=== PATIENT | male | born 1960 | race Caucasian/White ===

== ENCOUNTER → 2024-06-14 | Outpatient (CLI) | payer MEDICAID, SELFPAY ==
--- NOTE | 2024-06-14 16:30 | XR_ITS ---
Examination: CT chest, without intravenous contrast. Sagittal and coronal 2-D reconstructions. Exam date and time: June 14, 2024 1642 hrs. Indications: Smoking history 23 years CTDI:vol (mGy) 15 DLP: (mGycm) 551 Technique: Multiple 3.0 mm axial sections of the chest to been obtained. Bone and lung density settings are obtained. Sagittal and coronal 2-D reconstructions have been obtained. Low dose protocols were performed. One or more of the following dose reduction techniques were used; automated exposure control, adjustment of the mA and/or KV according to patient size, use of iterative reconstruction technique. Findings: No thoracic aortic aneurysm dilatation 12 mm left tracheobronchial lymph node Pulmonary artery segments are not enlarged 4 mm pulmonary nodule right lower lobe No pneumonia or pulmonary edema Small pericardial effusion No focal liver or splenic lesion No pancreatic mass Contracted gallbladder 1 mm nonobstructing left renal calculus Impression: 12 mm left tracheobronchial lymph node 4 mm pulmonary nodule right lower lobe, with this study as baseline recommend continued 6 month follow-up CT chest without contrast
== END | disposition home or self-care (01) ==
PROVIDERS: Referring Provider Physician Assistant; Visit Provider Physician Assistant
DX: Z12.2 Encounter for screening for malignant neoplasm of respiratory organs (principal); R91.1 Solitary pulmonary nodule
CPT/HCPCS: 71271

== ENCOUNTER 2024-08-20 07:55 | Day surgery (SDC) | payer MEDICAID, SELFPAY ==
--- NOTE | 2024-08-18 14:53 | ESHP_ITS ---
RE: EDITH HENDERSON : 1960 DATE OF ADMISSION: 08/20/2024 HISTORY OF PRESENT ILLNESS: A 63-year-old male who was referred to me with history of prostatism, prostatic obstruction and elevated PSA. His PSA is 16.1, nocturia four times, slowing urinary stream. No history of gross hematuria, sometimes little burning. PAST SURGICAL HISTORY: Tonsillectomy. PAST MEDICAL HISTORY: He had a disc problem in the lumbar area and back pain. He has a history of hypertension. SOCIAL HISTORY: He has three children. HOME MEDICATIONS: He takes; 1. Losartan. 2. Spiriva. 3. Gabapentin. 4. Baclofen. 5. Tylenol. 6. Claritin. 7. Tamsulosin 0.4 mg once a day. 8. Nifedipine ER 30 mg a day. ALLERGIES: NONE KNOWN. PHYSICAL EXAMINATION: HEENT: Normal. NECK: Supple. LUNGS: Clear. CARDIOVASCULAR: Heart sounds are normal. ABDOMEN: Soft without any organomegaly. No guarding. The patient is obese. GENITOURINARY: Phallus is normal. Testis are down in the scrotum. RECTAL: Reveals moderately enlarged prostate with some firmness in the right prostatic lobe. IMPRESSION: 1. Prostatism. 2. Prostatic obstruction. 3. Elevated PSA of 16.1. 4. History of hypertension. PLAN: Cystoscopy and transrectal prostatic ultrasound with ultrasound-guided prostatic needle biopsy. Planned procedure, risks, and complications have been discussed with the patient. The patient understood them and agreed to proceed. Thank you very much for your kind referral. cc: [facility] DT: 13:41:15 TT: 14:52:00 Ref: [id number] - TID: [id number]
--- NOTE | 2024-08-19 06:23 | EKG_ITS ---
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
[2024-08-19 08:53] VITALS: BMI 35.4
[2024-08-19 09:28] LABS: Collection Type, Urine Clean Catch
[2024-08-19 09:46] LABS: Bilirubin,Urine Negative (Negative); Blood,Urine Trace (Negative); Clarity,Urine Clear (Clear/Hazy); Color,Urine Lt-Yellow (Lt Yel-Yel); Glucose, Urine Negative (Negative); Hyaline Casts,Urine < 1 /hpf (0-1); Ketones,Urine Negative (Negative); Leukocyte Esterase,Urine Positive (Negative); Nitrite,Urine Negative (Negative); Protein,Urine 1+ (Neg - Trace); RBC,Urine 5 /hpf (0-3); Specific Gravity,Urine 1.019 (1.001-1.035); Squamous Epithelial Cell,Urine 1 /hpf (0-5); Urobilinogen,Urine Negative mg/dL (0.0-1.0); WBC,Urine 83 /hpf (0-5)
[2024-08-19 09:52] LABS: Basophils # (Auto) 0.1 Thou/mm3 (0.0-0.2); Basophils % (Auto) 1 % (0-2.5); Eosinophils # (Auto) 0.3 Thou/mm3 (0.0-0.5); Eosinophils % (Auto) 4 % (0-10); Hematocrit 32.2 % (41.0-53.0); Hemoglobin 10.2 g/dL (13.5-16.0); Immature Granulocytes % (Auto) 0 % (0-0); Immature Granulocytes Auto 0.03 Thou/mm3 (0.00-0.00); Lymphocytes # (Auto) 1.6 Thou/mm3 (1.0-4.8); Lymphocytes % (Auto) 21 % (10-50); Mean Corpuscular HGB Conc 31.7 g/dl (31.0-37.0); Mean Corpuscular Hemoglobin 34.7 pg (25.0-35.0); Mean Corpuscular Volume 110 fL (80-100); Monocytes # (Auto) 0.7 Thou/mm3 (0.0-0.8); Monocytes % (Auto) 9 % (0-12); Neutrophils # (Auto) 5.1 Thou/mm3 (1.8-7.7); Neutrophils % (Auto) 65 % (37-80); Nucleated Red Blood Cell % 0 /100 WBC (0); Platelet Count 235 Thou/mm3 (140-440); RDW Standard Deviation 60.2 fL (35.1-43.9); Red Blood Count 2.94 Miln/mm3 (4.50-5.90); White Blood Count 7.8 Thou/mm3 (3.8-10.6)
[2024-08-19 10:12] LABS: Alanine Aminotransferase 8 U/L (10-49); Albumin, Serum 4.8 gm/dL (3.4-4.8); Albumin/Globulin Ratio 1.5 (1.2-2.2); Alkaline Phosphatase 69 U/L (46-116); Anion Gap 12 (7-16); Aspartate Amino Transferase 12 U/L (0-34); BUN/Creatinine Ratio 14 Ratio (12-20); Bilirubin,Total 0.2 mg/dL (0.3-1.2); Blood Urea Nitrogen 27 mg/dL (9-23); Calcium 9.4 mg/dL (8.3-10.6); Calcium (Corrected) 9.4 mg/dL (8.5-10.1); Carbon Dioxide 20.6 mMol/L (20.0-31.0); Chloride 114 mMol/L (98-107); Estimated Creatinine Clearance 42.3 mL/min (>60); Globulin 3.1 gm/dL (2.3-3.5); Glucose 99 mg/dL (74-106); Osmolality,Calculated 297 (275-295); Potassium 4.9 mMol/L (3.4-5.1); Sodium 147 mMol/L (136-145); Total Protein 7.9 gm/dL (5.7-8.2); eGFR 37 See Note
--- NOTE | 2024-08-19 13:11 | ESHP_ITS ---
RE: EDITH HENDERSON : 1960 DATE OF ADMISSION: 08/20/2024 HISTORY OF PRESENT ILLNESS: The patient is a 63-year-old gentleman with a history of elevated PSA of 16.1, nocturia x4, slow urinary stream, some burning in the urine. PAST SURGICAL HISTORY: Included tonsillectomy. PAST MEDICAL HISTORY: The patient has a history of back pain, history of hypertension. HOME MEDICATIONS: He takes; 1. Losartan. 2. Spiriva. 3. Gabapentin. 4. Baclofen. 5. Tylenol. 6. Claritin. 7. He takes tamsulosin once daily. 8. Nifedipine. ALLERGIES: NONE KNOWN. SOCIAL HISTORY: He has 3 children. PHYSICAL EXAMINATION: HEENT: Normal. NECK: Supple. LUNGS: Clear. CARDIOVASCULAR: Heart sounds are normal. ABDOMEN: Soft. He is obese. GENITOURINARY: Phallus is normal. Testes are down in scrotum. RECTAL: Revealed moderately enlarged prostate with some firmness in the right prostatic lobe. IMPRESSION: 1. Prostatic obstruction. 2. Prostatism. 3. Elevated PSA of 16.1. PLAN: Cystoscopy and transrectal prostatic ultrasound with ultrasound-guided prostatic needle biopsy. Planned procedure, risks, and complications have been discussed with the patient. The patient has understood them and agreed to proceed. DT: 12:12:02 TT: 13:09:00 Ref: [id number] - TID: [id number]
[2024-08-20] VITALS (7 sets, daily range): BP systolic 115–137; BP diastolic 80–98; PULSE 77–104; RESP 12–19; TEMP 36.8–37.1; O2SAT 95–100; BMI 34.6
--- NOTE | 2024-08-20 09:05 | SUR.PREOP ---
Patient expressed gratitude for prayer before their procedure.
--- NOTE | 2024-08-20 10:30 | SUR.PHASEI ---
1030: pt received from OR via [facility]. received report from ESTER Diaz and JULIO White. pt sleepy at this time. no s/s of resp. distress or discomfort. no s/s of pain or discomfort. no bleeding or discharge noted from penis.
--- NOTE | 2024-08-20 10:55 | SUR.PHASEII ---
1055: pt awake, alert and oriented to name, place and time. denies any pain or discomfort. no bleeding or discharge noted from penis.
--- NOTE | 2024-08-20 10:55 | SUR.PHASEI ---
1055: pt ablew to drink water with ice without any difficulty.
--- NOTE | 2024-08-20 11:14 | ESOP_ITS ---
RE: EDITH HENDERSON : 1960 DATE OF OPERATION: 08/20/2024 PREOPERATIVE DIAGNOSES: Prostatism, prostatic obstruction, elevated PSA of 16.1. POSTOPERATIVE DIAGNOSES: Prostatism, prostatic obstruction, elevated PSA of 16.1. PROCEDURES PERFORMED: Cystoscopy, urethral dilatation, transrectal prostatic ultrasound with ultrasound-guided prostatic needle biopsy. ANESTHESIA: Monitored anesthesia by JULIO White INDICATION: The patient is a 63-year-old gentleman who was referred to me with history of nocturia x4, slowing urinary stream, elevated PSA of 16.1. Rectally, he has a moderately sized prostate with some firmness in the right prostatic lobe. He is now scheduled to have cystoscopy and transrectal prostatic ultrasound with ultrasound-guided prostatic needle biopsy. Planned procedure, risks, and complications have been discussed with the patient. The patient understood them and agreed to proceed. DESCRIPTION OF PROCEDURE: After the patient was brought to the operating table under adequate monitored anesthesia given by Mr. Christopher CRNA, he was placed in the dorsal lithotomy position. Parts were prepped and draped in the usual fashion. Cystoscopy was then carried out, which revealed adequate urethral meatus, normal-appearing urethra. Prostatic urethra revealed moderate enlargement of prostate, bilobed. Residual urine is about 2 ounces, yellow and clear and was sent for culture and sensitivity examination. There are no intravesical stones or tumors. Ureteral orifices are found to be normal in position and appearance. Scope was withdrawn. Urethra was dilated. The patient was then turned in left lateral position. Transrectal prostatic ultrasound was carried out. Prostatic volume was measured at 14.6 cubic cm. Biopsies were obtained from both lobes using ultrasound guidance. In all about 10 biopsies were obtained. The patient tolerated the entire procedure well and left the room in good condition. DT: 10:37:19 TT: 11:13:00 Ref: [id number] - TID: [id number]
--- NOTE | 2024-08-20 11:18 | SUR.PHASEII ---
1118: all belongings brought given back to patient.
--- NOTE | 2024-08-20 11:18 | SUR.PHASEII ---
1118: pt discharge to home via wheelchair. pt alert and oriented to name, place and time. no s/s of resp. distress or discomfort. denies any pain or discomfort. no bleeding or discharge noted from penis. discharge instructions given to pt and friend-Leila, verbalizes understanding. pt ambulate to the bathroom. per patient he was able void without any issues.
== END 2024-08-20 11:18 | disposition home or self-care (01) ==
PROVIDERS: Anesthesiology; PCP Family Medicine; Referring Provider Surgery; Visit Provider Surgery
PROC: (CPT 55700; principal; 2024-08-20 10:00)
PROC: 0TJB8ZZ Inspection of Bladder, Via Natural or Artificial Opening Endoscopic (ICD-10-PCS; CPT 52000; 2024-08-20 10:00)
DX: C61 Malignant neoplasm of prostate (principal); N40.1 Benign prostatic hyperplasia with lower urinary tract symptoms; N13.8 Other obstructive and reflux uropathy; R35.1 Nocturia; R39.198 Other difficulties with micturition; I10 Essential (primary) hypertension; Z90.89 Acquired absence of other organs
CPT/HCPCS: 55700; 52000; 36415; 76942; 80053; 81001; 85025; 87086; 93005; A4217; A4649; J0131; J0694; J2250; J3010

== ENCOUNTER → 2024-08-25 | Outpatient (CLI) | payer MEDICAID, SELFPAY ==
--- NOTE | 2024-08-25 10:33 | XR_ITS ---
Examination: MRI lumbar spine without contrast Date and time of exam: August 25, 2024 1131 hours INDICATIONS: Patient fell from a ladder 2004 with injury to the lower back, persistent lower back pain Technique: Multiple MRI axial and sagittal sections lumbar spine. Sagittal T2-weighted images, TR 3500, TE 118 T1 weighted transverse sections, TR 688 T8.5, T2-weighted sagittal sections T1 weighted sagittal sections TR 621, TE 30 T2 axial sections, TR 4, 190, TE 84. Findings: Mild chronic wedging T12 No lumbar fracture Lumbar fusion L4-L5 with satisfactory alignment Grade 1 anterolisthesis L4 on L5 L5-S1 moderate overall spinal stenosis, secondary to the anterolisthesis, 6 mm central lumbar disc bulge extending to the left foraminal region, displacing the left S1 nerve root and producing mild left L5 ganglionic compression L4-L5 no disc protrusion L3-L4 prominent facet arthropathy 3 mm right foraminal disc bulges L2-L3 no disc protrusion L1-L2 no disc protrusion IMPRESSION: L5-S1 moderate overall spinal stenosis, 6 mm central lumbar disc bulge extending to the left foraminal region, displacing the left S1 nerve root and producing mild left L5 ganglionic compression
== END | disposition home or self-care (01) ==
PROVIDERS: PCP Family Medicine; Referring Provider Family Medicine; Visit Provider Family Medicine
DX: M51.370 Other intervertebral disc degeneration, lumbosacral region with discogenic back pain only (principal); M48.07 Spinal stenosis, lumbosacral region; G95.20 Unspecified cord compression
CPT/HCPCS: 72148

== ENCOUNTER 2025-04-08 02:48 | Inpatient (IN) | payer MEDICAID, SELFPAY ==
[2025-04-08] VITALS (26 sets, daily range): BP systolic 115–182; BP diastolic 63–91; PULSE 70–112; RESP 12–22; TEMP 36.4–37.8; O2SAT 95–100; BMI 35.5
--- NOTE | 2025-04-08 02:52 | XR_ITS ---
Examination: CT brain head without contrast. 2-D sagittal coronal reconstructions Date and time of exam: April 08, 2025, 1133 hours INDICATIONS: Altered mental status today CTDI: vol (mGy): 60.1 DLP: (mGycm): 1303 Technique: Multiple CT axial sections of the brain have been obtained, 5 mm slice thickness. Contrast has not been administered. 2-D sagittal, coronal reconstructions have been obtained Low dose protocols were performed. One or more of the following dose reduction techniques were used; automated exposure control, adjustment of the mA and/or KV according to patient size, use of iterative reconstruction technique. Findings: No significant ventricular enlargement. Intra-axial or extra-axial hemorrhage density is not seen. No mass effect or midline shift Basal cisterns are not remarkable. Fourth ventricle is midline. Cranial vault intact. Impression: Negative for acute hemorrhage, mass effect or midline shift Advise clinical correlation and follow-up accordingly
--- NOTE | 2025-04-08 02:53 | XR_ITS ---
EXAMINATION: AP chest single view TECHNIQUE: AP portable semiupright chest single view Date and time: April 08, 2025, 0325 hours INDICATIONS: Chest pain sepsis shortness of breath beginning 2 days ago FINDINGS: Mild prominence cardiac contour Mild vascular congestion. No lobar pneumonia or pulmonary edema Prominent osteopenia IMPRESSION: No lobar pneumonia or pulmonary edema
--- NOTE | 2025-04-08 02:53 | EKG_ITS ---
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
--- NOTE | 2025-04-08 02:55 | PD.EDAMS ---
Altered Mental Status RME/HPI General Chief Complaint: Altered Mental Status Stated Complaint: AMS Time Seen by Provider: 04/08/25 02:52 Arrival date/time: 04/08/25 02:48 RME / HPI RME / HPI narrative: DR. VELEZ MAIN ED EVALUATION: 64 y/o male with Hx of HTN, COPD, CHF, and Emphysema BIBA from home presents to ED c/o decreased mentation and vomiting x3 days. Per , patient is usually GCS 15 and is currently 14. Blood sugar on scene was 80 mg/dL. Per EMS, patient there was no apparent weakness or droop to either side. Both and home appeared disheveled. Neither nor patient are reliable historians. Related Data Home Medications ?Medication ?Instructions ?Recorded ?Confirmed albuterol sulfate 90 mcg/actuation 2 puff inhalation Q6H PRN 04/06/21 08/20/24 aerosol inhaler Shortness Of Breath fluticasone propionate 50 1 spray intranasal QDAY 04/06/21 08/20/24 mcg/actuation nasal spray,suspension loratadine 10 mg tablet 10 mg PO QDAY 04/06/21 08/20/24 acetaminophen 500 mg tablet 500 mg PO Q6H PRN pain 08/19/24 08/20/24 baclofen 10 mg tablet 10 mg PO DAILY PRN muscle spasm 08/19/24 08/20/24 ciprofloxacin HCl 500 mg tablet 500 mg PO Q12H 08/19/24 08/20/24 fluticasone propionate 45 2 inh inhalation Q12H 08/19/24 08/20/24 mcg-salmeterol 21 mcg/actuation HFA inhaler (Advair HFA) gabapentin 300 mg capsule 300 mg PO TID 08/19/24 08/20/24 losartan 100 mg tablet 100 mg PO DAILY 08/19/24 08/20/24 nifedipine 30 mg tablet,extended 30 mg PO DAILY 08/19/24 08/19/24 release tamsulosin 0.4 mg capsule (Flomax) 0.4 mg PO QDAY 08/19/24 08/20/24 tiotropium bromide 18 mcg capsule 1 cap inhalation QDAY 08/19/24 08/20/24 with inhalation device (Spiriva with HandiHaler) Allergies Allergy/AdvReac Type Severity Reaction Status Date / Time No Known Allergies Allergy Verified 08/20/24 08:44 Review of Systems Review of Systems ROS Unobtainable: unobtainable due to mental status Past Medical History Past Medical History CARDIAC: Positive Hypertension RESPIRATORY: Positive Chronic Obstructive Pulmonary Disease (COPD), Bronchitis, Emphysema and Pneumonia GASTROINTESTINAL: Positive Gastrointestinal Disorders and Obesity GENITOURINARY: Positive Genitourinary Disorders and Benign Prostatic Hyperplasia MUSCULOSKELETAL: Positive Musculoskeletal Disorders and Degenerative Disk Disease OTHER HISTORY: Positive Hospitalization (Breathing issues), Shingles and Chicken Pox Family History FAMILY HISTORY: Positive Family Cancer and Family Surgery ED Exam Narrative Physical exam: GEN. APPEARANCE: Patient not aware to place or time. lethargic, aware to self. Appears acutely ill VITALS: All vitals were reviewed and the pulse ox is 95% on room air which is normal according to my interpretation. HEENT: Normocephalic, atraumatic. Pupils are equal and reactive. Oral mucosa is moist. Patent Nares NECK: Supple, nontender, no thyromegaly, no meningismus, no JVD CHEST: Symmetrical, atraumatic, and with equal expansion , Nontender on palpation no deformity and no crepitus. CARDIOVASCULAR: Heart regular rhythm no murmur or gallop rub or extra beats. LUNGS: Patient with sonorous breathing, clear to auscultation bilaterally with symmetrical chest rise. No laboring tachypnea or wheezing. No intercostal subcostal retraction. No rales and no rhonchi. ABDOMEN: Distended, nontender to palpation, no guarding or rebound tenderness. There are no abnormal masses palpated. Active and normal bowel sounds. EXTREMITIES: Nontender. No edema. No cyanosis. Patient has some movement against gravity and good CSM. SKIN: Warm and dry, no jaundice or rashes noted. MUSCULOSKELETAL: No lumbar or midline bony tenderness. There is no CVA tenderness. No paraspinal muscle spasm or tenderness. NEURO: Patient reacts to pain in all 4 extremities, alert and oriented to person and place not situation. Patient extremely sleepy however will lower as a question source. Course Quality Measures none Orders Category Date Time Status Admit to Inpatient Status Routine Admission 04/08/25 07:01 Active Patient Condition Routine Admission 04/08/25 07:01 Ordered 4 HR Behavioral Restraints Q15M Care 04/08/25 06:23 Active Bedside Blood Glucose NOW Care 04/08/25 02:53 Active Bedside COVID-19 Antigen Test NOW Care 04/08/25 02:55 Active Bedside Influenza A&B Antigen Test NOW Care 04/08/25 02:[address] Screening NOW Care 04/08/25 03:25 Active Manager Appointment Q4H START 00 Care 04/08/25 02:53 Active EKG (ED ONLY) *Do not use* NOW Care 04/08/25 03:05 Completed [place] to [place] Routine Care 04/08/25 06:39 Ordered Hemodialysis Urgent Care 04/08/25 05:15 Active Insert IV NOW Care 04/08/25 02:53 Active Strict Intake and Output Routine Care 04/08/25 02:[address] chest abdomen pelvis wo Stat Exams 04/08/25 06:[address] head/brain wo con Stat Exams 04/08/25 02:52 Ordered EKG (ED Only) Stat Exams 04/08/25 03:05 Ordered US retroperitoneal comp Stat Exams 04/08/25 06:26 Taken XR chest 1V SEPSIS PROTOCOL Stat Exams 04/08/25 02:53 Taken XR chest 1V post procedure Stat Exams 04/08/25 05:53 Taken ABG [Arterial Blood Gas] Stat Lab 04/08/25 04:01 Completed ABG [Arterial Blood Gas] Stat Lab 04/08/25 06:11 Completed Acetaminophen Stat Lab 04/08/25 03:00 Completed Ammonia Stat Lab 04/08/25 03:00 Completed Blood Culture (Lab) Stat Lab 04/08/25 03:00 Received CBC Stat Lab 04/08/25 03:00 Completed Comprehensive Metabolic Panel Stat Lab 04/08/25 03:00 Completed Free T4 (Free Thyroxine) Stat Lab 04/08/25 03:00 Completed Lactate (Lactic Acid) Stat Lab 04/08/25 03:10 Completed Partial Thromboplastin Time Stat Lab 04/08/25 03:00 Completed Procalcitonin Stat Lab 04/08/25 03:00 Completed Prothrombin Time with INR Stat Lab 04/08/25 03:00 Completed Renal Function Panel Stat Lab 04/08/25 11:00 Ordered Salicylate Stat Lab 04/08/25 03:00 Completed TSH [Thyroid Stimulating Hormone] Stat Lab 04/08/25 03:00 Completed Troponin I Stat Lab 04/08/25 03:00 Completed UA, C/S IF [Urinalysis, C/S if Indicated] Stat Lab 04/08/25 06:40 Ordered Urine Culture Stat Lab 04/08/25 06:40 Ordered ALBUTEROL RT 0.5ml [Proventil Rt 0.5ml] Med 04/08/25 04:36 Discontinued 2.5 mg INH X1 ONE Calcium Gluconate 10% Inj Med 04/08/25 04:32 Discontinued 1 gm IV X1 ONE Dextrose 5%-Water [D5w] 500 ml Med 04/08/25 07:00 Pending Sodium Bicarb 8.4% 50ml Vial* 88.23 meq IV 100 mls/hr Dextrose 5%-Water [D5w] 500 ml Med 04/08/25 07:15 Active Sodium Bicarb 8.4% 50ml Vial* 88.23 meq IV 100 mls/hr Dextrose 50% Syr [D50w Syringe Abboject] Med 04/08/25 04:32 Discontinued 100 ml IVP X1 ONE Dextrose 50% Syr [D50w Syringe Abboject] Med 04/08/25 03:07 Discontinued 50 ml IVP X1 ONE Dextrose 50% Syr [D50w Syringe Abboject] Med 04/08/25 03:24 Discontinued 50 ml IVP X1 ONE Dextrose 50% Syr [D50w Syringe Abboject] Med 04/08/25 05:07 Discontinued 50 ml IVP X1 ONE Glucagon Inj Med 04/08/25 04:19 Discontinued 5 mg IVP X1 ONE Insulin Regular Med 04/08/25 04:32 Discontinued 10 unit IV X1 ONE Lidocaine 1% Vial 20 ml [Xylocaine 1% 20 ML] Med 04/08/25 05:22 Discontinued 20 ml .ROUTE .STK-MED ONE Patiromer Calcium [Veltassa] Med 04/08/25 05:14 Discontinued 8.4 gm PO X1 ONE Ringers Lactated 1000 ml [Lactated Ringers] 1,000 ml Med 04/08/25 04:30 Discontinued IV 999 mls/hr Sodium Bicarb 8.4% 50ml Vial* Med 04/08/25 04:49 Discontinued 50 meq IV X1 ONE EKG (RT) Stat RT 04/08/25 02:53 Draft Oxygen Delivery NOW RT 04/08/25 02:53 Active Vital Signs Vital signs: Vital Signs Pulse Rate 108 H 04/08/25 02:49 Respiratory Rate 20 04/08/25 02:49 Blood Pressure 158/65 H 04/08/25 02:49 Pulse Oximetry (%) 96 04/08/25 02:49 Oxygen Delivery Method Room Air 04/08/25 02:49 PROCEDURES: Procedure Comment Right IJ Dialysis Line: Time Out Performed: Yes Patient Placed on Monitor/Pulse Ox: Yes Hand Hygiene: scrub, soap & water and alcohol-based hand rub Max Sterile Barrier Techniques used: cap, mask, sterile gown, sterile gloves and sterile full body drape Central Line Prep: Povidone-Iodine 1% Local Anesthetic: lidocaine 1% Ultrasound Used for Placement: Yes Sterile Technique if Ultrasound used, including sterile gel: yes Dialysis Line Lumen Inserted: triple dialysis catheter Post Procedure: sutured in place, good blood return, all ports aspirated, flushed, capped and sterile dressing applied Post Procedure X-Ray: tip of catheter in good position and no pneumothorax seen Patient Tolerated Procedure: no complications Complications: none Altered Mental Status MDM Narrative MDM Narrative:: Scribe Attestation: Evelin Duke, am scribing for and in the presence of Dr. Velez. Provider Notation: Although this document has been carefully reviewed, there may still be some phonetic and other typographical errors. These errors are purely grammatical due to imperfections in the software program and should not be construed in any way to compromise the substance of the patient's medical care during this visit. Patient is a 64-year-old male with medical history notable for chronic pain, hypertension that send emergency department altered mental status for the last 2 days. Patient also with sonorous breathing. Vital signs and exam as listed. Patient alert and oriented to person and place however not situation. Patient is lethargic, however arouses to voice. Concern for intracranial hemorrhage, pneumonia, intra-abdominal pathology obstruction, ACS arrhythmia urinary tract infection, among others. Ordered labs, CT head, EKG. Labs with leukocytosis 10.8, left shift of 81%. Hemoglobin 8.0, previously 12. No signs of bleeding. Blood gas with pH of 7.1, bicarb 15, pCO2 normal, patient with metabolic acidosis. Labs notable for a potassium of 7.8, bicarb of 14, creatinine of 4.7. Patient's renal function previously was normal. Lactic acid was normal. No transaminitis and ammonia level normal troponin not elevated procalcitonin normal thyroid studies unremarkable. Salicylate and Tylenol level not elevated. ordered medical dialysis with calcium gluconate, insulin, dextrose, and an amp of bicarb. Also ordered a liter of fluids. Placed the dialysis catheter emergently. Patient is altered and is unable to give consent. Discussed with Dr Swann on-call mechanotherapist kindly placed dialysis orders. Discussed case with ICU, kindly accepts patient for admission. Patient data External records reviewed:: [facility] previous records (Reviewed prior ED records from 04/06/21. Patient was seen for Acute exacerbation of chronic obstructive airways disease.) and EMS form Clinical information provided by:: EMS Social determinants that could affect healthcare access:: none Patient has the following chronic illnesses:: Hypertension, Chronic Obstructive Pulmonary Disease (COPD), Emphysema, Obesity, Benign Prostatic Hyperplasia, Degenerative Disk Disease How is presenting disease/condition affected by chronic disease/condition?: exacerbated by Evaluation data The following diagnostics were reviewed and interpreted by me:: lab results, radiology exam(s) and EKG tracing(s) (EKG done at xxxx, bpm, normal intervals, non-specific T-wave changes, not a cardiac alert. - Interpreted by Dr. Rayna Velez.) Lab and/or radiology exams considered but not ordered:: None Interpretation Summary: RADIOLOGY Chest X-Ray: Pending official radiology report. Post-Procedure Chest X-Ray: Pending official radiology report. Chest/Abdomen/Pelvis CT: Pending official radiology report. Head/Brain CT: Pending official radiology report. Medications / Prescriptions Medications or Prescriptions considered but not ordered:: None Medication administrations:: Medication Administration History Sodium Bicarbonate 88.23 meq/ (Dextrose) 588.23 mls @ 100 mls/hr IV .Q5H53M OLI Stop: 05/08/25 06:59 Sodium Bicarbonate 88.23 meq/ (Dextrose) 588.23 mls @ 100 mls/hr IV .Q5H53M ONE Stop: 04/08/25 13:07 Discontinued Medications Albuterol (Albuterol Rt 2.5 Mg/0.5 Ml Nebu) 2.5 mg INH X1 ONE Stop: 04/08/25 04:37 Last Admin: 04/08/25 04:53 Dose: 2.5 mg Documented By: [email or web address] Calcium Gluconate (Calcium Gluconate 10% Inj 1 Gm/10 Ml Vial) 1 gm IV X1 ONE Stop: 04/08/25 04:33 Last Admin: 04/08/25 05:09 Dose: 1 gm Documented By: Dextrose (Dextrose 50%-Water Inj 50 Ml Syringe) 50 ml IVP X1 ONE Stop: 04/08/25 03:08 Last Admin: 04/08/25 03:22 Dose: Not Given Documented By: SR Non-Admin Reason: Cancelled by Provider Dextrose (Dextrose 50%-Water Inj 50 Ml Syringe) 50 ml IVP X1 ONE Stop: 04/08/25 03:25 Last Admin: 04/08/25 04:03 Dose: 50 ml Documented By: Dextrose (Dextrose 50%-Water Inj 50 Ml Syringe) 100 ml IVP X1 ONE Stop: 04/08/25 04:33 Last Admin: 04/08/25 05:01 Dose: 100 ml Documented By: Dextrose (Dextrose 50%-Water Inj 50 Ml Syringe) 50 ml IVP X1 ONE Stop: 04/08/25 05:08 Last Admin: 04/08/25 05:07 Dose: 50 ml Documented By: Glucagon (Glucagon Inj 1 Mg Vial) 5 mg IVP X1 ONE Stop: 04/08/25 04:20 Last Admin: 04/08/25 06:44 Dose: Not Given Documented By: SR Non-Admin Reason: Cancelled by Provider Lactated Ringer's (Lactated Ringers) 1,000 mls @ 999 mls/hr IV .Q1H1M ONE Stop: 04/08/25 05:30 Last Admin: 04/08/25 05:10 Dose: 999 mls/hr Documented By: Insulin Human Regular (Insulin Hum Regular 1 Unit/0.01 Ml (Per Unit)) 10 unit 0.1 unit/kg (10 unit) IV X1 ONE Stop: 04/08/25 04:33 Last Admin: 04/08/25 05:03 Dose: 10 unit Documented By: Co-signed By: MARTHA Lidocaine HCl (Lidocaine Hcl 1% 20 Ml Vial) Confirm Administered Dose 20 ml .ROUTE .STK-MED ONE Stop: 04/08/25 05:23 Patiromer (Patiromer Calcium 8.4 Gm Packet) 8.4 gm PO X1 ONE Stop: 04/08/25 05:15 Last Admin: 04/08/25 06:44 Dose: Not Given Documented By: Non-Admin Reason: Cancelled by Provider Sodium Bicarbonate (Sodium Bicarb Inj 8.4% 1 Meq/Ml 50 Ml Vial) 50 meq IV X1 ONE Stop: 04/08/25 04:50 Last Admin: 04/08/25 05:11 Dose: 50 meq Documented By: SR See above if any. Consultations Consultation(s) initiated? (list below): Yes Consultation #1 (Physician, Specialty, Details): Discussed with Dr. Swann for ICU admission. Reviewed the patient?s HPI, PMHx, lab and/or radiology results. Discussed treatment plan. Will consult an admission to the smt technician. Time: 05:00 Consultation #2 (Physician, Specialty, Details): Discussed with smt technician for ICU admission. Reviewed the patient?s HPI, PMHx, lab and/or radiology results. Discussed treatment plan. Will accept patient for admission. Time: 06:52 Diagnosis Differential diagnosis altered mental status: altered mental status, delirium, hypoglycemia, hyponatremia, subarachnoid hemorrhage, sepsis and other (DKA, ESRD) Most likely diagnosis given after review of the tests above:: Acute renal failure, Acute hyperkalemia, Altered mental status, Metabolic acidosis Admission Indicated Admission indicated?: indicated Explain why admission is indicated or not indicated:: Acute renal failure, Acute hyperkalemia, Altered mental status, Metabolic acidosis Admission Request Was there a request for admission?: Yes Admission Attestation Admission request attestation: Discussed case with Hospitalist service regarding admission. Discussed patients ED course, exam findings, labs, and radiology results. The Hospitalist [agrees] to accept the patient for admission. Disposition Plan Disposition Plan: Admit Critical Care Time Critical Care Time Critical Care Time: Yes Total Critical Care Time (min.): 120 Attestation: The high probability of sudden, clinically significant deterioration in the patient?s condition required the highest level of my preparedness to intervene urgently. The services I provided to this patient were to treat and/or prevent clinically significant deterioration. Services included the following: chart data review, reviewing nursing notes and/or old charts, documentation time, email production consultant collaboration regarding findings and treatment options, medication orders and management, direct patient care, vital sign assessments and ordering, interpreting and reviewing diagnostic studies and lab tests. Aggregate critical care time includes only time during which I was engaged in work directly related to the patient?s care, as described above, whether at bedside or elsewhere in the Emergency Department. It did not include time spent performing other reported procedures or the services of residents, students, nurses or physician assistants. Discharge Plan Prescriptions/Referrals Prescriptions/Med Rec: No Action albuterol sulfate 90 mcg/actuation Hfa Aerosol Inhaler 2 puff INHALATION Q6H PRN (Reason: Shortness Of Breath) fluticasone propionate 50 mcg/actuation [place],Suspension 1 spray INTRANASAL QDAY loratadine 10 mg Tablet 10 mg PO QDAY acetaminophen 500 mg tablet 500 mg PO Q6H PRN (Reason: pain) Patient Comments: TAKE 1 TABLET BY MOUTH EVERY 6 HOURS NEEDED FOR 14 DAYS tamsulosin [Flomax] 0.4 mg capsule 0.4 mg PO QDAY ciprofloxacin HCl 500 mg tablet 500 mg PO Q12H Patient Comments: TAKE 1 TABLET BY MOUTH TWICE A DAY. START ON Fri08/18/2024 losartan 100 mg tablet 100 mg PO DAILY Patient Comments: TAKE 1 TABLET BY MOUTH EVERY DAY FOR 90 DAYS nifedipine 30 mg tablet extended release 30 mg PO DAILY gabapentin 300 mg capsule 300 mg PO TID Patient Comments: TAKE 1 CAPSULE BY MOUTH THREE TIMES A DAY baclofen 10 mg tablet 10 mg PO DAILY PRN (Reason: muscle spasm) Patient Comments: TAKE 1 TABLET BY MOUTH EVERY DAY NEEDED FOR 90 DAYS tiotropium bromide [Spiriva with HandiHaler] 18 mcg capsule, w/inhalation device 1 cap inhalation QDAY Rx Instructions: puncture 1 cap using device; one dose = 2 inhalations fluticasone propion-salmeterol [Advair HFA] 45-21 mcg/actuation HFA aerosol inhaler 2 inh inhalation Q12H Referrals: Yosi Jenkins MD [Primary Care Provider] - In 1 week Problem List Clinical Impression: Acute renal failure, Acute hyperkalemia, Altered mental status, Metabolic acidosis Patient/Caregiver Discharge Instructions Print Language: Swedish
[2025-04-08 03:34] LABS: Lactate (Lactic Acid) 1.7 mMol/L (0.4-2.0)
[2025-04-08 03:38] LABS: Basophils # (Auto) 0.1 Thou/mm3 (0.0-0.2); Basophils % (Auto) 1 % (0-2.5); Eosinophils # (Auto) 0.1 Thou/mm3 (0.0-0.5); Eosinophils % (Auto) 1 % (0-10); Hematocrit 25.9 % (41.0-53.0); Hemoglobin 8.0 g/dL (13.5-16.0); Immature Granulocytes Auto 0.28 Thou/mm3 (0.00-0.00); Lymphocytes # (Auto) 1.1 Thou/mm3 (1.0-4.8); Lymphocytes % (Auto) 10 % (10-50); Mean Corpuscular HGB Conc 30.9 g/dl (31.0-37.0); Mean Corpuscular Hemoglobin 36.4 pg (25.0-35.0); Mean Corpuscular Volume 118 fL (80-100); Monocytes # (Auto) 0.6 Thou/mm3 (0.0-0.8); Monocytes % (Auto) 6 % (0-12); Neutrophils # (Auto) 8.8 Thou/mm3 (1.8-7.7); Neutrophils % (Auto) 81 % (37-80); Nucleated Red Blood Cell # 0.03 Thou/mm3 (0.00-0.00); Nucleated Red Blood Cell % 0 /100 WBC (0); Platelet Count 201 Thou/mm3 (140-440); RDW Standard Deviation 63.4 fL (35.1-43.9); Red Blood Count 2.20 Miln/mm3 (4.50-5.90); White Blood Count 10.8 Thou/mm3 (3.8-10.6)
[2025-04-08 03:52] LABS: INR 1.0 (0.9-1.3); Partial Thromboplastin Time 24.8 Seconds (22.0-36.0); Prothrombin Time 10.4 Seconds (9.0-12.2)
[2025-04-08] MEDS: DEXTROSE 50%-WATER INJ 50 ML SYRINGE IVP ×3 (04:03→07:31)
[2025-04-08 04:04] LABS: Ammonia 14 uMol/L (11-32)
[2025-04-08 04:08] LABS: Base Excess -14 (-3-3); HCO3 13 mEq/L (20-26); O2 Saturation 96 % (91-98); PCO2 35 mmHg (32.0-48.0); PO2 85 mmHg (83-108)
[2025-04-08 04:10] LABS: Inspired Oxygen, FIO2 21 %
[2025-04-08 04:13] LABS: Allen Test Performed/OK; Puncture Site Right Radial; pH, Arterial 7.19 (7.35-7.45)
[2025-04-08 04:28] LABS: Acetaminophen < 2.0 mcg/mL (10.0-20.0); Alanine Aminotransferase 41 U/L (10-49); Albumin, Serum 4.6 gm/dL (3.4-4.8); Albumin/Globulin Ratio 1.6 (1.2-2.2); Alkaline Phosphatase 69 U/L (46-116); Anion Gap 13 (7-16); Aspartate Amino Transferase 34 U/L (0-34); BUN/Creatinine Ratio 16 Ratio (12-20); Bilirubin,Total 0.4 mg/dL (0.3-1.2); Blood Urea Nitrogen 73 mg/dL (9-23); Calcium 8.6 mg/dL (8.3-10.6); Calcium (Corrected) 8.6 mg/dL (8.5-10.1); Chloride 117 mMol/L (98-107); Creatinine (Component) 4.7 mg/dL (0.6-1.3); Estimated Creatinine Clearance 17.8 mL/min (>60); Free T4 (Free Thyroxine) 0.91 ng/dL (0.89-1.76); Globulin 2.9 gm/dL (2.3-3.5); Glucose 74 mg/dL (74-106); Osmolality,Calculated 307 (275-295); Procalcitonin 0.39 ng/ml (0.0-0.49); Salicylate < 3.0 mg/dL; Sodium 144 mMol/L (136-145); Thyroid Stimulating Hormone 0.90 uIU/mL (0.55-4.78); Total Protein 7.5 gm/dL (5.7-8.2); Troponin I < 0.020 ng/mL (0.0-0.045); eGFR 13 See Note
[2025-04-08 04:31] LABS: Carbon Dioxide 14.0 mMol/L (20.0-31.0); Potassium 7.8 mMol/L (3.4-5.1)
[2025-04-08] MEDS: ALBUTEROL RT 2.5 MG/0.5 ML NEBU INH (04:53)
[2025-04-08] MEDS: DEXTROSE 50%-WATER INJ 50 ML SYRINGE 100 ML IVP (05:01)
[2025-04-08] MEDS: INSULIN HUM REGULAR 1 UNIT/0.01 ML (PER UNIT) 10 UNIT IV (05:03)
[2025-04-08] MEDS: CALCIUM GLUCONATE 10% INJ 1 GM/10 ML VIAL IV (05:09)
[2025-04-08] MEDS: RINGERS LACTATED 1000 ML 1,000 ML 999 ML IV (05:10)
[2025-04-08] MEDS: SODIUM BICARB INJ 8.4% 1 mEq/ML 50 ML VIAL 50 MEQ IV (05:11)
--- NOTE | 2025-04-08 05:17 | PC.NURSE ---
Dr. Hyatt at bedside attempting a triple lumen access for patient. Time out completed. Medications administered as ordered by .
--- NOTE | 2025-04-08 05:53 | XR_ITS ---
EXAMINATION: AP chest single view TECHNIQUE: AP portable semiupright chest single view Date and time: April 08, 2025, 0607 hours INDICATIONS: Post temporary dialysis catheter placement FINDINGS: Right internal jugular temporary dialysis catheter tip SVC satisfactory position, no pneumothorax Mild to moderate cardiac contour with moderate vascular congestion No lobar pneumonia Prominent osteopenia IMPRESSION: Right internal jugular temporary dialysis catheter tip SVC satisfactory position No pneumothorax
[2025-04-08 06:15] LABS: Base Excess -10 (-3-3); HCO3 17 mEq/L (20-26); Inspired O2, VO2 Liters 5 L/min; O2 Saturation 99 % (91-98); PCO2 39 mmHg (32.0-48.0); PO2 117 mmHg (83-108); pH, Arterial 7.24 (7.35-7.45)
[2025-04-08 06:18] LABS: Allen Test Performed/OK; Puncture Site Right Radial
--- NOTE | 2025-04-08 06:26 | XR_ITS ---
Examination: Retroperitoneal ultrasound, complete Technique: Multiple high resolution grayscale images of the retroperitoneum obtained, including kidneys and bladder. Exam date and time: April 08, 2025, 1453 hours INDICATIONS: Acute renal insufficiency on laboratory examination this week. FINDINGS: Right kidney obscured by bowel gas Left kidney 14.5 cm cortex 1.6 cm Severe renal scarring 7.5 cm lower pole cyst Bladder contracted around a Gómez catheter IMPRESSION: Limited study, no diagnostic visualization right kidney obscured by bowel gas Severe scarring left kidney
--- NOTE | 2025-04-08 06:45 | XR_ITS ---
Examination: CT chest, without intravenous contrast. CT abdomen, without intravenous contrast. CT pelvis, without intravenous contrast. 2-D sagittal and coronal reconstructions. 3-D reconstructions. Date and time of exam: April 08, 2025, 1137 hours, comparison 2024 INDICATIONS: Altered mental status today shortness of breath coughing congestion abdominal pain CTDI vol (mgy) 16.4 DLP (MGycm) 1268 Technique: Multiple CT images, 3.0 mm slice thickness, obtained chest, abdomen, pelvis, with the high-resolution 64 slice scanner.. Sagittal and coronal 2-D reconstructions are obtained. 3-D reconstructions Low dose protocols were performed. One or more of the following dose reduction techniques were used; automated exposure control, adjustment of the mA and/or KV according to patient size, use of iterative reconstruction technique. Findings: No thoracic aortic aneurysmal dilatation Stable 12 mm tracheobronchial lymph node No thoracic aortic aneurysm dilatation Pulmonary artery segments are not enlarged Mild calcification left anterior descending coronary artery Stable 4 mm pulmonary nodule right lower lobe Soft densities in the right upper lobe consistent with early pneumonia No visualized liver or splenic lesion Gallbladder is not visualized No pancreatic or adrenal mass 6.5 cm left renal cyst Right pelvic kidney with tiny 1 to 2 mm renal calculi, no hydronephrosis No bowel obstruction No pericecal inflammatory change No diverticulitis Urinary bladder contracted around a Gómez catheter Mild prostatomegaly Severe osteopenia with fusion L4-L5 and advanced degenerative disc disease L5-S1 IMPRESSION: Early right upper lobe pneumonia Stable 4 mm pulmonary nodule right lower lobe No pulmonary edema Large left renal cyst Right pelvic kidney with tiny calculi but no hydronephrosis No bowel obstruction or diverticulitis
--- NOTE | 2025-04-08 07:15 | PD.RESHP ---
Documentation for date of: 04/08/25 Exam Vital Signs Temp Pulse Resp BP Pulse Ox O2 Del Method O2 Flow Rate 99.2 F 93 12 123/83 98 Oxy Mask 3 04/08/25 06:22 04/08/25 06:22 04/08/25 06:22 04/08/25 06:22 04/08/25 06:22 04/08/25 06:22 04/08/25 06:22 Results: Labs 04/08/25 03:00 04/08/25 03:00 Labs: Short CBC 04/08/25 Range/Units 03:00 WBC 10.8 H (3.8-10.6) Thou/mm3 Hgb 8.0 L (13.5-16.0) g/dL Hct 25.9 L (41.0-53.0) % Plt Count 201 (140-440) Thou/mm3 BMP 04/08/25 03:00 Sodium 144 Potassium 7.8 H* Chloride 117 H Carbon Dioxide 14.0 L* BUN 73 H Creatinine 4.7 H* Glucose 74 Calcium 8.6 Cardiac Enzymes 04/08/25 Range/Units 03:00 Troponin I < 0.020 (0.0-0.045) ng/mL Liver Function 04/08/25 Range/Units 03:00 Total Bilirubin 0.4 (0.3-1.2) mg/dL AST 34 (0-34) U/L ALT 41 (10-49) U/L Alkaline Phosphatase 69 (46-116) U/L Albumin 4.6 (3.4-4.8) gm/dL ABG Interpretation ABG results: 04/08/25 04/08/25 04:01 06:11 ABG pH 7.19 L* 7.24 L ABG pCO2 35 39 ABG pO2 85 117 H D ABG HCO3 13 L 17 L ABG O2 Saturation 96 99 H ABG Base Excess -14 L -10 L Quality Measures Quality Measures none Medications Home Medications and Allergies Home Medications ?Medication ?Instructions ?Recorded ?Confirmed ?Type albuterol sulfate 90 mcg/actuation 2 puff inhalation Q6H PRN 04/06/21 08/20/24 History aerosol inhaler Shortness Of Breath fluticasone propionate 50 1 spray intranasal QDAY 04/06/21 08/20/24 History mcg/actuation nasal spray,suspension loratadine 10 mg tablet 10 mg PO QDAY 04/06/21 08/20/24 History acetaminophen 500 mg tablet 500 mg PO Q6H PRN pain 08/19/24 08/20/24 History baclofen 10 mg tablet 10 mg PO DAILY PRN muscle spasm 08/19/24 08/20/24 History ciprofloxacin HCl 500 mg tablet 500 mg PO Q12H 08/19/24 08/20/24 History fluticasone propionate 45 2 inh inhalation Q12H 08/19/24 08/20/24 History mcg-salmeterol 21 mcg/actuation HFA inhaler (Advair HFA) gabapentin 300 mg capsule 300 mg PO TID 08/19/24 08/20/24 History losartan 100 mg tablet 100 mg PO DAILY 08/19/24 08/20/24 History nifedipine 30 mg tablet,extended 30 mg PO DAILY 08/19/24 08/19/24 History release tamsulosin 0.4 mg capsule (Flomax) 0.4 mg PO QDAY 08/19/24 08/20/24 History tiotropium bromide 18 mcg capsule 1 cap inhalation QDAY 08/19/24 08/20/24 History with inhalation device (Spiriva with HandiHaler) Allergies Allergy/AdvReac Type Severity Reaction Status Date / Time No Known Allergies Allergy Verified 08/20/24 08:44 Visit Medications Sodium Bicarbonate 88.23 meq/ (Dextrose) 588.23 mls @ 100 mls/hr IV .Q5H53M OLI Stop: 05/08/25 06:59 Sodium Bicarbonate 88.23 meq/ (Dextrose) 588.23 mls @ 100 mls/hr IV .Q5H53M ONE Stop: 04/08/25 13:07 Discontinued Medications Albuterol (Albuterol Rt 2.5 Mg/0.5 Ml Nebu) 2.5 mg INH X1 ONE Stop: 04/08/25 04:37 Last Admin: 04/08/25 04:53 Dose: 2.5 mg Calcium Gluconate (Calcium Gluconate 10% Inj 1 Gm/10 Ml Vial) 1 gm IV X1 ONE Stop: 04/08/25 04:33 Last Admin: 04/08/25 05:09 Dose: 1 gm Dextrose (Dextrose 50%-Water Inj 50 Ml Syringe) 50 ml IVP X1 ONE Stop: 04/08/25 03:08 Last Admin: 04/08/25 03:22 Dose: Not Given Dextrose (Dextrose 50%-Water Inj 50 Ml Syringe) 50 ml IVP X1 ONE Stop: 04/08/25 03:25 Last Admin: 04/08/25 04:03 Dose: 50 ml Dextrose (Dextrose 50%-Water Inj 50 Ml Syringe) 100 ml IVP X1 ONE Stop: 04/08/25 04:33 Last Admin: 04/08/25 05:01 Dose: 100 ml Dextrose (Dextrose 50%-Water Inj 50 Ml Syringe) 50 ml IVP X1 ONE Stop: 04/08/25 05:08 Last Admin: 04/08/25 05:07 Dose: 50 ml Glucagon (Glucagon Inj 1 Mg Vial) 5 mg IVP X1 ONE Stop: 04/08/25 04:20 Last Admin: 04/08/25 06:44 Dose: Not Given Lactated Ringer's (Lactated Ringers) 1,000 mls @ 999 mls/hr IV .Q1H1M ONE Stop: 04/08/25 05:30 Last Admin: 04/08/25 05:10 Dose: 999 mls/hr Insulin Human Regular (Insulin Hum Regular 1 Unit/0.01 Ml (Per Unit)) 10 unit 0.1 unit/kg (10 unit) IV X1 ONE Stop: 04/08/25 04:33 Last Admin: 04/08/25 05:03 Dose: 10 unit Patiromer (Patiromer Calcium 8.4 Gm Packet) 8.4 gm PO X1 ONE Stop: 04/08/25 05:15 Last Admin: 04/08/25 06:44 Dose: Not Given Sodium Bicarbonate (Sodium Bicarb Inj 8.4% 1 Meq/Ml 50 Ml Vial) 50 meq IV X1 ONE Stop: 04/08/25 04:50 Last Admin: 04/08/25 05:11 Dose: 50 meq
[2025-04-08 07:17] LABS: Collection Type, Urine Catheter
[2025-04-08] MEDS: LIDOCAINE HCL 1% 20 ML VIAL IM (07:23)
[2025-04-08 07:31] LABS: Bacteria,Urine Rare; Bilirubin,Urine Negative (Negative); Blood,Urine Trace (Negative); Clarity,Urine Clear (Clear/Hazy); Color,Urine Lt-Yellow (Lt Yel-Yel); Glucose, Urine Negative (Negative); Hyaline Casts,Urine < 1 /hpf (0-1); Ketones,Urine Trace (Negative); Leukocyte Esterase,Urine Positive (Negative); Nitrite,Urine Negative (Negative); PH,Urine 5.5 (5.0-7.0); Protein,Urine 1+ (Neg - Trace); RBC,Urine 3 /hpf (0-3); Specific Gravity,Urine 1.019 (1.001-1.035); Squamous Epithelial Cell,Urine 1 /hpf (0-5); Urobilinogen,Urine Negative mg/dL (0.0-1.0); WBC,Urine 31 /hpf (0-5)
--- NOTE | 2025-04-08 08:06 | PC.NURSE ---
patient taken to ICU at this time
--- NOTE | 2025-04-08 08:11 | PC.NURSE ---
patient was taken to dialysis at this time
--- NOTE | 2025-04-08 08:28 | PC.NURSE ---
SISTER JOSE ALEJANDRO [phone]
[2025-04-08 08:35] LABS: Culture Indicated,Urine Yes
[2025-04-08] MEDS: HEPARIN SOD INJ 1000 UNIT/ML VIAL 10 ML 2600 UNIT INDWELLCAT (10:25)
--- NOTE | 2025-04-08 10:43 | PC.NURSE ---
patient brought back from dialysis
--- NOTE | 2025-04-08 10:50 | PC.NURSE ---
patient was taken to dialysis at 0811 was unable to chart wrist restraints because patient was upstairs patient returned form dialysis at 1043 and behavioral restraint order time passed. talked to dr allison and will now be placing patient on medical restraints
[2025-04-08] MEDS: Sodium Bicarb 8.4% 50ml Vial* 88.23 MEQ in DEXTROSE 5%-WATER 500 ML 100 MEQ IV (11:00)
[2025-04-08] MEDS: HEPARIN SOD INJ 5000 UNIT/ML VIAL SC ×2 (11:00→20:11)
[2025-04-08 12:03] LABS: Albumin, Serum 4.2 gm/dL (3.4-4.8); Anion Gap 15 (7-16); BUN/Creatinine Ratio 16 Ratio (12-20); Blood Urea Nitrogen 52 mg/dL (9-23); Calcium 8.5 mg/dL (8.3-10.6); Calcium (Corrected) 8.5 mg/dL (8.5-10.1); Carbon Dioxide 22.7 mMol/L (20.0-31.0); Chloride 108 mMol/L (98-107); Creatinine (Component) 3.2 mg/dL (0.6-1.3); Estimated Creatinine Clearance 26.1 mL/min (>60); Glucose 90 mg/dL (74-106); Osmolality,Calculated 304 (275-295); Phosphorous 4.7 mg/dL (2.4-5.1); Potassium 5.3 mMol/L (3.4-5.1); Sodium 146 mMol/L (136-145); eGFR 21 See Note
--- NOTE | 2025-04-08 14:01 | ESHP_ITS ---
<Statement entered by Ramon Bradford MD - 04/09/25 16:16> Patient was seen and examined at bedside. Agree on the assessnent and plan on this note. - Patient's plan and care discussed with my attending, Dr. Des Bradford MD Internal Medicine PGY-3 Documentation for date of: 04/08/25 HPI History of Present Illness Chief complaint: Hyperkalemia, New HD History of present illness: 64 y/o male with Hx of HTN, COPD, CKD BIBA from home presents to ED c/o decreased mentation and vomiting x3 days. History largely taken from chart review as when patient was examined and assessed on admission, was lethargic and was hardly responding verbally. Per , patient is usually GCS 15 and is currently 14. Blood sugar on scene was 80 mg/dL. Per EMS, patient there was no apparent weakness or droop to either side. Patient was noted to not be a reliable historian. Patient was found to have potassium of 7.8 and was given hyperkalemic cocktail including albuterol, insulin, dextrose, calcium gluconate. Patient nodded no when asked if he has ever had dialysis before. Patient had a temporary dialysis line inserted for immediate HD, Dr. Swann consulted. Past Medical History: above Family History: n/a Surgical History: tonsillectomy Social History: has 3 children, Current Medications: Med Rec ordered (patient unable to speak adequately for history) Allergies: No known drug allergies ED Course: -Initial vitals were blood pressure 158/65, pulse 108, respiratory rate 20, temperature 99.1, oxygen saturation 96% on room air. -Labs significant for WBC 10.8, hemoglobin 8.0, MCV 118, ABG #1 showed pH 7.19, bicarb 13; ABG #2 showed pH 7.24, bicarb 17, potassium 7.8, chloride 117, bicarb 14.0, BUN 73, creatinine 4.7, eGFR 13, calculated osmolality 307 -Imaging included head CT that was negative for acute hemorrhage mass effect or midline shift; chest x-ray negative for lobar pneumonia or pulmonary edema; EKG sinus tachycardia; repeat chest x-ray showed satisfactory position of right IJ temporary dialysis catheter, new no pneumothorax; kidney ultrasound limited study showed severe left kidney scarring; CT chest abdomen pelvis showed early right upper lobe pneumonia, stable 12 mm tracheobronchial lymph node, stable 4 mm pulmonary nodule, 6.5 cm left renal cyst, right pelvic kidney with tiny 1 to 2 mm renal calculi, no hydronephrosis, severe osteopenia and advanced degenerative disc disease L4-L5 and L5-S1 respectively -In the ED, patient was given dextrose, albuterol 2.5 mg inhaled, insulin 10 units, calcium gluconate, 1 L LR, sodium bicarb, lidocaine came IM, multiple dextrose. -Patient was admitted for Hyperkalemia needing emergent dialysis Review of Systems Review of systems otherwise negative except what is mentioned above. Exam Vital Signs Temp Pulse Resp BP Pulse Ox O2 Del Method O2 Flow Rate 98.1 F 93 15 115/73 100 Oxy Mask 8 04/08/25 10:32 04/08/25 10:32 04/08/25 10:32 04/08/25 10:32 04/08/25 10:32 04/08/25 10:32 04/08/25 10:32 Narrative Exam General: respiratory distress laying in bed; Nodding yes/no occasionally; lethargic; unable to fully assess mentation. Skin: Warm, dry, intact, no obvious rash. HENT: NCAT, EOMI/PERRL, not icteric. External ears normal. No rhinorrhea. Moist mucous membranes Cardiovascular: Tachypneic, regular rhythm, no murmur, +S1/S2. Respiratory: coarse sounds bilaterally; increased work of breathing GI: Soft, nontender, distended. No guarding or rebound tenderness. : No suprapubic tenderness. No flank tenderness bilaterally. Extremities: 1+ edema all extremities, no cyanosis, no clubbing. Extremity pulses present Neuro: Grossly nonfocal. Moving all 4 extremities. CN not formally tested but appear grossly intact. Psychiatric: not fully cooperative, unable to assess due to lethargy. Results: Labs 04/09/25 04:25 04/09/25 04:25 Labs: Short CBC 04/08/25 Range/Units 03:00 WBC 10.8 H (3.8-10.6) Thou/mm3 Hgb 8.0 L (13.5-16.0) g/dL Hct 25.9 L (41.0-53.0) % Plt Count 201 (140-440) Thou/mm3 BMP 04/08/25 04/08/25 03:00 11:23 Sodium 144 146 H Potassium 7.8 H* 5.3 H D Chloride 117 H 108 H Carbon Dioxide 14.0 L* 22.7 BUN 73 H 52 H Creatinine 4.7 H* 3.2 H D Glucose 74 90 Calcium 8.6 8.5 Cardiac Enzymes 04/08/25 Range/Units 03:00 Troponin I < 0.020 (0.0-0.045) ng/mL Liver Function 04/08/25 04/08/25 Range/Units 03:00 11:23 Total Bilirubin 0.4 (0.3-1.2) mg/dL AST 34 (0-34) U/L ALT 41 (10-49) U/L Alkaline Phosphatase 69 (46-116) U/L Albumin 4.6 4.2 (3.4-4.8) gm/dL Urine 04/08/25 Range/Units 06:50 Urine Color Lt-Yellow (Lt Yel-Yel) Urine Clarity Clear (Clear/Hazy) Urine pH 5.5 (5.0-7.0) Ur Specific [place] 1.019 (1.001-1.035) Urine Protein 1+ A (Neg - Trace) Urine Glucose (UA) Negative (Negative) ABG Interpretation ABG results: 04/08/25 04/08/25 04:01 06:11 ABG pH 7.19 L* 7.24 L ABG pCO2 35 39 ABG pO2 85 117 H D ABG HCO3 13 L 17 L ABG O2 Saturation 96 99 H ABG Base Excess -14 L -10 L Quality Measures Quality Measures VTE prophylaxis Medications Home Medications and Allergies Home Medications ?Medication ?Instructions ?Recorded ?Confirmed ?Type albuterol sulfate 90 mcg/actuation 2 puff inhalation Q 6H PRN 04/06/21 04/09/25 History aerosol inhaler Shortness Of Breath fluticasone propionate 50 1 spray intranasal QDAY 03/2104/09/25 History mcg/actuation nasal spray,suspension acetaminophen 500 mg tablet 500 mg PO Q6H PRN pain 05/1504/09/25 History baclofen 10 mg tablet 10 mg PO DAILY PRN muscle sp asm 08/19/24 04/09/25 History gabapentin 300 mg capsule 300 mg PO TID 08/19/2404/09 History losartan 100 mg tablet 100 mg PO DAILY 08/19/24 History nifedipine 30 mg tablet,extended 30 mg PO DAILY 04/09/25 History release tamsulosin 0.4 mg capsule (Flomax) 0.4 mg PO QDAY 05/1504/09/25 History tiotropium bromide 18 mcg capsule 1 cap inhalation QDA Y 08/19/24 04/09/25 History with inhalation device (Spiriva with HandiHaler) amlodipine 10 mg tablet 10 mg PO QDAY 04/09/2504/09 History aspirin 81 mg tablet,delayed 81 mg PO QDAY 04/09/25 History release (Adult Aspirin Regimen) gabapentin 600 mg tablet 600 mg PO TID 04/09/2504/09 History meloxicam 15 mg tablet 15 mg PO QDAY 04/09/2504/09 History prednisone 20 mg tablet 20 mg PO QDAY 04/09/2504/09 History Allergies Allergy/AdvReac Type Severity Reaction Status Date / Time No Known Allergies Allergy Verified 08/20/24 08:44 Visit Medications Acetaminophen (Acetaminophen 325 Mg Tablet) 650 mg PO Q6H PRN PRN Reason: PAIN OR FEVER > 100.4 Stop: 05/08/25 08:05 Furosemide (Furosemide Inj 10 Mg/Ml 4ml Vial) 80 mg IVP BID [facility] Stop: 05/08/25 20:59 Heparin Sodium (Porcine) (Heparin Sod Inj 5000 Unit/Ml Vial) 5,000 unit SC BID [facility] Stop: 04/22/25 08:59 Last Admin: 04/08/25 11:00 Dose: 5,000 unit Sodium Bicarbonate 88.23 meq/ (Dextrose) 588.23 mls @ 100 mls/hr IV .Q5H53M [facility] Stop: 05/08/25 06:59 Ondansetron HCl (Ondansetron Inj 2 Mg/Ml Inj 2 Ml) 4 mg IVP Q6H PRN; Protocol PRN Reason: NAUSEA OR VOMITING Stop: 05/08/25 08:05 Discontinued Medications Albuterol (Albuterol Rt 2.5 Mg/0.5 Ml Nebu) 2.5 mg INH X1 ONE Stop: 04/08/25 04:37 Last Admin: 04/08/25 04:53 Dose: 2.5 mg Calcium Gluconate (Calcium Gluconate 10% Inj 1 Gm/10 Ml Vial) 1 gm IV X1 ONE Stop: 04/08/25 04:33 Last Admin: 04/08/25 05:09 Dose: 1 gm Dextrose (Dextrose 50%-Water Inj 50 Ml Syringe) 50 ml IVP X1 ONE Stop: 04/08/25 03:08 Last Admin: 04/08/25 03:22 Dose: Not Given Dextrose (Dextrose 50%-Water Inj 50 Ml Syringe) 50 ml IVP X1 ONE Stop: 04/08/25 03:25 Last Admin: 04/08/25 04:03 Dose: 50 ml Dextrose (Dextrose 50%-Water Inj 50 Ml Syringe) 100 ml IVP X1 ONE Stop: 04/08/25 04:33 Last Admin: 04/08/25 05:01 Dose: 100 ml Dextrose (Dextrose 50%-Water Inj 50 Ml Syringe) 50 ml IVP X1 ONE Stop: 04/08/25 05:08 Last Admin: 04/08/25 05:07 Dose: 50 ml Dextrose (Dextrose 50%-Water Inj 50 Ml Syringe) 50 ml IVP X1 ONE Stop: 04/08/25 07:18 Last Admin: 04/08/25 07:31 Dose: 50 ml Epoetin Homar (Epoetin Homar-Epbx Inj 10,000 Unit/Ml Vial (Non-Esrd)) 10,000 unit SC X1 ONE Stop: 04/08/25 13:35 Glucagon (Glucagon Inj 1 Mg Vial) 5 mg IVP X1 ONE Stop: 04/08/25 04:20 Last Admin: 04/08/25 06:44 Dose: Not Given Heparin Sodium (Porcine) (Heparin Sod Inj 1000 Unit/Ml Vial 10 Ml) 2,600 unit INDWELLCAT X1 PRN PRN Reason: DIALYSIS Last Admin: 04/08/25 10:25 Dose: 2,600 unit Lactated Ringer's (Lactated Ringers) 1,000 mls @ 999 mls/hr IV .Q1H1M ONE Stop: 04/08/25 05:30 Last Infusion: 04/08/25 07:37 Dose: Infused Sodium Bicarbonate 88.23 meq/ (Dextrose) 588.23 mls @ 100 mls/hr IV .Q5H53M ONE Stop: 04/08/25 13:07 Last Admin: 04/08/25 11:00 Dose: 100 mls/hr Insulin Human Regular (Insulin Hum Regular 1 Unit/0.01 Ml (Per Unit)) 10 unit 0.1 unit/kg (10 unit) IV X1 ONE Stop: 04/08/25 04:33 Last Admin: 04/08/25 05:03 Dose: 10 unit Lidocaine HCl (Lidocaine Hcl 1% 20 Ml Vial) 20 ml IM X1 ONE Stop: 04/08/25 07:21 Last Admin: 04/08/25 07:23 Dose: 20 ml Patiromer (Patiromer Calcium 8.4 Gm Packet) 8.4 gm PO X1 ONE Stop: 04/08/25 05:15 Last Admin: 04/08/25 06:44 Dose: Not Given Sodium Bicarbonate (Sodium Bicarb Inj 8.4% 1 Meq/Ml 50 Ml Vial) 50 meq IV X1 ONE Stop: 04/08/25 04:50 Last Admin: 04/08/25 05:11 Dose: 50 meq Assessment & Plan Plan 64 y/o male with Hx of HTN, COPD, CKD BIBA from home presents to ED c/o decreased mentation and vomiting x3 days; admitted for Hyperkalemia needing emergent dialysis #ARF #JASON #CKD #New Hemodialysis #Hyperkalemia #NAGMA Found to have potassium of 7.8 and was given hyperkalemic cocktail including albuterol, insulin, dextrose, calcium gluconate. Found to be have 1+ edema all extremities. Denies having dialysis before. Patient had a temporary dialysis line inserted for immediate HD, Dr. Swann consulted. Gave Epo 10k u x1 Cr 4.7 baseline previous per chart 1.4-2.0 Given 1 L LR, no urine output yet -ordered repeat labs -lasix 80 mg iv BID -hernandez in place -Nephrology consulted, appreciate recs -HD started, [facility] -Strict I/O's #AHRF #COPD due to fluid over load from ARF patient has hx of copd, unable to obtain hx/med from patient, med rec placed per chart review earlier this year, patient taking spiriva -needed Oxy mask 8 L, wean as tolerated -will f/u med rec #HTN elevated BP, chronic; med rec pending per chart review in august 2024, patient takes losartan, nifedipine -nifedipine 30 mg po qd -labetalol 10 mg IV q1hr prn #BPH per chart review in august 2024, takes tamsulosin once daily -ordered med rec #Anemia, Macrocytic Due to mixed Vitamin deficiency with anemia of chronic disease folate, b12 ordered tsh, ft4 wnl hgb 8.0 -> 7.4 s/p HD, H&H ordered Hospital Management: Disposition: Tele Restraints present Diet: Renal GI Prophylaxis: none Bowel Prophylaxis: none DVT Prophylaxis: heparin CODE STATUS: full code Patient plan of care was discussed with the attending physician, Dr. Jacobo & senior resident Dr. Sanchez Wick MD PGY-1 Attending Provider Attestation/Addendum I have examined the patient, reviewed labs and imaging findings, discussed the case with the resident(s), and reviewed entered orders. I agree with the plan of care as outlined in this note, with these additional summaries/recommendations: After examination of the patient and review of the clinical data, I feel that this patient needs admission to the hospital for further treatment and evaluation. Dr. Donnell MD
[2025-04-08 14:35] LABS: Basophils # (Auto) 0.0 Thou/mm3 (0.0-0.2); Basophils % (Auto) 0 % (0-2.5); Eosinophils # (Auto) 0.0 Thou/mm3 (0.0-0.5); Eosinophils % (Auto) 0 % (0-10); Hematocrit 23.3 % (41.0-53.0); Immature Granulocytes Auto 0.06 Thou/mm3 (0.00-0.00); Lymphocytes # (Auto) 1.4 Thou/mm3 (1.0-4.8); Lymphocytes % (Auto) 15 % (10-50); Mean Corpuscular HGB Conc 31.8 g/dl (31.0-37.0); Mean Corpuscular Hemoglobin 36.1 pg (25.0-35.0); Mean Corpuscular Volume 114 fL (80-100); Monocytes # (Auto) 1.0 Thou/mm3 (0.0-0.8); Monocytes % (Auto) 11 % (0-12); Neutrophils # (Auto) 6.9 Thou/mm3 (1.8-7.7); Neutrophils % (Auto) 73 % (37-80); Nucleated Red Blood Cell # 0.02 Thou/mm3 (0.00-0.00); Nucleated Red Blood Cell % 0 /100 WBC (0); Platelet Count 174 Thou/mm3 (140-440); RDW Standard Deviation 60.4 fL (35.1-43.9); Red Blood Count 2.05 Miln/mm3 (4.50-5.90); White Blood Count 9.4 Thou/mm3 (3.8-10.6)
[2025-04-08 14:36] LABS: Hepatitis A Antibody IgM Non Reactive (Non React); Hepatitis B Core Antibody IgM Non Reactive (Non React); Hepatitis B Surface Antigen Non Reactive (Non React); Hepatitis C Antibody Non Reactive (Non React)
[2025-04-08 14:50] LABS: Anion Gap 12 (7-16); BUN/Creatinine Ratio 15 Ratio (12-20); Blood Urea Nitrogen 49 mg/dL (9-23); Calcium 8.3 mg/dL (8.3-10.6); Carbon Dioxide 24.4 mMol/L (20.0-31.0); Chloride 109 mMol/L (98-107); Creatinine (Component) 3.2 mg/dL (0.6-1.3); Estimated Creatinine Clearance 26.1 mL/min (>60); Glucose 105 mg/dL (74-106); Osmolality,Calculated 301 (275-295); Potassium 5.2 mMol/L (3.4-5.1); Sodium 145 mMol/L (136-145); eGFR 21 See Note
[2025-04-08 15:20] LABS: Hemoglobin 7.4 g/dL (13.5-16.0)
[2025-04-08] MEDS: EPOETIN ALFA-EPBX INJ 10,000 UNIT/ML VIAL (NON-ESRD) 10000 UNIT SC (16:03)
[2025-04-08] MEDS: NIFEdipine XL 30 MG TABCR PO (17:31)
--- NOTE | 2025-04-08 17:44 | PC.NURSE ---
DR. GRANGER MADE AWARE NO STATUS CODE FOR PT. DR. GRANGER WILL COME AND SEE PT. NO NEW ORDER. PT ALERT AND ORIENTED X3. VITAL SIGNS WNL .
[2025-04-08 19:12] LABS: Folate 12.46 ng/mL (>5.38); Vitamin B12 456 pg/mL (211-911)
[2025-04-08] MEDS: FUROSEMIDE INJ 10 MG/ML 4ML VIAL 80 MG IVP (20:10)
[2025-04-08 21:08] LABS: Hematocrit 23.8 % (41.0-53.0)
[2025-04-08 21:13] LABS: Hemoglobin 7.6 g/dL (13.5-16.0)
[2025-04-09] VITALS (31 sets, daily range): BP systolic 113–147; BP diastolic 67–86; PULSE 56–88; RESP 12–20; TEMP 36.2–36.9; O2SAT 94–99
--- NOTE | 2025-04-09 00:28 | ESCONSULT_ITS ---
RE: EDITH HENDERSON : 1960 DATE OF CONSULTATION: 04/09/2025 REASONS FOR REFERRAL: Hyperkalemia and advanced CKD. REFERRING PHYSICIAN: Dr. Hyatt HISTORY OF PRESENT ILLNESS: Mr. Henderson is a 64-year-old gentleman with past medical history significant for hypertension, COPD, history of smoking, enlarged prostate, and chronic kidney disease at least since 2020, whose baseline serum creatinine is around 2 mg/dL, who was brought by ambulance to emergency room after his manager china found him altered. As per chart, the patient has been vomiting for 3 days prior to presentation. I was asked to see him as the patient presented with severe hyperkalemia. Potassium was recorded at 7.8. His BUN was 72 and creatinine was 4.7. CO2 was also found low at 14 upon presentation. He was dialyzed emergently and when I saw him, he was more coherent. He told me that he saw his physician not too long ago and was told that his kidneys are not doing well. He was also told that he will need dialysis very soon. He denies any chest pain or shortness of breath. He was told by his primary care physician that he would need to be seen by a medical intern. PAST MEDICAL HISTORY: COPD, hypertension, CKD, and enlarged prostate. CURRENT MEDICATIONS: 1. Acetaminophen. 2. Albuterol. 3. Heparin 5000 units subcutaneously b.i.d. 4. Nifedipine 30 mg p.o. daily. 5. Zofran 4 mg IV q. 6. PHYSICAL EXAMINATION: GENERAL: He is awake and alert. VITAL SIGNS: Blood pressure of 115/86, heart rate of 70. HEENT: Anicteric sclerae, normocephalic. NECK: Supple, JVD. CHEST AND LUNGS: Symmetrical expansion, clear breath sounds. CARDIAC: Without murmur. ABDOMEN: Soft and nontender. EXTREMITIES: No edema. LABORATORY DATA: Sodium of 144, potassium of 7.8, chloride 117, CO2 of 14, BUN 73, creatinine 4.7, glucose 74, calcium 8.6. Hemoglobin 7.4, WBC 9400, platelet count 174,000. IMAGING DATA: Chest, abdomen, and pelvis CT, there is a stable 12 mm tracheobronchial lymph node. Left renal cyst is about 6.5 cm. Right pelvic kidney with tiny 1-2 mm renal calculi, no hydronephrosis. Early right upper lobe pneumonia. Large left renal cyst. ASSESSMENT: 1. Acute kidney injury on chronic kidney disease, possibly end-stage renal disease. 2. History of hypertension. 3. Altered level of consciousness secondary to uremic encephalopathy, now improving. 4. Anemia of chronic kidney disease. 5. Chronic obstructive pulmonary disease. PLAN: The patient was dialyzed earlier today to address his life-threatening hyperkalemia. Dialysis will be continued tomorrow and on Friday. I suspect that he already has end-stage renal disease. I will also start him on Retacrit 10,000 units 2 times a week to address his anemia. The patient will need a tunneled dialysis catheter sometime next week in preparation for dialysis treatments in a chronic facility. His next dialysis will be tomorrow. DT: 00:02:08 TT: 00:27:00 Ref: [id number] - TID: [id number] MTDD
[2025-04-09] MEDS: ONDANSETRON INJ 2 MG/ML INJ 2 ML 4 MG IVP (03:37)
[2025-04-09 06:07] LABS: Basophils # (Auto) 0.0 Thou/mm3 (0.0-0.2); Basophils % (Auto) 0 % (0-2.5); Eosinophils # (Auto) 0.1 Thou/mm3 (0.0-0.5); Eosinophils % (Auto) 2 % (0-10); Hematocrit 25.4 % (41.0-53.0); Immature Granulocytes Auto 0.03 Thou/mm3 (0.00-0.00); Lymphocytes # (Auto) 1.1 Thou/mm3 (1.0-4.8); Lymphocytes % (Auto) 14 % (10-50); Mean Corpuscular HGB Conc 32.7 g/dl (31.0-37.0); Mean Corpuscular Hemoglobin 36.7 pg (25.0-35.0); Mean Corpuscular Volume 112 fL (80-100); Monocytes # (Auto) 1.0 Thou/mm3 (0.0-0.8); Monocytes % (Auto) 13 % (0-12); Neutrophils # (Auto) 5.5 Thou/mm3 (1.8-7.7); Neutrophils % (Auto) 71 % (37-80); Nucleated Red Blood Cell # 0.00 Thou/mm3 (0.00-0.00); Nucleated Red Blood Cell % 0 /100 WBC (0); Platelet Count 168 Thou/mm3 (140-440); RDW Standard Deviation 59.2 fL (35.1-43.9); Red Blood Count 2.26 Miln/mm3 (4.50-5.90); White Blood Count 7.8 Thou/mm3 (3.8-10.6)
[2025-04-09 06:17] LABS: Hemoglobin 8.3 g/dL (13.5-16.0)
[2025-04-09 06:38] LABS: Anion Gap 10 (7-16); BUN/Creatinine Ratio 16 Ratio (12-20); Blood Urea Nitrogen 46 mg/dL (9-23); Calcium 8.7 mg/dL (8.3-10.6); Carbon Dioxide 29.1 mMol/L (20.0-31.0); Chloride 107 mMol/L (98-107); Creatinine (Component) 2.9 mg/dL (0.6-1.3); Estimated Creatinine Clearance 28.8 mL/min (>60); Glucose 119 mg/dL (74-106); Magnesium 2.0 mg/dL (1.6-2.6); Osmolality,Calculated 303 (275-295); Phosphorous 4.2 mg/dL (2.4-5.1); Potassium 5.1 mMol/L (3.4-5.1); Sodium 146 mMol/L (136-145); Thyroid Stimulating Hormone 1.35 uIU/mL (0.55-4.78); eGFR 24 See Note
--- NOTE | 2025-04-09 07:40 | PC.NURSE ---
PATIENT TRANSFER TO DIALYSIS VIA BED, ACCOMPANIED BY DIALYSIS NURSE. PT ALERT AND ORIENTED X3.
--- NOTE | 2025-04-09 08:56 | ESPR_ITS ---
<Statement entered by José Garcia MD - 04/09/25 08:58> No acute overnight events. Seen and examined at bedside and patient alert oriented x 3 and able to hold conversation. States that prior to presentation he had just 1 to 2 days of feeling malaise, weakness, and dizziness. Underwent successful, emergent hemodialysis yesterday and K had significantly improved from 7.8 to 5.3 and is now 5.1 today. Creatinine also improved from 4.7 to 2.9. Per nephrology, will continue dialysis again today and tomorrow and suspects patient already had ESRD. Patient will need TDC in preparation for outpatient dialysis. ----- Note reviewed and agree with care plan as documented. Please refer to the note below for further details. Plan discussed with attending physician Dr. Donnell Garcia MD PGY-2 Internal Medicine Documentation for date of: 04/09/25 Subjective Subjective Interval history: NAEO. Patient today was seen and examined during his 2nd dialysis session of the hospitalization. Patient was resting in no acute distress, able to talk, mentation well intact A&Ox3, no acute complaints/concerns. Patient is no longer on oxy mask, has weaned down to 2 L NC. Plan for dialysis tomorrow, Dr. Swann following. Patient making good urine with lasix 80 mg bid on board with 1.8 L output. Exam Vital Signs Temp Pulse Resp BP Pulse Ox O2 Del Method O2 Flow Rate 98.4 F 57 L 18 131/72 H 98 Nasal Cannula 2 04/09/25 07:39 04/09/25 08:45 04/09/25 08:41 04/09/25 08:45 04/09/25 08:41 04/09/25 04:00 04/09/25 08:41 Narrative Exam General: resting in bed during HD; no acute distress; A&Ox3 Skin: Warm, dry, intact, no obvious rash. HENT: NCAT, EOMI/PERRL, not icteric. External ears normal. No rhinorrhea. Moist mucous membranes Cardiovascular: Regular rate, regular rhythm, no murmur, +S1/S2. Respiratory: less coarse sounds bilaterally (compared to yesterday) GI: Soft, nontender, distended. No guarding or rebound tenderness. : No suprapubic tenderness. No flank tenderness bilaterally. Extremities: trace edema LE, no cyanosis, no clubbing. Extremity pulses present Neuro: Grossly nonfocal. Moving all 4 extremities. CN not formally tested but appear grossly intact. Psychiatric: cooperative, appropriate affect Objective Labs 04/10/25 04:52 04/10/25 04:52 Labs: Laboratory Results - last 24 hr 04/08/25 04/08/25 04/08/25 07:58 11:23 13:30 WBC RBC Hgb Hct MCV MCH MCHC RDW Std Deviation Plt Count Neut % (Auto) Lymph % (Auto) [place] % (Auto) Eos % (Auto) Baso % (Auto) Neut # (Auto) Lymph # (Auto) [place] # (Auto) Eos # (Auto) Baso # (Auto) Immature Gran # (Auto) Absolute Nucleated RBC Immature Gran % Nucleated RBC % Sodium 146 H Potassium 5.3 H D Chloride 108 H Carbon Dioxide 22.7 Anion Gap 15 BUN 52 H Creatinine 3.2 H D Estim Creat Clear Calc 26.1 L eGFR 21 L BUN/Creatinine Ratio 16 Glucose 90 Calculated Osmolality 304 H Calcium 8.5 Corrected Calcium 8.5 Phosphorus 4.7 Magnesium Albumin 4.2 Vitamin B12 456 Folate 12.46 TSH Hepatitis A IgM Ab Non Reactive Hep Bs Antigen Non Reactive Hep B Core IgM Ab Non Reactive Hepatitis C Antibody Non Reactive Blood Type O Positive Antibody Screen NEGATIVE 04/08/25 04/08/25 04/09/25 14:21 19:48 04:25 WBC 9.4 7.8 RBC 2.05 L 2.26 L Hgb 7.4 L 7.6 L 8.3 L Hct 23.3 L 23.8 L 25.4 L MCV 114 H 112 H MCH 36.1 H 36.7 H MCHC 31.8 32.7 RDW Std Deviation 60.4 H 59.2 H Plt Count 174 168 Neut % (Auto) 73 71 Lymph % (Auto) 15 14 [place] % (Auto) 11 13 H Eos % (Auto) 0 2 Baso % (Auto) 0 0 Neut # (Auto) 6.9 5.5 Lymph # (Auto) 1.4 1.1 [place] # (Auto) 1.0 H 1.0 H Eos # (Auto) 0.0 0.1 Baso # (Auto) 0.0 0.0 Immature Gran # (Auto) 0.06 H 0.03 H Absolute Nucleated RBC 0.02 H 0.00 Immature Gran % 1 H 0 Nucleated RBC % 0 0 Sodium 145 146 H Potassium 5.2 H 5.1 Chloride 109 H 107 Carbon Dioxide 24.4 29.1 Anion Gap 12 10 BUN 49 H 46 H Creatinine 3.2 H 2.9 H Estim Creat Clear Calc 26.1 L 28.8 L eGFR 21 L 24 L BUN/Creatinine Ratio 15 16 Glucose 105 119 H Calculated Osmolality 301 H 303 H Calcium 8.3 8.7 Corrected Calcium Phosphorus 4.2 Magnesium 2.0 Albumin Vitamin B12 Folate TSH 1.35 Hepatitis A IgM Ab Hep Bs Antigen Hep B Core IgM Ab Hepatitis C Antibody Blood Type Antibody Screen ABG Interpretation ABG results: 04/08/25 04/08/25 04:01 06:11 ABG pH 7.19 L* 7.24 L ABG pCO2 35 39 ABG pO2 85 117 H D ABG HCO3 13 L 17 L ABG O2 Saturation 96 99 H ABG Base Excess -14 L -10 L Quality Measures Quality Measures VTE prophylaxis Assessment & Plan Assessment Current Active Medications: Generic Name Dose Route Start Last Admin Trade Name Freq PRN Reason Stop Dose Admin Acetaminophen 650 mg 04/08/25 08:06 Acetaminophen 325 Mg Tablet PO 05/08/25 08:05 Q6H PRN PAIN OR FEVER > 100.4 Albuterol 2 puff 04/09/25 07:35 Albuterol Inh 8 Gm INH 05/09/25 07:34 Q6H PRN SHORTNESS OF BREATH Aspirin 81 mg 04/09/25 09:00 Aspirin Ec 81 Mg Tabec PO 05/09/25 08:59 QDAY OLI Furosemide 80 mg 04/08/25 21:00 04/08/25 20:10 Furosemide Inj 10 Mg/Ml 4ml Vial IVP 05/08/25 20:59 80 mg BID OLI Administration Heparin Sodium (Porcine) 5,000 unit 04/08/25 09:00 04/08/25 20:11 Heparin Sod Inj 5000 Unit/Ml Vial SC 04/22/25 08:59 5,000 unit BID OLI Administration Labetalol HCl 10 mg 04/08/25 17:10 Labetalol Inj 5 Mg/Ml Vial 4 Ml IVP Q1HR PRN sbp > 180 Nifedipine 30 mg 04/08/25 17:15 04/08/25 17:31 Nifedipine Xl 30 Mg Tabcr PO 01/18/26 17:14 30 mg QDAY OLI Administration Ondansetron HCl 4 mg 04/08/25 08:06 04/09/25 03:37 Ondansetron Inj 2 Mg/Ml Inj 2 Ml IVP 05/08/25 08:05 4 mg Q6H PRN Administration NAUSEA OR VOMITING Protocol Tamsulosin HCl 0.4 mg 04/09/25 09:00 Tamsulosin Hcl 0.4 Mg Capsule PO 05/09/25 08:59 QDAY [facility] Plan 64 y/o male with Hx of HTN, COPD, CKD BIBA from home presents to ED c/o decreased mentation and vomiting x3 days; admitted for Hyperkalemia needing emergent dialysis #JASON on CKD #ARF #c/f new ESRD #New Hemodialysis #Hyperkalemia, RESOLVED #NAGMA, RESOLVED Likely intra-renal etiology with kidneys unable to excrete potassium, unable to hold onto bicarb, bun/cr ratio of 16 on admission. Patient making urine rules out obstruction. Pre-renal may be contributing due to dehydration and/or poor oral intake. Found to have potassium of 7.8 and was given hyperkalemic cocktail including albuterol, insulin, dextrose, calcium gluconate. Found to be have 1+ edema all extremities. Denies having dialysis before. Patient had a temporary dialysis line inserted for immediate HD, Dr. Swann consulted. Gave Epo 10k u x1 Cr 4.7 baseline previous per chart 1.4-2.0 Given 1 L LR, no urine output yet -lasix 80 mg iv BID -hernandez in place -Nephrology consulted, appreciate recs -HD done 04/08 & 04/09, planned for 04/10, [facility] for /Fri -PPD ordered; hepatitis panel unremarkable -Strict I/O's #AHRF, improving #COPD due to fluid over load from ARF patient has hx of copd, unable to obtain hx/med from patient, med rec placed per chart review earlier this year, patient taking spiriva patient initially needed Oxy mask 8 L, weaned down to 2 L NC -albuterol inhaler q6h prn #HTN elevated BP, chronic; med rec pending per chart review in august 2024, patient takes losartan, nifedipine -nifedipine 30 mg po qd -labetalol 10 mg IV q1hr prn #BPH per chart review in august 2024, takes tamsulosin once daily -flomax 0.4 mg po qd #Anemia, Macrocytic Due to mixed Vitamin deficiency with anemia of chronic disease folate, b12 wnl tsh, ft4 wnl hgb 8.0 on admission, stable Hospital Management: Disposition: Tele Diet: Renal GI Prophylaxis: none Bowel Prophylaxis: none DVT Prophylaxis: heparin CODE STATUS: full code Patient plan of care was discussed with the attending physician, Dr. Jacobo & senior resident Dr. Radha Wick MD PGY-1 Attending Provider Attestation/Addendum I have examined the patient, reviewed labs and imaging findings, discussed the case with the resident(s), and reviewed entered orders. I agree with the plan of care as outlined in this note. Dr. Donnell MD
[2025-04-09] MEDS: ACETAMINOPHEN 325 MG TABLET 650 MG PO (10:38)
--- NOTE | 2025-04-09 12:23 | PC.NURSE ---
PT BACK FROM DIALYSIS. PT ALERT AND ORIENTED X3. COORDINATED CARE WITH DR. ESTRELLITA HENDRIKCS, MEDICATIONS DISCUSSED, HOLD FLOMAX AND LASIX. PT C/O GAS TO PUT IN ORDER. ADMINISTER ASPIRIN, HEPARIN, AND NIFEDIPINE PER ORDER IN JUN.
[2025-04-09] MEDS: ALBUTEROL INH 8 GM 2 PUFF INH (12:24)
[2025-04-09] MEDS: SIMETHICONE 80 MG CHEW PO (12:36)
[2025-04-09] MEDS: HEPARIN SOD INJ 5000 UNIT/ML VIAL SC ×2 (12:36→20:07)
[2025-04-09] MEDS: ASPIRIN EC 81 MG TABEC PO (12:36)
[2025-04-09] MEDS: HEPARIN SOD INJ 1000 UNIT/ML VIAL 10 ML 3300 UNIT INDWELLCAT (12:42)
[2025-04-09 15:50] LABS: Path Review Blood Smear Sent to Pathologist
[2025-04-09] MEDS: TUBERCULIN PPD INJ 5 UNIT/0.1 ML DOSE ID (16:31)
[2025-04-09] MEDS: FUROSEMIDE INJ 10 MG/ML 4ML VIAL 80 MG IVP (20:07)
[2025-04-10] VITALS (37 sets, daily range): BP systolic 100–147; BP diastolic 62–95; PULSE 57–144; RESP 15–97; TEMP 36.3–36.9; O2SAT 92–97
[2025-04-10] MEDS: ALBUTEROL INH 8 GM 2 PUFF INH ×2 (01:33→20:37)
[2025-04-10 06:13] LABS: Basophils # (Auto) 0.0 Thou/mm3 (0.0-0.2); Basophils % (Auto) 1 % (0-2.5); Eosinophils # (Auto) 0.2 Thou/mm3 (0.0-0.5); Eosinophils % (Auto) 3 % (0-10); Hematocrit 27.7 % (41.0-53.0); Hemoglobin 8.9 g/dL (13.5-16.0); Immature Granulocytes Auto 0.03 Thou/mm3 (0.00-0.00); Lymphocytes # (Auto) 1.8 Thou/mm3 (1.0-4.8); Lymphocytes % (Auto) 24 % (10-50); Mean Corpuscular HGB Conc 32.1 g/dl (31.0-37.0); Mean Corpuscular Hemoglobin 36.2 pg (25.0-35.0); Mean Corpuscular Volume 113 fL (80-100); Monocytes # (Auto) 1.0 Thou/mm3 (0.0-0.8); Monocytes % (Auto) 14 % (0-12); Neutrophils # (Auto) 4.2 Thou/mm3 (1.8-7.7); Neutrophils % (Auto) 58 % (37-80); Nucleated Red Blood Cell # 0.00 Thou/mm3 (0.00-0.00); Nucleated Red Blood Cell % 0 /100 WBC (0); Platelet Count 152 Thou/mm3 (140-440); RDW Standard Deviation 56.2 fL (35.1-43.9); Red Blood Count 2.46 Miln/mm3 (4.50-5.90); White Blood Count 7.3 Thou/mm3 (3.8-10.6)
[2025-04-10 06:41] LABS: Anion Gap 9 (7-16); BUN/Creatinine Ratio 12 Ratio (12-20); Blood Urea Nitrogen 35 mg/dL (9-23); Calcium 8.7 mg/dL (8.3-10.6); Carbon Dioxide 28.6 mMol/L (20.0-31.0); Chloride 101 mMol/L (98-107); Creatinine (Component) 3.0 mg/dL (0.6-1.3); Estimated Creatinine Clearance 27.9 mL/min (>60); Glucose 98 mg/dL (74-106); Magnesium 1.9 mg/dL (1.6-2.6); Osmolality,Calculated 285 (275-295); Phosphorous 4.4 mg/dL (2.4-5.1); Potassium 4.3 mMol/L (3.4-5.1); Sodium 139 mMol/L (136-145); eGFR 23 See Note
--- NOTE | 2025-04-10 07:36 | PC.NURSE ---
THIS NURSE GAVE REPORT TO DIALYSIS NURSE, PT IN ROOM RESP 18 EVEN AND UNLABORED, PT VOICES NO C/O PAIN BEFORE LEAVING FOR DIALYSIS, ABLE TO COMMUNICATE NEEDS WELL AND MAKE NEEDS KNOWN, DIALYSIS NURSE STATED THAT PT WILL BE GONE FOR AT LEAST 3HRS OFF OF THE FLOOR, PT BEING TAKEN VIA BED BY DIALYSIS NURSE, PT IN NO ACUTE DISTRESS OR DISCOMFORT AT TIME OF TRANSPORT
[2025-04-10] MEDS: HEPARIN SOD INJ 1000 UNIT/ML VIAL 10 ML 1500 UNIT INDWELLCAT (07:52)
[2025-04-10] MEDS: ALBUMIN HUMAN-KJDA 25% IVPB 25 GM/100 ML BTL IV (09:15)
--- NOTE | 2025-04-10 09:20 | PC.SS ---
Boatswain Mate (ERIK Cochrna met with the patient at the bedside to complete an initial assessment and discuss a discharge plan. Patient is alert and oriented to person, place, time, and situation, and provided verbal consent to participate in the assessment. The patient was admitted for acute renal failure. Patient is Bubba Sanchez, 64 y/o [place]i-speaking male residing with his friend at [address] [place] [address]. The patient has a part-time job. Patient designated his friend, Leila Chen, , as his surrogate medical decision maker. Patient reports that at baseline, he is independent; however, he has been feeling weaker. Per patient, he does not use oxygen at home; here he is at 2L nasal canula. Patient is a new dialysis patient. Patient's d/c plan is home with his friend and will need transportation. Surrogate medical decision maker: Friend, Leila, . Discharge plan: Home
--- NOTE | 2025-04-10 09:53 | EKG_ITS ---
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
--- NOTE | 2025-04-10 09:53 | PC.NURSE ---
This nurse received a phone call from polysomnograph tech and i was informed that my patient that is currently in dialysis he was running sinus rubina and converted to Afib per telephone repairer at 0832, this nurse contacted Dr. HARO and informed him of the change, this nurse did not receive phone call from dialysis nurse at this time, no new orders at this time
--- NOTE | 2025-04-10 10:24 | PC.SS ---
Per resident Dr. Garcia, the patient is a new hemodialysis patient. The cash analyst is Dr. Swann?SW XM fax a referral and clinicals to [facility], fax [phone]. Patient is pending getting an HD port on Friday, and PPD read.
[2025-04-10] MEDS: HEPARIN SOD INJ 1000 UNIT/ML VIAL 10 ML 3300 UNIT INDWELLCAT (11:11)
--- NOTE | 2025-04-10 11:12 | ESPR_ITS ---
Documentation for date of: 04/10/25 Subjective Subjective Interval history: No acute overnight events. Seen and examined at bedside and patient resting comfortably in bed. Denies any chest pain, shortness of breath. Noted to have developed new onset A-fib with RVR during dialysis with rate between 110 and 120 that was confirmed on EKG and is given metoprolol succinate 50 mg. Rapid response called for RVR with pulse in the 140s, please see event note for details. Sister was called and updated. Otherwise, saturating well on 2 L nasal cannula and BP stable. Cardiology consulted, will follow-up on recommendations. Regarding ESRD, today was patient's third session of HD and will follow-up with social workers regarding outpatient chair time but patient will need to have temporary dialysis catheter exchanged for TDC prior to discharge. Exam Vital Signs Temp Pulse Resp BP Pulse Ox O2 Del Method O2 Flow Rate 97.5 F 85 18 131/85 H 97 Nasal Cannula 2 04/10/25 11:02 04/10/25 11:02 04/10/25 11:02 04/10/25 11:02 04/10/25 11:02 04/10/25 07:20 04/10/25 07:20 Narrative Exam General: resting in bed during HD; no acute distress; A&Ox3 Skin: Warm, dry, intact, no obvious rash. HENT: NCAT, EOMI/PERRL, not icteric. External ears normal. No rhinorrhea. Moist mucous membranes Cardiovascular: Regular rate, regular rhythm, no murmur, +S1/S2. Respiratory: less coarse sounds bilaterally (compared to yesterday) GI: Soft, nontender, distended. No guarding or rebound tenderness. : No suprapubic tenderness. No flank tenderness bilaterally. Extremities: trace edema LE, no cyanosis, no clubbing. Extremity pulses present Neuro: Grossly nonfocal. Moving all 4 extremities. CN not formally tested but appear grossly intact. Psychiatric: cooperative, appropriate affect Objective Labs 04/11/25 04:47 04/11/25 04:47 Labs: Laboratory Results - last 24 hr 04/09/25 04/10/25 04:25 04:52 WBC 7.3 RBC 2.46 L Hgb 8.9 L Hct 27.7 L MCV 113 H MCH 36.2 H MCHC 32.1 RDW Std Deviation 56.2 H Plt Count 152 Neut % (Auto) 58 Lymph % (Auto) 24 Haakon % (Auto) 14 H Eos % (Auto) 3 Baso % (Auto) 1 Neut # (Auto) 4.2 Lymph # (Auto) 1.8 Haakon # (Auto) 1.0 H Eos # (Auto) 0.2 Baso # (Auto) 0.0 Immature Gran # (Auto) 0.03 H Absolute Nucleated RBC 0.00 Immature Gran % 0 Nucleated RBC % 0 Smear Path Review Sent to Pathologist Sodium 139 Potassium 4.3 D Chloride 101 Carbon Dioxide 28.6 Anion Gap 9 BUN 35 H Creatinine 3.0 H Estim Creat Clear Calc 27.9 L eGFR 23 L BUN/Creatinine Ratio 12 Glucose 98 Calculated Osmolality 285 Calcium 8.7 Phosphorus 4.4 Magnesium 1.9 ABG Interpretation ABG results: 04/08/25 04/08/25 04:01 06:11 ABG pH 7.19 L* 7.24 L ABG pCO2 35 39 ABG pO2 85 117 H D ABG HCO3 13 L 17 L ABG O2 Saturation 96 99 H ABG Base Excess -14 L -10 L Quality Measures Quality Measures VTE prophylaxis Assessment & Plan Assessment Current Active Medications: Generic Name Dose Route Start Last Admin Trade Name Freq PRN Reason Stop Dose Admin Acetaminophen 650 mg 04/08/25 08:06 04/09/25 10:38 Acetaminophen 325 Mg Tablet PO 05/08/25 08:05 650 mg Q6H PRN Administration PAIN OR FEVER > 100.4 Albuterol 2 puff 04/09/25 07:35 04/10/25 01:33 Albuterol Inh 8 Gm INH 05/09/25 07:34 2 puff Q6H PRN Administration SHORTNESS OF BREATH Aspirin 81 mg 04/09/25 09:00 04/09/25 12:36 Aspirin Ec 81 Mg Tabec PO 05/09/25 08:59 81 mg QDAY OLI Administration Furosemide 80 mg 04/08/25 21:00 04/09/25 20:07 Furosemide Inj 10 Mg/Ml 4ml Vial IVP 05/08/25 20:59 80 mg BID OLI Administration Heparin Sodium (Porcine) 5,000 unit 04/08/25 09:00 04/09/25 20:07 Heparin Sod Inj 5000 Unit/Ml Vial SC 04/22/25 08:59 5,000 unit BID OLI Administration Heparin Sodium (Porcine) 3,300 unit 04/09/25 11:00 04/10/25 11:11 Heparin Sod Inj 1000 Unit/Ml Vial 10 Ml INDWELLCAT 04/23/25 10:59 3,300 unit PRN PRN Administration DIALYSIS Heparin Sodium (Porcine) 1,500 unit 04/09/25 11:42 04/10/25 07:52 Heparin Sod Inj 1000 Unit/Ml Vial 10 Ml INDWELLCAT 04/23/25 11:41 1,500 unit PRN PRN Administration PREVENT CLOTTING Albumin Human 25 gm in 100 mls @ 0 mls/hr 04/09/25 09:37 04/10/25 09:15 Albuminex 25% Ivpb IV 300 mls/hr Q30MIN PRN Administration To maintain SBP>90 Per Protocol Labetalol HCl 10 mg 04/08/25 17:10 Labetalol Inj 5 Mg/Ml Vial 4 Ml IVP Q1HR PRN sbp > 180 Nifedipine 30 mg 04/08/25 17:15 04/09/25 12:30 Nifedipine Xl 30 Mg Tabcr PO 05/08/25 17:14 Not Given QDAY [facility] Ondansetron HCl 4 mg 04/08/25 08:06 04/09/25 03:37 Ondansetron Inj 2 Mg/Ml Inj 2 Ml IVP 05/08/25 08:05 4 mg Q6H PRN Administration NAUSEA OR VOMITING Protocol Simethicone 80 mg 04/09/25 12:22 04/09/25 12:36 Simethicone 80 Mg Chew PO 05/09/25 12:21 80 mg QID PRN Administration GAS Tamsulosin HCl 0.4 mg 04/09/25 09:00 04/09/25 12:34 Tamsulosin Hcl 0.4 Mg Capsule PO 05/09/25 08:59 Not Given QDAY [facility] Plan 64-year-old male with history of COPD, hypertension, CKD who is admitted for severe hyperkalemia and renal failure requiring emergent dialysis. #New onset atrial fibrillation with RVR New onset in setting of new hemodialysis. Denied any chest pain or shortness of breath. EKG showning a-fib with RVR, pulse of 118. Had RR for pulse in 140s. Given x2 doses of metoprolol tartrate 2.5 mg IV and started on succinate 50 mg daily. ? Cardiology consulted, appreciate recommendations ? Heparin drip started ? Follow-up echo ? Metoprolol succinate 50 mg daily ? Continue to monitor on telemetry ? Keep K > 4 and Mg > 2 #JASON on CKD #ESRD, new hemodialysis #Hyperkalemia, resolved #NAGMA, resolved Likely intra-renal etiology with kidneys unable to excrete potassium, unable to hold onto bicarb, BUN/Cr ratio of 16 on admission. Produces urine, ruling out obstruction. Pre-renal may be contributing due to dehydration and/or poor oral intake. Found to have potassium of 7.8 and was given hyperkalemic cocktail including albuterol, insulin, dextrose, calcium gluconate. ? Nephrology consulted, appreciate recommendations ? Has had 3 sessions of HD, will need to replace temporary catheter for TDC ? Follow-up PPD, hepatitis panel negative ? Pending outpatient chair time ? Lasix 80 mg IV twice daily ? Strict I's and O's #AHRF, improving #COPD Likely due to fluid overload from renal failiure. History of COPD as well. ? Albuterol inhaler as needed #Hypertension ? Nifedipine 30 mg p.o. daily ? Labetalol 10 mg IV PRN #BPH ? Tamsulosin 0.4 mg daily #Macrocytic anemia Due to mixed Vitamin deficiency with anemia of chronic disease. Folate and B12 within normal limits. Hospital management: Disposition: new dialysis, new onset atrial fibrillation pending cardio recs Fluids: none Diet: renal Lines: PIV DVT prophylaxis: heparin drip CODE STATUS: full code ----- Plan discussed with attending physician Dr. Donnell Garcia MD PGY-2 Internal Medicine Attending Provider Attestation/Addendum I have examined the patient, reviewed labs and imaging findings, discussed the case with the resident(s), and reviewed entered orders. I agree with the plan of care as outlined in this note. Dr. Donnell MD
[2025-04-10] MEDS: NIFEdipine XL 30 MG TABCR PO (11:25)
[2025-04-10] MEDS: ASPIRIN EC 81 MG TABEC PO (11:25)
[2025-04-10] MEDS: TAMSULOSIN HCL 0.4 MG CAPSULE PO (11:25)
[2025-04-10] MEDS: FUROSEMIDE INJ 10 MG/ML 4ML VIAL 80 MG IVP ×2 (11:26→20:50)
[2025-04-10] MEDS: HEPARIN SOD INJ 5000 UNIT/ML VIAL SC (11:35)
[2025-04-10] MEDS: METOPROLOL SUCCINATE XL 25 MG TABCR 50 MG PO (11:57)
--- NOTE | 2025-04-10 12:34 | ECHO_ITS ---
Patient Info Name: Bubba Sanchez Age: 64 years : 1960 Gender: Male Ht: 168 cm Wt: 100 kg BSA: 2.20 m2 BP: 131 / 92 mmHg Heart Rhythm: Atrial Fibrillation Exam Date: 04/10/2025 1:47 PM Admit Date: 04/08/2025 Site: [facility] Room Number: [id number] Patient Status: I Technical Quality: Poor Exam Type: CA echo doppler complete Reason for Poor Study: body habitus Fire Support Specialist: Maren Yanez Ordering Physician: Sandy Kennedy Study Info Indications AFIB w/ RVR - Primary Location: S3NX Left Ventricular Outflow Tract Name Value Normal LVOT 2D LVOT Diameter 2.0 cm LVOT Doppler LVOT Peak Velocity 149 cm/s LVOT Mean Gradient 4 mmHg LVOT VTI 24 cm LVOT VTI/AV VTI Ratio 1.2 LVOT Stroke Volume 76 ml Pulmonic Valve Name Value Normal PV Doppler PV Peak Velocity 100 cm/s Mitral Valve Name Value Normal MV Doppler MV Mean Gradient 2 mmHg MV Decel [place] 654 cm/s2 MV PHT 33 ms MV Area (PHT) 6.7 cm2 4.0-5.0 MV Area (Cont Eq VTI) 3.0 cm2 MV Diastolic Function MV E Peak Velocity 74 cm/s Tricuspid Valve Name Value Normal TV Regurgitation Doppler TR Peak Velocity 175 cm/s Estimated PAP/RSVP RA Pressure 3 mmHg <=5 PA Systolic Pressure 15 mmHg <36 RV Systolic Pressure 15 mmHg <36 Aortic Valve Name Value Normal AV 2D/MM AV Cusp Sep (MM) 1.0 cm AV Doppler AV Peak Velocity 150 cm/s AV Mean Gradient 6 mmHg AV VTI 19 cm AV Area (Cont Eq VTI) 3.9 cm2 >=3.0 AV Area (Cont Eq Billy) 3.1 cm2 AV DI (Billy) 0.99 AV Regurgitation 2D LVOT Area 3.1 cm2 Ventricles Name Value Normal LV Dimensions 2D/MM IVS Diastolic Thickness (2D) 1.1 cm 0.6-1.0 LVID Diastole (2D) 4.4 cm 4.2-5.8 LVIW Diastolic Thickness (2D) 1.1 cm 0.6-1.0 LVID Systole (2D) 3.3 cm 2.5-4.0 LVOT Diameter 2.0 cm LV Mass (2D Cubed) 168.92 g 88.00-224.00 LV Mass Index (2D Cubed) 77 g/m2 49-115 Relative Wall Thickness (2D) 0.50 <=0.42 IVS/LVIW Diastolic Thickness (2D) 1.00 0.00-1.50 LV Fractional Shortening/Ejection Fraction 2D/MM LV Fractional Shortening (2D) 25 % 25-43 LV EF (2D Teichholz) 50 % Atria Name Value Normal LA Dimensions LA Volume (4C A-L) 33 ml LA Volume (BP A-L) 50 ml Left Ventricle Left ventricular chamber dimension is normal. Left ventricular systolic function is mildly reduced with visually estimated ejection fraction of 45-50%. There is mild concentric hypertrophy noted in the left ventricle. Left ventricular segmental wall motion is normal. There is indeterminate diastolic function in the left ventricle. Right Ventricle Right ventricular chamber dimension is normal. Right ventricular systolic function is normal. Left Atrium Left atrial chamber dimension is mildly enlarged. Right Atrium Right atrial chamber dimension is normal. Aortic Valve The aortic valve is trileaflet. There is moderate aortic valve sclerosis. There is no aortic valve stenosis with a peak velocity of 150 cm/s, mean gradient of 6 mmHg, and aortic valve area of 3.9 cm2. There is mild aortic valve regurgitation. Pulmonic Valve The pulmonic valve is normal. There is no pulmonic valve stenosis. There is trace pulmonic regurgitation. Mitral Valve The mitral valve has normal leaflets. There is no mitral valve stenosis. There is mild mitral valve regurgitation. Tricuspid Valve The tricuspid valve leaflets are normal. There is no tricuspid valve stenosis. There is trace tricuspid valve regurgitation. No pulmonary hypertension, estimated pulmonary arterial systolic pressure is 15 mmHg and systemic blood pressure of 131 mmHg in systole. Pericardium/Pleural The pericardium appears normal. There is no pericardial effusion. No pleural effusion visualized. Inferior Vena Cava Normal inferior vena cava with >50% collapse upon inspiration consistent with normal right atrial pressure, 3 mmHg. Aorta The aortic measurements are indexed to age and body surface area. The aortic root at the sinus of Valsalva is not well visualized. The prox ascending aorta is not well visualized. Summary 1. Left ventricle size is normal and systolic function is mildly reduced. Estimated ejection fraction is 45-50%. There is indeterminate diastolic function. 2. Right ventricle chamber size is normal and systolic function is normal. Estimated RVSP is 15 mmHg. 3. There is moderate aortic valve sclerosis with no stenosis and mild regurgitation. 4. There is mild mitral and trace tricuspid valve regurgitation. Trace PI. 5. The left atrium is mildly enlarged. The right atrium is normal. 6. Normal IVC with estimated RA pressure 3 mmHg. Report Signatures Finalized by Vinay Rooney on 04/10/2025 07:54 PM
--- NOTE | 2025-04-10 12:43 | PD.RESEVENT ---
Documentation for date of: 04/10/25 Event Note Event Note: RR called around 12:30 PM for atrial fibrillation with RVR, pulse noted to be 140s-150s. Upon evaluation, patient denied chest pain or shortness of breath and was resting in bed comfortably. Pulse ranged from 130s-140s, blood pressure stable, saturating well on room air. Of note, first went into afib during dialysis session this morning prior to rapid with pulse ranging from 100s-120s and was given metoprolol succinate 50 mg at that time. EKG then showed RVR with pulse of 118. He had a bowel movement just prior to rapid. He was given metoprolol tartrate 2.5 IVP, 4 g IV magnesium, started heparin drip, ordered echo, and consulted cardiology. Also ordered labs (BMP, Mg, Phos, CBC). ----- Plan discussed with attending physician Dr. Donnell Garcia MD PGY-2 Internal Medicine
[2025-04-10 12:57] LABS: Basophils # (Auto) 0.1 Thou/mm3 (0.0-0.2); Basophils % (Auto) 1 % (0-2.5); Eosinophils # (Auto) 0.2 Thou/mm3 (0.0-0.5); Eosinophils % (Auto) 3 % (0-10); Hematocrit 29.8 % (41.0-53.0); Hemoglobin 9.8 g/dL (13.5-16.0); Immature Granulocytes Auto 0.05 Thou/mm3 (0.00-0.00); Lymphocytes # (Auto) 1.5 Thou/mm3 (1.0-4.8); Lymphocytes % (Auto) 18 % (10-50); Mean Corpuscular HGB Conc 32.9 g/dl (31.0-37.0); Mean Corpuscular Hemoglobin 36.4 pg (25.0-35.0); Mean Corpuscular Volume 111 fL (80-100); Monocytes # (Auto) 0.9 Thou/mm3 (0.0-0.8); Monocytes % (Auto) 11 % (0-12); Neutrophils # (Auto) 5.5 Thou/mm3 (1.8-7.7); Neutrophils % (Auto) 67 % (37-80); Nucleated Red Blood Cell # 0.02 Thou/mm3 (0.00-0.00); Nucleated Red Blood Cell % 0 /100 WBC (0); Platelet Count 159 Thou/mm3 (140-440); RDW Standard Deviation 55.9 fL (35.1-43.9); Red Blood Count 2.69 Miln/mm3 (4.50-5.90); White Blood Count 8.1 Thou/mm3 (3.8-10.6)
[2025-04-10 13:12] LABS: INR 1.0 (0.9-1.3); Partial Thromboplastin Time 28.6 Seconds (22.0-36.0); Prothrombin Time 10.3 Seconds (9.0-12.2)
[2025-04-10] MEDS: Magnesium Sulfate 4 GM Ivpb 4 GM/50 ML BAG IV (13:15)
[2025-04-10 13:26] LABS: Anion Gap 11 (7-16); BUN/Creatinine Ratio 9 Ratio (12-20); Blood Urea Nitrogen 17 mg/dL (9-23); Calcium 9.0 mg/dL (8.3-10.6); Carbon Dioxide 28.5 mMol/L (20.0-31.0); Chloride 99 mMol/L (98-107); Creatinine (Component) 1.8 mg/dL (0.6-1.3); Estimated Creatinine Clearance 46.5 mL/min (>60); Glucose 127 mg/dL (74-106); Magnesium 1.8 mg/dL (1.6-2.6); Osmolality,Calculated 279 (275-295); Phosphorous 2.9 mg/dL (2.4-5.1); Potassium 4.2 mMol/L (3.4-5.1); Sodium 138 mMol/L (136-145); eGFR 42 See Note
[2025-04-10 14:33] LABS: Glucose Estimated Average 114 mg/dL (80-131); Hemoglobin A1C 5.6 % Hgb (4.8-6.0)
--- NOTE | 2025-04-10 14:39 | ESCONSULT_ITS ---
<Statement entered by Jo Ibrahim MD - 04/11/25 08:02> Patient was seen and examined by me personally. I have reviewed the below documentation by the team resident and agree with its findings. Mr. Bustamante is a 64-year-old male with past medical history of hypertension, COPD, chronic kidney disease since 2020, significant history of smoking, BPH, chronic pain and lung nodule who presented to [facility] emergency department on April 08, 2025 with a chief complaint of altered mental status, nausea and vomiting. Patient had been vomiting 3 days prior to presentation, in the ER patient's potassium was found to be 7.8, temporary dialysis catheter was placed in the ED and patient was admitted to the hospital. Earlier today patient had a rapid response called for tachycardia with heart rate 140?150s, EKG showed atrial fibrillation with rapid ventricular response, rate 118 patient was given 2.5 IV metoprolol tartrate and oral metoprolol succinate 50 mg and cardiology was consulted. Patient seen at bedside heart rate sustaining in 120s?130s, no electrolyte abnormalities noted, magnesium being repleted. Patient received nifedipine this morning, blood pressure at bedside SBP 110, decision made to start patient on diltiazem drip 5 mg/h. Drip can be uptitrated to 10 mg/h if blood pressure is permissible. Metoprolol dose can be adjusted in the morning, continue 50 mg daily for now. Echocardiogram obtained 04/10/2025 shows: 1. Left ventricle size is normal and systolic function is mildly reduced. Estimated ejection fraction is 45-50%. There is indeterminate diastolic function. 2. Right ventricle chamber size is normal and systolic function is normal. Estimated RVSP is 15 mmHg. 3. There is moderate aortic valve sclerosis with no stenosis and mild regurgitation. 4. There is mild mitral and trace tricuspid valve regurgitation. Trace PI. 5. The left atrium is mildly enlarged. The right atrium is normal. 6. Normal IVC with estimated RA pressure 3 mmHg. Mildly reduced ejection fraction noted, patient currently on Lasix 80 mg twice daily and dialysis as needed, at bedside patient looks fairly euvolemic. Once heart rate is controlled on oral metoprolol, will need outpatient initiation of GDMT, will need to follow-up with cardiology outpatient for ischemia workup. Patient denies any chest pain. Troponin on presentation was negative EKG 04/08/2025 showed sinus tachycardia with no acute ST-T changes, EKG 08/19/2024 shows Q wave in lead III and aVF. Cardiac diet, strict intake and output, low- sodium diet and fluid restriction 1500 cc. Thank you for the consult and allowing to participate in the care of the patient. Cardiology will continue to follow. Case discussed with Attending Physician Dr. Vinay Ibrahim MD Internal Medicine PGY-2 Disclaimer: This note was dictated by speech recognition. Minor errors in critical care physician assistant may be present due to voice recognition software. HPI Data of Consult Requesting Physician: Jero Jacobo MD Admitting Provider: Gavin Chou MD Attending Provider: Jero Jacobo MD Primary Care Provider: Yosi Jenkins MD Consult Narrative History of present illness: History of Present Illness: Mr Bubab Sanchez, is 64yM with PMH of HTN, COPD, CKD, presented to the ED on 04/08/2025 due to AMS and vomiting. At the time of admission, patient was lethargic and was unable to answer any of the questions asked by primary care team. Per EMS, pt didn't have any weakness or dropping. Glucose lv was 80, K 7.8, and was given hyperkalemic cocktail: albutrol, insulin, dextrose, calcium gluconate. Patient denied any past dialysis. Patient was admitted for Hyperkalemia needing emergent dialysis. Cardiology was consulted on 04/10/2025 for managment of new onset Afib with RVR. ED Course: -Initial vitals were blood pressure 158/65, pulse 108, respiratory rate 20, temperature 99.1, oxygen saturation 96% on room air. -Labs significant for WBC 10.8, hemoglobin 8.0, MCV 118, ABG #1 showed pH 7.19, bicarb 13; ABG #2 showed pH 7.24, bicarb 17, potassium 7.8, chloride 117, bicarb 14.0, BUN 73, creatinine 4.7, eGFR 13, calculated osmolality 307 -Imaging included head CT that was negative for acute hemorrhage mass effect or midline shift; chest x-ray negative for lobar pneumonia or pulmonary edema; EKG sinus tachycardia; repeat chest x-ray showed satisfactory position of right IJ temporary dialysis catheter, new no pneumothorax; kidney ultrasound limited study showed severe left kidney scarring; CT chest abdomen pelvis showed early right upper lobe pneumonia, stable 12 mm tracheobronchial lymph node, stable 4 mm pulmonary nodule, 6.5 cm left renal cyst, right pelvic kidney with tiny 1 to 2 mm renal calculi, no hydronephrosis, severe osteopenia and advanced degenerative disc disease L4-L5 and L5-S1 respectively -In the ED, patient was given dextrose, albuterol 2.5 mg inhaled, insulin 10 units, calcium gluconate, 1 L LR, sodium bicarb, lidocaine came IM, multiple dextrose. Past Medical History: above Family History: n/a Surgical History: tonsillectomy Social History: has 3 children, Denies smoking or using illicit drugs. Used to be heavy drinker, but noted he occasionally drinks now. Current Medications: Med Rec ordered (patient unable to speak adequately for history) Allergies: No known drug allergies 04/10/2025:Labs reviewed and patient examined at the bedside.Today, patient developed new onset A fib with RVR, with rate 110-120 during dialysis and later HR peaked to 140s, and was confirmed on EKG. Patient started on metoprolol succinate 50mg po qd. At the time of examination, BP ranged from 120s/70s with HR of 110s and was still in Afib on tele monitoring. Patient started on Diltiazem drip 5mg/hr. Recommend increasing to 10mg/hr if BP permissible. Continue metoprolol 50mg po qd. Hold Nifedipine. Per nephrology recommendations, on IV furosemide 80mg bid. Will continue to monitor. cc:: cc: Jero Jacobo MD Review of Systems Review of Systems Narrative Review of Systems: All 12 systems assessed and the patient denies unless otherwise stated in HPI Exam Vital Signs Temp Pulse Resp BP Pulse Ox O2 Del Method O2 Flow Rate 97.4 F 123 H 20 110/76 94 L Nasal Cannula 2 04/10/25 11:20 04/10/25 14:05 04/10/25 14:05 04/10/25 14:05 04/10/25 14:05 04/10/25 11:20 04/10/25 11:20 Narrative Exam General: No acute distress, well nourished, AAO x3 Eye: Normal conjunctiva, no scleral icterus HENT: Normocephalic, atraumatic, hearing intact to conversation at normal volume, moist oral mucosa Neck: Supple, non-tender, no JVD, no lymphadenopathy Lungs: Non-labored respirations, symmetric chest rise, Clear to auscultate bilaterally, No wheezing, rhonchi, crackles Heart: Peripheral pulses intact bilaterally, irregular rate and rhythm. Abdomen: Soft, non-tender, non-distended, no palpable masses Musculoskeletal: No cyanosis or edema, No visible joint swelling Skin: Skin is warm, dry, no rashes or lesions. Psychiatric: Cooperative, appropriate mood and affect, Awake and alert, not agitated Neuro: Cranial nerves II-XII grossly intact. Sensations intact to light touch. Results Labs 04/12/25 03:51 04/12/25 03:51 Labs: Short CBC 04/10/25 04/10/25 Range/Units 04:52 12:40 WBC 7.3 8.1 (3.8-10.6) Thou/mm3 Hgb 8.9 L 9.8 L (13.5-16.0) g/dL Hct 27.7 L 29.8 L (41.0-53.0) % Plt Count 152 159 (140-440) Thou/mm3 [facility] 04/10/25 04/10/25 04:52 12:40 Sodium 139 138 Potassium 4.3 D 4.2 Chloride 101 99 Carbon Dioxide 28.6 28.5 BUN 35 H 17 Creatinine 3.0 H 1.8 H D Glucose 98 127 H Calcium 8.7 9.0 ABG Interpretation ABG results: 04/08/25 04/08/25 04:01 06:11 ABG pH 7.19 L* 7.24 L ABG pCO2 35 39 ABG pO2 85 117 H D ABG HCO3 13 L 17 L ABG O2 Saturation 96 99 H ABG Base Excess -14 L -10 L Quality Measures Quality Measures VTE prophylaxis Medications Home Medications and Allergies Home Medications ?Medication ?Instructions ?Recorded ?Confirmed ?Type albuterol sulfate 90 mcg/actuation 2 puff inhalation Q 6H PRN 04/06/21 04/09/25 History aerosol inhaler Shortness Of Breath fluticasone propionate 50 1 spray intranasal QDAY 03/2104/09/25 History mcg/actuation nasal spray,suspension acetaminophen 500 mg tablet 500 mg PO Q6H PRN pain 05/1504/09/25 History baclofen 10 mg tablet 10 mg PO DAILY PRN muscle sp asm 08/19/24 04/09/25 History losartan 100 mg tablet 100 mg PO DAILY 08/19/24 History Held on 04/12/25. Instructions: Resume on 04/27/25. tiotropium bromide 18 mcg capsule 1 cap inhalation QDA Y 08/19/24 04/09/25 History with inhalation device (Spiriva with HandiHaler) amlodipine 10 mg tablet 10 mg PO QDAY 04/09/2504/09 History Held on 04/12/25. Instructions: Resume on 04/27/25. aspirin 81 mg tablet,delayed 81 mg PO QDAY 04/09/25 History release (Adult Aspirin Regimen) gabapentin 600 mg tablet 600 mg PO TID 04/09/2504/09 History Allergies Allergy/AdvReac Type Severity Reaction Status Date / Time No Known Allergies Allergy Verified 08/20/24 08:44 Visit Medications Acetaminophen (Acetaminophen 325 Mg Tablet) 650 mg PO Q6H PRN PRN Reason: PAIN OR FEVER > 100.4 Stop: 05/08/25 08:05 Last Admin: 04/09/25 10:38 Dose: 650 mg Albuterol (Albuterol Inh 8 Gm) 2 puff INH Q6H PRN PRN Reason: SHORTNESS OF BREATH Stop: 05/09/25 07:34 Last Admin: 04/10/25 01:33 Dose: 2 puff Aspirin (Aspirin Ec 81 Mg Tabec) 81 mg PO QDAY [facility] Stop: 05/09/25 08:59 Last Admin: 04/10/25 11:25 Dose: 81 mg Furosemide (Furosemide Inj 10 Mg/Ml 4ml Vial) 80 mg IVP BID [facility] Stop: 05/08/25 20:59 Last Admin: 04/10/25 11:26 Dose: 80 mg Heparin Sodium (Porcine) (Heparin Sod Inj 1000 Unit/Ml Vial 10 Ml) 3,300 unit INDWELLCAT PRN PRN PRN Reason: DIALYSIS Stop: 04/23/25 10:59 Last Admin: 04/10/25 11:11 Dose: 3,300 unit Heparin Sodium (Porcine) (Heparin Sod Inj 1000 Unit/Ml Vial 10 Ml) 1,500 unit INDWELLCAT PRN PRN PRN Reason: PREVENT CLOTTING Stop: 04/23/25 11:41 Last Admin: 04/10/25 07:52 Dose: 1,500 unit Albumin Human (Albuminex 25% Ivpb) 25 gm in 100 mls @ 0 mls/hr IV Q30MIN PRN PRN Reason: To maintain SBP>90 Last Admin: 04/10/25 09:15 Dose: 300 mls/hr Heparin Sodium/Dextrose (Heparin In D5w Ivpb) 25,000 unit in 250 mls @ 10.977 mls/hr IV .[id number] [facility]; Protocol Stop: 04/24/25 13:29 Magnesium Sulfate (Magnesium Sulfate Ivpb) 4 gm in 50 mls @ 12.5 mls/hr IV X1 ONE Stop: 04/10/25 16:39 Last Admin: 04/10/25 13:15 Dose: 12.5 mls/hr Diltiazem/Sodium Chloride (Diltiazem In Ns 100 Mg) 100 mg in 100 mls @ 5 mls/hr IV .Q20H [facility]; Protocol Stop: 05/10/25 14:18 Metoprolol Succinate (Metoprolol Succinate Xl 25 Mg Tabcr) 50 mg PO QDAY [facility] Stop: 05/10/25 11:49 Last Admin: 04/10/25 11:57 Dose: 50 mg Nifedipine (Nifedipine Xl 30 Mg Tabcr) 30 mg PO QDAY [facility] On Hold: 04/10/25 14:07 Stop: 05/08/25 17:14 Last Admin: 04/10/25 11:25 Dose: 30 mg Ondansetron HCl (Ondansetron Inj 2 Mg/Ml Inj 2 Ml) 4 mg IVP Q6H PRN; Protocol PRN Reason: NAUSEA OR VOMITING Stop: 05/08/25 08:05 Last Admin: 04/09/25 03:37 Dose: 4 mg Simethicone (Simethicone 80 Mg Chew) 80 mg PO QID PRN PRN Reason: GAS Stop: 05/09/25 12:21 Last Admin: 04/09/25 12:36 Dose: 80 mg Tamsulosin HCl (Tamsulosin Hcl 0.4 Mg Capsule) 0.4 mg PO QDAY [facility] Stop: 05/09/25 08:59 Last Admin: 04/10/25 11:25 Dose: 0.4 mg Discontinued Medications Albuterol (Albuterol Rt 2.5 Mg/0.5 Ml Nebu) 2.5 mg INH X1 ONE Stop: 04/08/25 04:37 Last Admin: 04/08/25 04:53 Dose: 2.5 mg Calcium Gluconate (Calcium Gluconate 10% Inj 1 Gm/10 Ml Vial) 1 gm IV X1 ONE Stop: 04/08/25 04:33 Last Admin: 04/08/25 05:09 Dose: 1 gm Dextrose (Dextrose 50%-Water Inj 50 Ml Syringe) 50 ml IVP X1 ONE Stop: 04/08/25 03:08 Last Admin: 04/08/25 03:22 Dose: Not Given Dextrose (Dextrose 50%-Water Inj 50 Ml Syringe) 50 ml IVP X1 ONE Stop: 04/08/25 03:25 Last Admin: 04/08/25 04:03 Dose: 50 ml Dextrose (Dextrose 50%-Water Inj 50 Ml Syringe) 100 ml IVP X1 ONE Stop: 04/08/25 04:33 Last Admin: 04/08/25 05:01 Dose: 100 ml Dextrose (Dextrose 50%-Water Inj 50 Ml Syringe) 50 ml IVP X1 ONE Stop: 04/08/25 05:08 Last Admin: 04/08/25 05:07 Dose: 50 ml Dextrose (Dextrose 50%-Water Inj 50 Ml Syringe) 50 ml IVP X1 ONE Stop: 04/08/25 07:18 Last Admin: 04/08/25 07:31 Dose: 50 ml Epoetin Homar (Epoetin Homar-Epbx Inj 10,000 Unit/Ml Vial (Non-Esrd)) 10,000 unit SC X1 ONE Stop: 04/08/25 13:35 Last Admin: 04/08/25 16:03 Dose: 10,000 unit Glucagon (Glucagon Inj 1 Mg Vial) 5 mg IVP X1 ONE Stop: 04/08/25 04:20 Last Admin: 04/08/25 06:44 Dose: Not Given Heparin Sodium (Porcine) (Heparin Sod Inj 5000 Unit/Ml Vial) 5,000 unit SC BID OLI Stop: 04/22/25 08:59 Last Admin: 04/10/25 11:35 Dose: 5,000 unit Heparin Sodium (Porcine) (Heparin Sod Inj 1000 Unit/Ml Vial 10 Ml) 2,600 unit INDWELLCAT X1 PRN PRN Reason: DIALYSIS Last Admin: 04/08/25 10:25 Dose: 2,600 unit Heparin Sodium (Porcine) (Heparin Sod Inj 5000 Unit/Ml Vial) 4,000 unit IV X1 ONE; Protocol Stop: 04/10/25 13:31 Lactated Ringer's (Lactated Ringers) 1,000 mls @ 999 mls/hr IV .Q1H1M ONE Stop: 04/08/25 05:30 Last Infusion: 04/08/25 07:37 Dose: Infused Sodium Bicarbonate 88.23 meq/ (Dextrose) 588.23 mls @ 100 mls/hr IV .Q5H53M OLI Stop: 05/08/25 06:59 Sodium Bicarbonate 88.23 meq/ (Dextrose) 588.23 mls @ 100 mls/hr IV .Q5H53M ONE Stop: 04/08/25 13:07 Last Admin: 04/08/25 11:00 Dose: 100 mls/hr Insulin Human Regular (Insulin Hum Regular 1 Unit/0.01 Ml (Per Unit)) 10 unit 0.1 unit/kg (10 unit) IV X1 ONE Stop: 04/08/25 04:33 Last Admin: 04/08/25 05:03 Dose: 10 unit Labetalol HCl (Labetalol Inj 5 Mg/Ml Vial 4 Ml) 10 mg IVP Q1HR PRN PRN Reason: sbp > 180 Lidocaine HCl (Lidocaine Hcl 1% 20 Ml Vial) 20 ml IM X1 ONE Stop: 04/08/25 07:21 Last Admin: 04/08/25 07:23 Dose: 20 ml Metoprolol Tartrate (Metoprolol Tartrate Inj 1 Mg/Ml Vial 5 Ml) 2.5 mg IVP X1 ONE Stop: 04/10/25 12:34 Last Admin: 04/10/25 12:40 Dose: 2.5 mg Metoprolol Tartrate (Metoprolol Tartrate Inj 1 Mg/Ml Vial 5 Ml) 2.5 mg IVP X1 ONE Stop: 04/10/25 13:36 Last Admin: 04/10/25 14:25 Dose: Not Given Patiromer (Patiromer Calcium 8.4 Gm Packet) 8.4 gm PO X1 ONE Stop: 04/08/25 05:15 Last Admin: 04/08/25 06:44 Dose: Not Given Sodium Bicarbonate (Sodium Bicarb Inj 8.4% 1 Meq/Ml 50 Ml Vial) 50 meq IV X1 ONE Stop: 04/08/25 04:50 Last Admin: 04/08/25 05:11 Dose: 50 meq Tuberculin PPD (Tuberculin Ppd Inj 5 Unit/0.1 Ml Dose) 5 unit ID X1 ONE Stop: 04/09/25 16:07 Last Admin: 04/09/25 16:31 Dose: 5 unit Assessment & Plan Plan Mr Bubba Sanchez, is 64yM with PMH of HTN, COPD, CKD, presented to the ED on 04/08/2025 due to AMS and vomiting. Patient was admitted for Hyperkalemia needing emergent dialysis. Cardiology was consulted on 04/10/2025 for managment of new onset Afib with RVR. #New Onset Afib with RVR -Today, patient developed new onset A fib with RVR, with rate 110-120 during dialysis and later HR peaked to 140s, and was confirmed on EKG. -Patient started on metoprolol succinate 50mg po qd. At the time of examination, BP ranged from 120s/70s with HR of 110s and was still in Afib on tele monitoring. -Patient denied any chest pain, palpation or SOB. -CHADSVASC score of 1 (0.6% stroke risk per year) and HASBLEED score 1: Low risk of major bleeding Plan: -Start Diltiazem drip 5mg/hr. Recommend increasing to 10mg/hr if BP permissible. -Continue metoprolol 50mg po qd. -Hold Nifedipine for blood pressure room for rate control with diltiazem as well as metoprolol for now. -Keep Mg>2 and K>4 -Keep monitoring in telemetry #Hypertension -Hold Nifedipine -Discontinue Labetalol. #JASON on CKD -worsening to ESRD #ESRD, new hemodialysis #Hyperkalemia, resolved #NAGMA, resolved -Per nephrology recommendations, On IV lasix 80mg bid. #AHRF, improving #COPD #BPH #Macrocytic anemia -Management per Primary Hospitalist team Thank you for allowing us to participate in the care of Mr. Bubba Sanchez. Cardiology will continue to follow. Assessment and plan discussed with my attending physician Dr. Summers (PGY-1) - Internal medicine resident Attending Provider Attestation/Addendum I have personally seen and examined the patient separately on the above date of service and discussed the plan of care with the resident. I reviewed the resident Dr. Jarocho Summers / Jo Ibrahim consultation progress note and agree with the resident findings and plan in the note above and have also edited the documentation to reflect my findings and plan. Vinay Rooney M.D. Interventional Cardiology
[2025-04-10] MEDS: Heparin/D5w 25K 250 ML Ivpb 25,000 UNIT/250 ML BAG 9.979 UNIT IV (15:31)
[2025-04-10] MEDS: HEPARIN SOD INJ 5000 UNIT/ML VIAL 4000 UNIT IV (15:31)
--- NOTE | 2025-04-10 16:03 | PC.SS ---
Rounding note: Patient had an PARISH VISITOR. Patient is a new Hemodialysis patient of Dr. Swann. SW faxed referral to [facility]; patient is pending permanent HD catheter placement on Friday, and PPD read. During PARISH VISITOR, the patient requested SW to contact his friends. SW contacted lathe set up operator Lewis Villegas, , who provided [employer]'s phone number, . Marino and Leila, , are the patient's support system. SW offered to contact the patient's sister, but he refused. d/c plan: Home, will need transportation if [facility] is unable to transport.
--- NOTE | 2025-04-10 16:56 | PC.NURSE ---
1116 pt arrived from dialysis this nurse went to assess pt, voices no c/o pain or chest pain, dr at bedside to assess pt due to increased heart rate of 120's in afib, new orders were placed, this nurse contacted dr again and informed them that his heart rate is sustaining in 120's, pt voices no concerns at this time he just stated that he is a little anxious from so many people coming in his room and being in the hospital, pt alert and oriented x4, resp 18 even and unlabored, call light in reach, bed in low position, pt voices no other concerns at this time, this nurse had agent spa desk contact rapid response naida to patients heart rate sustaining greater than 145 and was contacted by tele, doctors came to bedside, because pt was also stating that he feels funny, however he did not state that he had any chest pains or SOB, rapid started at 1229, arrived at 1232 and ended at 1240, medications were placed see MAR. Consult placed for hvac installer came to bedside to assess pt this nurse gave report at 1445 to nurse on second floor, due to the new orders placed for cardiac drip and heparin etc, see orders and MAR, this nurse explained to pt family that was at bedside and informed pt, pt alert and oriented x4, resp 18 even and unlabored, voices no complaints of chest pain, charge nurse was made aware of all events
[2025-04-10] MEDS: ACETAMINOPHEN 325 MG TABLET 650 MG PO (17:52)
[2025-04-10 21:54] LABS: Partial Thromboplastin Time 51.7 Seconds (22.0-36.0)
[2025-04-11] VITALS (10 sets, daily range): BP systolic 95–142; BP diastolic 61–80; PULSE 68–109; RESP 11–96; TEMP 36.1–37.2; O2SAT 94–98; BMI 35.3
[2025-04-11] MEDS: ACETAMINOPHEN 325 MG TABLET 650 MG PO (00:52)
--- NOTE | 2025-04-11 04:00 | PC.NURSE ---
SPOKE WITH DR. AMES REGARDING PT C/O F/C BURNING AND BOTHERING HIM. PT WOULD LIKE HIS F/C REMOVED. DR. AMES OK WITH REMOVAL. PT EDUCATED REGARDING POSSIBLE RETENTION POST REMOVAL, IN/OUT STRAIGHT CATH IF NEEDED. QUIVI TO BE PLACED.
[2025-04-11 06:23] LABS: Basophils # (Auto) 0.1 Thou/mm3 (0.0-0.2); Basophils % (Auto) 1 % (0-2.5); Eosinophils # (Auto) 0.2 Thou/mm3 (0.0-0.5); Eosinophils % (Auto) 2 % (0-10); Hematocrit 27.7 % (41.0-53.0); Hemoglobin 9.1 g/dL (13.5-16.0); Immature Granulocytes Auto 0.08 Thou/mm3 (0.00-0.00); Lymphocytes # (Auto) 1.7 Thou/mm3 (1.0-4.8); Lymphocytes % (Auto) 16 % (10-50); Mean Corpuscular HGB Conc 32.9 g/dl (31.0-37.0); Mean Corpuscular Hemoglobin 36.5 pg (25.0-35.0); Mean Corpuscular Volume 111 fL (80-100); Monocytes # (Auto) 1.2 Thou/mm3 (0.0-0.8); Monocytes % (Auto) 11 % (0-12); Neutrophils # (Auto) 7.6 Thou/mm3 (1.8-7.7); Neutrophils % (Auto) 70 % (37-80); Nucleated Red Blood Cell # 0.02 Thou/mm3 (0.00-0.00); Nucleated Red Blood Cell % 0 /100 WBC (0); Platelet Count 170 Thou/mm3 (140-440); RDW Standard Deviation 55.5 fL (35.1-43.9); Red Blood Count 2.49 Miln/mm3 (4.50-5.90); White Blood Count 10.9 Thou/mm3 (3.8-10.6)
[2025-04-11 06:33] LABS: Partial Thromboplastin Time 43.7 Seconds (22.0-36.0)
[2025-04-11] MEDS: ALBUTEROL INH 8 GM 2 PUFF INH (06:46)
[2025-04-11 06:58] LABS: Anion Gap 13 (7-16); BUN/Creatinine Ratio 11 Ratio (12-20); Blood Urea Nitrogen 30 mg/dL (9-23); Calcium 9.3 mg/dL (8.3-10.6); Carbon Dioxide 28.1 mMol/L (20.0-31.0); Chloride 95 mMol/L (98-107); Creatinine (Component) 2.7 mg/dL (0.6-1.3); Estimated Creatinine Clearance 31.0 mL/min (>60); Glucose 108 mg/dL (74-106); Magnesium 2.4 mg/dL (1.6-2.6); Osmolality,Calculated 279 (275-295); Phosphorous 3.8 mg/dL (2.4-5.1); Potassium 4.2 mMol/L (3.4-5.1); Sodium 136 mMol/L (136-145); eGFR 26 See Note
[2025-04-11] MEDS: HEPARIN SOD INJ 5000 UNIT/ML VIAL 2000 UNIT IV (07:26)
[2025-04-11] MEDS: FUROSEMIDE INJ 10 MG/ML 4ML VIAL 80 MG IVP ×2 (08:54→20:42)
[2025-04-11] MEDS: TAMSULOSIN HCL 0.4 MG CAPSULE PO (08:54)
--- NOTE | 2025-04-11 09:21 | PC.SS ---
Addendum entered by Verena Boston 04/11/25 15:49: Follow up note: SS spoke to Josiane @ [facility] who states they did not receive any paperwork yesterday. SS resubmitted documentation to dialysis center. Patient will receive perm cath Friday per physician. Original Note: rounding note: Patient needed new emergency dialysis treatment. Now, pending perm cath early next week. Remote Ruby On Rails Developer is Dr. Fischer. Documentation was already sent to dialysis center. Cardiology consult as patient developed afib.
--- NOTE | 2025-04-11 13:46 | ESPR_ITS ---
<Statement entered by Tim Wolf MD - 04/11/25 17:54> Patient was seen and examined at the bedside.Echo showed EF of 45-50% and moderate aortic valve sclerosis. Patient reported that he is doing well. He will be continued on diltiazem drip @5 mg/hr and heparin drip for his new-onset A-Fib w/ RVR. Metoprolol succinate has been increased from 50 mg QD to 100 mg QD and nifedipine has been discontinued. Although patient's creatinine up-trended, his UOP has reassuringly improved. Patient is pending replacement of his temporary catheter with tunneled dialysis catheter so that he can receive outpatient HD. Will likely hold heparin drip tomorrow prior to PermCath placement. I discussed and supervised with the automotive internet sales manager physician who took care of this patient. I personally saw and examined the patient. I agree with most of the assessment and plan. Disclaimer: Despite multiple revisions, due to the dictation software being used, the document bellow may not be free of grammatical errors including phonetic/typographic errors. However, this does not deter from our commitment to providing health care in the patient's best interest in mind. Plan of care discussed with attending Physician Dr. Nav Wolf MD PGY-3 Documentation for date of: 04/11/25 Subjective Subjective Interval history: Overnight, patient was noted to be retaining urine but refused to have a Gómez placed; a condom catheter was placed instead. UOP over the last 24 hours was 1250 cc's, suggesting that the high dose of Lasix IV was successful in jump- starting the kidneys. Patient was examined at bedside; they appear A&Ox3 and in NAD. Vitals/labs today significant for BP 108/71, WBC 8.1->10.9, MCV 111, BUN 17->30, creatinine 1.8->2.7. Physical exam was non-contributory. 04/10 echo returned showing EF of 45-50% and moderate aortic valve sclerosis. Patient is currently on diltiazem gtt 5 mg/hr and heparin gtt for his new-onset A-Fib w/ RVR. Metoprolol succinate has been increased from 50 mg QD to 100 mg QD and nifedipine has been discontinued. Although patient's creatinine up-trended, his UOP has reassuringly improved. Otherwise, patient is pending replacement of his temporary catheter with tunneled dialysis catheter so that he can receive outpatient HD. Exam Vital Signs Temp Pulse Resp BP Pulse Ox O2 Del Method O2 Flow Rate 99.0 F 109 H 11 L 126/75 95 Room Air 2 04/11/25 12:00 04/11/25 12:00 04/11/25 12:00 04/11/25 12:00 04/11/25 12:00 04/11/25 12:00 04/10/25 11:20 Narrative Exam General: Resting in bed; no acute distress; A&Ox3 Skin: Warm, dry, intact, no obvious rash. HENT: NCAT, EOMI/PERRL, not icteric. External ears normal. No rhinorrhea. Moist mucous membranes Cardiovascular: Regular rate, regular rhythm, no murmur, +S1/S2. Respiratory: Less coarse sounds bilaterally (compared to yesterday) GI: Soft, nontender, distended. No guarding or rebound tenderness. : No suprapubic tenderness. No flank tenderness bilaterally. Extremities: Trace edema LE, no cyanosis, no clubbing. Extremity pulses present Neuro: Grossly nonfocal. Moving all 4 extremities. CN not formally tested but appear grossly intact. Psychiatric: cooperative, appropriate affect Objective Labs 04/19/25 05:20 04/19/25 05:20 Labs: Laboratory Results - last 24 hr 04/10/25 04/10/25 04/11/25 12:40 21:10 04:47 WBC 10.9 H RBC 2.49 L Hgb 9.1 L Hct 27.7 L MCV 111 H MCH 36.5 H MCHC 32.9 RDW Std Deviation 55.5 H Plt Count 170 Neut % (Auto) 70 Lymph % (Auto) 16 [place] % (Auto) 11 Eos % (Auto) 2 Baso % (Auto) 1 Neut # (Auto) 7.6 Lymph # (Auto) 1.7 [place] # (Auto) 1.2 H Eos # (Auto) 0.2 Baso # (Auto) 0.1 Immature Gran # (Auto) 0.08 H Absolute Nucleated RBC 0.02 H Immature Gran % 1 H Nucleated RBC % 0 APTT 51.7 H D 43.7 H Sodium 138 136 Potassium 4.2 4.2 Chloride 99 95 L Carbon Dioxide 28.5 28.1 Anion Gap 11 13 BUN 17 30 H Creatinine 1.8 H D 2.7 H D Estim Creat Clear Calc 46.5 L 31.0 L eGFR 42 L 26 L BUN/Creatinine Ratio 9 L 11 L Glucose [address] Glu mg/dL 114 Hemoglobin A1c 5.6 Calculated Osmolality 279 279 Calcium 9.0 9.3 Phosphorus 2.9 3.8 Magnesium 1.8 2.4 ABG Interpretation ABG results: 04/08/25 04/08/25 04:01 06:11 ABG pH 7.19 L* 7.24 L ABG pCO2 35 39 ABG pO2 85 117 H D ABG HCO3 13 L 17 L ABG O2 Saturation 96 99 H ABG Base Excess -14 L -10 L Quality Measures Quality Measures VTE prophylaxis Assessment & Plan Assessment Current Active Medications: Generic Name Dose Route Start Last Admin Trade Name Freq PRN Reason Stop Dose Admin Acetaminophen 650 mg 04/08/25 08:06 04/11/25 00:52 Acetaminophen 325 Mg Tablet PO 05/08/25 08:05 650 mg Q6H PRN Administration PAIN OR FEVER > 100.4 Albuterol 2 puff 04/09/25 07:35 04/11/25 06:46 Albuterol Inh 8 Gm INH 05/09/25 07:34 2 puff Q6H PRN Administration SHORTNESS OF BREATH Aspirin 81 mg 04/09/25 09:00 04/11/25 08:52 Aspirin Ec 81 Mg Tabec PO 05/09/25 08:59 Not Given QDAY OLI Furosemide 80 mg 04/08/25 21:00 04/11/25 08:54 Furosemide Inj 10 Mg/Ml 4ml Vial IVP 05/08/25 20:59 80 mg BID OLI Administration Heparin Sodium (Porcine) 3,300 unit 04/09/25 11:00 04/10/25 11:11 Heparin Sod Inj 1000 Unit/Ml Vial 10 Ml INDWELLCAT 04/23/25 10:59 3,300 unit PRN PRN Administration DIALYSIS Heparin Sodium (Porcine) 1,500 unit 04/09/25 11:42 04/10/25 07:52 Heparin Sod Inj 1000 Unit/Ml Vial 10 Ml INDWELLCAT 04/23/25 11:41 1,500 unit PRN PRN Administration PREVENT CLOTTING Albumin Human 25 gm in 100 mls @ 0 mls/hr 04/09/25 09:37 04/10/25 09:15 Albuminex 25% Ivpb IV 300 mls/hr Q30MIN PRN Administration To maintain SBP>90 Per Protocol Diltiazem/Sodium Chloride 100 mg in 100 mls @ 5 mls/hr 04/10/25 14:19 04/11/25 10:38 Diltiazem In Ns 100 Mg IV 05/10/25 14:18 5 mg/hr .Q20H OLI 5 mls/hr Protocol Administration 5 MG/HR Heparin Sodium/Dextrose 25,000 unit in 250 mls @ 9.979 mls/hr 04/10/25 15:30 04/11/25 07:26 Heparin In D5w Ivpb IV 04/24/25 13:29 12 units/kg/hr .Q24H OLI 11.975 mls/hr Protocol Titration 10 UNITS/KG/HR Metoprolol Succinate 100 mg 04/12/25 09:00 Metoprolol Succinate Xl 25 Mg Tabcr PO 05/12/25 08:59 QDAY OLI Ondansetron HCl 4 mg 04/08/25 08:06 04/09/25 03:37 Ondansetron Inj 2 Mg/Ml Inj 2 Ml IVP 05/08/25 08:05 4 mg Q6H PRN Administration NAUSEA OR VOMITING Protocol Simethicone 80 mg 04/09/25 12:22 04/09/25 12:36 Simethicone 80 Mg Chew PO 05/09/25 12:21 80 mg QID PRN Administration GAS Tamsulosin HCl 0.4 mg 04/09/25 09:00 04/11/25 08:54 Tamsulosin Hcl 0.4 Mg Capsule PO 05/09/25 08:59 0.4 mg QDAY [facility] Administration Plan 64-year-old male with history of COPD, hypertension, CKD who was admitted on 04/08 for severe hyperkalemia and renal failure requiring emergent dialysis. #New onset atrial fibrillation with RVR, rate-controlled New onset in setting of new hemodialysis. Denied any chest pain or shortness of breath. EKG showning a-fib with RVR, pulse of 118. Had RR for pulse in 140s. Given x2 doses of metoprolol tartrate 2.5 mg IV and started on succinate 50 mg daily. Dx: -04/10 echo ordered, showed EF of 45-50% Rx: -Cardiology consulted, appreciate recommendations -Heparin gtt -Metoprolol succinate 100 mg PO QD -Continue to monitor on telemetry -Keep K > 4 and Mg > 2 #JASON on CKD #ESRD, new hemodialysis #Hyperkalemia, resolved #NAGMA, resolved Likely intra-renal etiology with kidneys unable to excrete potassium, unable to hold onto bicarb, BUN/Cr ratio of 16 on admission. Produces urine, ruling out obstruction. Pre-renal may be contributing due to dehydration and/or poor oral intake. Found to have potassium of 7.8 and was given hyperkalemic cocktail including albuterol, insulin, dextrose, calcium gluconate. UOP improved by 04/11 s/p high dose Lasix IV (1250 cc over 24 hours) Dx: -Hepatitis panel negative, PPD ___ Rx: ? Nephrology consulted, appreciate recommendations ? Has had 3 sessions of HD, will need to replace temporary catheter for TDC (tentatively scheduled for 04/12) ? Pending outpatient chair time ? Lasix 80 mg IV twice daily ? Strict I's and O's #Acute hypoxic respiratory failure, improving #COPD Likely due to fluid overload from renal failure. History of COPD as well. Rx: -Albuterol inhaler as needed #Hypertension, resolved 04/08 admission BP 158/65 Now controlled Rx: -Discontinued Nifedipine 30 mg PO QD ?Labetalol 10 mg IV PRN #BPH Rx: -Tamsulosin 0.4 mg daily -Condom catheter placed on 04/10 #Macrocytic anemia 04/08 admission Hgb 8.0 (MCV 118, RDW 63.4) Due to mixed Vitamin deficiency with anemia of chronic disease. Folate and B12 within normal limits. Rx: -CTM CBC, transfuse if Hgb<7 Hospital management: Disposition: Tele, pending replacement of temporary catheter with tunneled dialysis catheter Fluids: None Diet: Renal Lines: PIV DVT prophylaxis: Heparin gtt CODE STATUS: Full Code ----- Plan discussed with attending physician Dr. Donnell Chopra, PGY-1 Internal Medicine Attending Provider Attestation/Addendum I have examined the patient, reviewed labs and imaging findings, discussed the case with the resident(s), and reviewed entered orders. I agree with the plan of care as outlined in this note. Dr. Donnell MD
[2025-04-11 14:00] LABS: Partial Thromboplastin Time 45.8 Seconds (22.0-36.0)
[2025-04-11] MEDS: HEPARIN SOD INJ 5000 UNIT/ML VIAL 2000 UNIT IVP (15:48)
[2025-04-11] MEDS: Heparin/D5w 25K 250 ML Ivpb 25,000 UNIT/250 ML BAG 13.971 UNIT IV (15:50)
--- NOTE | 2025-04-11 17:40 | PC.NURSE ---
Pt converted to sinus rhythm. Called and made aware. Continue diltiazem drip for now.
--- NOTE | 2025-04-11 19:52 | PD.RESPRO ---
Documentation for date of: 04/11/25 Subjective Subjective Interval history: Mr Bubba Sanchez, is 64yM with PMH of HTN, COPD, CKD, presented to the ED on 04/08/2025 due to AMS and vomiting. At the time of admission, patient was lethargic and was unable to answer any of the questions asked by primary care team. Per EMS, pt didn't have any weakness or dropping. Glucose lv was 80, K 7.8, and was given hyperkalemic cocktail: albutrol, insulin, dextrose, calcium gluconate. Patient denied any past dialysis. Patient was admitted for Hyperkalemia needing emergent dialysis. Cardiology was consulted on 04/10/2025 for managment of new onset Afib with RVR. ED Course: -Initial vitals were blood pressure 158/65, pulse 108, respiratory rate 20, temperature 99.1, oxygen saturation 96% on room air. -Labs significant for WBC 10.8, hemoglobin 8.0, MCV 118, ABG #1 showed pH 7.19, bicarb 13; ABG #2 showed pH 7.24, bicarb 17, potassium 7.8, chloride 117, bicarb 14.0, BUN 73, creatinine 4.7, eGFR 13, calculated osmolality 307 -Imaging included head CT that was negative for acute hemorrhage mass effect or midline shift; chest x-ray negative for lobar pneumonia or pulmonary edema; EKG sinus tachycardia; repeat chest x-ray showed satisfactory position of right IJ temporary dialysis catheter, new no pneumothorax; kidney ultrasound limited study showed severe left kidney scarring; CT chest abdomen pelvis showed early right upper lobe pneumonia, stable 12 mm tracheobronchial lymph node, stable 4 mm pulmonary nodule, 6.5 cm left renal cyst, right pelvic kidney with tiny 1 to 2 mm renal calculi, no hydronephrosis, severe osteopenia and advanced degenerative disc disease L4-L5 and L5-S1 respectively -In the ED, patient was given dextrose, albuterol 2.5 mg inhaled, insulin 10 units, calcium gluconate, 1 L LR, sodium bicarb, lidocaine came IM, multiple dextrose. Past Medical History: above Family History: n/a Surgical History: tonsillectomy Social History: has 3 children, Denies smoking or using illicit drugs. Used to be heavy drinker, but noted he occasionally drinks now. Current Medications: Med Rec ordered (patient unable to speak adequately for history) Allergies: No known drug allergies 04/10/2025:Labs reviewed and patient examined at the bedside.Today, patient developed new onset A fib with RVR, with rate 110-120 during dialysis and later HR peaked to 140s, and was confirmed on EKG. Patient started on metoprolol succinate 50mg po qd. At the time of examination, BP ranged from 120s/70s with HR of 110s and was still in Afib on tele monitoring. Patient started on Diltiazem drip 5mg/hr. Recommend increasing to 10mg/hr if BP permissible. Continue metoprolol 50mg po qd. Hold Nifedipine. Per nephrology recommendations, on IV furosemide 80mg bid. Will continue to monitor. 04/11/2025: Patient has been receiving IV lasix 80mg po bid. Making adequate UOP of 1.2L this morning. Continue aspirin 81mg po qd and Diltiazem drip 5mg/hr. Metoprolol increased from 50mg to 100mg po qd. Current BP 119/65 with HR 70. Continue current medications as of now. Patient denies any SOB, palpations, or chest pain. No other active complaints as of this moment. Discontinue heparin drip before dialysis catheter placement tomorrow. Exam Vital Signs Temp Pulse Resp BP Pulse Ox O2 Del Method O2 Flow Rate 98.8 F 100 30 H 142/78 H 95 Room Air 2 04/11/25 16:00 04/11/25 16:00 04/11/25 16:00 04/11/25 16:00 04/11/25 16:00 04/11/25 16:00 04/10/25 11:20 Narrative Exam General: No acute distress, well nourished, AAO x3 Eye: Normal conjunctiva, no scleral icterus HENT: Normocephalic, atraumatic, hearing intact to conversation at normal volume, moist oral mucosa Neck: Supple, non-tender, no JVD, no lymphadenopathy Lungs: Non-labored respirations, symmetric chest rise, Clear to auscultate bilaterally, No wheezing, rhonchi, crackles Heart: Peripheral pulses intact bilaterally, irregular rate and rhythm. Abdomen: Soft, non-tender, non-distended, no palpable masses Musculoskeletal: No cyanosis or edema, No visible joint swelling Skin: Skin is warm, dry, no rashes or lesions. Psychiatric: Cooperative, appropriate mood and affect, Awake and alert, not agitated Neuro: Cranial nerves II-XII grossly intact. Sensations intact to light touch. Objective Labs 04/12/25 03:51 04/12/25 03:51 Labs: Laboratory Results - last 24 hr 04/10/25 04/11/25 04/11/25 21:10 04:47 13:38 WBC 10.9 H RBC 2.49 L Hgb 9.1 L Hct 27.7 L MCV 111 H MCH 36.5 H MCHC 32.9 RDW Std Deviation 55.5 H Plt Count 170 Neut % (Auto) 70 Lymph % (Auto) 16 [place] % (Auto) 11 Eos % (Auto) 2 Baso % (Auto) 1 Neut # (Auto) 7.6 Lymph # (Auto) 1.7 [place] # (Auto) 1.2 H Eos # (Auto) 0.2 Baso # (Auto) 0.1 Immature Gran # (Auto) 0.08 H Absolute Nucleated RBC 0.02 H Immature Gran % 1 H Nucleated RBC % 0 APTT 51.7 H D 43.7 H 45.8 H Sodium 136 Potassium 4.2 Chloride 95 L Carbon Dioxide 28.1 Anion Gap 13 BUN 30 H Creatinine 2.7 H D Estim Creat Clear Calc 31.0 L eGFR 26 L BUN/Creatinine Ratio 11 L Glucose 108 H Calculated Osmolality 279 Calcium 9.3 Phosphorus 3.8 Magnesium 2.4 ABG Interpretation ABG results: 04/08/25 04/08/25 04:01 06:11 ABG pH 7.19 L* 7.24 L ABG pCO2 35 39 ABG pO2 85 117 H D ABG HCO3 13 L 17 L ABG O2 Saturation 96 99 H ABG Base Excess -14 L -10 L Quality Measures Quality Measures VTE prophylaxis Assessment & Plan Assessment Current Active Medications: Generic Name Dose Route Start Last Admin Trade Name Freq PRN Reason Stop Dose Admin Acetaminophen 650 mg 04/08/25 08:06 04/11/25 00:52 Acetaminophen 325 Mg Tablet PO 05/08/25 08:05 650 mg Q6H PRN Administration PAIN OR FEVER > 100.4 Albuterol 2 puff 04/09/25 07:35 04/11/25 06:46 Albuterol Inh 8 Gm INH 05/09/25 07:34 2 puff Q6H PRN Administration SHORTNESS OF BREATH Aspirin 81 mg 04/09/25 09:00 04/11/25 08:52 Aspirin Ec 81 Mg Tabec PO 05/09/25 08:59 Not Given QDAY OLI Furosemide 80 mg 04/08/25 21:00 04/11/25 08:54 Furosemide Inj 10 Mg/Ml 4ml Vial IVP 05/08/25 20:59 80 mg BID OLI Administration Heparin Sodium (Porcine) 3,300 unit 04/09/25 11:00 04/10/25 11:11 Heparin Sod Inj 1000 Unit/Ml Vial 10 Ml INDWELLCAT 04/23/25 10:59 3,300 unit PRN PRN Administration DIALYSIS Heparin Sodium (Porcine) 1,500 unit 04/09/25 11:42 04/10/25 07:52 Heparin Sod Inj 1000 Unit/Ml Vial 10 Ml [facility] 04/23/25 11:41 1,500 unit PRN PRN Administration PREVENT CLOTTING Albumin Human 25 gm in 100 mls @ 0 mls/hr 04/09/25 09:37 04/10/25 09:15 Albuminex 25% Ivpb IV 300 mls/hr Q30MIN PRN Administration To maintain SBP>90 Per Protocol Diltiazem/Sodium Chloride 100 mg in 100 mls @ 5 mls/hr 04/10/25 14:19 04/11/25 10:38 Diltiazem In Ns 100 Mg IV 05/10/25 14:18 5 mg/hr .Q20H OLI 5 mls/hr Protocol Administration 5 MG/HR Heparin Sodium/Dextrose 25,000 unit in 250 mls @ 9.979 mls/hr 04/10/25 15:30 04/11/25 15:50 Heparin In D5w Ivpb IV 04/24/25 13:29 14 units/kg/hr .Q24H OLI 13.971 mls/hr Protocol Administration 10 UNITS/KG/HR Metoprolol Succinate 100 mg 04/12/25 09:00 Metoprolol Succinate Xl 25 Mg Tabcr PO 05/12/25 08:59 QDAY [facility] Ondansetron HCl 4 mg 04/08/25 08:06 04/09/25 03:37 Ondansetron Inj 2 Mg/Ml Inj 2 Ml IVP 05/08/25 08:05 4 mg Q6H PRN Administration NAUSEA OR VOMITING Protocol Simethicone 80 mg 04/09/25 12:22 04/09/25 12:36 Simethicone 80 Mg Chew PO 05/09/25 12:21 80 mg QID PRN Administration GAS Tamsulosin HCl 0.4 mg 04/09/25 09:00 04/11/25 08:54 Tamsulosin Hcl 0.4 Mg Capsule PO 05/09/25 08:59 0.4 mg QDAY OLI Administration Plan Mr Bubba Sanchez, is 64yM with PMH of HTN, COPD, CKD, presented to the ED on 04/08/2025 due to AMS and vomiting. Patient was admitted for Hyperkalemia needing emergent dialysis. Cardiology was consulted on 04/10/2025 for managment of new onset Afib with RVR. #New Onset Afib with RVR -Today, patient developed new onset A fib with RVR, with rate 110-120 during dialysis and later HR peaked to 140s, and was confirmed on EKG. -Patient started on metoprolol succinate 50mg po qd. At the time of examination, BP ranged from 120s/70s with HR of 110s and was still in Afib on tele monitoring. -Patient denied any chest pain, palpation or SOB. -CHADSVASC score of 1 (0.6% stroke risk per year) and HASBLEED score 1: Low risk of major bleeding -ECHO (04/10/2025) showed 1. Left ventricle size is normal and systolic function is mildly reduced. Estimated ejection fraction is 45-50%. There is indeterminate diastolic function. 2. Right ventricle chamber size is normal and systolic function is normal. Estimated RVSP is 15 mmHg. 3. There is moderate aortic valve sclerosis with no stenosis and mild regurgitation. 4. There is mild mitral and trace tricuspid valve regurgitation. Trace PI. 5. The left atrium is mildly enlarged. The right atrium is normal. 6. Normal IVC with estimated RA pressure 3 mmHg. Plan: - Patient on diltiazem drip 5mg/hr and in the process of transitioning to oral medications metoprolol XL. - Increased metoprolol 100mg po qd, and Aspirin 81mg po qd -Hold Nifedipine for blood pressure goal for rate control with metoprolol -Keep Mg>2 and K>4 -Keep monitoring in telemetry #Hypertension -Hold Nifedipine -Discontinue Labetalol. #JASON on CKD worsening to ESRD #ESRD, new hemodialysis March 2025 #Hyperkalemia, resolved #NAGMA, resolved -Per nephrology recommendations, On IV lasix 80mg bid. #AHRF, improving #COPD #BPH #Macrocytic anemia -Management per Primary Hospitalist team Thank you for allowing us to participate in the care of Mr. Bubba Sanchez. Cardiology will continue to follow. Assessment and plan discussed with my attending physician Dr. Toribio Summers (PGY-1) - Internal medicine resident Attending Provider Attestation/Addendum I have personally seen and examined the patient separately on the above date of service and discussed the plan of care with the resident. I reviewed the resident Dr. Jarocho Summers consultation progress note and agree with the resident findings and plan in the note above and have also edited the documentation to reflect my findings and plan. Vinay Rooney M.D. Interventional Cardiology
--- NOTE | 2025-04-11 21:52 | ESPR_ITS ---
RE: EDITH HENDERSON : 1960 DATE OF SERVICE: 04/11/2025 HISTORY OF PRESENT ILLNESS: Mr. Henderson is a 64-year-old gentleman with hypertension, COPD, history of smoking, enlarged prostate, and chronic kidney disease at least since 2020, who presented to the hospital on 04/09/2025 with altered level of consciousness. The patient was brought by his application development intern to the emergency room where he was found with potassium of 7.8 and BUN of 72 and creatinine of 4.7. The patient was incoherent when he presented. The patient underwent emergency dialysis on the day of admission and was dialyzed daily until Friday. He is doing much better now. Over the weekend, experienced fast heart rate consistent with atrial fibrillation and was started on heparin drip. The patient is being seen by Dr. Acevedo as well. CURRENT MEDICATIONS: 1. Heparin drip. 2. Aspirin 81 mg daily. 3. Diltiazem. 4. Furosemide. 5. Magnesium. 6. Metoprolol. 7. Simethicone. 8. Ondansetron. 9. Tamsulosin 0.4 mg daily. PHYSICAL EXAMINATION: GENERAL: He is awake, alert, oriented. VITAL SIGNS: Blood pressure 119/65, heart rate of 70. HEENT: Anicteric sclerae. Normocephalic. NECK: Supple. No JVD. CHEST AND LUNGS: Symmetric expansion, clear breath sounds. CARDIAC: Without murmur. ABDOMEN: Soft and nontender. EXTREMITIES: No edema. LABORATORY DATA: Hemoglobin 9.1, WBC 10,900, platelet count 170,000. Sodium 136, potassium 4.2, chloride 95, CO2 of 28.1, BUN 30, creatinine 2.7. Glucose 108, calcium 9.3, phosphorus 3.8. ASSESSMENT: 1. Nonoliguric acute kidney injury versus end-stage renal disease. 2. History of hypertension. 3. Uremic encephalopathy, now resolved. 4. Rapid atrial fibrillation, now controlled. 5. Anemia of chronic kidney disease. 6. Chronic obstructive pulmonary disease. PLAN: The patient will need a tunneled dialysis catheter. We will dialyze him again tomorrow. Heparin drip can be withheld for 4 hours before the procedure if okay with drivematic machine operator. DT: 21:39:26 TT: 21:50:00 Ref: [id number] - TID: [id number] MTDD
[2025-04-11 22:45] LABS: Partial Thromboplastin Time 50.5 Seconds (22.0-36.0)
[2025-04-12] VITALS (31 sets, daily range): BP systolic 115–154; BP diastolic 66–91; PULSE 65–96; RESP 14–96; TEMP 36.6–37.3; O2SAT 93–100
--- NOTE | 2025-04-12 | XR_ITS ---
Venous access removal temporary dialysis catheter Permanent tunneled dialysis catheter insertion, percutaneous Fluoroscopy AP chest, portable, single view. Date and time of procedure: April 12, 2025, 12:58 p.m. INDICATIONS: Need for long-term dialysis with a permanent tunneled dialysis catheter, patient has a temporary dialysis catheter Informed consent provided Technique: A timeout was completed verifying correct patient, procedure, site, positioning, and special equipment if applicable. The patient was placed in a dependent position appropriate for dialysis catheter placement based on the vein to be cannulated. The patient's right neck was prepped and draped in sterile fashion. Maximum Sterile Barrier Technique used including cap, mask, sterile gown, sterile gloves, and sterile full body drape. 1% lidocaine administered for local anesthesia 0.35 wire guide introduced through the temporary dialysis catheter with successful removal Dilator and sheath placed over the wire guide followed by a permanent tunneled dialysis catheter in proper position under CT fluoroscopic guidance. Subcutaneous tunnel formed in the upper chest. Permanent tunneled dialysis catheter placed in the subcutaneous tunnel. Dilators were introduced over the J-wire guide. Tunneled dialysis catheter is introduced through a dilator with venous sheath into the superior vena cava under fluoroscopic guidance. The catheter is sutured in place to the skin and a sterile dressing applied. Perfusion to the extremity distal to the point of catheter insertion is checked and found to be adequate Attending radiologist was present for the entire procedure Estimated blood loss 2 cc. The patient tolerated the procedure well and there were no complications Impression: Venous access removal temporary dialysis catheter Successful permanent tunneled dialysis catheter insertion, percutaneous Fluoroscopy 0.6-minute radiation dose 3.85 mGy 1 spot fluoroscopic chest. AP chest performed at completion procedure demonstrates satisfactory position dialysis catheter. May use dialysis catheter.
[2025-04-12] MEDS: HALOPERIDOL LACT INJ 5 MG/ML VIAL 1 MG IV (00:31)
[2025-04-12 04:04] LABS: Basophils # (Auto) 0.1 Thou/mm3 (0.0-0.2); Basophils % (Auto) 1 % (0-2.5); Eosinophils # (Auto) 0.2 Thou/mm3 (0.0-0.5); Eosinophils % (Auto) 1 % (0-10); Hematocrit 24.2 % (41.0-53.0); Immature Granulocytes Auto 0.05 Thou/mm3 (0.00-0.00); Lymphocytes # (Auto) 1.4 Thou/mm3 (1.0-4.8); Lymphocytes % (Auto) 13 % (10-50); Mean Corpuscular HGB Conc 34.3 g/dl (31.0-37.0); Mean Corpuscular Hemoglobin 37.2 pg (25.0-35.0); Mean Corpuscular Volume 109 fL (80-100); Monocytes # (Auto) 1.2 Thou/mm3 (0.0-0.8); Monocytes % (Auto) 11 % (0-12); Neutrophils # (Auto) 7.8 Thou/mm3 (1.8-7.7); Neutrophils % (Auto) 73 % (37-80); Nucleated Red Blood Cell # 0.00 Thou/mm3 (0.00-0.00); Nucleated Red Blood Cell % 0 /100 WBC (0); Platelet Count 152 Thou/mm3 (140-440); RDW Standard Deviation 54.8 fL (35.1-43.9); Red Blood Count 2.23 Miln/mm3 (4.50-5.90); White Blood Count 10.6 Thou/mm3 (3.8-10.6)
[2025-04-12 04:08] LABS: Hemoglobin 8.3 g/dL (13.5-16.0)
[2025-04-12 04:24] LABS: Alanine Aminotransferase 31 U/L (10-49); Albumin, Serum 4.6 gm/dL (3.4-4.8); Albumin/Globulin Ratio 1.6 (1.2-2.2); Alkaline Phosphatase 57 U/L (46-116); Anion Gap 13 (7-16); Aspartate Amino Transferase 31 U/L (0-34); BUN/Creatinine Ratio 11 Ratio (12-20); Bilirubin,Total 0.5 mg/dL (0.3-1.2); Blood Urea Nitrogen 38 mg/dL (9-23); Calcium 9.1 mg/dL (8.3-10.6); Calcium (Corrected) 9.1 mg/dL (8.5-10.1); Carbon Dioxide 27.8 mMol/L (20.0-31.0); Chloride 95 mMol/L (98-107); Creatinine (Component) 3.4 mg/dL (0.6-1.3); Estimated Creatinine Clearance 24.6 mL/min (>60); Globulin 2.8 gm/dL (2.3-3.5); Glucose 119 mg/dL (74-106); Magnesium 2.1 mg/dL (1.6-2.6); Osmolality,Calculated 281 (275-295); Phosphorous 3.8 mg/dL (2.4-5.1); Potassium 4.0 mMol/L (3.4-5.1); Sodium 136 mMol/L (136-145); Total Protein 7.4 gm/dL (5.7-8.2); eGFR 19 See Note
[2025-04-12 04:33] LABS: INR 1.0 (0.9-1.3); Partial Thromboplastin Time 54.4 Seconds (22.0-36.0); Prothrombin Time 10.9 Seconds (9.0-12.2)
[2025-04-12] MEDS: ALBUTEROL INH 8 GM 2 PUFF INH (07:20)
--- NOTE | 2025-04-12 08:42 | PC.SS ---
Addendum entered by Verena Boston 04/12/25 08:59: follow up note: SS spoke to staff at dialysis center who states patient is pending financial clearance. Original Note: Follow up note: Pending tunneled dialysis cath placement today. Pending o/p dialysis schedule with [facility] on [address].
--- NOTE | 2025-04-12 11:55 | PD.RESPRO ---
Documentation for date of: 04/12/25 Subjective Subjective Interval history: Mr Bubba Sanchez, is 64yM with PMH of HTN, COPD, CKD, presented to the ED on 04/08/2025 due to AMS and vomiting. At the time of admission, patient was lethargic and was unable to answer any of the questions asked by primary care team. Per EMS, pt didn't have any weakness or dropping. Glucose lv was 80, K 7.8, and was given hyperkalemic cocktail: albutrol, insulin, dextrose, calcium gluconate. Patient denied any past dialysis. Patient was admitted for Hyperkalemia needing emergent dialysis. Cardiology was consulted on 04/10/2025 for managment of new onset Afib with RVR. ED Course: -Initial vitals were blood pressure 158/65, pulse 108, respiratory rate 20, temperature 99.1, oxygen saturation 96% on room air. -Labs significant for WBC 10.8, hemoglobin 8.0, MCV 118, ABG #1 showed pH 7.19, bicarb 13; ABG #2 showed pH 7.24, bicarb 17, potassium 7.8, chloride 117, bicarb 14.0, BUN 73, creatinine 4.7, eGFR 13, calculated osmolality 307 -Imaging included head CT that was negative for acute hemorrhage mass effect or midline shift; chest x-ray negative for lobar pneumonia or pulmonary edema; EKG sinus tachycardia; repeat chest x-ray showed satisfactory position of right IJ temporary dialysis catheter, new no pneumothorax; kidney ultrasound limited study showed severe left kidney scarring; CT chest abdomen pelvis showed early right upper lobe pneumonia, stable 12 mm tracheobronchial lymph node, stable 4 mm pulmonary nodule, 6.5 cm left renal cyst, right pelvic kidney with tiny 1 to 2 mm renal calculi, no hydronephrosis, severe osteopenia and advanced degenerative disc disease L4-L5 and L5-S1 respectively -In the ED, patient was given dextrose, albuterol 2.5 mg inhaled, insulin 10 units, calcium gluconate, 1 L LR, sodium bicarb, lidocaine came IM, multiple dextrose. Past Medical History: above Family History: n/a Surgical History: tonsillectomy Social History: has 3 children, Denies smoking or using illicit drugs. Used to be heavy drinker, but noted he occasionally drinks now. Current Medications: Med Rec ordered (patient unable to speak adequately for history) Allergies: No known drug allergies 04/10/2025:Labs reviewed and patient examined at the bedside.Today, patient developed new onset A fib with RVR, with rate 110-120 during dialysis and later HR peaked to 140s, and was confirmed on EKG. Patient started on metoprolol succinate 50mg po qd. At the time of examination, BP ranged from 120s/70s with HR of 110s and was still in Afib on tele monitoring. Patient started on Diltiazem drip 5mg/hr. Recommend increasing to 10mg/hr if BP permissible. Continue metoprolol 50mg po qd. Hold Nifedipine. Per nephrology recommendations, on IV furosemide 80mg bid. Will continue to monitor. 04/11/2025: Patient has been receiving IV lasix 80mg po bid. Making adequate UOP of 1.2L this morning. Continue aspirin 81mg po qd and Diltiazem drip 5mg/hr. Metoprolol increased from 50mg to 100mg po qd. Current BP 119/65 with HR 70. Continue current medications as of now. Patient denies any SOB, palpations, or chest pain. No other active complaints as of this moment. Discontinue heparin drip before dialysis catheter placement tomorrow. 04/12/2025: Patient s/p placement of permanent tunneled dialysis caetheter. Patient is currently on IV lasix 80mg po bid, Aspiring 81mg po qd, Metoprolol 100mg po qd. Started on Eliquis 5mg po bid. Diltiazem drip has been discontinued. Heparin drip stopped. Discharge patient with aspirin 81mg po qd, eliquis 5mg po bid, Metoprolol succinate xl 50mg po bid and furosemide 40mg po bid. After discharge patient should follow up outpatient with Dr. Rooney, Cardiology office within 1 week. Clear to discharge in cardiology stand point. Exam Vital Signs Temp Pulse Resp BP Pulse Ox O2 Del Method O2 Flow Rate 98.4 F 89 18 134/91 H 97 Room Air 2 04/12/25 11:16 04/12/25 11:28 04/12/25 11:16 04/12/25 11:28 04/12/25 11:16 04/12/25 04:00 04/10/25 11:20 Narrative Exam General: No acute distress, well nourished, AAO x3 Eye: Normal conjunctiva, no scleral icterus HENT: Normocephalic, atraumatic, hearing intact to conversation at normal volume, moist oral mucosa Neck: Supple, non-tender, no JVD, no lymphadenopathy Lungs: Non-labored respirations, symmetric chest rise, Clear to auscultate bilaterally, No wheezing, rhonchi, crackles Heart: Peripheral pulses intact bilaterally, regular rate and rhythm. Abdomen: Soft, non-tender, non-distended, no palpable masses Musculoskeletal: No cyanosis or edema, No visible joint swelling Skin: Skin is warm, dry, no rashes or lesions. Psychiatric: Cooperative, appropriate mood and affect, Awake and alert, not agitated Neuro: Cranial nerves II-XII grossly intact. Sensations intact to light touch. Objective Labs 04/12/25 03:51 04/12/25 03:51 Labs: Laboratory Results - last 24 hr 04/11/25 04/11/25 04/12/25 13:38 22:06 03:51 WBC 10.6 RBC 2.23 L Hgb 8.3 L Hct 24.2 L MCV 109 H MCH 37.2 H MCHC 34.3 RDW Std Deviation 54.8 H Plt Count 152 Neut % (Auto) 73 Lymph % (Auto) 13 [place] % (Auto) 11 Eos % (Auto) 1 Baso % (Auto) 1 Neut # (Auto) 7.8 H Lymph # (Auto) 1.4 [place] # (Auto) 1.2 H Eos # (Auto) 0.2 Baso # (Auto) 0.1 Immature Gran # (Auto) 0.05 H Absolute Nucleated RBC 0.00 Immature Gran % 1 H Nucleated RBC % 0 PT 10.9 INR 1.0 APTT 45.8 H 50.5 H 54.4 H Sodium 136 Potassium 4.0 Chloride 95 L Carbon Dioxide 27.8 Anion Gap 13 BUN 38 H Creatinine 3.4 H D Estim Creat Clear Calc 24.6 L eGFR 19 L BUN/Creatinine Ratio 11 L Glucose 119 H Calculated Osmolality 281 Calcium 9.1 Corrected Calcium 9.1 Phosphorus 3.8 Magnesium 2.1 Total Bilirubin 0.5 AST 31 ALT 31 Alkaline Phosphatase 57 Total Protein 7.4 Albumin 4.6 Globulin 2.8 Albumin/Globulin Ratio 1.6 ABG Interpretation ABG results: 04/08/25 04/08/25 04:01 06:11 ABG pH 7.19 L* 7.24 L ABG pCO2 35 39 ABG pO2 85 117 H D ABG HCO3 13 L 17 L ABG O2 Saturation 96 99 H ABG Base Excess -14 L -10 L Quality Measures Quality Measures VTE prophylaxis Assessment & Plan Assessment Current Active Medications: Generic Name Dose Route Start Last Admin Trade Name Freq PRN Reason Stop Dose Admin Acetaminophen 650 mg 04/08/25 08:06 04/11/25 00:52 Acetaminophen 325 Mg Tablet PO 05/08/25 08:05 650 mg Q6H PRN Administration PAIN OR FEVER > 100.4 Albuterol 2 puff 04/09/25 07:35 04/12/25 07:20 Albuterol Inh 8 Gm INH 05/09/25 07:34 2 puff Q6H PRN Administration SHORTNESS OF BREATH Aspirin 81 mg 04/09/25 09:00 04/12/25 11:54 Aspirin Ec 81 Mg Tabec PO 05/09/25 08:59 Not Given QDAY OLI Furosemide 80 mg 04/08/25 21:00 04/11/25 20:42 Furosemide Inj 10 Mg/Ml 4ml Vial IVP 05/08/25 20:59 80 mg BID OLI Administration Heparin Sodium (Porcine) 3,300 unit 04/09/25 11:00 04/10/25 11:11 Heparin Sod Inj 1000 Unit/Ml Vial 10 Ml [facility] 04/23/25 10:59 3,300 unit PRN PRN Administration DIALYSIS Heparin Sodium (Porcine) 1,500 unit 04/09/25 11:42 04/10/25 07:52 Heparin Sod Inj 1000 Unit/Ml Vial 10 Ml [facility] 04/23/25 11:41 1,500 unit PRN PRN Administration PREVENT CLOTTING Albumin Human 25 gm in 100 mls @ 0 mls/hr 04/09/25 09:37 04/10/25 09:15 Albuminex 25% Ivpb IV 300 mls/hr Q30MIN PRN Administration To maintain SBP>90 Per Protocol Heparin Sodium/Dextrose 25,000 unit in 250 mls @ 9.979 mls/hr 04/10/25 15:30 04/12/25 06:00 Heparin In D5w Ivpb IV 04/24/25 13:29 0 units/kg/hr On Hold: 04/12/25 07:02 .Q24H OLI 0 mls/hr Protocol Titration 10 UNITS/KG/HR Metoprolol Succinate 100 mg 04/12/25 09:00 Metoprolol Succinate Xl 25 Mg Tabcr PO 05/12/25 08:59 QDAY OLI Ondansetron HCl 4 mg 04/08/25 08:06 04/09/25 03:37 Ondansetron Inj 2 Mg/Ml Inj 2 Ml IVP 05/08/25 08:05 4 mg Q6H PRN Administration NAUSEA OR VOMITING Protocol Simethicone 80 mg 04/09/25 12:22 04/09/25 12:36 Simethicone 80 Mg Chew PO 05/09/25 12:21 80 mg QID PRN Administration GAS Tamsulosin HCl 0.4 mg 04/09/25 09:00 04/11/25 08:54 Tamsulosin Hcl 0.4 Mg Capsule PO 05/09/25 08:59 0.4 mg QDAY OLI Administration Plan Mr Bubba Sanchez, is 64yM with PMH of HTN, COPD, CKD, presented to the ED on 04/08/2025 due to AMS and vomiting. Patient was admitted for Hyperkalemia needing emergent dialysis. Cardiology was consulted on 04/10/2025 for managment of new onset Afib with RVR. #New Onset Afib with RVR -patient developed new onset A fib with RVR, with rate 110-120 during dialysis and later HR peaked to 140s, and was confirmed on EKG. -Patient started on metoprolol succinate 50mg po qd. At the time of examination, BP ranged from 120s/70s with HR of 110s and was still in Afib on tele monitoring. -Patient denied any chest pain, palpation or SOB. -CHADSVASC score of 1 (0.6% stroke risk per year) and HASBLEED score 1: Low risk of major bleeding -Patient also has possible diastolic heart failure component for his fluid overload and considering it patient's chest Vascor is 2 and will be 65 in 1 year, hence discussed with the patient regarding anticoagulation and started on Eliquis. -ECHO (04/10/2025) showed 1. Left ventricle size is normal and systolic function is mildly reduced. Estimated ejection fraction is 45-50%. There is indeterminate diastolic function. 2. Right ventricle chamber size is normal and systolic function is normal. Estimated RVSP is 15 mmHg. 3. There is moderate aortic valve sclerosis with no stenosis and mild regurgitation. 4. There is mild mitral and trace tricuspid valve regurgitation. Trace PI. 5. The left atrium is mildly enlarged. The right atrium is normal. 6. Normal IVC with estimated RA pressure 3 mmHg. Plan: -Initially started on diltiazem drip and transition to metoprolol succinate 50 mg p.o. twice daily. Rate better controlled right now and is between 60-80 bpm -Discharge patient with aspirin 81mg po qd, eliquis 5mg po bid, Metoprolol succinate xl 50mg po bid and furosemide 40mg po bid. After discharge patient should follow up outpatient with Dr. Rooney, Cardiology office within 1 week. -Stopped Diltiazem drip 5mg/hr.. -Hold Nifedipine. -Keep Mg>2 and K>4 -Keep monitoring in telemetry #Hypertension -Hold Nifedipine -Discontinue Labetalol. #JASON on CKD worsened to ESRD #ESRD, new hemodialysis March 2025 #Hyperkalemia, resolved #NAGMA, resolved -Per nephrology recommendations, On IV lasix 80mg bid. #AHRF, improving #COPD #BPH #Macrocytic anemia -Management per Primary Hospitalist team Thank you for allowing us to participate in the care of Mr. Bubba Sanchez. Patient can be discharged in Cardiology standpoint. Assessment and plan discussed with my attending physician Dr. Toribio Summers (PGY-1) - Internal medicine resident Attending Provider Attestation/Addendum I have personally seen and examined the patient separately on the above date of service and discussed the plan of care with the resident. I reviewed the resident Dr. Jarocho Summers consultation progress note and agree with the resident findings and plan in the note above and have also edited the documentation to reflect my findings and plan. Vinay Rooney M.D. Interventional Cardiology
[2025-04-12] MEDS: HEPARIN SOD LOCK SYR 100 UNIT/ML 500 UNIT STFIELD (13:30)
[2025-04-12] MEDS: fentaNYL CIT INJ 50 mCg/ML AMP 2ML 100 MCG IVP (13:51)
[2025-04-12] MEDS: LIDOCAINE INJ PF 1% 5 ML VIAL 10 ML INFL (13:52)
[2025-04-12] MEDS: HEPARIN SOD INJ 1000 UNIT/ML VIAL 4100 UNIT INDWELLCAT (14:15)
[2025-04-12] MEDS: METOPROLOL SUCCINATE XL 25 MG TABCR 100 MG PO (14:48)
[2025-04-12] MEDS: TAMSULOSIN HCL 0.4 MG CAPSULE PO (14:49)
--- NOTE | 2025-04-12 16:41 | ESPR_ITS ---
<Statement entered by Tootie Magana MD - 04/16/25 12:56> I reviewed above note and agree with findings and plans. I have also personally examined the patient with medicine team and went over assessment and plan with medical team including analysis internship and resident physician. <Statement entered by Tim Wolf MD - 04/12/25 18:19> Patient was seen and examined at the bedside. Patient was not in any acute distress. Patient received PermCath and went dialysis without complication today. Cardiology gave clearance to discharge the patient however due to transport issue patient will be discharged tomorrow based on cardiology recommendations. Patient was transitioned from heparin drip to Eliquis. Anticipate discharge tomorrow. All labs and orders were reviewed. I discussed and supervised with the analysis internship physician who took care of this patient. I personally saw and examined the patient. I agree with most of the assessment and plan. Disclaimer: Despite multiple revisions, due to the dictation software being used, the document bellow may not be free of grammatical errors including phonetic/typographic errors. However, this does not deter from our commitment to providing health care in the patient's best interest in mind. Plan of care discussed with attending Physician Dr. Nav Wolf MD PGY-3 Documentation for date of: 04/12/25 Subjective Subjective Interval history: No overnight events. Patient was examined at bedside; they appear A&Ox3 and in NAD. Vitals/labs today significant for hemoglobin 9.1 -> 8.3, creatinine 2.7 -> 3.4, and 24-hour UOP 1385 cc. Physical exam was non-contributory. Patient had his permanent tunneled dialysis catheter successfully placed today and underwent dialysis without issue. Diltiazem drip has been discontinued. Heparin drip has been discontinued and patient has been successfully transition to Eliquis. He was medically cleared from the viewpoint of the internal medicine team with cardiology's blessing but due to transport issues patient will instead be discharged tomorrow. Patient's sister has been contacted by phone and updated on outpatient recommendations, including chair-time with Dr. Swann and follow- up with Cardiology. Exam Vital Signs Temp Pulse Resp BP Pulse Ox O2 Del Method O2 Flow Rate 98.3 F 85 16 129/89 H 99 Nasal Cannula 2 04/12/25 13:10 04/12/25 14:48 04/12/25 14:00 04/12/25 14:48 04/12/25 14:00 04/12/25 14:00 04/12/25 14:00 Narrative Exam General: Resting in bed; no acute distress; A&Ox3 Skin: Warm, dry, intact, no obvious rash. HENT: NCAT, EOMI/PERRL, not icteric. External ears normal. No rhinorrhea. Moist mucous membranes Cardiovascular: Regular rate, regular rhythm, no murmur, +S1/S2. Respiratory: Lung kang clear to auscultation bilaterally GI: Soft, nontender, distended. No guarding or rebound tenderness. : No suprapubic tenderness. No flank tenderness bilaterally. Extremities: Trace edema LE, no cyanosis, no clubbing. Extremity pulses present Neuro: Grossly nonfocal. Moving all 4 extremities. CN not formally tested but appear grossly intact. Psychiatric: cooperative, appropriate affect Objective Labs 04/12/25 03:51 04/12/25 03:51 Labs: Laboratory Results - last 24 hr 04/11/25 04/12/25 22:06 03:51 WBC 10.6 RBC 2.23 L Hgb 8.3 L Hct 24.2 L MCV 109 H MCH 37.2 H MCHC 34.3 RDW Std Deviation 54.8 H Plt Count 152 Neut % (Auto) 73 Lymph % (Auto) 13 [place] % (Auto) 11 Eos % (Auto) 1 Baso % (Auto) 1 Neut # (Auto) 7.8 H Lymph # (Auto) 1.4 [place] # (Auto) 1.2 H Eos # (Auto) 0.2 Baso # (Auto) 0.1 Immature Gran # (Auto) 0.05 H Absolute Nucleated RBC 0.00 Immature Gran % 1 H Nucleated RBC % 0 PT 10.9 INR 1.0 APTT 50.5 H 54.4 H Sodium 136 Potassium 4.0 Chloride 95 L Carbon Dioxide 27.8 Anion Gap 13 BUN 38 H Creatinine 3.4 H D Estim Creat Clear Calc 24.6 L eGFR 19 L BUN/Creatinine Ratio 11 L Glucose 119 H Calculated Osmolality 281 Calcium 9.1 Corrected Calcium 9.1 Phosphorus 3.8 Magnesium 2.1 Total Bilirubin 0.5 AST 31 ALT 31 Alkaline Phosphatase 57 Total Protein 7.4 Albumin 4.6 Globulin 2.8 Albumin/Globulin Ratio 1.6 ABG Interpretation ABG results: 04/08/25 04/08/25 04:01 06:11 ABG pH 7.19 L* 7.24 L ABG pCO2 35 39 ABG pO2 85 117 H D ABG HCO3 13 L 17 L ABG O2 Saturation 96 99 H ABG Base Excess -14 L -10 L Quality Measures Quality Measures VTE prophylaxis Assessment & Plan Assessment Current Active Medications: Generic Name Dose Route Start Last Admin Trade Name Freq PRN Reason Stop Dose Admin Acetaminophen 650 mg 04/08/25 08:06 04/11/25 00:52 Acetaminophen 325 Mg Tablet PO 05/08/25 08:05 650 mg Q6H PRN Administration PAIN OR FEVER > 100.4 Albuterol 2 puff 04/09/25 07:35 04/12/25 07:20 Albuterol Inh 8 Gm INH 05/09/25 07:34 2 puff Q6H PRN Administration SHORTNESS OF BREATH Aspirin 81 mg 04/09/25 09:00 04/12/25 11:54 Aspirin Ec 81 Mg Tabec PO 05/09/25 08:59 Not Given QDAY OLI Furosemide 80 mg 04/08/25 21:00 04/12/25 13:39 Furosemide Inj 10 Mg/Ml 4ml Vial IVP 05/08/25 20:59 Not Given BID OLI Heparin Sodium (Porcine) 3,300 unit 04/09/25 11:00 04/10/25 11:11 Heparin Sod Inj 1000 Unit/Ml Vial 10 Ml [facility] 04/23/25 10:59 3,300 unit PRN PRN Administration DIALYSIS Heparin Sodium (Porcine) 1,500 unit 04/09/25 11:42 04/10/25 07:52 Heparin Sod Inj 1000 Unit/Ml Vial 10 Ml [facility] 04/23/25 11:41 1,500 unit PRN PRN Administration PREVENT CLOTTING Albumin Human 25 gm in 100 mls @ 0 mls/hr 04/09/25 09:37 04/10/25 09:15 Albuminex 25% Ivpb IV 300 mls/hr Q30MIN PRN Administration To maintain SBP>90 Per Protocol Heparin Sodium/Dextrose 25,000 unit in 250 mls @ 9.979 mls/hr 04/10/25 15:30 04/12/25 06:00 Heparin In D5w Ivpb IV 04/24/25 13:29 0 units/kg/hr On Hold: 04/12/25 07:02 .Q24H OLI 0 mls/hr Protocol Titration 10 UNITS/KG/HR Metoprolol Succinate 100 mg 04/12/25 14:45 04/12/25 14:48 Metoprolol Succinate Xl 25 Mg Tabcr PO 05/12/25 14:44 100 mg QDAY OLI Administration Ondansetron HCl 4 mg 04/08/25 08:06 04/09/25 03:37 Ondansetron Inj 2 Mg/Ml Inj 2 Ml IVP 05/08/25 08:05 4 mg Q6H PRN Administration NAUSEA OR VOMITING Protocol Simethicone 80 mg 04/09/25 12:22 04/09/25 12:36 Simethicone 80 Mg Chew PO 05/09/25 12:21 80 mg QID PRN Administration GAS Tamsulosin HCl 0.4 mg 04/12/25 14:45 04/12/25 14:49 Tamsulosin Hcl 0.4 Mg Capsule PO 05/12/25 14:44 0.4 mg QDAY OLI Administration Plan 64-year-old male with history of COPD, hypertension, CKD who was admitted on 04/08 for severe hyperkalemia and renal failure requiring emergent dialysis. #New onset atrial fibrillation with RVR, rate-controlled New onset in setting of new hemodialysis. Denied any chest pain or shortness of breath. EKG showning a-fib with RVR, pulse of 118. Had RR for pulse in 140s. Given x2 doses of metoprolol tartrate 2.5 mg IV and started on succinate 50 mg daily. Dx: -04/10 echo ordered, showed EF of 45-50% Rx: -Cardiology consulted, appreciate recommendations -Eliquis 5 mg p.o. twice daily -Metoprolol succinate 100 mg PO QD -Continue to monitor on telemetry -Keep K > 4 and Mg > 2 #JASON on CKD #ESRD, new hemodialysis #Hyperkalemia, resolved #NAGMA, resolved Likely intra-renal etiology with kidneys unable to excrete potassium, unable to hold onto bicarb, BUN/Cr ratio of 16 on admission. Produces urine, ruling out obstruction. Pre-renal may be contributing due to dehydration and/or poor oral intake. Found to have potassium of 7.8 and was given hyperkalemic cocktail including albuterol, insulin, dextrose, calcium gluconate. UOP improved by 04/11 s/p high dose Lasix IV (1250 cc over 24 hours) Dx: -Hepatitis panel negative, PPD negative Rx: ? Nephrology consulted, appreciate recommendations ? Permanent tunneled dialysis catheter successfully placed as of 04/12 ? HD today ? Outpatient chair time with Dr. Swann has been arranged ? Lasix 80 mg IV twice daily ? Strict I's and O's #Acute hypoxic respiratory failure, improving #Hx of COPD Likely due to fluid overload from renal failure. History of COPD as well. Rx: -Albuterol inhaler as needed #Hypertension, resolved 04/08 admission BP 158/65 Now controlled Rx: -Discontinued Nifedipine 30 mg PO QD ?Labetalol 10 mg IV PRN #BPH Rx: -Tamsulosin 0.4 mg daily -Condom catheter placed on 04/10 #Macrocytic anemia 04/08 admission Hgb 8.0 (MCV 118, RDW 63.4) Due to mixed Vitamin deficiency with anemia of chronic disease. Folate and B12 within normal limits. Rx: -CTM CBC, transfuse if Hgb<7 Hospital management: Disposition: Tele, TDC placed successfully and discharge anticipated tomorrow Fluids: None Diet: Renal Lines: PIV DVT prophylaxis: Eliquis CODE STATUS: Full Code ----- Plan discussed with attending physician Dr. Izzy Chopra, DO PGY-1 Internal Medicine
[2025-04-12] MEDS: ACETAMINOPHEN 325 MG TABLET 650 MG PO (17:05)
[2025-04-12] MEDS: FUROSEMIDE INJ 10 MG/ML 4ML VIAL 80 MG IVP (20:33)
[2025-04-12] MEDS: APIXABAN 2.5 MG TABLET 5 MG PO (20:34)
[2025-04-12] MEDS: MELATONIN 3 MG TABLET 6 MG PO (22:55)
[2025-04-13] VITALS (11 sets, daily range): BP systolic 108–138; BP diastolic 19–79; PULSE 66–88; RESP 12–96; TEMP 36.4–37.6; O2SAT 91–98
[2025-04-13 05:45] LABS: Basophils # (Auto) 0.0 Thou/mm3 (0.0-0.2); Basophils % (Auto) 0 % (0-2.5); Eosinophils # (Auto) 0.0 Thou/mm3 (0.0-0.5); Eosinophils % (Auto) 0 % (0-10); Hematocrit 26.2 % (41.0-53.0); Immature Granulocytes Auto 0.14 Thou/mm3 (0.00-0.00); Lymphocytes # (Auto) 1.1 Thou/mm3 (1.0-4.8); Lymphocytes % (Auto) 7 % (10-50); Mean Corpuscular HGB Conc 33.6 g/dl (31.0-37.0); Mean Corpuscular Hemoglobin 36.7 pg (25.0-35.0); Mean Corpuscular Volume 109 fL (80-100); Monocytes # (Auto) 1.8 Thou/mm3 (0.0-0.8); Monocytes % (Auto) 12 % (0-12); Neutrophils # (Auto) 12.5 Thou/mm3 (1.8-7.7); Neutrophils % (Auto) 80 % (37-80); Nucleated Red Blood Cell # 0.00 Thou/mm3 (0.00-0.00); Nucleated Red Blood Cell % 0 /100 WBC (0); Platelet Count 174 Thou/mm3 (140-440); RDW Standard Deviation 55.0 fL (35.1-43.9); Red Blood Count 2.40 Miln/mm3 (4.50-5.90); White Blood Count 15.7 Thou/mm3 (3.8-10.6)
[2025-04-13 05:54] LABS: Hemoglobin 8.8 g/dL (13.5-16.0)
[2025-04-13 06:19] LABS: Alanine Aminotransferase 31 U/L (10-49); Albumin, Serum 4.6 gm/dL (3.4-4.8); Albumin/Globulin Ratio 1.3 (1.2-2.2); Alkaline Phosphatase 63 U/L (46-116); Anion Gap 14 (7-16); Aspartate Amino Transferase 25 U/L (0-34); BUN/Creatinine Ratio 10 Ratio (12-20); Bilirubin,Total 0.6 mg/dL (0.3-1.2); Blood Urea Nitrogen 43 mg/dL (9-23); Calcium 9.7 mg/dL (8.3-10.6); Calcium (Corrected) 9.7 mg/dL (8.5-10.1); Carbon Dioxide 23.9 mMol/L (20.0-31.0); Chloride 94 mMol/L (98-107); Creatinine (Component) 4.5 mg/dL (0.6-1.3); Estimated Creatinine Clearance 18.6 mL/min (>60); Globulin 3.5 gm/dL (2.3-3.5); Glucose 113 mg/dL (74-106); Magnesium 2.1 mg/dL (1.6-2.6); Osmolality,Calculated 276 (275-295); Phosphorous 5.3 mg/dL (2.4-5.1); Potassium 4.5 mMol/L (3.4-5.1); Sodium 132 mMol/L (136-145); Total Protein 8.1 gm/dL (5.7-8.2); eGFR 14 See Note
--- NOTE | 2025-04-13 07:25 | XR_ITS ---
EXAMINATION: AP chest single view TECHNIQUE: AP portable semiupright chest single view Date and time: April 13, 2025, 0849 hours, comparison April 08, 2025 INDICATIONS: Inpatient status post tunnel dialysis catheter, acute renal failure FINDINGS: Right internal jugular dialysis catheter tip satisfactory position No pneumothorax Normal heart size Lungs are clear IMPRESSION: No active disease
--- NOTE | 2025-04-13 08:00 | ESPR_ITS ---
Documentation for date of: 04/13/25 Subjective Subjective Interval history: Mr Bubba Sanchez, is 64yM with PMH of HTN, COPD, CKD, presented to the ED on 04/08/2025 due to AMS and vomiting. At the time of admission, patient was lethargic and was unable to answer any of the questions asked by primary care team. Per EMS, pt didn't have any weakness or dropping. Glucose lv was 80, K 7.8, and was given hyperkalemic cocktail: albutrol, insulin, dextrose, calcium gluconate. Patient denied any past dialysis. Patient was admitted for Hyperkalemia needing emergent dialysis. Cardiology was consulted on 04/10/2025 for managment of new onset Afib with RVR. ED Course: -Initial vitals were blood pressure 158/65, pulse 108, respiratory rate 20, temperature 99.1, oxygen saturation 96% on room air. -Labs significant for WBC 10.8, hemoglobin 8.0, MCV 118, ABG #1 showed pH 7.19, bicarb 13; ABG #2 showed pH 7.24, bicarb 17, potassium 7.8, chloride 117, bicarb 14.0, BUN 73, creatinine 4.7, eGFR 13, calculated osmolality 307 -Imaging included head CT that was negative for acute hemorrhage mass effect or midline shift; chest x-ray negative for lobar pneumonia or pulmonary edema; EKG sinus tachycardia; repeat chest x-ray showed satisfactory position of right IJ temporary dialysis catheter, new no pneumothorax; kidney ultrasound limited study showed severe left kidney scarring; CT chest abdomen pelvis showed early right upper lobe pneumonia, stable 12 mm tracheobronchial lymph node, stable 4 mm pulmonary nodule, 6.5 cm left renal cyst, right pelvic kidney with tiny 1 to 2 mm renal calculi, no hydronephrosis, severe osteopenia and advanced degenerative disc disease L4-L5 and L5-S1 respectively -In the ED, patient was given dextrose, albuterol 2.5 mg inhaled, insulin 10 units, calcium gluconate, 1 L LR, sodium bicarb, lidocaine came IM, multiple dextrose. Past Medical History: above Family History: n/a Surgical History: tonsillectomy Social History: has 3 children, Denies smoking or using illicit drugs. Used to be heavy drinker, but noted he occasionally drinks now. Current Medications: Med Rec ordered (patient unable to speak adequately for history) Allergies: No known drug allergies 04/10/2025:Labs reviewed and patient examined at the bedside.Today, patient developed new onset A fib with RVR, with rate 110-120 during dialysis and later HR peaked to 140s, and was confirmed on EKG. Patient started on metoprolol succinate 50mg po qd. At the time of examination, BP ranged from 120s/70s with HR of 110s and was still in Afib on tele monitoring. Patient started on Diltiazem drip 5mg/hr. Recommend increasing to 10mg/hr if BP permissible. Continue metoprolol 50mg po qd. Hold Nifedipine. Per nephrology recommendations, on IV furosemide 80mg bid. Will continue to monitor. 04/11/2025: Patient has been receiving IV lasix 80mg po bid. Making adequate UOP of 1.2L this morning. Continue aspirin 81mg po qd and Diltiazem drip 5mg/hr. Metoprolol increased from 50mg to 100mg po qd. Current BP 119/65 with HR 70. Continue current medications as of now. Patient denies any SOB, palpations, or chest pain. No other active complaints as of this moment. Discontinue heparin drip before dialysis catheter placement tomorrow. 04/12/2025: Patient s/p placement of permanent tunneled dialysis caetheter. Patient is currently on IV lasix 80mg po bid, Aspiring 81mg po qd, Metoprolol 100mg po qd. Started on Eliquis 5mg po bid. Diltiazem drip has been discontinued. Heparin drip stopped. Discharge patient with aspirin 81mg po qd, eliquis 5mg po bid, Metoprolol succinate xl 50mg po bid and furosemide 40mg po bid. After discharge patient should follow up outpatient with Dr. Rooney, Cardiology office within 1 week. Clear to discharge in cardiology stand point. 04/13/2025: Patient failed to be discharged due to bleeding at the TDC insertion site. Eliquis is being hold. Patient will not be discharged today. When discharging patient, send him with aspirin 81mg po qd, Metoprolol succinate xl 50mg po bid and furosemide 40mg po bid. DO not give patient eliquis. Patient will need to follow up outpatient cardiology office within a week and will decide to add eliquis based on patient's condition. Exam Vital Signs Temp Pulse Resp BP Pulse Ox O2 Del Method O2 Flow Rate 97.6 F 69 20 114/67 97 Room Air 2 04/13/25 12:00 04/13/25 12:00 04/13/25 12:00 04/13/25 12:00 04/13/25 12:00 04/13/25 12:00 04/12/25 14:00 Narrative Exam General: No acute distress, well nourished, AAO x3 Eye: Normal conjunctiva, no scleral icterus HENT: Normocephalic, atraumatic, hearing intact to conversation at normal volume, moist oral mucosa Neck: Supple, non-tender, no JVD, no lymphadenopathy Lungs: Non-labored respirations, symmetric chest rise, Clear to auscultate bilaterally, No wheezing, rhonchi, crackles Heart: Peripheral pulses intact bilaterally, regular rate and rhythm. Abdomen: Soft, non-tender, non-distended, no palpable masses Musculoskeletal: No cyanosis or edema, No visible joint swelling Skin: Skin is warm, dry, no rashes or lesions. Psychiatric: Cooperative, appropriate mood and affect, Awake and alert, not agitated Neuro: Cranial nerves II-XII grossly intact. Sensations intact to light touch. Objective Labs 04/13/25 05:14 04/13/25 05:14 Labs: Laboratory Results - last 24 hr 04/13/25 05:14 WBC 15.7 H D RBC 2.40 L Hgb 8.8 L Hct 26.2 L MCV 109 H MCH 36.7 H MCHC 33.6 RDW Std Deviation 55.0 H Plt Count 174 Neut % (Auto) 80 Lymph % (Auto) 7 L [place] % (Auto) 12 Eos % (Auto) 0 Baso % (Auto) 0 Neut # (Auto) 12.5 H Lymph # (Auto) 1.1 [place] # (Auto) 1.8 H Eos # (Auto) 0.0 Baso # (Auto) 0.0 Immature Gran # (Auto) 0.14 H Absolute Nucleated RBC 0.00 Immature Gran % 1 H Nucleated RBC % 0 Sodium 132 L Potassium 4.5 D Chloride 94 L Carbon Dioxide 23.9 Anion Gap 14 BUN 43 H Creatinine 4.5 H* D Estim Creat Clear Calc 18.6 L eGFR 14 L* BUN/Creatinine Ratio 10 L Glucose 113 H Calculated Osmolality 276 Calcium 9.7 Corrected Calcium 9.7 Phosphorus 5.3 H Magnesium 2.1 Total Bilirubin 0.6 AST 25 ALT 31 Alkaline Phosphatase 63 Total Protein 8.1 Albumin 4.6 Globulin 3.5 Albumin/Globulin Ratio 1.3 ABG Interpretation ABG results: 04/08/25 04/08/25 04:01 06:11 ABG pH 7.19 L* 7.24 L ABG pCO2 35 39 ABG pO2 85 117 H D ABG HCO3 13 L 17 L ABG O2 Saturation 96 99 H ABG Base Excess -14 L -10 L Quality Measures Quality Measures VTE prophylaxis Assessment & Plan Assessment Current Active Medications: Generic Name Dose Route Start Last Admin Trade Name Freq PRN Reason Stop Dose Admin Acetaminophen 650 mg 04/08/25 08:06 04/12/25 17:05 Acetaminophen 325 Mg Tablet PO 05/08/25 08:05 650 mg Q6H PRN Administration PAIN OR FEVER > 100.4 Albuterol 2 puff 04/09/25 07:35 04/12/25 07:20 Albuterol Inh 8 Gm INH 05/09/25 07:34 2 puff Q6H PRN Administration SHORTNESS OF BREATH Apixaban 5 mg 04/12/25 21:00 04/12/25 20:34 Apixaban 2.5 Mg Tablet PO 05/12/25 20:59 5 mg On Hold: 04/13/25 07:00 BID OLI Administration Aspirin 81 mg 04/09/25 09:00 04/13/25 08:18 Aspirin Ec 81 Mg Tabec PO 05/09/25 08:59 81 mg QDAY OLI Administration Furosemide 80 mg 04/08/25 21:00 04/13/25 08:17 Furosemide Inj 10 Mg/Ml 4ml Vial IVP 05/08/25 20:59 80 mg BID OLI Administration Heparin Sodium (Porcine) 3,300 unit 04/09/25 11:00 04/10/25 11:11 Heparin Sod Inj 1000 Unit/[facility] 04/23/25 10:59 3,300 unit PRN PRN Administration DIALYSIS Heparin Sodium (Porcine) 1,500 unit 04/09/25 11:42 04/10/25 07:52 Heparin Sod Inj 1000 Unit/Ml Vial 10 Ml [facility] 04/23/25 11:41 1,500 unit PRN PRN Administration PREVENT CLOTTING Albumin Human 25 gm in 100 mls @ 0 mls/hr 04/09/25 09:37 04/10/25 09:15 Albuminex 25% Ivpb IV 300 mls/hr Q30MIN PRN Administration To maintain SBP>90 Per Protocol Metoprolol Succinate 100 mg 04/12/25 14:45 04/13/25 08:16 Metoprolol Succinate Xl 25 Mg Tabcr PO 05/12/25 14:44 100 mg QDAY OLI Administration Ondansetron HCl 4 mg 04/08/25 08:06 04/09/25 03:37 Ondansetron Inj 2 Mg/Ml Inj 2 Ml IVP 05/08/25 08:05 4 mg Q6H PRN Administration NAUSEA OR VOMITING Protocol Simethicone 80 mg 04/09/25 12:22 04/09/25 12:36 Simethicone 80 Mg Chew PO 05/09/25 12:21 80 mg QID PRN Administration GAS Tamsulosin HCl 0.4 mg 04/12/25 14:45 04/13/25 08:18 Tamsulosin Hcl 0.4 Mg Capsule PO 05/12/25 14:44 0.4 mg QDAY OLI Administration Plan Mr Bubba Sanchez, is 64yM with PMH of HTN, COPD, CKD, presented to the ED on 04/08/2025 due to AMS and vomiting. Patient was admitted for Hyperkalemia needing emergent dialysis. Cardiology was consulted on 04/10/2025 for managment of new onset Afib with RVR. #New Onset Afib with RVR -patient developed new onset A fib with RVR, with rate 110-120 during dialysis and later HR peaked to 140s, and was confirmed on EKG. -Patient started on metoprolol succinate 50mg po qd. At the time of examination, BP ranged from 120s/70s with HR of 110s and was still in Afib on tele monitoring. -Patient denied any chest pain, palpation or SOB. -CHADSVASC score of 1 (0.6% stroke risk per year) and HASBLEED score 1: Low risk of major bleeding -Patient also has possible diastolic heart failure component for his fluid overload and considering it patient's chest Vascor is 2 and will be 65 in 1 year, hence discussed with the patient regarding anticoagulation and started on Eliquis. -ECHO (04/10/2025) showed 1. Left ventricle size is normal and systolic function is mildly reduced. Estimated ejection fraction is 45-50%. There is indeterminate diastolic function. 2. Right ventricle chamber size is normal and systolic function is normal. Estimated RVSP is 15 mmHg. 3. There is moderate aortic valve sclerosis with no stenosis and mild regurgitation. 4. There is mild mitral and trace tricuspid valve regurgitation. Trace PI. 5. The left atrium is mildly enlarged. The right atrium is normal. 6. Normal IVC with estimated RA pressure 3 mmHg. Plan: -Initially started on diltiazem drip and transition to metoprolol succinate 50 mg p.o. twice daily. Rate better controlled right now and is between 60-80 bpm -Discharge patient with aspirin 81mg po qd Metoprolol succinate xl 50mg po bid and furosemide 40mg po bid. After discharge patient should follow up outpatient with Dr. Rooney, Cardiology office within 1 week. -Eliquis 5mg po bid stopped due to bleeding at TDC insertion site. -Stopped Diltiazem drip 5mg/hr.. -Hold Nifedipine. -Keep Mg>2 and K>4 -Keep monitoring in telemetry #Hypertension -Hold Nifedipine -Discontinue Labetalol. #JASON on CKD worsened to ESRD #ESRD, new hemodialysis March 2025 #Hyperkalemia, resolved #NAGMA, resolved -Per nephrology recommendations, On IV lasix 80mg bid. #AHRF, improving #COPD #BPH #Macrocytic anemia -Management per Primary Hospitalist team Thank you for allowing us to participate in the care of Mr. Bubba Sanchez. Patient can be discharged in Cardiology standpoint. Assessment and plan discussed with my attending physician Dr. Toribio Summers (PGY-1) - Internal medicine resident Attending Provider Attestation/Addendum I have personally seen and examined the patient separately on the above date of service and discussed the plan of care with the resident. I reviewed the resident Dr. Jarocho Summers consultation progress note and agree with the resident findings and plan in the note above and have also edited the documentation to reflect my findings and plan. Vinay Rooney M.D. Interventional Cardiology
[2025-04-13] MEDS: METOPROLOL SUCCINATE XL 25 MG TABCR 100 MG PO (08:16)
[2025-04-13] MEDS: FUROSEMIDE INJ 10 MG/ML 4ML VIAL 80 MG IVP ×2 (08:17→20:30)
[2025-04-13] MEDS: SEVELAMER CARBONATE 800 MG TABLET PO (08:18)
[2025-04-13] MEDS: ASPIRIN EC 81 MG TABEC PO (08:18)
[2025-04-13] MEDS: TAMSULOSIN HCL 0.4 MG CAPSULE PO (08:18)
--- NOTE | 2025-04-13 11:29 | PC.SS ---
follow up note: SS verified with dialysis center that patient's schedule will be //Sat @ 11a.m. Dialysis center states patient will need dialysis treatment today before discharge and can start Friday. If he cannot, they will need to contact dialysis to verify start date. Patient states he works ad Friday's at [employer]. He states they will work with his schedule. Patient states he's ambulatory and independent. He resides alone but drives himself to and from. SS provided patient with a community resource list to schedule with [employer] for free transportation through his insurance. SS also provided his o/p dialysis schedule at [facility] with Dr. Swann. Floor nurse aware and attempting to verify if patient will receive dialysis treatment today or tomorrow in order to start Friday.
[2025-04-13] MEDS: TRANEXAMIC ACID INJ 1,000 MG/10 ML VIAL 10 MG TOP (12:02)
--- NOTE | 2025-04-13 13:14 | ESPR_ITS ---
<Statement entered by Tootie Magana MD - 04/18/25 07:58> I reviewed above note and agree with findings and plans. I have also personally examined the patient with medicine team and went over assessment and plan with medical team including international manager and resident physician. <Statement entered by Tim Wolf MD - 04/13/25 14:35> Patient was seen and examined at the bedside. Overnight, patient had bleeding from the PermCath requiring multiple gauzes to control the bleeding. This morning he had another episode of bleeding therefore tranexamic acid was applied with the gauze. Bleeding stopped eventually. Patient will be getting hemodialysis session today so that he can continue his sessions on Friday. Anticipate discharge tomorrow. [employer] recommended to stop Eliquis upon discharge and they will likely resume it after a week once patient's follows up with set key driver as outpatient. Patient was feeling anxious therefore Atarax was started for anxiety. Will closely monitor bleeding. Hemoglobin is currently stable. All labs and orders were reviewed. I discussed and supervised with the international manager physician who took care of this patient. I personally saw and examined the patient. I agree with most of the assessment and plan. Disclaimer: Despite multiple revisions, due to the dictation software being used, the document bellow may not be free of grammatical errors including phonetic/typographic errors. However, this does not deter from our commitment to providing health care in the patient's best interest in mind. Plan of care discussed with attending Physician Dr. Nav Wolf MD PGY-3 Documentation for date of: 04/13/25 Subjective Subjective Interval history: Overnight, patient was noted to have bleeding from the placement site of his new tunneled dialysis catheter. Patient was examined at bedside; they appear A&Ox3 and in NAD. Vitals/labs today significant for WBC 10.6->15.7, creatinine 3.4- >4.5, eGFR 19->14, phosphorus 3.8->5.3. Physical exam non-contributory. This morning, patient continued to have an episode of bleeding for which tranexamic acid was applied with gauze which was successful in stopping the bleeding. He is planned for hemodialysis today and anticipated to be discharged tomorrow. Atarax was started today for complaints of anxiety. Cardiology has recommended that patient's Eliquis be stopped upon discharge until they follow- up with cardiology in the outpatient setting. Exam Vital Signs Temp Pulse Resp BP Pulse Ox O2 Del Method O2 Flow Rate 97.6 F 69 20 114/67 97 Room Air 2 04/13/25 12:00 04/13/25 12:00 04/13/25 12:00 04/13/25 12:00 04/13/25 12:00 04/13/25 12:00 04/12/25 14:00 Narrative Exam General: Resting in bed; no acute distress; A&Ox3 Skin: Warm, dry, intact, no obvious rash. HEENT: NCAT, EOMI/PERRL, not icteric. External ears normal. No rhinorrhea. Moist mucous membranes Cardiovascular: Tunneled dialysis catheter now in place with bloodied gauze cover site. Regular rate, regular rhythm, no murmur, +S1/S2. Respiratory: Lung kang clear to auscultation bilaterally GI: Soft, nontender, distended. No guarding or rebound tenderness. : No suprapubic tenderness. No flank tenderness bilaterally. Extremities: Trace edema LE, no cyanosis, no clubbing. Extremity pulses present Neuro: Grossly nonfocal. Moving all 4 extremities. CN not formally tested but appear grossly intact. Psychiatric: cooperative, appropriate affect Objective Labs 04/13/25 05:14 04/13/25 05:14 Labs: Laboratory Results - last 24 hr 04/13/25 05:14 WBC 15.7 H D RBC 2.40 L Hgb 8.8 L Hct 26.2 L MCV 109 H MCH 36.7 H MCHC 33.6 RDW Std Deviation 55.0 H Plt Count 174 Neut % (Auto) 80 Lymph % (Auto) 7 L [place] % (Auto) 12 Eos % (Auto) 0 Baso % (Auto) 0 Neut # (Auto) 12.5 H Lymph # (Auto) 1.1 [place] # (Auto) 1.8 H Eos # (Auto) 0.0 Baso # (Auto) 0.0 Immature Gran # (Auto) 0.14 H Absolute Nucleated RBC 0.00 Immature Gran % 1 H Nucleated RBC % 0 Sodium 132 L Potassium 4.5 D Chloride 94 L Carbon Dioxide 23.9 Anion Gap 14 BUN 43 H Creatinine 4.5 H* D Estim Creat Clear Calc 18.6 L eGFR 14 L* BUN/Creatinine Ratio 10 L Glucose 113 H Calculated Osmolality 276 Calcium 9.7 Corrected Calcium 9.7 Phosphorus 5.3 H Magnesium 2.1 Total Bilirubin 0.6 AST 25 ALT 31 Alkaline Phosphatase 63 Total Protein 8.1 Albumin 4.6 Globulin 3.5 Albumin/Globulin Ratio 1.3 ABG Interpretation ABG results: 04/08/25 04/08/25 04:01 06:11 ABG pH 7.19 L* 7.24 L ABG pCO2 35 39 ABG pO2 85 117 H D ABG HCO3 13 L 17 L ABG O2 Saturation 96 99 H ABG Base Excess -14 L -10 L Quality Measures Quality Measures VTE prophylaxis Assessment & Plan Assessment Current Active Medications: Generic Name Dose Route Start Last Admin Trade Name Freq PRN Reason Stop Dose Admin Acetaminophen 650 mg 04/08/25 08:06 04/12/25 17:05 Acetaminophen 325 Mg Tablet PO 05/08/25 08:05 650 mg Q6H PRN Administration PAIN OR FEVER > 100.4 Albuterol 2 puff 04/09/25 07:35 04/12/25 07:20 Albuterol Inh 8 Gm INH 05/09/25 07:34 2 puff Q6H PRN Administration SHORTNESS OF BREATH Apixaban 5 mg 04/12/25 21:00 04/12/25 20:34 Apixaban 2.5 Mg Tablet PO 05/12/25 20:59 5 mg On Hold: 04/13/25 07:00 BID OLI Administration Aspirin 81 mg 04/09/25 09:00 04/13/25 08:18 Aspirin Ec 81 Mg Tabec PO 05/09/25 08:59 81 mg QDAY OLI Administration Furosemide 80 mg 04/08/25 21:00 04/13/25 08:17 Furosemide Inj 10 Mg/Ml 4ml Vial IVP 05/08/25 20:59 80 mg BID OLI Administration Heparin Sodium (Porcine) 3,300 unit 04/09/25 11:00 04/10/25 11:11 Heparin Sod Inj 1000 Unit/Ml Vial 10 Ml [facility] 04/23/25 10:59 3,300 unit PRN PRN Administration DIALYSIS Heparin Sodium (Porcine) 1,500 unit 04/09/25 11:42 04/10/25 07:52 Heparin Sod Inj 1000 Unit/Ml Vial 10 Ml [facility] 04/23/25 11:41 1,500 unit PRN PRN Administration PREVENT CLOTTING Albumin Human 25 gm in 100 mls @ 0 mls/hr 04/09/25 09:37 04/10/25 09:15 Albuminex 25% Ivpb IV 300 mls/hr Q30MIN PRN Administration To maintain SBP>90 Per Protocol Metoprolol Succinate 100 mg 04/12/25 14:45 04/13/25 08:16 Metoprolol Succinate Xl 25 Mg Tabcr PO 05/12/25 14:44 100 mg QDAY OLI Administration Ondansetron HCl 4 mg 04/08/25 08:06 04/09/25 03:37 Ondansetron Inj 2 Mg/Ml Inj 2 Ml IVP 05/08/25 08:05 4 mg Q6H PRN Administration NAUSEA OR VOMITING Protocol Simethicone 80 mg 04/09/25 12:22 04/09/25 12:36 Simethicone 80 Mg Chew PO 05/09/25 12:21 80 mg QID PRN Administration GAS Tamsulosin HCl 0.4 mg 04/12/25 14:45 04/13/25 08:18 Tamsulosin Hcl 0.4 Mg Capsule PO 05/12/25 14:44 0.4 mg QDAY OLI Administration Plan 64-year-old male with history of COPD, hypertension, CKD who was admitted on 04/08 for severe hyperkalemia and renal failure requiring emergent dialysis. #New onset atrial fibrillation with RVR, rate-controlled New onset in setting of new hemodialysis. Denied any chest pain or shortness of breath. EKG showning a-fib with RVR, pulse of 118. Had RR for pulse in 140s. Given x2 doses of metoprolol tartrate 2.5 mg IV and started on succinate 50 mg daily. Dx: -04/10 echo ordered, showed EF of 45-50% Rx: -Cardiology consulted, appreciate recommendations -Stopped Eliquis until Cardiology evaluates the patient in the out-patient setting -Metoprolol succinate 100 mg PO QD -Continue to monitor on telemetry -Keep K > 4 and Mg > 2 #JASON on CKD #ESRD, new hemodialysis #Hyperkalemia, resolved #NAGMA, resolved #Bleeding from Perm cath Likely intra-renal etiology with kidneys unable to excrete potassium, unable to hold onto bicarb, BUN/Cr ratio of 16 on admission. Produces urine, ruling out obstruction. Pre-renal may be contributing due to dehydration and/or poor oral intake. Found to have potassium of 7.8 and was given hyperkalemic cocktail including albuterol, insulin, dextrose, calcium gluconate. UOP improved by 04/11 s/p high dose Lasix IV (1250 cc over 24 hours) Dx: -Hepatitis panel negative, PPD negative Rx: - TXA applied on gauze for bleeding ? Nephrology consulted, appreciate recommendations ? Permanent tunneled dialysis catheter successfully placed as of 04/12 ? HD today ? Outpatient chair time with Dr. Swann has been arranged ? Lasix 80 mg IV twice daily ? Strict I's and O's #Acute hypoxic respiratory failure, improving #Hx of COPD Likely due to fluid overload from renal failure. History of COPD as well. Rx: -Albuterol inhaler as needed #Hypertension, resolved 04/08 admission BP 158/65 Now controlled Rx: -Discontinued Nifedipine 30 mg PO QD ?Labetalol 10 mg IV PRN #BPH Rx: -Tamsulosin 0.4 mg daily -Condom catheter placed on 04/10 #Acute blood loss anemia #Macrocytic anemia 04/08 admission Hgb 8.0 (MCV 118, RDW 63.4) Due to mixed Vitamin deficiency with anemia of chronic disease. Folate and B12 within normal limits. Patient was noted on the evening of 04/12 to be actively bleeding from tunneled dialysis catheter site Rx: -Tranexamic acid applied with gauze -CTM CBC, transfuse if Hgb<7 #Anxiety Rx: -Atarax 25 mg PO QD Hospital management: Disposition: Tele, TDC placed successfully and discharge anticipated tomorrow Fluids: None Diet: Renal Lines: PIV DVT prophylaxis: Eliquis on hold CODE STATUS: Full Code ----- Plan discussed with attending physician Dr. Izzy Chopra, DO PGY-1 Internal Medicine
[2025-04-14] VITALS (27 sets, daily range): BP systolic 84–166; BP diastolic 34–111; PULSE 40–180; RESP 10–96; TEMP 36.1–37.4; O2SAT 85–99
[2025-04-14] MEDS: TRANEXAMIC ACID INJ 1,000 MG/10 ML VIAL 10 MG TOP ×2 (01:38→01:39)
[2025-04-14] MEDS: OLANZapine INJ 10 MG, Sterile Water 2.1 ML IM (05:37)
[2025-04-14 05:43] LABS: Basophils # (Auto) 0.0 Thou/mm3 (0.0-0.2); Basophils % (Auto) 0 % (0-2.5); Eosinophils # (Auto) 0.1 Thou/mm3 (0.0-0.5); Eosinophils % (Auto) 0 % (0-10); Hematocrit 26.4 % (41.0-53.0); Hemoglobin 8.9 g/dL (13.5-16.0); Immature Granulocytes Auto 0.12 Thou/mm3 (0.00-0.00); Lymphocytes # (Auto) 1.6 Thou/mm3 (1.0-4.8); Lymphocytes % (Auto) 10 % (10-50); Mean Corpuscular HGB Conc 33.7 g/dl (31.0-37.0); Mean Corpuscular Hemoglobin 37.1 pg (25.0-35.0); Mean Corpuscular Volume 110 fL (80-100); Monocytes # (Auto) 2.4 Thou/mm3 (0.0-0.8); Monocytes % (Auto) 15 % (0-12); Neutrophils # (Auto) 11.8 Thou/mm3 (1.8-7.7); Neutrophils % (Auto) 74 % (37-80); Nucleated Red Blood Cell # 0.00 Thou/mm3 (0.00-0.00); Nucleated Red Blood Cell % 0 /100 WBC (0); Platelet Count 158 Thou/mm3 (140-440); RDW Standard Deviation 56.0 fL (35.1-43.9); Red Blood Count 2.40 Miln/mm3 (4.50-5.90); White Blood Count 16.1 Thou/mm3 (3.8-10.6)
[2025-04-14 06:10] LABS: Alanine Aminotransferase 27 U/L (10-49); Albumin, Serum 4.9 gm/dL (3.4-4.8); Albumin/Globulin Ratio 1.6 (1.2-2.2); Alkaline Phosphatase 58 U/L (46-116); Anion Gap 18 (7-16); Aspartate Amino Transferase 22 U/L (0-34); BUN/Creatinine Ratio 12 Ratio (12-20); Bilirubin,Total 0.5 mg/dL (0.3-1.2); Blood Urea Nitrogen 68 mg/dL (9-23); Calcium 9.5 mg/dL (8.3-10.6); Calcium (Corrected) 9.5 mg/dL (8.5-10.1); Carbon Dioxide 23.2 mMol/L (20.0-31.0); Chloride 93 mMol/L (98-107); Creatinine (Component) 5.5 mg/dL (0.6-1.3); Estimated Creatinine Clearance 15.2 mL/min (>60); Globulin 3.0 gm/dL (2.3-3.5); Glucose 118 mg/dL (74-106); Magnesium 2.2 mg/dL (1.6-2.6); Osmolality,Calculated 288 (275-295); Phosphorous 5.8 mg/dL (2.4-5.1); Potassium 4.4 mMol/L (3.4-5.1); Sodium 134 mMol/L (136-145); Total Protein 7.9 gm/dL (5.7-8.2); eGFR 11 See Note
[2025-04-14 06:38] LABS: Hematocrit 25.7 % (41.0-53.0)
[2025-04-14 06:38] LABS: INR 1.1 (0.9-1.3); Prothrombin Time 11.3 Seconds (9.0-12.2)
[2025-04-14 06:39] LABS: Hemoglobin 8.7 g/dL (13.5-16.0)
--- NOTE | 2025-04-14 06:39 | PD.RESEVENT ---
Documentation for date of: 04/14/25 Event Note Event Note: Rapid Response Room:?268 Time:?6:13 Reason for Call:?Active bleedin Patient presentation: Patient actively bleeding from prior R catheter site soaking through the dressing. Events:?Bleeding from prior R catheter site. Assessment:?Paqtient was hemodinamically stable, but mildly agitated. Priorly patient had a small ooze for which TXA was placed along with surgi-francesco on the site. Surgicel powder was used which achieved hemostasis after previous measures failed to do so. Patient was placed on restraints to avoid pulling on his IV lines, which he was actively trying to do during the rapid response. At the end of the rapid vital signs were still stable. New orders: TXA 10 mg, Hydroxyzine 50mg IMx1,?INR and repeat H/H Patient was discussed with the attending, Dr. Rosario Gruber, PGY-1
[2025-04-14] MEDS: hydrOXYzine INJ 25 MG/ML VIAL 50 MG IM (06:47)
--- NOTE | 2025-04-14 07:10 | XR_ITS ---
EXAMINATION: AP chest single view TECHNIQUE: AP portable semiupright chest single view Date and time: April 14, 2025, 0756 hours, comparison 11/11/2024 INDICATIONS: Inpatient with shortness of breath FINDINGS: Minimal prominence left ventricle No pneumonia or pulmonary edema Right internal jugular dialysis catheter tips SVC satisfactory position IMPRESSION: No pneumonia or pulmonary edema
--- NOTE | 2025-04-14 08:00 | ESPR_ITS ---
Documentation for date of: 04/14/25 Subjective Subjective Interval history: Mr Bubba Sanchez, is 64yM with PMH of HTN, COPD, CKD, presented to the ED on 04/08/2025 due to AMS and vomiting. At the time of admission, patient was lethargic and was unable to answer any of the questions asked by primary care team. Per EMS, pt didn't have any weakness or dropping. Glucose lv was 80, K 7.8, and was given hyperkalemic cocktail: albutrol, insulin, dextrose, calcium gluconate. Patient denied any past dialysis. Patient was admitted for Hyperkalemia needing emergent dialysis. Cardiology was consulted on 04/10/2025 for managment of new onset Afib with RVR. ED Course: -Initial vitals were blood pressure 158/65, pulse 108, respiratory rate 20, temperature 99.1, oxygen saturation 96% on room air. -Labs significant for WBC 10.8, hemoglobin 8.0, MCV 118, ABG #1 showed pH 7.19, bicarb 13; ABG #2 showed pH 7.24, bicarb 17, potassium 7.8, chloride 117, bicarb 14.0, BUN 73, creatinine 4.7, eGFR 13, calculated osmolality 307 -Imaging included head CT that was negative for acute hemorrhage mass effect or midline shift; chest x-ray negative for lobar pneumonia or pulmonary edema; EKG sinus tachycardia; repeat chest x-ray showed satisfactory position of right IJ temporary dialysis catheter, new no pneumothorax; kidney ultrasound limited study showed severe left kidney scarring; CT chest abdomen pelvis showed early right upper lobe pneumonia, stable 12 mm tracheobronchial lymph node, stable 4 mm pulmonary nodule, 6.5 cm left renal cyst, right pelvic kidney with tiny 1 to 2 mm renal calculi, no hydronephrosis, severe osteopenia and advanced degenerative disc disease L4-L5 and L5-S1 respectively -In the ED, patient was given dextrose, albuterol 2.5 mg inhaled, insulin 10 units, calcium gluconate, 1 L LR, sodium bicarb, lidocaine came IM, multiple dextrose. Past Medical History: above Family History: n/a Surgical History: tonsillectomy Social History: has 3 children, Denies smoking or using illicit drugs. Used to be heavy drinker, but noted he occasionally drinks now. Current Medications: Med Rec ordered (patient unable to speak adequately for history) Allergies: No known drug allergies 04/10/2025:Labs reviewed and patient examined at the bedside.Today, patient developed new onset A fib with RVR, with rate 110-120 during dialysis and later HR peaked to 140s, and was confirmed on EKG. Patient started on metoprolol succinate 50mg po qd. At the time of examination, BP ranged from 120s/70s with HR of 110s and was still in Afib on tele monitoring. Patient started on Diltiazem drip 5mg/hr. Recommend increasing to 10mg/hr if BP permissible. Continue metoprolol 50mg po qd. Hold Nifedipine. Per nephrology recommendations, on IV furosemide 80mg bid. Will continue to monitor. 04/11/2025: Patient has been receiving IV lasix 80mg po bid. Making adequate UOP of 1.2L this morning. Continue aspirin 81mg po qd and Diltiazem drip 5mg/hr. Metoprolol increased from 50mg to 100mg po qd. Current BP 119/65 with HR 70. Continue current medications as of now. Patient denies any SOB, palpations, or chest pain. No other active complaints as of this moment. Discontinue heparin drip before dialysis catheter placement tomorrow. 04/12/2025: Patient s/p placement of permanent tunneled dialysis caetheter. Patient is currently on IV lasix 80mg po bid, Aspiring 81mg po qd, Metoprolol 100mg po qd. Started on Eliquis 5mg po bid. Diltiazem drip has been discontinued. Heparin drip stopped. Discharge patient with aspirin 81mg po qd, eliquis 5mg po bid, Metoprolol succinate xl 50mg po bid and furosemide 40mg po bid. After discharge patient should follow up outpatient with Dr. Rooney, Cardiology office within 1 week. Clear to discharge in cardiology stand point. 04/13/2025: Patient failed to be discharged due to bleeding at the TDC insertion site. Eliquis is being hold. Patient will not be discharged today. When discharging patient, send him with aspirin 81mg po qd, Metoprolol succinate xl 50mg po bid and furosemide 40mg po bid. DO not give patient eliquis. Patient will need to follow up outpatient cardiology office within a week and will decide to add eliquis based on patient's condition. 04/14/2025: Patient had rapid event yesterday during which he was trying to pull off of TDC. with agitation with small oozing of blood. Was put on restraints. INR and h/h was unremarkable. This morning when he was doing dialysis, HR increased to 170 with BP 127/80. Patient was given IV Metoprolol tartrate 5mg x1. Was not given the oral metoprolol to XL this morning and blood pressure is on the lower side.. Currently, his BP is 106/77 with HR in 150s. Patient has been started started on Amiodarone drip. Completed amiodarone drip as per protocol and can restart metoprolol XL if the blood pressure is permissible. Okay to hold aspirin and Eliquis for now as the patient is bleeding from the previous dialysis site. Furosemide and dialysis as per nephrology team. On examination, patient is AOx2 and looked lethargic. Exam Vital Signs Temp Pulse Resp BP Pulse Ox O2 Del Method O2 Flow Rate 98.6 F 140 H 22 H 127/67 92 L Room Air 2 04/14/25 10:01 04/14/25 10:06 04/14/25 10:01 04/14/25 10:06 04/14/25 10:01 04/14/25 04:00 04/14/25 10:01 Narrative Exam General: AAO x2, Lethargic Eye: Normal conjunctiva, no scleral icterus HENT: Normocephalic, atraumatic, hearing intact to conversation at normal volume, moist oral mucosa Neck: Supple, non-tender, no JVD, no lymphadenopathy Lungs: Non-labored respirations, symmetric chest rise, Clear to auscultate bilaterally, No wheezing, rhonchi, crackles Heart: Peripheral pulses intact bilaterally, regular rate and rhythm. Abdomen: Soft, non-tender, non-distended, no palpable masses Musculoskeletal: No cyanosis or edema, No visible joint swelling Skin: Skin is warm, dry, no rashes or lesions. Psychiatric: Cooperative, appropriate mood and affect, Awake and alert, not agitated Neuro: Cranial nerves II-XII grossly intact. Sensations intact to light touch. Objective Labs 04/14/25 09:30 04/14/25 09:30 Labs: Laboratory Results - last 24 hr 04/14/25 04/14/2504/14/25 05:16 06:20 09:30 WBC 16.1 H 19.2 H RBC 2.40 L 2.26 L Hgb 8.9 L 8.7 L 8.2 L Hct 26.4 L 25.7 L 24.3 L MCV 110 H 108 H MCH 37.1 H 36.3 H MCHC 33.7 33.7 RDW Std Deviation 56.0 H 55.3 H Plt Count 158 183 Neut % (Auto) 74 76 Lymph % (Auto) 10 8 L Granite % (Auto) 15 H 15 H Eos % (Auto) 0 0 Baso % (Auto) 0 0 Neut # (Auto) 11.8 H 14.5 H Lymph # (Auto) 1.6 1.6 Granite # (Auto) 2.4 H 2.9 H Eos # (Auto) 0.1 0.0 Baso # (Auto) 0.0 0.0 Immature Gran # (Auto) 0.12 H 0.18 H Absolute Nucleated RBC 0.00 0.00 Immature Gran % 1 H 1 H Nucleated RBC % 0 0 PT 11.3 INR 1.1 VBG pH VBG pCO2 VBG pO2 VBG O2 Sat (Kuldip) VBG Base Excess Sodium 134 L 137 Potassium 4.4 3.5 D Chloride 93 L 96 L Carbon Dioxide 23.2 24.9 Anion Gap 18 H 16 BUN 68 H 34 H Creatinine 5.5 H* D 3.0 H D Estim Creat Clear Calc 15.2 L 27.9 L eGFR 11 L* 23 L BUN/Creatinine Ratio 12 11 L Glucose 118 H 109 H Calculated Osmolality 288 282 Lactic Acid 1.3 Calcium 9.5 11.0 H D Corrected Calcium 9.5 11.0 H D Phosphorus 5.8 H Magnesium 2.2 Total Bilirubin 0.5 0.8 AST 22 31 ALT 27 29 Alkaline Phosphatase 58 57 Ammonia < 10 L Total Protein 7.9 8.6 H Albumin 4.9 H 5.5 H D Globulin 3.0 3.1 Albumin/Globulin Ratio 1.6 1.8 04/14/25 10:26 WBC RBC Hgb Hct MCV MCH MCHC RDW Std Deviation Plt Count Neut % (Auto) Lymph % (Auto) Granite % (Auto) Eos % (Auto) Baso % (Auto) Neut # (Auto) Lymph # (Auto) Granite # (Auto) Eos # (Auto) Baso # (Auto) Immature Gran # (Auto) Absolute Nucleated RBC Immature Gran % Nucleated RBC % PT INR VBG pH 7.43 VBG pCO2 39 VBG pO2 39 VBG O2 Sat (Kuldip) 69 L VBG Base Excess 1 Sodium Potassium Chloride Carbon Dioxide Anion Gap BUN Creatinine Estim Creat Clear Calc eGFR BUN/Creatinine Ratio Glucose Calculated Osmolality Lactic Acid Calcium Corrected Calcium Phosphorus Magnesium Total Bilirubin AST ALT Alkaline Phosphatase Ammonia Total Protein Albumin Globulin Albumin/Globulin Ratio ABG Interpretation ABG results: 04/08/25 04/08/25 04/14/25 04:01 06:11 10:26 ABG pH 7.19 L* 7.24 L ABG pCO2 35 39 ABG pO2 85 117 H D ABG HCO3 13 L 17 L ABG O2 Saturation 96 99 H ABG Base Excess -14 L -10 L VBG pH 7.43 VBG pCO2 39 VBG pO2 39 VBG Base Excess 1 Quality Measures Quality Measures VTE prophylaxis Assessment & Plan Assessment Current Active Medications: Generic Name Dose Route Start Last Admin Trade Name Freq PRN Reason Stop Dose Admin Acetaminophen 650 mg 04/08/25 08:06 04/12/25 17:05 Acetaminophen 325 Mg Tablet PO 05/08/25 08:05 650 mg Q6H PRN Administration PAIN OR FEVER > 100.4 Albuterol 2 puff 04/09/25 07:35 04/12/25 07:20 Albuterol Inh 8 Gm INH 05/09/25 07:34 2 puff Q6H PRN Administration SHORTNESS OF BREATH Apixaban 5 mg 04/12/25 21:00 04/12/25 20:34 Apixaban 2.5 Mg Tablet PO 05/12/25 20:59 5 mg On Hold: 04/13/25 07:00 BID OLI Administration Aspirin 81 mg 04/09/25 09:00 04/13/25 08:18 Aspirin Ec 81 Mg Tabec PO 05/09/25 08:59 81 mg QDAY OLI Administration Furosemide 80 mg 04/08/25 21:00 04/13/25 20:30 Furosemide Inj 10 Mg/Ml 4ml Vial IVP 05/08/25 20:59 80 mg BID OLI Administration Heparin Sodium (Porcine) 4,100 unit 04/14/25 08:32 04/14/25 09:58 Heparin Sod Inj 1000 Unit/Ml Vial 10 Ml INDWELLCAT 04/23/25 10:59 4,100 unit PRN PRN Administration DIALYSIS Hydroxyzine HCl 25 mg 04/13/25 14:18 Hydroxyzine Hcl 25 Mg Tablet PO 05/13/25 16:59 QID PRN Anxiety Albumin Human 25 gm in 100 mls @ 0 mls/hr 04/09/25 09:37 04/14/25 08:19 Albuminex 25% Ivpb IV 300 mls/hr Q30MIN PRN Administration To maintain SBP>90 Per Protocol Amiodarone HCl/Dextrose 360 mg in 200 mls @ 16.667 mls/hr 04/14/25 15:47 Nexterone Ivpb IV 04/15/25 15:46 .Q12H OLI Amiodarone HCl/Dextrose 360 mg in 200 mls @ 33.333 mls/hr 04/14/25 09:48 04/14/25 10:06 Nexterone Ivpb IV 04/14/25 15:47 33.333 mls/hr .Q6H ONE Administration Metoprolol Succinate 100 mg 04/12/25 14:45 04/13/25 08:16 Metoprolol Succinate Xl 25 Mg Tabcr PO 05/12/25 14:44 100 mg QDAY OLI Administration Ondansetron HCl 4 mg 04/08/25 08:06 04/09/25 03:37 Ondansetron Inj 2 Mg/Ml Inj 2 Ml IVP 05/08/25 08:05 4 mg Q6H PRN Administration NAUSEA OR VOMITING Protocol Simethicone 80 mg 04/09/25 12:22 04/09/25 12:36 Simethicone 80 Mg Chew PO 05/09/25 12:21 80 mg QID PRN Administration GAS Tamsulosin HCl 0.4 mg 04/12/25 14:45 04/13/25 08:18 Tamsulosin Hcl 0.4 Mg Capsule PO 05/12/25 14:44 0.4 mg QDAY OLI Administration Plan Mr Bubba Sanchez, is 64yM with PMH of HTN, COPD, CKD, presented to the ED on 04/08/2025 due to AMS and vomiting. Patient was admitted for Hyperkalemia needing emergent dialysis. Cardiology was consulted on 04/10/2025 for managment of new onset Afib with RVR. #New Onset Afib with RVR -patient developed new onset A fib with RVR, with rate 110-120 during dialysis and later HR peaked to 140s, and was confirmed on EKG. -Patient started on metoprolol succinate 50mg po qd. At the time of examination, BP ranged from 120s/70s with HR of 110s and was still in Afib on tele monitoring. -Patient denied any chest pain, palpation or SOB. -CHADSVASC score of 1 (0.6% stroke risk per year) and HASBLEED score 1: Low risk of major bleeding -Patient also has possible diastolic heart failure component for his fluid overload and considering it patient's chest Vascor is 2 and will be 65 in 1 year, hence discussed with the patient regarding anticoagulation and started on Eliquis. -ECHO (04/10/2025) showed 1. Left ventricle size is normal and systolic function is mildly reduced. Estimated ejection fraction is 45-50%. There is indeterminate diastolic function. 2. Right ventricle chamber size is normal and systolic function is normal. Estimated RVSP is 15 mmHg. 3. There is moderate aortic valve sclerosis with no stenosis and mild regurgitation. 4. There is mild mitral and trace tricuspid valve regurgitation. Trace PI. 5. The left atrium is mildly enlarged. The right atrium is normal. 6. Normal IVC with estimated RA pressure 3 mmHg. - On 04/14,This morning when he was doing dialysis, HR increased to 170 with BP 127/80. Patient was given IV Metoprolol tartrate 5mg x1. Was not given the oral metoprolol to XL this morning and blood pressure is on the lower side.. Currently, his BP is 106/77 with HR in 150s. Patient has been started started on Amiodarone drip. Plan: -Complete amiodarone drip as per protocol and can restart metoprolol XL if the blood pressure is permissible. Okay to hold aspirin and Eliquis for now as the patient is bleeding from the previous dialysis site. Furosemide and dialysis as per nephrology team. -Hold Nifedipine. -Keep Mg>2 and K>4 -Keep monitoring in telemetry #Hypertension -Hold Nifedipine -Discontinue Labetalol. #JASON on CKD worsened to ESRD #ESRD, new hemodialysis March 2025 #Hyperkalemia, resolved #NAGMA, resolved -Per nephrology recommendations, On IV lasix 80mg bid. #AHRF, improving #COPD #BPH #Macrocytic anemia -Management per Primary Hospitalist team Thank you for allowing us to participate in the care of Mr. Bubba Sanchez. Patient can be discharged in Cardiology standpoint. Assessment and plan discussed with my attending physician Dr. Toribio Summers (PGY-1) - Internal medicine resident Attending Provider Attestation/Addendum I reviewed the resident Dr. Jarocho Summers consultation progress note and agree with the resident findings and plan in the note above and have also edited the documentation to reflect my findings and plan. Vinay Rooney M.D. Interventional Cardiology
[2025-04-14] MEDS: ALBUMIN HUMAN-KJDA 25% IVPB 25 GM/100 ML BTL IV (08:19)
--- NOTE | 2025-04-14 09:30 | EKG_ITS ---
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
--- NOTE | 2025-04-14 09:46 | XR_ITS ---
AP portable upright and [id number] decubitus views of the chest on 04/14/2025 at 10:05 a.m. INDICATION: Shortness of breath FINDINGS: Heart size and mediastinum appear normal there is a dual lumen central venous, tunneled catheter in excellent position with its tip at the junction of the SVC and right atrium The pulmonary vascularity is perfectly normal, there is no pleural fluid, and both lungs are clear. There is no evidence of any abnormal collections of air anywhere. IMPRESSION: 1. Normal portable upright chest film
[2025-04-14 09:47] LABS: Lactate (Lactic Acid) 1.3 mMol/L (0.4-2.0)
[2025-04-14] MEDS: AMIODARONE 150 MG IVPB 150 MG/100 ML BAG 600 MG IV (09:56)
[2025-04-14 09:58] LABS: Basophils # (Auto) 0.0 Thou/mm3 (0.0-0.2); Basophils % (Auto) 0 % (0-2.5); Eosinophils # (Auto) 0.0 Thou/mm3 (0.0-0.5); Eosinophils % (Auto) 0 % (0-10); Hematocrit 24.3 % (41.0-53.0); Immature Granulocytes Auto 0.18 Thou/mm3 (0.00-0.00); Lymphocytes # (Auto) 1.6 Thou/mm3 (1.0-4.8); Lymphocytes % (Auto) 8 % (10-50); Mean Corpuscular HGB Conc 33.7 g/dl (31.0-37.0); Mean Corpuscular Hemoglobin 36.3 pg (25.0-35.0); Mean Corpuscular Volume 108 fL (80-100); Monocytes # (Auto) 2.9 Thou/mm3 (0.0-0.8); Monocytes % (Auto) 15 % (0-12); Neutrophils # (Auto) 14.5 Thou/mm3 (1.8-7.7); Neutrophils % (Auto) 76 % (37-80); Nucleated Red Blood Cell # 0.00 Thou/mm3 (0.00-0.00); Nucleated Red Blood Cell % 0 /100 WBC (0); Platelet Count 183 Thou/mm3 (140-440); RDW Standard Deviation 55.3 fL (35.1-43.9); Red Blood Count 2.26 Miln/mm3 (4.50-5.90); White Blood Count 19.2 Thou/mm3 (3.8-10.6)
[2025-04-14] MEDS: HEPARIN SOD INJ 1000 UNIT/ML VIAL 10 ML 4100 UNIT INDWELLCAT (09:58)
[2025-04-14 10:04] LABS: Hemoglobin 8.2 g/dL (13.5-16.0)
[2025-04-14] MEDS: AMIODARONE 360 MG IVPB 360 MG/200 ML BAG 33.333 MG IV (10:06)
--- NOTE | 2025-04-14 10:16 | XR_ITS ---
Examination: CT brain head without contrast. 2-D sagittal coronal reconstructions Date and time of exam: April 14, 2025, 1350 hours INDICATIONS: Altered mental status today CTDI: vol (mGy): 57.1 DLP: (mGycm): 1262 Technique: Multiple CT axial sections of the brain have been obtained, 5 mm slice thickness. Contrast has not been administered. 2-D sagittal, coronal reconstructions have been obtained Low dose protocols were performed. One or more of the following dose reduction techniques were used; automated exposure control, adjustment of the mA and/or KV according to patient size, use of iterative reconstruction technique. Findings: No significant ventricular enlargement. Intra-axial or extra-axial hemorrhage density is not seen. No mass effect or midline shift Basal cisterns are not remarkable. Fourth ventricle is midline. Cranial vault intact. Impression: Negative for acute hemorrhage, mass effect or midline shift Advise clinical correlation and follow-up accordingly
[2025-04-14 10:22] LABS: Alanine Aminotransferase 29 U/L (10-49); Albumin, Serum 5.5 gm/dL (3.4-4.8); Albumin/Globulin Ratio 1.8 (1.2-2.2); Alkaline Phosphatase 57 U/L (46-116); Ammonia < 10 uMol/L (11-32); Anion Gap 16 (7-16); Aspartate Amino Transferase 31 U/L (0-34); BUN/Creatinine Ratio 11 Ratio (12-20); Bilirubin,Total 0.8 mg/dL (0.3-1.2); Blood Urea Nitrogen 34 mg/dL (9-23); Calcium 11.0 mg/dL (8.3-10.6); Calcium (Corrected) 11.0 mg/dL (8.5-10.1); Carbon Dioxide 24.9 mMol/L (20.0-31.0); Chloride 96 mMol/L (98-107); Creatinine (Component) 3.0 mg/dL (0.6-1.3); Estimated Creatinine Clearance 27.9 mL/min (>60); Globulin 3.1 gm/dL (2.3-3.5); Glucose 109 mg/dL (74-106); Osmolality,Calculated 282 (275-295); Potassium 3.5 mMol/L (3.4-5.1); Sodium 137 mMol/L (136-145); Total Protein 8.6 gm/dL (5.7-8.2); eGFR 23 See Note
[2025-04-14 10:47] LABS: Base Excess, Venous 1 (-3-3); O2 Saturation, Venous 69 % (96-97); PCO2, Venous 39 mmHg (36-56); PO2, Venous 39 mmHg (15-58); pH, Venous 7.43 (7.33-7.66)
--- NOTE | 2025-04-14 12:34 | EVENTNT_ITS ---
Documentation for date of: 04/14/25 Event Note Event Note: Event Note: 04/14/2025: Rapid response called sometime around 9:20 AM for HR in the 170s while patient was undergoing HD. Patient was seen and assessed in the HD unit; they are awake with airway/breathing/circulation intact and vitals largely stable other than HR. 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 Metoprolol tartrate 5 mg IV was given x 1 (which did drop the patient's BP from 121/94 earlier to 100/80s) and patient was started on amiodarone drip. Will continue to monitor for any acute changes. Luiz Chopra, DO Internal Medicine, PGY-1
--- NOTE | 2025-04-14 13:16 | ESPR_ITS ---
<Statement entered by Tootie Magana MD - 04/18/25 08:00> I reviewed above note and agree with findings and plans. I have also personally examined the patient with medicine team and went over assessment and plan with medical team including communications marketing intern and resident physician. <Statement entered by Tim Wolf MD - 04/14/25 17:46> Patient was seen and examined at the bedside. Overnight, patient had excessive bleeding from the dialysis catheter and the previously inserted right HD catheter site. Night resident team help pressure and used TXA which was partially helpful however in the morning bleeding was under control. Patient is more delirious and confused this morning alert and oriented x 2 only. He had a rapid A-fib with RVR during dialysis therefore dialysis was stopped and patient was given metoprolol 5 mg IV x 1 and due to soft blood pressure amiodarone drip was started per protocol for A-fib RVR. Cardiology was made aware of the A-fib RVR. Dialysis could not be completed due to shortness of breath and A-fib RVR. Deep suctioning was performed which patient could not tolerate well and started shaking. Dr Swann was contacted and informed regarding unsuccessful dialysis session A-fib RVR. She recommended to discontinue Lasix and decided that we will do gentle hemodialysis tomorrow. Hemoglobin is currently at 8.7. Will continue with amiodarone drip per protocol due to soft blood pressure. Head CT showed no acute pathology. VBG's were unremarkable. Patient most likely had acute encephalopathy due to delirium as he did not sleep the whole night due to bleeding from the PermCath. Held aspirin due to high risk of bleeding from PermCath. We added CPAP to be started as tolerated for possible SOREN as patient is constantly snoring. We added low-dose Seroquel 25 mg if patient continues to remain delirious at night. Since patient didnt complete HD, we gave IV KCL 20 meq and 2 g Mag x1 due to A fib RVr. Removed restraints and placed mittens. Delirium precautions. Encouraged that the patient's sleep as patient has not slept the whole night yesterday. Added midodrine due to hypotension. All labs and orders were reviewed. I discussed and supervised with the communications marketing intern physician who took care of this patient. I personally saw and examined the patient. I agree with most of the assessment and plan. Disclaimer: Despite multiple revisions, due to the dictation software being used, the document bellow may not be free of grammatical errors including phonetic/typographic errors. However, this does not deter from our commitment to providing health care in the patient's best interest in mind. Plan of care discussed with attending Physician Dr. Nav Wolf MD PGY-3 Documentation for date of: 04/14/25 Subjective Subjective Interval history: (pulled from senior resident attestation) Patient was seen and examined at the bedside. Overnight, patient had excessive bleeding from the dialysis catheter and the previously inserted right HD catheter site. Night resident team help pressure and used TXA which was partially helpful however in the morning bleeding was under control. Patient is more delirious and confused this morning alert and oriented x 2 only. He had a rapid A-fib with RVR during dialysis therefore dialysis was stopped and patient was given metoprolol 5 mg IV x 1 and due to soft blood pressure amiodarone drip was started per protocol for A-fib RVR. Cardiology was made aware of the A-fib RVR. Dialysis could not be completed due to shortness of breath and A-fib RVR. Deep suctioning was performed which patient could not tolerate well and started shaking. Dr Swann was contacted and informed regarding unsuccessful dialysis session A-fib RVR. She recommended to discontinue Lasix and decided that we will do gentle hemodialysis tomorrow. Hemoglobin is currently at 8.7. Will continue with amiodarone drip per protocol due to soft blood pressure. Head CT showed no acute pathology. VBG's were unremarkable. Patient most likely had acute encephalopathy due to delirium as he did not sleep the whole night due to bleeding from the PermCath. Held aspirin due to high risk of bleeding from PermCath. We added CPAP to be started as tolerated for possible SOREN as patient is constantly snoring. We added low-dose Seroquel 25 mg if patient continues to remain delirious at night. Since patient didnt complete HD, we gave IV KCL 20 meq and 2 g Mag x1 due to A fib RVr. Removed restraints and placed mittens. Delirium precautions. Encouraged that the patient's sleep as patient has not slept the whole night yesterday. Added midodrine due to hypotension. All labs and orders were reviewed. Exam Vital Signs Temp Pulse Resp BP Pulse Ox O2 Del Method O2 Flow Rate 98.6 F 140 H 22 H 127/67 92 L Room Air 2 04/14/25 10:01 04/14/25 10:06 04/14/25 10:01 04/14/25 10:06 04/14/25 10:01 04/14/25 04:00 04/14/25 10:01 Narrative Exam General: Resting in bed; no acute distress; A&Ox3 Skin: Warm, dry, intact, no obvious rash. HEENT: NCAT, EOMI/PERRL, not icteric. External ears normal. No rhinorrhea. Moist mucous membranes Cardiovascular: Tunneled dialysis catheter now in place with bloodied gauze cover site. Regular rate, regular rhythm, no murmur, +S1/S2. Respiratory: Lung kang clear to auscultation bilaterally GI: Soft, nontender, distended. No guarding or rebound tenderness. : No suprapubic tenderness. No flank tenderness bilaterally. Extremities: Trace edema LE, no cyanosis, no clubbing. Extremity pulses present Neuro: Grossly nonfocal. Moving all 4 extremities. CN not formally tested but appear grossly intact. Psychiatric: cooperative, appropriate affect Objective Labs 04/14/25 09:30 04/14/25 09:30 Labs: Laboratory Results - last 24 hr 04/14/25 04/14/25 04/14/25 05:16 06:20 09:30 WBC 16.1 H 19.2 H RBC 2.40 L 2.26 L Hgb 8.9 L 8.7 L 8.2 L Hct 26.4 L 25.7 L 24.3 L MCV 110 H 108 H MCH 37.1 H 36.3 H MCHC 33.7 33.7 RDW Std Deviation 56.0 H 55.3 H Plt Count 158 183 Neut % (Auto) 74 76 Lymph % (Auto) 10 8 L [place] % (Auto) 15 H 15 H Eos % (Auto) 0 0 Baso % (Auto) 0 0 Neut # (Auto) 11.8 H 14.5 H Lymph # (Auto) 1.6 1.6 [place] # (Auto) 2.4 H 2.9 H Eos # (Auto) 0.1 0.0 Baso # (Auto) 0.0 0.0 Immature Gran # (Auto) 0.12 H 0.18 H Absolute Nucleated RBC 0.00 0.00 Immature Gran % 1 H 1 H Nucleated RBC % 0 0 PT 11.3 INR 1.1 VBG pH VBG pCO2 VBG pO2 VBG O2 Sat (Kuldip) VBG Base Excess Sodium 134 L 137 Potassium 4.4 3.5 D Chloride 93 L 96 L Carbon Dioxide 23.2 24.9 Anion Gap 18 H 16 BUN 68 H 34 H Creatinine 5.5 H* D 3.0 H D Estim Creat Clear Calc 15.2 L 27.9 L eGFR 11 L* 23 L BUN/Creatinine Ratio 12 11 L Glucose 118 H 109 H Calculated Osmolality 288 282 Lactic Acid 1.3 Calcium 9.5 11.0 H D Corrected Calcium 9.5 11.0 H D Phosphorus 5.8 H Magnesium 2.2 Total Bilirubin 0.5 0.8 AST 22 31 ALT 27 29 Alkaline Phosphatase 58 57 Ammonia < 10 L Total Protein 7.9 8.6 H Albumin 4.9 H 5.5 H D Globulin 3.0 3.1 Albumin/Globulin Ratio 1.6 1.8 04/14/25 10:26 WBC RBC Hgb Hct MCV MCH MCHC RDW Std Deviation Plt Count Neut % (Auto) Lymph % (Auto) [place] % (Auto) Eos % (Auto) Baso % (Auto) Neut # (Auto) Lymph # (Auto) [place] # (Auto) Eos # (Auto) Baso # (Auto) Immature Gran # (Auto) Absolute Nucleated RBC Immature Gran % Nucleated RBC % PT INR VBG pH 7.43 VBG pCO2 39 VBG pO2 39 VBG O2 Sat (Kuldip) 69 L VBG Base Excess 1 Sodium Potassium Chloride Carbon Dioxide Anion Gap BUN Creatinine Estim Creat Clear Calc eGFR BUN/Creatinine Ratio Glucose Calculated Osmolality Lactic Acid Calcium Corrected Calcium Phosphorus Magnesium Total Bilirubin AST ALT Alkaline Phosphatase Ammonia Total Protein Albumin Globulin Albumin/Globulin Ratio ABG Interpretation ABG results: 04/08/25 04/08/25 04/14/25 04:01 06:11 10:26 ABG pH 7.19 L* 7.24 L ABG pCO2 35 39 ABG pO2 85 117 H D ABG HCO3 13 L 17 L ABG O2 Saturation 96 99 H ABG Base Excess -14 L -10 L VBG pH 7.43 VBG pCO2 39 VBG pO2 39 VBG Base Excess 1 Quality Measures Quality Measures VTE prophylaxis Assessment & Plan Assessment Current Active Medications: Generic Name Dose Route Start Last Admin Trade Name Freq PRN Reason Stop Dose Admin Acetaminophen 650 mg 04/08/25 08:06 04/12/25 17:05 Acetaminophen 325 Mg Tablet PO 05/08/25 08:05 650 mg Q6H PRN Administration PAIN OR FEVER > 100.4 Albuterol 2 puff 04/09/25 07:35 04/12/25 07:20 Albuterol Inh 8 Gm INH 05/09/25 07:34 2 puff Q6H PRN Administration SHORTNESS OF BREATH Apixaban 5 mg 04/12/25 21:00 04/12/25 20:34 Apixaban 2.5 Mg Tablet PO 05/12/25 20:59 5 mg On Hold: 04/13/25 07:00 BID OLI Administration Aspirin 81 mg 04/09/25 09:00 04/14/25 12:52 Aspirin Ec 81 Mg Tabec PO 05/09/25 08:59 Not Given QDAY OLI Furosemide 80 mg 04/08/25 21:00 04/14/25 12:52 Furosemide Inj 10 Mg/Ml 4ml Vial IVP 05/08/25 20:59 Not Given BID OLI Heparin Sodium (Porcine) 4,100 unit 04/14/25 08:32 04/14/25 09:58 Heparin Sod Inj 1000 Unit/Ml Vial 10 Ml INDWELLCAT 04/23/25 10:59 4,100 unit PRN PRN Administration DIALYSIS Hydroxyzine HCl 25 mg 04/13/25 14:18 Hydroxyzine Hcl 25 Mg Tablet PO 05/13/25 16:59 QID PRN Anxiety Albumin Human 25 gm in 100 mls @ 0 mls/hr 04/09/25 09:37 04/14/25 08:19 Albuminex 25% Ivpb IV 300 mls/hr Q30MIN PRN Administration To maintain SBP>90 Per Protocol Amiodarone HCl/Dextrose 360 mg in 200 mls @ 16.667 mls/hr 04/14/25 15:47 Nexterone Ivpb IV 04/15/25 15:46 .Q12H OLI Amiodarone HCl/Dextrose 360 mg in 200 mls @ 33.333 mls/hr 04/14/25 09:48 04/14/25 10:06 Nexterone Ivpb IV 04/14/25 15:47 33.333 mls/hr .Q6H ONE Administration Metoprolol Succinate 100 mg 04/12/25 14:45 04/14/25 12:52 Metoprolol Succinate Xl 25 Mg Tabcr PO 05/12/25 14:44 Not Given QDAY [facility] Ondansetron HCl 4 mg 04/08/25 08:06 04/09/25 03:37 Ondansetron Inj 2 Mg/Ml Inj 2 Ml IVP 05/08/25 08:05 4 mg Q6H PRN Administration NAUSEA OR VOMITING Protocol Simethicone 80 mg 04/09/25 12:22 04/09/25 12:36 Simethicone 80 Mg Chew PO 05/09/25 12:21 80 mg QID PRN Administration GAS Tamsulosin HCl 0.4 mg 04/12/25 14:45 04/14/25 12:53 Tamsulosin Hcl 0.4 Mg Capsule PO 05/12/25 14:44 Not Given QDAY [facility] Plan 64-year-old male with history of COPD, hypertension, CKD who was admitted on 04/08 for severe hyperkalemia and renal failure requiring emergent dialysis. #Acute encephalopathy, secondary to #Hospital-acquired delirium vs. dialysis disequilibrium syndrome (DDS) Patient was noted to be more delirious and confused in the morning of 04/14 (A&Ox2, previously A&Ox3) which was very prominent during his HD session A rapid response ended up being called for A-Fib w/ RVR + soft BPs and patient ended up needing to be started on amiodarone gtt Currently attributing the altered mental status in part to poor sleep due to bleeding from PermaCath Rx: -CPAP nightly due to patient snoring -Seroquel 25 mg PO nightly -Removed restraints and placed mittens -Delirium precautions #New onset atrial fibrillation with RVR, rate-controlled New onset in setting of new hemodialysis. Denied any chest pain or shortness of breath. EKG showning a-fib with RVR, pulse of 118. Had RR for pulse in 140s. Given x2 doses of metoprolol tartrate 2.5 mg IV and started on succinate 50 mg daily. Dx: -04/10 echo ordered, showed EF of 45-50% Rx: -Cardiology consulted, appreciate recommendations -Amiodarone gtt -Stopped Eliquis until Cardiology evaluates the patient in the out-patient setting -Metoprolol succinate 100 mg PO QD -Continue to monitor on telemetry -Keep K > 4 and Mg > 2 #JASON on CKD #ESRD, new hemodialysis #Hyperkalemia, resolved #NAGMA, resolved #Bleeding from Perm cath Likely intra-renal etiology with kidneys unable to excrete potassium, unable to hold onto bicarb, BUN/Cr ratio of 16 on admission. Produces urine, ruling out obstruction. Pre-renal may be contributing due to dehydration and/or poor oral intake. Found to have potassium of 7.8 and was given hyperkalemic cocktail including albuterol, insulin, dextrose, calcium gluconate. UOP improved by 04/11 s/p high dose Lasix IV (1250 cc over 24 hours) Dx: -Hepatitis panel negative, PPD negative Rx: - TXA applied on gauze for bleeding ? Nephrology consulted, appreciate recommendations ? Permanent tunneled dialysis catheter successfully placed as of 04/12 ? HD today (but interrupted due to A-Fib w/ RVR, soft BPs, and AMS), will do more gentle HD tomorrow ? Outpatient chair time with Dr. Swann has been arranged ? Strict I's and O's #Acute hypoxic respiratory failure, improving #Hx of COPD Likely due to fluid overload from renal failure. History of COPD as well. Rx: -Albuterol inhaler as needed #Hypotension Occurred mostly in the setting of HD Rx: -Midodrine 10 mg PO TID #Hypertension, resolved 04/08 admission BP 158/65 Now controlled Rx: -Discontinued Nifedipine 30 mg PO QD ?Labetalol 10 mg IV PRN #BPH Rx: -Tamsulosin 0.4 mg daily -Condom catheter placed on 04/10 #Acute blood loss anemia #Macrocytic anemia 04/08 admission Hgb 8.0 (MCV 118, RDW 63.4) Due to mixed Vitamin deficiency with anemia of chronic disease. Folate and B12 within normal limits. Patient was noted on the evening of 04/12 to be actively bleeding from tunneled dialysis catheter site and this has continued until Rx: -Tranexamic acid applied with gauze -Aspirin and Eliquis being held -CTM CBC, transfuse if Hgb<7 #Anxiety Rx: -Atarax 25 mg PO QD Hospital management: Disposition: Tele, TDC placed successfully and discharge anticipated tomorrow Fluids: None Diet: Renal Lines: PIV DVT prophylaxis: Eliquis on hold CODE STATUS: Full Code ----- Plan discussed with attending physician Dr. Izzy Chopra, DO PGY-1 Internal Medicine
--- NOTE | 2025-04-14 14:27 | PC.SS ---
Rounding Note: Rapid response generated due to AFIB during dialysis. Unable to complete today's dialysis session.
[2025-04-14] MEDS: AMIODARONE 360 MG IVPB 360 MG/200 ML BAG 16.667 MG IV (15:51)
[2025-04-14] MEDS: POTASSIUM CHL 10 mEq IVPB 10 MEQ/100 ML BAG 100 MEQ IV ×2 (15:52→17:14)
[2025-04-14] MEDS: Magnesium Sulfate 2 GM Ivpb 2 GM/50 ML BAG IV (15:52)
[2025-04-14] MEDS: MIDODRINE 5 MG TABLET 10 MG PO (16:21)
[2025-04-15] VITALS (14 sets, daily range): BP systolic 101–120; BP diastolic 59–67; PULSE 61–86; RESP 10–99; TEMP 36.6–37.2; O2SAT 93–99
[2025-04-15] MEDS: AMIODARONE 360 MG IVPB 360 MG/200 ML BAG 16.667 MG IV (04:55)
[2025-04-15 06:17] LABS: Basophils # (Auto) 0.0 Thou/mm3 (0.0-0.2); Basophils % (Auto) 0 % (0-2.5); Eosinophils # (Auto) 0.0 Thou/mm3 (0.0-0.5); Eosinophils % (Auto) 0 % (0-10); Hematocrit 24.7 % (41.0-53.0); Immature Granulocytes Auto 0.19 Thou/mm3 (0.00-0.00); Lymphocytes # (Auto) 1.4 Thou/mm3 (1.0-4.8); Lymphocytes % (Auto) 8 % (10-50); Mean Corpuscular HGB Conc 33.2 g/dl (31.0-37.0); Mean Corpuscular Hemoglobin 36.8 pg (25.0-35.0); Mean Corpuscular Volume 111 fL (80-100); Monocytes # (Auto) 2.7 Thou/mm3 (0.0-0.8); Monocytes % (Auto) 15 % (0-12); Neutrophils # (Auto) 13.8 Thou/mm3 (1.8-7.7); Neutrophils % (Auto) 76 % (37-80); Nucleated Red Blood Cell # 0.00 Thou/mm3 (0.00-0.00); Nucleated Red Blood Cell % 0 /100 WBC (0); Platelet Count 174 Thou/mm3 (140-440); RDW Standard Deviation 56.8 fL (35.1-43.9); Red Blood Count 2.23 Miln/mm3 (4.50-5.90); White Blood Count 18.2 Thou/mm3 (3.8-10.6)
[2025-04-15 06:19] LABS: Hemoglobin 8.2 g/dL (13.5-16.0)
[2025-04-15 06:33] LABS: Alanine Aminotransferase 26 U/L (10-49); Albumin, Serum 4.9 gm/dL (3.4-4.8); Albumin/Globulin Ratio 1.6 (1.2-2.2); Alkaline Phosphatase 54 U/L (46-116); Anion Gap 20 (7-16); Aspartate Amino Transferase 29 U/L (0-34); BUN/Creatinine Ratio 11 Ratio (12-20); Bilirubin,Total 0.3 mg/dL (0.3-1.2); Blood Urea Nitrogen 64 mg/dL (9-23); Calcium 9.5 mg/dL (8.3-10.6); Calcium (Corrected) 9.5 mg/dL (8.5-10.1); Carbon Dioxide 23.5 mMol/L (20.0-31.0); Chloride 93 mMol/L (98-107); Creatinine (Component) 5.7 mg/dL (0.6-1.3); Estimated Creatinine Clearance 14.7 mL/min (>60); Globulin 3.0 gm/dL (2.3-3.5); Glucose 115 mg/dL (74-106); Magnesium 2.8 mg/dL (1.6-2.6); Osmolality,Calculated 291 (275-295); Phosphorous 7.5 mg/dL (2.4-5.1); Potassium 4.6 mMol/L (3.4-5.1); Sodium 136 mMol/L (136-145); Total Protein 7.9 gm/dL (5.7-8.2); eGFR 10 See Note
--- NOTE | 2025-04-15 07:10 | ESPR_ITS ---
RE: EDITH HENDERSON : 1960 DATE OF SERVICE: 04/12/2025 HISTORY OF PRESENT ILLNESS: Mr. Henderson is a 64-year-old gentleman with hypertension, COPD, history of smoking and large prostate, and chronic kidney disease at least since 2020, who presented to the hospital on 04/09/2025 with altered level of consciousness. Patient was brought by his glove stitcher to the emergency room, where he was found with potassium of 7.8 and BUN of 72 and creatinine of 4.7. Patient was incoherent when he presented. Patient underwent emergency dialysis on the day of admission and was dialyzed daily until Friday. He was just dialyzed today after a tunneled dialysis catheter was placed by the radiologist. Patient was also found with atrial fibrillation and was started on heparin drip and now Eliquis. CURRENT MEDICATIONS: 1. Acetaminophen. 2. Albuterol. 3. Apixaban 5 mg b.i.d. 4. Furosemide 80 mg IV b.i.d. 5. Haloperidol. 6. Heparin 5000 units x1. 7. Metoprolol 100 mg p.o. daily. 8. Tamsulosin 0.4 mg p.o. daily. 9. Ondansetron 4 mg IV q.6h. PHYSICAL EXAMINATION: General: He is awake, alert, oriented. Vital Signs: Blood pressure of 135/80, heart rate of 73, temperature 98.9, O2 sats of 96. HEENT: Anicteric sclerae, normocephalic. Neck: Supple, no JVD. Chest and lungs: Symmetric expansion, clear breath sounds. Cardiac: Without murmur. Abdomen: Soft and nontender. Extremities: No edema. LABORATORY DATA: Hemoglobin 8.3, WBC 10,600, platelet count 152,000. Sodium 136, potassium 4, chloride 95, CO2 of 27.8, BUN 38, creatinine 3.4. Glucose 119, calcium 9.1, phosphorus 3.8. ASSESSMENT: 1. Nonoliguric acute kidney injury, most likely end-stage renal disease. 2. History of hypertension. 3. Uremic encephalopathy, now resolved. 4. Rapid atrial fibrillation, now controlled. 5. Anemia of chronic disease. 6. Chronic obstructive pulmonary disease. PLAN: Patient can be discharged anytime as per renal. Patient already has a chair time [facility]. DT: 18:55:12 TT: 19:27:00 Ref: [id number] - TID: [id number] MTDD
[2025-04-15] MEDS: TAMSULOSIN HCL 0.4 MG CAPSULE PO (08:42)
--- NOTE | 2025-04-15 13:27 | PD.RESPRO ---
Documentation for date of: 04/15/25 Subjective Subjective Interval history: Patient seen and examined at bedside, no current complaints. No acute overnight events, labs reviewed. Patient's heart rate controlled on amiodarone gtt. Exam Vital Signs Temp Pulse Resp BP Pulse Ox O2 Del Method O2 Flow Rate 99.0 F 74 20 113/67 99 BiPAP 3 04/15/25 04:00 04/15/25 12:00 04/15/25 08:10 04/15/25 04:58 04/15/25 04:00 04/15/25 04:00 04/15/25 00:00 FiO2 30 04/15/25 02:59 Narrative Exam General: Resting in bed; no acute distress; A&Ox3 Skin: Warm, dry, intact, no obvious rash. HEENT: NCAT, EOMI/PERRL, not icteric. External ears normal. No rhinorrhea. Moist mucous membranes Cardiovascular: Tunneled dialysis catheter now in place with bloodied gauze cover site. Regular rate, regular rhythm, no murmur, +S1/S2. Respiratory: Lung kang clear to auscultation bilaterally GI: Soft, nontender, distended. No guarding or rebound tenderness. : No suprapubic tenderness. No flank tenderness bilaterally. Extremities: Trace edema LE, no cyanosis, no clubbing. Extremity pulses present Neuro: Grossly nonfocal. Moving all 4 extremities. CN not formally tested but appear grossly intact. Psychiatric: cooperative, appropriate affect Objective Labs 04/15/25 04:55 04/15/25 04:55 Labs: Laboratory Results - last 24 hr 04/15/25 04:55 WBC 18.2 H RBC 2.23 L Hgb 8.2 L Hct 24.7 L MCV 111 H MCH 36.8 H MCHC 33.2 RDW Std Deviation 56.8 H Plt Count 174 Neut % (Auto) 76 Lymph % (Auto) 8 L [place] % (Auto) 15 H Eos % (Auto) 0 Baso % (Auto) 0 Neut # (Auto) 13.8 H Lymph # (Auto) 1.4 [place] # (Auto) 2.7 H Eos # (Auto) 0.0 Baso # (Auto) 0.0 Immature Gran # (Auto) 0.19 H Absolute Nucleated RBC 0.00 Immature Gran % 1 H Nucleated RBC % 0 Sodium 136 Potassium 4.6 D Chloride 93 L Carbon Dioxide 23.5 Anion Gap 20 H BUN 64 H Creatinine 5.7 H* D Estim Creat Clear Calc 14.7 L eGFR 10 L* BUN/Creatinine Ratio 11 L Glucose 115 H Calculated Osmolality 291 Calcium 9.5 D Corrected Calcium 9.5 D Phosphorus 7.5 H Magnesium 2.8 H Total Bilirubin 0.3 D AST 29 ALT 26 Alkaline Phosphatase 54 Total Protein 7.9 Albumin 4.9 H D Globulin 3.0 Albumin/Globulin Ratio 1.6 ABG Interpretation ABG results: 04/08/25 04/08/25 04/14/25 04:01 06:11 10:26 ABG pH 7.19 L* 7.24 L ABG pCO2 35 39 ABG pO2 85 117 H D ABG HCO3 13 L 17 L ABG O2 Saturation 96 99 H ABG Base Excess -14 L -10 L VBG pH 7.43 VBG pCO2 39 VBG pO2 39 VBG Base Excess 1 Quality Measures Quality Measures VTE prophylaxis Assessment & Plan Assessment Current Active Medications: Generic Name Dose Route Start Last Admin Trade Name Freq PRN Reason Stop Dose Admin Acetaminophen 650 mg 04/08/25 08:06 04/12/25 17:05 Acetaminophen 325 Mg Tablet PO 05/08/25 08:05 650 mg Q6H PRN Administration PAIN OR FEVER > 100.4 Albuterol 2 puff 04/09/25 07:35 04/12/25 07:20 Albuterol Inh 8 Gm INH 05/09/25 07:34 2 puff Q6H PRN Administration SHORTNESS OF BREATH Amiodarone HCl 200 mg 04/15/25 21:00 Amiodarone Hcl 200 Mg Tablet PO 05/15/25 20:59 BID OLI Apixaban 5 mg 04/12/25 21:00 04/12/25 20:34 Apixaban 2.5 Mg Tablet PO 05/12/25 20:59 5 mg On Hold: 04/13/25 07:00 BID OLI Administration Aspirin 81 mg 04/09/25 09:00 04/14/25 12:52 Aspirin Ec 81 Mg Tabec PO 05/09/25 08:59 Not Given On Hold: 04/14/25 16:11 QDAY OLI Heparin Sodium (Porcine) 4,100 unit 04/14/25 08:32 04/14/25 09:58 Heparin Sod Inj 1000 Unit/Ml Vial 10 Ml INDWELLCAT 04/23/25 10:59 4,100 unit PRN PRN Administration DIALYSIS Hydroxyzine HCl 25 mg 04/13/25 14:18 04/15/25 08:42 Hydroxyzine Hcl 25 Mg Tablet PO 05/13/25 16:59 25 mg QID PRN Administration Anxiety Albumin Human 25 gm in 100 mls @ 0 mls/hr 04/09/25 09:37 04/14/25 08:19 Albuminex 25% Ivpb IV 300 mls/hr Q30MIN PRN Administration To maintain SBP>90 Per Protocol Amiodarone HCl/Dextrose 360 mg in 200 mls @ 16.667 mls/hr 04/14/25 15:47 04/15/25 04:55 Nexterone Ivpb IV 04/15/25 15:46 16.667 mls/hr .Q12H OLI Administration Metoprolol Succinate 50 mg 04/15/25 13:30 Metoprolol Succinate Xl 25 Mg Tabcr PO 05/15/25 13:29 QDAY OLI Midodrine 10 mg 04/14/25 16:15 04/15/25 04:58 Midodrine 5 Mg Tablet PO 05/14/25 16:14 Not Given TID OLI Ondansetron HCl 4 mg 04/08/25 08:06 04/09/25 03:37 Ondansetron Inj 2 Mg/Ml Inj 2 Ml IVP 05/08/25 08:05 4 mg Q6H PRN Administration NAUSEA OR VOMITING Protocol Quetiapine Fumarate 25 mg 04/14/25 21:00 04/14/25 21:50 Quetiapine Fumarate 25 Mg Tablet PO 05/14/25 20:59 25 mg HS OLI Administration Simethicone 80 mg 04/09/25 12:22 04/09/25 12:36 Simethicone 80 Mg Chew PO 05/09/25 12:21 80 mg QID PRN Administration GAS Tamsulosin HCl 0.4 mg 04/12/25 14:45 04/15/25 08:42 Tamsulosin Hcl 0.4 Mg Capsule PO 05/12/25 14:44 0.4 mg QDAY OLI Administration Plan Assessment and Plan: Summary: Mr. Bustamante is a 64-year-old male with past medical history of hypertension, COPD, chronic kidney disease since 2020, significant history of smoking, BPH, chronic pain and lung nodule who presented to [facility] emergency department on April 08, 2025 with a chief complaint of altered mental status, nausea and vomiting. Patient had a rapid response called on 04/10/25 for tachycardia with heart rate 140?150s, EKG showed atrial fibrillation with rapid ventricular response, rate 118 patient was given 2.5 IV metoprolol tartrate and oral metoprolol succinate 50 mg and cardiology was consulted. #New Onset Afib with RVR -patient developed new onset A fib with RVR, asymptomatic, with rate 110-120 during dialysis and later HR peaked to 140s, and was confirmed on EKG. -Patient started on metoprolol succinate 50mg po qd. At the time of examination, BP ranged from 120s/70s with HR of 110s and was still in Afib on tele monitoring. -CHADSVASC score of 1 (0.6% stroke risk per year) and HASBLEED score 1: Low risk of major bleeding -Patient also has possible diastolic heart failure component for his fluid overload and considering it patient's chest Vascor is 2 and will be 65 in 1 year, hence discussed with the patient regarding anticoagulation and started on Eliquis. - On 04/14 morning when during dialysis, HR increased to 170 with BP 127/80. Patient was given IV Metoprolol tartrate 5mg x1. Was not given the oral metoprolol to XL this morning and blood pressure is on the lower side.. Currently, his BP is 106/77 with HR in 150s. Patient has been started started on Amiodarone drip. -ECHO (04/10/2025) showed 1. Left ventricle size is normal and systolic function is mildly reduced. Estimated ejection fraction is 45-50%. There is indeterminate diastolic function. 2. Right ventricle chamber size is normal and systolic function is normal. Estimated RVSP is 15 mmHg. 3. There is moderate aortic valve sclerosis with no stenosis and mild regurgitation. 4. There is mild mitral and trace tricuspid valve regurgitation. Trace PI. 5. The left atrium is mildly enlarged. The right atrium is normal. 6. Normal IVC with estimated RA pressure 3 mmHg. Plan: - Currently on amiodarone gtt., will finish amiodarone drip 04/15/2025 1546, transition patient to oral amiodarone 200 mg p.o. twice daily. - Aspirin Plavix were being held due to bleeding from dialysis catheter site, resume when able - Resume low-dose metoprolol as tolerated - Hold Nifedipine. - Keep potassium greater than 4 and magnesium greater than 2 at all times - Telemetry monitoring - Patient will need outpatient Holter monitoring to assess for atrial fibrillation burden #Systolic heart failure with mildly reduced ejection fraction, EF 45 to 50% Patient presented with fluid overload status and JASON, no significant cardiac history, Troponin on presentation negative, denied any chest pain. In-house echocardiogram does show mildly reduced ejection fraction EF 45 to 50%. Recommendations: - Management of fluid status per nephrology, continue dialysis - Strict intake and output, fluid restriction 1500 cc, daily weight, low-sodium diet - Consider starting patient on ANSHU/ARB/ARNI and low-dose metoprolol as blood pressure tolerates. - Patient will need outpatient ischemia workup to rule out ischemic cardiomyopathy including a stress test - Okay to hold aspirin if increased risk of bleeding, can be discharged on Eliquis only #Hypertension -Start patient on ANSHU/ARB/ARNI and low-dose metoprolol as blood pressure tolerates. #JASON on CKD worsened to ESRD #ESRD, new hemodialysis March 2025 #Hyperkalemia, resolved #NAGMA, resolved #AHRF, improving #COPD #BPH #Macrocytic anemia -Management per Primary Hospitalist team Thank you for the consult and allowing to participate in the care of the patient. Cardiology will continue to follow. Case discussed with Attending Physician Dr. Vinay Ibrahim MD Internal Medicine PGY-2 Disclaimer: This note was dictated by speech recognition. Minor errors in project production engineer may be present due to voice recognition software. Attending Provider Attestation/Addendum I have personally seen and examined the patient separately on the above date of service and discussed the plan of care with the resident. I reviewed the resident Dr. Jo Ibrahim consultation progress note and agree with the resident findings and plan in the note above and have also edited the documentation to reflect my findings and plan. Vinay Rooney M.D. Interventional Cardiology
[2025-04-15] MEDS: MIDODRINE 5 MG TABLET 10 MG PO (13:56)
--- NOTE | 2025-04-15 15:30 | PC.NURSE ---
pt off the restrains tolerating well. made md sanders aware per md abad to monitor and dc the mitter restrain order.
--- NOTE | 2025-04-15 16:17 | ESPR_ITS ---
<Statement entered by Ramon Bradford MD - 04/16/25 15:22> Patient was seen and examined at bedside. I agree on the assessment and plan on this note. - Patient's plan and care discussed with my attending, Dr. Rosario Bradford MD Internal Medicine PGY-3 Documentation for date of: 04/15/25 Subjective Subjective Interval history: No acute overnight events. Patient seen and assessed at bedside. Mentation much improved, answering questions appropriately and AOx3. Right IJ central line site no longer bleeding s/p Tegaderm. Saturating well on room air. Spoke with cardiology, plan to transition to PO amiodarone 200 mg BID after gtt completed tonight at 9PM. Restarted metoprolol 50 mg daily with hold parameters. Will continue to hold Eliquis another day as hemoglobin has stabilized. PT ordered, will monitor overnight and plan for discharge tomorrow if continues to be stable. Patient already has outpatient dialysis chair arranged. Exam Vital Signs Temp Pulse Resp BP Pulse Ox O2 Del Method O2 Flow Rate 98.5 F 78 20 101/63 96 Room Air 3 04/15/25 12:00 04/15/25 13:56 04/15/25 12:00 04/15/25 13:56 04/15/25 12:00 04/15/25 12:00 04/15/25 00:00 FiO2 30 04/15/25 02:59 Narrative Exam General: Resting in bed; no acute distress; A&Ox3 Skin: Warm, dry, intact, no obvious rash. HEENT: NCAT, EOMI/PERRL, not icteric. External ears normal. No rhinorrhea. Moist mucous membranes Cardiovascular: Tunneled dialysis catheter now in place with bloodied gauze cover site. Regular rate, regular rhythm, no murmur, +S1/S2. Respiratory: Lung kang clear to auscultation bilaterally GI: Soft, nontender, distended. No guarding or rebound tenderness. : No suprapubic tenderness. No flank tenderness bilaterally. Extremities: Trace edema LE, no cyanosis, no clubbing. Extremity pulses present Neuro: Grossly nonfocal. Moving all 4 extremities. CN not formally tested but appear grossly intact. Psychiatric: cooperative, appropriate affect Objective Labs 04/16/25 04:50 04/16/25 04:50 Labs: Laboratory Results - last 24 hr 12/25/25 12/26/25 10:26 04:55 WBC 18.2 H RBC 2.23 L Hgb 8.2 L Hct 24.7 L MCV 111 H MCH 36.8 H MCHC 33.2 RDW Std Deviation 56.8 H Plt Count 174 Neut % (Auto) 76 Lymph % (Auto) 8 L [place] % (Auto) 15 H Eos % (Auto) 0 Baso % (Auto) 0 Neut # (Auto) 13.8 H Lymph # (Auto) 1.4 [place] # (Auto) 2.7 H Eos # (Auto) 0.0 Baso # (Auto) 0.0 Immature Gran # (Auto) 0.19 H Absolute Nucleated RBC 0.00 Immature Gran % 1 H Nucleated RBC % 0 Puncture Site Cancelled ABG pH Cancelled ABG pCO2 Cancelled ABG pO2 Cancelled ABG HCO3 Cancelled ABG O2 Saturation Cancelled ABG Base Excess Cancelled Oxygen Liter Flow Cancelled FiO2 Cancelled Sodium 136 Potassium 4.6 D Chloride 93 L Carbon Dioxide 23.5 Anion Gap 20 H BUN 64 H Creatinine 5.7 H* D Estim Creat Clear Calc 14.7 L eGFR 10 L* BUN/Creatinine Ratio 11 L Glucose 115 H Calculated Osmolality 291 Calcium 9.5 D Corrected Calcium 9.5 D Phosphorus 7.5 H Magnesium 2.8 H Total Bilirubin 0.3 D AST 29 ALT 26 Alkaline Phosphatase 54 Total Protein 7.9 Albumin 4.9 H D Globulin 3.0 Albumin/Globulin Ratio 1.6 ABG Interpretation ABG results: 04/08/25 04/08/25 04/14/25 04:01 06:11 10:26 ABG pH 7.19 L* 7.24 L Cancelled ABG pCO2 35 39 Cancelled ABG pO2 85 117 H D Cancelled ABG HCO3 13 L 17 L Cancelled ABG O2 Saturation 96 99 H Cancelled ABG Base Excess -14 L -10 L Cancelled VBG pH 7.43 VBG pCO2 39 VBG pO2 39 VBG Base Excess 1 Quality Measures Quality Measures VTE prophylaxis Assessment & Plan Assessment Current Active Medications: Generic Name Dose Route Start Last Admin Trade Name Freq PRN Reason Stop Dose Admin Acetaminophen 650 mg 04/08/25 08:06 04/12/25 17:05 Acetaminophen 325 Mg Tablet PO 05/08/25 08:05 650 mg Q6H PRN Administration PAIN OR FEVER > 100.4 Albuterol 2 puff 04/09/25 07:35 04/12/25 07:20 Albuterol Inh 8 Gm INH 05/09/25 07:34 2 puff Q6H PRN Administration SHORTNESS OF BREATH Amiodarone HCl 200 mg 04/15/25 21:00 Amiodarone Hcl 200 Mg Tablet PO 05/15/25 20:59 BID OLI Apixaban 5 mg 04/12/25 21:00 04/12/25 20:34 Apixaban 2.5 Mg Tablet PO 05/12/25 20:59 5 mg On Hold: 04/13/25 07:00 BID OLI Administration Aspirin 81 mg 04/09/25 09:00 04/14/25 12:52 Aspirin Ec 81 Mg Tabec PO 05/09/25 08:59 Not Given On Hold: 04/14/25 16:11 QDAY OLI Heparin Sodium (Porcine) 4,100 unit 04/14/25 08:32 04/14/25 09:58 Heparin Sod Inj 1000 Unit/Ml Vial 10 Ml INDWELLCAT 04/23/25 10:59 4,100 unit PRN PRN Administration DIALYSIS Hydroxyzine HCl 25 mg 04/13/25 14:18 04/15/25 08:42 Hydroxyzine Hcl 25 Mg Tablet PO 05/13/25 16:59 25 mg QID PRN Administration Anxiety Albumin Human 25 gm in 100 mls @ 0 mls/hr 04/09/25 09:37 04/14/25 08:19 Albuminex 25% Ivpb IV 300 mls/hr Q30MIN PRN Administration To maintain SBP>90 Per Protocol Metoprolol Succinate 50 mg 04/15/25 13:30 Metoprolol Succinate Xl 25 Mg Tabcr PO 05/15/25 13:29 QDAY OLI Midodrine 10 mg 04/14/25 16:15 04/15/25 13:56 Midodrine 5 Mg Tablet PO 05/14/25 16:14 10 mg TID OLI Administration Ondansetron HCl 4 mg 04/08/25 08:06 04/09/25 03:37 Ondansetron Inj 2 Mg/Ml Inj 2 Ml IVP 05/08/25 08:05 4 mg Q6H PRN Administration NAUSEA OR VOMITING Protocol Quetiapine Fumarate 25 mg 04/14/25 21:00 04/14/25 21:50 Quetiapine Fumarate 25 Mg Tablet PO 05/14/25 20:59 25 mg HS OLI Administration Simethicone 80 mg 04/09/25 12:22 04/09/25 12:36 Simethicone 80 Mg Chew PO 05/09/25 12:21 80 mg QID PRN Administration GAS Tamsulosin HCl 0.4 mg 04/12/25 14:45 04/15/25 08:42 Tamsulosin Hcl 0.4 Mg Capsule PO 05/12/25 14:44 0.4 mg QDAY OLI Administration Plan 64-year-old male with history of COPD, hypertension, CKD who was admitted on 04/08 for severe hyperkalemia and renal failure requiring emergent dialysis. #JASON on CKD #ESRD, new hemodialysis #Hyperkalemia, resolved #NAGMA, resolved #Bleeding from Perm cath Likely intra-renal etiology with kidneys unable to excrete potassium, unable to hold onto bicarb, BUN/Cr ratio of 16 on admission. Produces urine, ruling out obstruction. Pre-renal may be contributing due to dehydration and/or poor oral intake. Found to have potassium of 7.8 and was given hyperkalemic cocktail including albuterol, insulin, dextrose, calcium gluconate. UOP improved by 04/11 s/p high dose Lasix IV (1250 cc over 24 hours) Dx: -Hepatitis panel negative, PPD negative Rx: - TXA applied on gauze for bleeding ? Nephrology consulted, appreciate recommendations ? Permanent tunneled dialysis catheter successfully placed as of 04/12 ? Outpatient chair time with Dr. Swann has been arranged ? Strict I's and O's #Acute encephalopathy, secondary to #Hospital-acquired delirium vs. dialysis disequilibrium syndrome (DDS) #Suspected SOREN Patient was noted to be more delirious and confused in the morning of 04/14 (A&Ox2, previously A&Ox3) which was very prominent during his HD session A rapid response ended up being called for A-Fib w/ RVR + soft BPs and patient ended up needing to be started on amiodarone gtt Currently attributing the altered mental status in part to poor sleep due to bleeding from PermaCath Rx: -CPAP nightly due to patient snoring -Seroquel 25 mg PO nightly -Delirium precautions - Will recommend sleep study as an out patient, #New onset atrial fibrillation with RVR, rate-controlled New onset in setting of new hemodialysis. Denied any chest pain or shortness of breath. EKG showning a-fib with RVR, pulse of 118. Had RR for pulse in 140s. Given x2 doses of metoprolol tartrate 2.5 mg IV and started on succinate 50 mg daily. Dx: -04/10 echo ordered, showed EF of 45-50% Rx: -Cardiology consulted, appreciate recommendations -Amiodarone gtt completed tonight, plan to transition to PO amiodarone 200 mg BID -Stopped Eliquis until Cardiology evaluates the patient in the out-patient setting -Metoprolol succinate 50 mg PO QD, hold if MAP < 65 or HR <60 -Continue to monitor on telemetry -Keep K > 4 and Mg > 2 #Acute hypoxic respiratory failure, improving #Hx of COPD Likely due to fluid overload from renal failure. History of COPD as well. Rx: -Albuterol inhaler as needed #Hypotension Occurred mostly in the setting of HD Rx: -Midodrine 10 mg PO TID, HOLD if SBP >110mmHG #Hypertension, resolved 04/08 admission BP 158/65 Now controlled Rx: -Discontinued Nifedipine 30 mg PO QD ?Labetalol 10 mg IV PRN #BPH Rx: -Tamsulosin 0.4 mg daily -Condom catheter placed on 04/10 #Acute blood loss anemia #Macrocytic anemia 04/08 admission Hgb 8.0 (MCV 118, RDW 63.4) Due to mixed Vitamin deficiency with anemia of chronic disease. Folate and B12 within normal limits. Patient was noted on the evening of 04/12 to be actively bleeding from tunneled dialysis catheter site and this has continued until Rx: -Tranexamic acid applied with gauze, doing well - Instructed to gently rinse off remaining TXA with saline -Aspirin and Eliquis being held -CTM CBC, transfuse if Hgb<7 #Anxiety Rx: -Atarax 25 mg PO QD Hospital management: Disposition: Tele, TDC placed successfully and discharge anticipated tomorrow Fluids: None Diet: Renal Lines: PIV, TDC DVT prophylaxis: Eliquis on hold, To be resumed by cardiology CODE STATUS: Full Code Patient plan of care was discussed with the senior resident, Dr. Bradford, and the attending physician, Dr. Ponce. Josiane Marques DO, PGY-1 Attending Provider Attestation/Addendum I have discussed and was present for the essential components of the history, physical examination, diagnosis, and treatment plan with the resident. I agree with the patient's care as documented by the resident and amended herein by me. Sachin Ponce DO. Although this document has been carefully reviewed, there may still be some phonetic and other typographical errors. These errors are purely grammatical due to imperfections in the software program and should not be construed in any way to compromise the substance of the patient's medical care during this visit.
[2025-04-15] MEDS: AMIODARONE HCL 200 MG TABLET PO (20:18)
[2025-04-15] MEDS: ACETAMINOPHEN 325 MG TABLET 650 MG PO (20:19)
[2025-04-15] MEDS: ONDANSETRON INJ 2 MG/ML INJ 2 ML 4 MG IVP (20:24)
[2025-04-16] VITALS (35 sets, daily range): BP systolic 90–123; BP diastolic 48–73; PULSE 66–87; RESP 10–34; TEMP 36.1–36.9; O2SAT 92–98
[2025-04-16 05:22] LABS: Basophils # (Auto) 0.0 Thou/mm3 (0.0-0.2); Basophils % (Auto) 0 % (0-2.5); Eosinophils # (Auto) 0.0 Thou/mm3 (0.0-0.5); Eosinophils % (Auto) 0 % (0-10); Hematocrit 21.8 % (41.0-53.0); Immature Granulocytes Auto 0.20 Thou/mm3 (0.00-0.00); Lymphocytes # (Auto) 1.5 Thou/mm3 (1.0-4.8); Lymphocytes % (Auto) 9 % (10-50); Mean Corpuscular HGB Conc 33.0 g/dl (31.0-37.0); Mean Corpuscular Hemoglobin 35.8 pg (25.0-35.0); Mean Corpuscular Volume 109 fL (80-100); Monocytes # (Auto) 2.4 Thou/mm3 (0.0-0.8); Monocytes % (Auto) 14 % (0-12); Neutrophils # (Auto) 13.1 Thou/mm3 (1.8-7.7); Neutrophils % (Auto) 76 % (37-80); Nucleated Red Blood Cell # 0.00 Thou/mm3 (0.00-0.00); Nucleated Red Blood Cell % 0 /100 WBC (0); Platelet Count 173 Thou/mm3 (140-440); RDW Standard Deviation 53.7 fL (35.1-43.9); Red Blood Count 2.01 Miln/mm3 (4.50-5.90); White Blood Count 17.2 Thou/mm3 (3.8-10.6)
[2025-04-16 05:25] LABS: Hemoglobin 7.2 g/dL (13.5-16.0)
[2025-04-16 06:04] LABS: Alanine Aminotransferase 23 U/L (10-49); Albumin, Serum 4.3 gm/dL (3.4-4.8); Albumin/Globulin Ratio 1.4 (1.2-2.2); Alkaline Phosphatase 56 U/L (46-116); Anion Gap 19 (7-16); Aspartate Amino Transferase 24 U/L (0-34); BUN/Creatinine Ratio 12 Ratio (12-20); Bilirubin,Total 0.3 mg/dL (0.3-1.2); Blood Urea Nitrogen 91 mg/dL (9-23); Calcium 9.3 mg/dL (8.3-10.6); Calcium (Corrected) 9.3 mg/dL (8.5-10.1); Carbon Dioxide 20.1 mMol/L (20.0-31.0); Chloride 92 mMol/L (98-107); Creatinine (Component) 7.6 mg/dL (0.6-1.3); Estimated Creatinine Clearance 11.0 mL/min (>60); Globulin 3.1 gm/dL (2.3-3.5); Glucose 119 mg/dL (74-106); Magnesium 2.7 mg/dL (1.6-2.6); Osmolality,Calculated 291 (275-295); Phosphorous 8.4 mg/dL (2.4-5.1); Potassium 4.3 mMol/L (3.4-5.1); Sodium 131 mMol/L (136-145); Total Protein 7.4 gm/dL (5.7-8.2); eGFR 7 See Note
--- NOTE | 2025-04-16 08:34 | ESPR_ITS ---
Documentation for date of: 04/16/25 Subjective Subjective Interval history: Patient seen and examined at bedside, heart rate well-controlled rate 78. Patient is on dialysis currently, resting says he has no current complaints. Labs and vitals reviewed. Blood pressure noted to be soft unable to tolerate metoprolol, will discontinue. Continue amiodarone 200 mg p.o. twice daily for 1 month and then decrease to 200 mg once daily outpatient. Hemoglobin drop at 7.2 noted, patient was given erythropoietin, iron levels obtained showed low iron reserves, will order Feraheme IV x 1 B12 and folate levels pending. Aspirin and Eliquis being held, patient should be discharged on Eliquis no indication for aspirin for now. Patient will need close outpatient follow-up with cardiology for further workup, will need to be started on GDMT-ANSHU/ARB/ARNI and metoprolol as patient does have mildly reduced ejection fraction. Exam Vital Signs Temp Pulse Resp BP Pulse Ox O2 Del Method O2 Flow Rate 98.1 F 71 24 H 107/64 95 BiPAP 3 04/16/25 08:28 04/16/25 08:00 04/16/25 08:28 04/16/25 08:28 04/16/25 08:28 04/16/25 08:00 04/16/25 08:28 FiO2 30 04/16/25 08:28 Narrative Exam General: Resting in bed; no acute distress; A&Ox3 Skin: Warm, dry, intact, no obvious rash. HEENT: NCAT, EOMI/PERRL, not icteric. External ears normal. No rhinorrhea. Moist mucous membranes Cardiovascular: Tunneled dialysis catheter in place. Regular rate, regular rhythm, no murmur, +S1/S2. Respiratory: Lung kang clear to auscultation bilaterally GI: Soft, nontender, distended. No guarding or rebound tenderness. : No suprapubic tenderness. No flank tenderness bilaterally. Extremities: Trace edema LE, no cyanosis, no clubbing. Extremity pulses present Neuro: Grossly nonfocal. Moving all 4 extremities. CN not formally tested but appear grossly intact. Psychiatric: cooperative, appropriate affect Objective Labs 04/16/25 19:30 04/16/25 04:50 Labs: Laboratory Results - last 24 hr 04/14/25 04/16/25 10:26 04:50 WBC 17.2 H RBC 2.01 L Hgb 7.2 L Hct 21.8 L* MCV 109 H MCH 35.8 H MCHC 33.0 RDW Std Deviation 53.7 H Plt Count 173 Neut % (Auto) 76 Lymph % (Auto) 9 L [place] % (Auto) 14 H Eos % (Auto) 0 Baso % (Auto) 0 Neut # (Auto) 13.1 H Lymph # (Auto) 1.5 [place] # (Auto) 2.4 H Eos # (Auto) 0.0 Baso # (Auto) 0.0 Immature Gran # (Auto) 0.20 H Absolute Nucleated RBC 0.00 Immature Gran % 1 H Nucleated RBC % 0 Puncture Site Cancelled ABG pH Cancelled ABG pCO2 Cancelled ABG pO2 Cancelled ABG HCO3 Cancelled ABG O2 Saturation Cancelled ABG Base Excess Cancelled Oxygen Liter Flow Cancelled FiO2 Cancelled Sodium 131 L Potassium 4.3 Chloride 92 L Carbon Dioxide 20.1 Anion Gap 19 H BUN 91 H Creatinine 7.6 H* D Estim Creat Clear Calc 11.0 L eGFR 7 L* BUN/Creatinine Ratio 12 Glucose 119 H Calculated Osmolality 291 Calcium 9.3 Corrected Calcium 9.3 Phosphorus 8.4 H Magnesium 2.7 H Total Bilirubin 0.3 AST 24 ALT 23 Alkaline Phosphatase 56 Total Protein 7.4 Albumin 4.3 D Globulin 3.1 Albumin/Globulin Ratio 1.4 ABG Interpretation ABG results: 04/08/25 04/08/25 04/14/25 04:01 06:11 10:26 ABG pH 7.19 L* 7.24 L Cancelled ABG pCO2 35 39 Cancelled ABG pO2 85 117 H D Cancelled ABG HCO3 13 L 17 L Cancelled ABG O2 Saturation 96 99 H Cancelled ABG Base Excess -14 L -10 L Cancelled VBG pH 7.43 VBG pCO2 39 VBG pO2 39 VBG Base Excess 1 Quality Measures Quality Measures VTE prophylaxis Assessment & Plan Assessment Current Active Medications: Generic Name Dose Route Start Last Admin Trade Name Freq PRN Reason Stop Dose Admin Acetaminophen 650 mg 04/08/25 08:06 04/15/25 20:19 Acetaminophen 325 Mg Tablet PO 05/08/25 08:05 650 mg Q6H PRN Administration PAIN OR FEVER > 100.4 Albuterol 2 puff 04/09/25 07:35 04/12/25 07:20 Albuterol Inh 8 Gm INH 05/09/25 07:34 2 puff Q6H PRN Administration SHORTNESS OF BREATH Amiodarone HCl 200 mg 04/15/25 21:00 04/15/25 20:18 Amiodarone Hcl 200 Mg Tablet PO 05/15/25 20:59 200 mg BID OLI Administration Apixaban 5 mg 04/12/25 21:00 04/12/25 20:34 Apixaban 2.5 Mg Tablet PO 05/12/25 20:59 5 mg On Hold: 04/13/25 07:00 BID OLI Administration Aspirin 81 mg 04/09/25 09:00 04/14/25 12:52 Aspirin Ec 81 Mg Tabec PO 05/09/25 08:59 Not Given On Hold: 04/14/25 16:11 QDAY [facility] Heparin Sodium (Porcine) 4,100 unit 04/14/25 08:32 04/14/25 09:58 Heparin Sod Inj 1000 Unit/Ml Vial 10 Ml INDWELLCAT 04/23/25 10:59 4,100 unit PRN PRN Administration DIALYSIS Hydroxyzine HCl 25 mg 04/13/25 14:18 04/15/25 08:42 Hydroxyzine Hcl 25 Mg Tablet PO 05/13/25 16:59 25 mg QID PRN Administration Anxiety Albumin Human 25 gm in 100 mls @ 0 mls/hr 04/09/25 09:37 04/14/25 08:19 Albuminex 25% Ivpb IV 300 mls/hr Q30MIN PRN Administration To maintain SBP>90 Per Protocol Metoprolol Succinate 50 mg 04/15/25 21:58 Metoprolol Succinate Xl 25 Mg Tabcr PO 05/15/25 13:29 QDAY [facility] Midodrine 10 mg 04/14/25 16:15 04/16/25 06:00 Midodrine 5 Mg Tablet PO 05/14/25 16:14 Not Given TID [facility] Ondansetron HCl 4 mg 04/08/25 08:06 04/15/25 20:24 Ondansetron Inj 2 Mg/Ml Inj 2 Ml IVP 05/08/25 08:05 4 mg Q6H PRN Administration NAUSEA OR VOMITING Protocol Quetiapine Fumarate 25 mg 04/14/25 21:00 04/15/25 20:19 Quetiapine Fumarate 25 Mg Tablet PO 05/14/25 20:59 25 mg HS OLI Administration Sevelamer Carbonate 800 mg 04/16/25 08:00 Sevelamer Carbonate 800 Mg Tablet PO 05/16/25 07:59 TIDWM OLI Simethicone 80 mg 04/09/25 12:22 04/09/25 12:36 Simethicone 80 Mg Chew PO 05/09/25 12:21 80 mg QID PRN Administration GAS Tamsulosin HCl 0.4 mg 04/12/25 14:45 04/15/25 08:42 Tamsulosin Hcl 0.4 Mg Capsule PO 05/12/25 14:44 0.4 mg QDAY OLI Administration Plan Assessment and Plan: Summary: Mr. Bustamante is a 64-year-old male with past medical history of hypertension, COPD, chronic kidney disease since 2020, significant history of smoking, BPH, chronic pain and lung nodule who presented to [facility] emergency department on April 08, 2025 with a chief complaint of altered mental status, nausea and vomiting. Patient had a rapid response called on 04/10/25 for tachycardia with heart rate 140?150s, EKG showed atrial fibrillation with rapid ventricular response, rate 118 patient was given 2.5 IV metoprolol tartrate and oral metoprolol succinate 50 mg and cardiology was consulted. #New onset atrial fibrillation, rate controlled -patient developed new onset A fib with RVR, asymptomatic, with rate 110-120 during dialysis and later HR peaked to 140s, and was confirmed on EKG. -Patient started on metoprolol succinate 50mg po qd. At the time of examination, BP ranged from 120s/70s with HR of 110s and was still in Afib on tele monitoring. -CHADSVASC score of 1 (0.6% stroke risk per year) and HASBLEED score 1: Low risk of major bleeding -Patient also has possible diastolic heart failure component for his fluid overload and considering it patient's chest Vascor is 2 and will be 65 in 1 year, hence discussed with the patient regarding anticoagulation and started on Eliquis. - On 04/14 morning when during dialysis, HR increased to 170 with BP 127/80. Patient was given IV Metoprolol tartrate 5mg x1. Was not given the oral metoprolol to XL this morning and blood pressure is on the lower side.. Currently, his BP is 106/77 with HR in 150s. Patient has been started started on Amiodarone drip. -ECHO (04/10/2025) showed 1. Left ventricle size is normal and systolic function is mildly reduced. Estimated ejection fraction is 45-50%. There is indeterminate diastolic function. 2. Right ventricle chamber size is normal and systolic function is normal. Estimated RVSP is 15 mmHg. 3. There is moderate aortic valve sclerosis with no stenosis and mild regurgitation. 4. There is mild mitral and trace tricuspid valve regurgitation. Trace PI. 5. The left atrium is mildly enlarged. The right atrium is normal. 6. Normal IVC with estimated RA pressure 3 mmHg. Plan: - Completed amiodarone gtt., continue amiodarone 200 mg twice daily - Eliquis being held due to bleeding from catheter site, resume when able and bleeding is controlled - Patient will need metoprolol outpatient. - Keep potassium greater than 4 and magnesium greater than 2 at all times - Telemetry monitoring - Patient will need outpatient Holter monitoring to assess for atrial fibrillation burden #Systolic heart failure with mildly reduced ejection fraction, EF 45 to 50% Patient presented with fluid overload status and JASON, no significant cardiac history, Troponin on presentation negative, denied any chest pain. In-house echocardiogram does show mildly reduced ejection fraction EF 45 to 50%. Iron panel obtained today shows iron 11, TIBC 239, iron saturation 4%, ferritin 298, unsaturated iron binding 228 Recommendations: - Management of fluid status per nephrology, continue dialysis - Strict intake and output, fluid restriction 1500 cc, daily weight, low-sodium diet - Consider starting patient on ANSHU/ARB/ARNI and low-dose metoprolol as blood pressure tolerates. - Patient will need outpatient ischemia workup to rule out ischemic cardiomyopathy including a stress test - Aspirin discontinued, can be discharged on Eliquis only - Feraheme 510mg x 1 #Hypertension -Start patient on ANSHU/ARB/ARNI and low-dose metoprolol as blood pressure tolerates. #JASON on CKD worsened to ESRD #Anemia of chronic disease, iron deficiency anemia #ESRD, new hemodialysis March 2025 #Hyperkalemia, resolved #NAGMA, resolved #AHRF, improving #COPD #BPH #Macrocytic anemia -Management per Primary Hospitalist team Thank you for the consult and allowing to participate in the care of the patient. Cardiology will continue to follow. Case discussed with Attending Physician Dr. Vinay Ibrahim MD Internal Medicine PGY-2 Disclaimer: This note was dictated by speech recognition. Minor errors in clinical operations leader may be present due to voice recognition software. Attending Provider Attestation/Addendum I have personally seen and examined the patient separately on the above date of service and discussed the plan of care with the resident. I reviewed the resident Dr. Jo Ibrahim consultation progress note and agree with the resident findings and plan in the note above and have also edited the documentation to reflect my findings and plan. Vinay Rooney M.D. Interventional Cardiology
[2025-04-16 09:23] LABS: Ferritin 298 ng/mL (10.5-307.3); Iron 11 mcg/dL (65-175); Percent Iron Saturation 4 % (20-55); Total Iron Binding Capacity 239 mcg/dL (250-425); Unsaturated Iron Binding 228 (225-295)
[2025-04-16] MEDS: ALBUMIN HUMAN-KJDA 25% IVPB 25 GM/100 ML BTL IV (09:25)
[2025-04-16] MEDS: TAMSULOSIN HCL 0.4 MG CAPSULE PO (10:26)
[2025-04-16] MEDS: AMIODARONE HCL 200 MG TABLET PO ×2 (10:26→20:56)
[2025-04-16] MEDS: SEVELAMER CARBONATE 800 MG TABLET PO ×3 (10:26→17:32)
[2025-04-16] MEDS: EPOETIN ALFA-EPBX INJ 10,000 UNIT/ML VIAL (NON-ESRD) 10000 UNIT IV (10:30)
--- NOTE | 2025-04-16 10:59 | PC.SS ---
SS contacted [facility] and spoke to ingot buggy operator Maren who stated pt first chair will be on Friday at 11am due to Holiday week schedule. SS to update family as pt will be DC today.
--- NOTE | 2025-04-16 11:09 | PC.SS ---
SS spoke to pt Friend, Leila, and updated her on pt first chair time being Friday at 11am at [facility]. Per Leila she will make sure pt is there.
[2025-04-16] MEDS: HEPARIN SOD INJ 1000 UNIT/ML VIAL 10 ML 4100 UNIT INDWELLCAT (11:18)
[2025-04-16] MEDS: ferumoxytoL (ESRD) 510 MG in SODIUM CHLORIDE 0.9% 100 ML 234 MG IV (12:20)
--- NOTE | 2025-04-16 12:58 | ESPR_ITS ---
<Statement entered by Ramon Bradford MD - 04/16/25 16:01> Patient was seen and examined at bedside. I agree in the assessment and plan on this note. - Patient's plan and care discussed with my attending, Dr. Rosario Bradford MD Internal Medicine PGY-3 Documentation for date of: 04/16/25 Subjective Subjective Interval history: Patient had no acute events overnight. Patient is resting in bed with nasal cannula in place. Patient is alert and oriented times 3. Patient's family visited and were updated on patient's hospital course and disposition status. Patient and family think snf would be best for patient for discharge. Will have to wait for insurance authorization, hopefully discharge tomorrow. Patient did have prbc consented to as hgb dipped to 7.2 from 8.2. No s/s of bleeding, possibly dilutional and/or within normal lab error. Will appropriately transfuse if changes occur. Pending PT evaluation as well. Exam Vital Signs Temp Pulse Resp BP Pulse Ox O2 Del Method O2 Flow Rate 97.0 F 78 20 117/63 97 Nasal Cannula 1.5 04/16/25 12:00 04/16/25 12:00 04/16/25 12:00 04/16/25 12:00 04/16/25 12:00 04/16/25 12:00 04/16/25 12:00 FiO2 30 04/16/25 11:57 Narrative Exam General: No acute distress; A&Ox3 Skin: Warm, dry, intact, no obvious rash. HENT: NCAT, EOMI/PERRL, not icteric. External ears normal. No rhinorrhea. Moist mucous membranes Cardiovascular: Regular rate and rhythm, no murmur, +S1/S2. Respiratory: Lungs CTAB, nasal cannula GI: Soft, nontender, distended. No guarding or rebound tenderness. : No suprapubic tenderness. No flank tenderness bilaterally. Extremities: trace edema, no cyanosis, no clubbing. Extremity pulses present Neuro: Grossly nonfocal. Moving all 4 extremities. CN not formally tested but appear grossly intact. Psychiatric: Cooperative, appropriate affect. Objective Labs 04/16/25 04:50 04/16/25 04:50 Labs: Laboratory Results - last 24 hr 04/14/25 04/16/25 04/16/25 10:26 04:50 09:20 WBC 17.2 H RBC 2.01 L Hgb 7.2 L Hct 21.8 L* MCV 109 H MCH 35.8 H MCHC 33.0 RDW Std Deviation 53.7 H Plt Count 173 Neut % (Auto) 76 Lymph % (Auto) 9 L [place] % (Auto) 14 H Eos % (Auto) 0 Baso % (Auto) 0 Neut # (Auto) 13.1 H Lymph # (Auto) 1.5 [place] # (Auto) 2.4 H Eos # (Auto) 0.0 Baso # (Auto) 0.0 Immature Gran # (Auto) 0.20 H Absolute Nucleated RBC 0.00 Immature Gran % 1 H Nucleated RBC % 0 Puncture Site Cancelled ABG pH Cancelled ABG pCO2 Cancelled ABG pO2 Cancelled ABG HCO3 Cancelled ABG O2 Saturation Cancelled ABG Base Excess Cancelled Oxygen Liter Flow Cancelled FiO2 Cancelled Sodium 131 L Potassium 4.3 Chloride 92 L Carbon Dioxide 20.1 Anion Gap 19 H BUN 91 H Creatinine 7.6 H* D Estim Creat Clear Calc 11.0 L eGFR 7 L* BUN/Creatinine Ratio 12 Glucose 119 H Calculated Osmolality 291 Calcium 9.3 Corrected Calcium 9.3 Phosphorus 8.4 H Magnesium 2.7 H Iron 11 L TIBC 239 L Iron Saturation 4 L Unsat Iron Binding 228 Ferritin 298 Total Bilirubin 0.3 AST 24 ALT 23 Alkaline Phosphatase 56 Total Protein 7.4 Albumin 4.3 D Globulin 3.1 Albumin/Globulin Ratio 1.4 Blood Type O Positive Antibody Screen NEGATIVE Crossmatch See Detail Blood Bank Wristband ID Yes ABG Interpretation ABG results: 04/08/25 04/08/25 04/14/25 04:01 06:11 10:26 ABG pH 7.19 L* 7.24 L Cancelled ABG pCO2 35 39 Cancelled ABG pO2 85 117 H D Cancelled ABG HCO3 13 L 17 L Cancelled ABG O2 Saturation 96 99 H Cancelled ABG Base Excess -14 L -10 L Cancelled VBG pH 7.43 VBG pCO2 39 VBG pO2 39 VBG Base Excess 1 Quality Measures Quality Measures VTE prophylaxis Assessment & Plan Assessment Current Active Medications: Generic Name Dose Route Start Last Admin Trade Name Freq PRN Reason Stop Dose Admin Acetaminophen 650 mg 04/08/25 08:06 04/15/25 20:19 Acetaminophen 325 Mg Tablet PO 05/08/25 08:05 650 mg Q6H PRN Administration PAIN OR FEVER > 100.4 Albuterol 2 puff 04/09/25 07:35 04/12/25 07:20 Albuterol Inh 8 Gm INH 05/09/25 07:34 2 puff Q6H PRN Administration SHORTNESS OF BREATH Amiodarone HCl 200 mg 04/15/25 21:00 04/16/25 10:26 Amiodarone Hcl 200 Mg Tablet PO 05/15/25 20:59 200 mg BID OLI Administration Apixaban 5 mg 04/12/25 21:00 04/12/25 20:34 Apixaban 2.5 Mg Tablet PO 05/12/25 20:59 5 mg On Hold: 04/13/25 07:00 BID OLI Administration Heparin Sodium (Porcine) 4,100 unit 04/14/25 08:32 04/16/25 11:18 Heparin Sod Inj 1000 Unit/Ml Vial 10 Ml INDWELLCAT 04/23/25 10:59 4,100 unit PRN PRN Administration DIALYSIS Hydroxyzine HCl 25 mg 04/13/25 14:18 04/15/25 08:42 Hydroxyzine Hcl 25 Mg Tablet PO 05/13/25 16:59 25 mg QID PRN Administration Anxiety Albumin Human 25 gm in 100 mls @ 100 mls/hr 04/16/25 10:10 Albuminex 25% Ivpb IV PRN PRN DIALYSIS Midodrine 10 mg 04/14/25 16:15 04/16/25 06:00 Midodrine 5 Mg Tablet PO 05/14/25 16:14 Not Given TID OLI Ondansetron HCl 4 mg 04/08/25 08:06 04/15/25 20:24 Ondansetron Inj 2 Mg/Ml Inj 2 Ml IVP 05/08/25 08:05 4 mg Q6H PRN Administration NAUSEA OR VOMITING Protocol Quetiapine Fumarate 25 mg 04/14/25 21:00 04/15/25 20:19 Quetiapine Fumarate 25 Mg Tablet PO 05/14/25 20:59 25 mg HS OLI Administration Sevelamer Carbonate 800 mg 04/16/25 08:00 04/16/25 12:16 Sevelamer Carbonate 800 Mg Tablet PO 05/16/25 07:59 800 mg TIDWM OLI Administration Simethicone 80 mg 04/09/25 12:22 04/09/25 12:36 Simethicone 80 Mg Chew PO 05/09/25 12:21 80 mg QID PRN Administration GAS Tamsulosin HCl 0.4 mg 04/12/25 14:45 04/16/25 10:26 Tamsulosin Hcl 0.4 Mg Capsule PO 05/12/25 14:44 0.4 mg QDAY OLI Administration Plan 64-year-old male with history of COPD, hypertension, CKD who was admitted on 04/08 for severe hyperkalemia and renal failure requiring emergent dialysis; s/p permanent TDC; found to have new onset a-fib transiently during a dialysis session (holding eliquis and metoprolol due to recent bleeding and soft bp, respectively). #JASON on CKD #ESRD, new hemodialysis #Hyperkalemia, resolved #NAGMA, resolved #Bleeding from Perm cath, resolved Likely intra-renal etiology with kidneys unable to excrete potassium, unable to hold onto bicarb, BUN/Cr ratio of 16 on admission. Produces urine, ruling out obstruction. Pre-renal may be contributing due to dehydration and/or poor oral intake. Found to have potassium of 7.8 and was given hyperkalemic cocktail including albuterol, insulin, dextrose, calcium gluconate. UOP improved by 04/11 s/p high dose Lasix IV (1250 cc over 24 hours) Dx: -Hepatitis panel negative, PPD negative Rx: - TXA applied on gauze for bleeding ? Nephrology consulted, appreciate recommendations ? Permanent tunneled dialysis catheter successfully placed as of 04/12 ? Outpatient chair time with Dr. Swann has been arranged ? Strict I's and O's #Acute encephalopathy, secondary to RESOLVED #Hospital-acquired delirium vs. dialysis disequilibrium syndrome (DDS) #Suspected SOREN Patient was noted to be more delirious and confused in the morning of 04/14 (A&Ox2, previously A&Ox3) which was very prominent during his HD session A rapid response ended up being called for A-Fib w/ RVR + soft BPs and patient ended up needing to be started on amiodarone gtt Currently attributing the altered mental status in part to poor sleep due to bleeding from PermaCath Rx: -CPAP nightly due to patient snoring -Seroquel 25 mg PO nightly -Delirium precautions -Will recommend sleep study as an out patient, #New onset atrial fibrillation with RVR, rate-controlled New onset in setting of new hemodialysis. Denied any chest pain or shortness of breath. EKG showning a-fib with RVR, pulse of 118. Had RR for pulse in 140s. Given x2 doses of metoprolol tartrate 2.5 mg IV and started on succinate 50 mg daily. Dx: -04/10 echo ordered, showed EF of 45-50% Rx: -Cardiology consulted, appreciate recommendations -amiodarone po 200 mg BID -Stopped Eliquis due to bleeding from dialysis catheter site until Cardiology evaluates the patient in the out-patient setting -Metoprolol succinate Discontinued inpatient for soft bp - per cardiology, will need eliquis and metoprolol outpatient -Continue to monitor on telemetry -Keep K > 4 and Mg > 2 #Acute hypoxic respiratory failure, improving #Hx of COPD Likely due to fluid overload from renal failure. History of COPD as well. Rx: -Albuterol inhaler as needed #Hypotension Occurred mostly in the setting of HD Rx: -Midodrine 10 mg PO TID, HOLD if SBP >110mmHG #Hypertension, resolved 04/08 admission BP 158/65 Now controlled Rx: -bp's have been soft, no acute intervention #BPH Rx: -Tamsulosin 0.4 mg daily -Condom catheter placed on 04/10 #Acute blood loss anemia #Macrocytic anemia 04/08 admission Hgb 8.0 (MCV 118, RDW 63.4) Due to mixed Vitamin deficiency with anemia of chronic disease. Folate and B12 within normal limits. 04/12 to be actively bleeding from tunneled dialysis catheter site, resolved Tranexamic acid applied with gauze, doing well Rx: -Aspirin and Eliquis being held -CTM CBC, transfuse if Hgb<7 #Anxiety Rx: -Hydroxyzine 25 mg PO qid prn Hospital management: Disposition: Tele - DC to SNF planned (tomorrow?) Fluids: None Diet: Cardiac Lines: PIV, TDC DVT prophylaxis: Eliquis on hold, To be resumed by cardiology outpatient CODE STATUS: Full Code Patient plan of care was discussed with the attending physician, Dr. Ponce & senior resident Dr. Sanchez Wick MD PGY-1 Attending Provider Attestation/Addendum I have discussed and was present for the essential components of the history, physical examination, diagnosis, and treatment plan with the resident. I agree with the patient's care as documented by the resident and amended herein by me. Sachin Ponce DO. Although this document has been carefully reviewed, there may still be some phonetic and other typographical errors. These errors are purely grammatical due to imperfections in the software program and should not be construed in any way to compromise the substance of the patient's medical care during this visit. Patient seen and evaluated this AM. No acute events overnight, vital signs stable, patient afebrile, hemoglobin did dip to 7.2 today, no obvious signs of bleeding, WBC down trended to 17 today. Transfused 1 unit PRBC, will continue to monitor closely. Patient tolerating p.o. amiodarone well, Plavix still held, aspirin continued per cardiology recommendations. The patient does wish to go to SNF at this time, social media community manager notified will attempt to find a location hence patient will likely not be seen for 1 or 2 days until we find a suitable facility. Will continue to monitor closely while he is here.
[2025-04-16] MEDS: MIDODRINE 5 MG TABLET 10 MG PO ×2 (14:25→22:08)
--- NOTE | 2025-04-16 14:39 | PC.SS ---
SS was informed during rounds that pt is interested in SNF, pt is still pending PT eval. SS to submit for placement but will require auth.
[2025-04-16] MEDS: SIMETHICONE 80 MG CHEW PO (17:39)
[2025-04-16 20:02] LABS: Hematocrit 23.0 % (41.0-53.0)
[2025-04-16 20:05] LABS: Hemoglobin 7.7 g/dL (13.5-16.0)
[2025-04-17] VITALS (14 sets, daily range): BP systolic 99–120; BP diastolic 46–81; PULSE 61–75; RESP 10–96; TEMP 36.2–36.7; O2SAT 92–98; BMI 13.0
[2025-04-17] MEDS: ACETAMINOPHEN 325 MG TABLET 650 MG PO ×2 (02:52→13:18)
[2025-04-17 05:27] LABS: Basophils # (Auto) 0.0 Thou/mm3 (0.0-0.2); Basophils % (Auto) 0 % (0-2.5); Eosinophils # (Auto) 0.2 Thou/mm3 (0.0-0.5); Eosinophils % (Auto) 2 % (0-10); Hematocrit 23.6 % (41.0-53.0); Immature Granulocytes Auto 0.10 Thou/mm3 (0.00-0.00); Lymphocytes # (Auto) 2.0 Thou/mm3 (1.0-4.8); Lymphocytes % (Auto) 16 % (10-50); Mean Corpuscular HGB Conc 33.5 g/dl (31.0-37.0); Mean Corpuscular Hemoglobin 34.5 pg (25.0-35.0); Mean Corpuscular Volume 103 fL (80-100); Monocytes # (Auto) 2.1 Thou/mm3 (0.0-0.8); Monocytes % (Auto) 17 % (0-12); Neutrophils # (Auto) 7.8 Thou/mm3 (1.8-7.7); Neutrophils % (Auto) 64 % (37-80); Nucleated Red Blood Cell # 0.00 Thou/mm3 (0.00-0.00); Nucleated Red Blood Cell % 0 /100 WBC (0); Platelet Count 171 Thou/mm3 (140-440); RDW Standard Deviation 64.0 fL (35.1-43.9); Red Blood Count 2.29 Miln/mm3 (4.50-5.90); White Blood Count 12.2 Thou/mm3 (3.8-10.6)
[2025-04-17 05:30] LABS: Hemoglobin 7.9 g/dL (13.5-16.0)
[2025-04-17 05:39] LABS: Alanine Aminotransferase 27 U/L (10-49); Albumin, Serum 4.3 gm/dL (3.4-4.8); Albumin/Globulin Ratio 1.7 (1.2-2.2); Alkaline Phosphatase 53 U/L (46-116); Anion Gap 17 (7-16); Aspartate Amino Transferase 33 U/L (0-34); BUN/Creatinine Ratio 10 Ratio (12-20); Bilirubin,Total 0.3 mg/dL (0.3-1.2); Blood Urea Nitrogen 55 mg/dL (9-23); Calcium 9.0 mg/dL (8.3-10.6); Calcium (Corrected) 9.0 mg/dL (8.5-10.1); Carbon Dioxide 25.2 mMol/L (20.0-31.0); Chloride 96 mMol/L (98-107); Creatinine (Component) 5.6 mg/dL (0.6-1.3); Estimated Creatinine Clearance 14.9 mL/min (>60); Globulin 2.6 gm/dL (2.3-3.5); Glucose 110 mg/dL (74-106); Magnesium 2.1 mg/dL (1.6-2.6); Osmolality,Calculated 291 (275-295); Phosphorous 6.6 mg/dL (2.4-5.1); Potassium 3.9 mMol/L (3.4-5.1); Sodium 138 mMol/L (136-145); Total Protein 6.9 gm/dL (5.7-8.2); eGFR 11 See Note
[2025-04-17] MEDS: MIDODRINE 5 MG TABLET 10 MG PO ×2 (06:12→14:20)
[2025-04-17] MEDS: SEVELAMER CARBONATE 800 MG TABLET PO ×3 (07:50→17:25)
[2025-04-17] MEDS: TAMSULOSIN HCL 0.4 MG CAPSULE PO (08:05)
[2025-04-17] MEDS: AMIODARONE HCL 200 MG TABLET PO ×2 (08:05→21:14)
--- NOTE | 2025-04-17 09:18 | PC.SS ---
Addendum entered by PREETI Rivera 04/17/25 15:58: Rounding note: SALES CONTRACTS ANALYST informed doctors that SNF inquired if patient will need cpap once d/c, doctors will follow up with clinical social worker. Addendum entered by PREETI Rivera 04/17/25 12:40: [facility] staff will start authorization tomorrow. SALES CONTRACTS ANALYST inquired if they provide transportation, pending response. Addendum entered by PREETI Rivera 04/17/25 12:38: SALES CONTRACTS ANALYST stated she would reach out to [facility] to inquire if they provide transportation and to inform them that family would like facility. SALES CONTRACTS ANALYST reminded family that they are also able to schedule transportation through insurance as Project Lead Verena mentioned before. Family confirmed. Addendum entered by PREETI Rivera 04/17/25 12:35: SALES CONTRACTS ANALYST was informed by bedside nurse that family was at bedside and wanted to speak to SW. SALES CONTRACTS ANALYST met with family at bedside to discuss d/c planning. Family would like [facility] and inquired if patient will receive transportation to dialysis appointments. Addendum entered by PREETI Rivera 04/17/25 10:35: SALES CONTRACTS ANALYST was informed by Dr. Garcia that PT has met with patient and recommended HH for PT. SALES CONTRACTS ANALYST submitted PT note to SNF to verify if patient can d/c to SNF. Original Note: SALES CONTRACTS ANALYST met with patient at bedside to discuss SNF options. SALES CONTRACTS ANALYST provided patient with accepting facilities names, patient stated that he would like his family to help him decide and stated they are at [facility] and requested that SALES CONTRACTS ANALYST wait until family is present. SALES CONTRACTS ANALYST asked PASSR questions, patient said no to all questions, SALES CONTRACTS ANALYST submitted PASSR, level II screening not required. SALES CONTRACTS ANALYST submitted PASSR results to SNF via [facility] [employer].
--- NOTE | 2025-04-17 10:20 | ESPR_ITS ---
Documentation for date of: 04/17/25 Subjective Subjective Interval history: Patient seen examined at bedside, working with physical therapy, has no current complaints. No significant overnight events. Labs and vitals reviewed, hemoglobin noted to be 7.9. Eliquis being held due to low hemoglobin and bleeding from dialysis catheter site previously. Consider resuming Eliquis. Otherwise heart rate is well-controlled on amiodarone 200 mg twice daily. Blood pressure continues to remain soft requiring midodrine, will hold GDMT for now. Exam Vital Signs Temp Pulse Resp BP Pulse Ox O2 Del Method O2 Flow Rate 97.2 F 67 20 119/63 92 L Nasal Cannula 2 04/17/25 08:00 04/17/25 08:05 04/17/25 08:00 04/17/25 08:05 04/17/25 08:00 04/17/25 08:00 04/17/25 08:00 FiO2 30 04/17/25 05:15 Narrative Exam General: Resting in bed; no acute distress; A&Ox3 Skin: Warm, dry, intact, no obvious rash. HEENT: NCAT, EOMI/PERRL, not icteric. External ears normal. No rhinorrhea. Moist mucous membranes Cardiovascular: Tunneled dialysis catheter in place. Regular rate, regular rhythm, no murmur, +S1/S2. Respiratory: Lung kang clear to auscultation bilaterally GI: Soft, nontender, non-distended. No guarding or rebound tenderness. : No suprapubic tenderness. No flank tenderness bilaterally. Extremities: Trace edema LE, no cyanosis, no clubbing. Extremity pulses present Neuro: Grossly nonfocal. Moving all 4 extremities. CN not formally tested but appear grossly intact. Psychiatric: cooperative, appropriate affect Objective Labs 04/17/25 04:38 04/17/25 04:38 Labs: Laboratory Results - last 24 hr 04/16/25 04/16/25 04/17/25 09:20 19:30 04:38 WBC 12.2 H D RBC 2.29 L Hgb 7.7 L 7.9 L Hct 23.0 L 23.6 L MCV 103 H MCH 34.5 MCHC 33.5 RDW Std Deviation 64.0 H Plt Count 171 Neut % (Auto) 64 Lymph % (Auto) 16 [place] % (Auto) 17 H Eos % (Auto) 2 Baso % (Auto) 0 Neut # (Auto) 7.8 H Lymph # (Auto) 2.0 [place] # (Auto) 2.1 H Eos # (Auto) 0.2 Baso # (Auto) 0.0 Immature Gran # (Auto) 0.10 H Absolute Nucleated RBC 0.00 Immature Gran % 1 H Nucleated RBC % 0 Sodium 138 Potassium 3.9 Chloride 96 L Carbon Dioxide 25.2 Anion Gap 17 H BUN 55 H Creatinine 5.6 H* D Estim Creat Clear Calc 14.9 L eGFR 11 L* BUN/Creatinine Ratio 10 L Glucose 110 H Calculated Osmolality 291 Calcium 9.0 Corrected Calcium 9.0 Phosphorus 6.6 H Magnesium 2.1 Total Bilirubin 0.3 AST 33 ALT 27 Alkaline Phosphatase 53 Total Protein 6.9 Albumin 4.3 Globulin 2.6 Albumin/Globulin Ratio 1.7 Blood Type O Positive Antibody Screen NEGATIVE Crossmatch See Detail Blood Bank Wristband ID Yes ABG Interpretation ABG results: 04/08/25 04/08/25 04/14/25 04:01 06:11 10:26 ABG pH 7.19 L* 7.24 L Cancelled ABG pCO2 35 39 Cancelled ABG pO2 85 117 H D Cancelled ABG HCO3 13 L 17 L Cancelled ABG O2 Saturation 96 99 H Cancelled ABG Base Excess -14 L -10 L Cancelled VBG pH 7.43 VBG pCO2 39 VBG pO2 39 VBG Base Excess 1 Quality Measures Quality Measures VTE prophylaxis Assessment & Plan Assessment Current Active Medications: Generic Name Dose Route Start Last Admin Trade Name Freq PRN Reason Stop Dose Admin Acetaminophen 650 mg 04/08/25 08:06 04/17/25 02:52 Acetaminophen 325 Mg Tablet PO 05/08/25 08:05 650 mg Q6H PRN Administration PAIN OR FEVER > 100.4 Albuterol 2 puff 04/09/25 07:35 04/12/25 07:20 Albuterol Inh 8 Gm INH 05/09/25 07:34 2 puff Q6H PRN Administration SHORTNESS OF BREATH Amiodarone HCl 200 mg 04/15/25 21:00 04/17/25 08:05 Amiodarone Hcl 200 Mg Tablet PO 05/15/25 20:59 200 mg BID OLI Administration Apixaban 5 mg 04/12/25 21:00 04/12/25 20:34 Apixaban 2.5 Mg Tablet PO 05/12/25 20:59 5 mg On Hold: 04/13/25 07:00 BID OLI Administration Heparin Sodium (Porcine) 4,100 unit 04/14/25 08:32 04/16/25 11:18 Heparin Sod Inj 1000 Unit/Ml Vial 10 Ml INDWELLCAT 04/23/25 10:59 4,100 unit PRN PRN Administration DIALYSIS Hydroxyzine HCl 25 mg 04/13/25 14:18 04/17/25 02:53 Hydroxyzine Hcl 25 Mg Tablet PO 05/13/25 16:59 25 mg QID PRN Administration Anxiety Albumin Human 25 gm in 100 mls @ 100 mls/hr 04/16/25 10:10 Albuminex 25% Ivpb IV PRN PRN DIALYSIS Midodrine 10 mg 04/14/25 16:15 04/17/25 06:12 Midodrine 5 Mg Tablet PO 05/14/25 16:14 10 mg TID OLI Administration Ondansetron HCl 4 mg 04/08/25 08:06 04/15/25 20:24 Ondansetron Inj 2 Mg/Ml Inj 2 Ml IVP 05/08/25 08:05 4 mg Q6H PRN Administration NAUSEA OR VOMITING Protocol Quetiapine Fumarate 25 mg 04/14/25 21:00 04/16/25 20:56 Quetiapine Fumarate 25 Mg Tablet PO 05/14/25 20:59 25 mg HS OLI Administration Sevelamer Carbonate 800 mg 04/16/25 08:00 04/17/25 07:50 Sevelamer Carbonate 800 Mg Tablet PO 05/16/25 07:59 800 mg TIDWM OLI Administration Simethicone 80 mg 04/09/25 12:22 04/16/25 17:39 Simethicone 80 Mg Chew PO 05/09/25 12:21 80 mg QID PRN Administration GAS Tamsulosin HCl 0.4 mg 04/12/25 14:45 04/17/25 08:05 Tamsulosin Hcl 0.4 Mg Capsule PO 05/12/25 14:44 0.4 mg QDAY OLI Administration Plan Assessment and Plan: Summary: Mr. Bustamante is a 64-year-old male with past medical history of hypertension, COPD, chronic kidney disease since 2020, significant history of smoking, BPH, chronic pain and lung nodule who presented to [facility] emergency department on April 08, 2025 with a chief complaint of altered mental status, nausea and vomiting. Patient had a rapid response called on 04/10/25 for tachycardia with heart rate 140?150s, EKG showed atrial fibrillation with rapid ventricular response, rate 118 patient was given 2.5 IV metoprolol tartrate and oral metoprolol succinate 50 mg and cardiology was consulted. #New onset atrial fibrillation, rate controlled -patient developed new onset A fib with RVR, asymptomatic, with rate 110-120 during dialysis and later HR peaked to 140s, and was confirmed on EKG. -Patient started on metoprolol succinate 50mg po qd. At the time of examination, BP ranged from 120s/70s with HR of 110s and was still in Afib on tele monitoring. -CHADSVASC score of 1 (0.6% stroke risk per year) and HASBLEED score 1: Low risk of major bleeding -Patient also has possible diastolic heart failure component for his fluid overload and considering it patient's chest Vascor is 2 and will be 65 in 1 year, hence discussed with the patient regarding anticoagulation and started on Eliquis. - On 04/14 morning when during dialysis, HR increased to 170 with BP 127/80. Patient was given IV Metoprolol tartrate 5mg x1. Was not given the oral metoprolol to XL this morning and blood pressure is on the lower side.. Currently, his BP is 106/77 with HR in 150s. Patient has been started started on Amiodarone drip. -ECHO (04/10/2025) showed 1. Left ventricle size is normal and systolic function is mildly reduced. Estimated ejection fraction is 45-50%. There is indeterminate diastolic function. 2. Right ventricle chamber size is normal and systolic function is normal. Estimated RVSP is 15 mmHg. 3. There is moderate aortic valve sclerosis with no stenosis and mild regurgitation. 4. There is mild mitral and trace tricuspid valve regurgitation. Trace PI. 5. The left atrium is mildly enlarged. The right atrium is normal. 6. Normal IVC with estimated RA pressure 3 mmHg. Plan: - Completed amiodarone gtt., continue amiodarone 200 mg twice daily - Eliquis being held due to bleeding from catheter site, resume when able and bleeding is controlled and hemoglobin improves. Currently unable as patient is requiring midodrine - Patient will need metoprolol outpatient. - Keep potassium greater than 4 and magnesium greater than 2 at all times - Telemetry monitoring - Patient will need outpatient Holter monitoring to assess for atrial fibrillation burden #Systolic heart failure with mildly reduced ejection fraction, EF 45 to 50% Patient presented with fluid overload status and JASON, no significant cardiac history, Troponin on presentation negative, denied any chest pain. In-house echocardiogram does show mildly reduced ejection fraction EF 45 to 50%. Iron panel obtained today shows iron 11, TIBC 239, iron saturation 4%, ferritin 298, unsaturated iron binding 228 Recommendations: - Management of fluid status per nephrology, continue dialysis - Strict intake and output, fluid restriction 1500 cc, daily weight, low-sodium diet - Consider starting patient on ANSHU/ARB/ARNI and low-dose metoprolol as blood pressure tolerates; currently unable as blood pressure is soft and patient is requiring midodrine. - Patient will need outpatient ischemia workup to rule out ischemic cardiomyopathy including a stress test - Aspirin discontinued, can be discharged on Eliquis only -Was given Feraheme 510mg x 1 04/16 #Hypertension -Start patient on ANSHU/ARB/ARNI and low-dose metoprolol as blood pressure tolerates. -Currently patient is hypotensive requiring midodrine. #JASON on CKD worsened to ESRD #Anemia of chronic disease, iron deficiency anemia #ESRD, new hemodialysis March 2025 #Hyperkalemia, resolved #NAGMA, resolved #AHRF, improving #COPD #BPH #Macrocytic anemia -Management per Primary Hospitalist team Thank you for the consult and allowing to participate in the care of the patient. Cardiology will continue to follow. Case discussed with Attending Physician Dr. Vinay Ibrahim MD Internal Medicine PGY-2 Disclaimer: This note was dictated by speech recognition. Minor errors in control system manager may be present due to voice recognition software. Attending Provider Attestation/Addendum I have personally seen and examined the patient separately on the above date of service and discussed the plan of care with the resident. I reviewed the resident Dr. Jo Ibrahim consultation progress note and agree with the resident findings and plan in the note above and have also edited the documentation to reflect my findings and plan. Vinay Rooney M.D. Interventional Cardiology
--- NOTE | 2025-04-17 14:20 | ESPR_ITS ---
<Statement entered by José Garcia MD - 04/17/25 15:07> No acute overnight events. Seen and examined at bedside and patient resting comfortably in bed. Seen by physical therapy who is recommending home health and notified perinatal social worker. Authorization will start tomorrow for [facility]. Otherwise, patient now has TDC and chair time has been established. Will continue to hold eliquis given recent bleeding at previous temporary dialysis catheter site. Vital signs stable. CBC showing improved leukocytosis and stable hemoglobin. CHEM panel consistent with ESRD and otherwise unremarkable. Anticipate discharge within next 24 to 48 hours. ----- Note reviewed and agree with care plan as documented. Please refer to the note below for further details. Plan discussed with attending physician Dr. Rosario Garcia MD PGY-2 Internal Medicine Documentation for date of: 04/17/25 Subjective Subjective Interval history: No acute events overnight. Patient resting in bed no acute distress on 2L NC. Patient states he would like to go to SNF, perinatal social worker in contact witih him, working to get authorization tomorrow for [facility]. Patient's outpatient dialysis chair ready. Continuing to hold eliquis and metoprolol for bleeding risk (given recent bleeding from dialysis catheter) and for soft blood pressures and heart rate, respectively; will need to follow up with cardiology outpatient to resume them. Exam Vital Signs Temp Pulse Resp BP Pulse Ox O2 Del Method O2 Flow Rate 97.9 F 63 18 118/66 97 Nasal Cannula 2 04/17/25 12:00 04/17/25 12:00 04/17/25 12:00 04/17/25 12:00 04/17/25 12:00 04/17/25 12:00 04/17/25 12:00 FiO2 30 04/17/25 05:15 Narrative Exam General: No acute distress; A&Ox3 Skin: Warm, dry, intact, no obvious rash. HENT: NCAT, EOMI/PERRL, not icteric. External ears normal. No rhinorrhea. Moist mucous membranes Cardiovascular: Regular rate and rhythm, no murmur, +S1/S2. Respiratory: Lungs CTAB, nasal cannula GI: Soft, nontender, distended. No guarding or rebound tenderness. : No suprapubic tenderness. No flank tenderness bilaterally. Extremities: trace edema, no cyanosis, no clubbing. Extremity pulses present Neuro: Grossly nonfocal. Moving all 4 extremities. CN not formally tested but appear grossly intact. Psychiatric: Cooperative, appropriate affect. Objective Labs 04/17/25 04:38 04/17/25 04:38 Labs: Laboratory Results - last 24 hr 04/16/25 04/16/25 04/17/25 09:20 19:30 04:38 WBC 12.2 H D RBC 2.29 L Hgb 7.7 L 7.9 L Hct 23.0 L 23.6 L MCV 103 H MCH 34.5 MCHC 33.5 RDW Std Deviation 64.0 H Plt Count 171 Neut % (Auto) 64 Lymph % (Auto) 16 [place] % (Auto) 17 H Eos % (Auto) 2 Baso % (Auto) 0 Neut # (Auto) 7.8 H Lymph # (Auto) 2.0 [place] # (Auto) 2.1 H Eos # (Auto) 0.2 Baso # (Auto) 0.0 Immature Gran # (Auto) 0.10 H Absolute Nucleated RBC 0.00 Immature Gran % 1 H Nucleated RBC % 0 Sodium 138 Potassium 3.9 Chloride 96 L Carbon Dioxide 25.2 Anion Gap 17 H BUN 55 H Creatinine 5.6 H* D Estim Creat Clear Calc 14.9 L eGFR 11 L* BUN/Creatinine Ratio 10 L Glucose 110 H Calculated Osmolality 291 Calcium 9.0 Corrected Calcium 9.0 Phosphorus 6.6 H Magnesium 2.1 Total Bilirubin 0.3 AST 33 ALT 27 Alkaline Phosphatase 53 Total Protein 6.9 Albumin 4.3 Globulin 2.6 Albumin/Globulin Ratio 1.7 Blood Type O Positive Antibody Screen NEGATIVE Crossmatch See Detail Blood Bank Wristband ID Yes ABG Interpretation ABG results: 04/08/25 04/08/25 04/14/25 04:01 06:11 10:26 ABG pH 7.19 L* 7.24 L Cancelled ABG pCO2 35 39 Cancelled ABG pO2 85 117 H D Cancelled ABG HCO3 13 L 17 L Cancelled ABG O2 Saturation 96 99 H Cancelled ABG Base Excess -14 L -10 L Cancelled VBG pH 7.43 VBG pCO2 39 VBG pO2 39 VBG Base Excess 1 Quality Measures Quality Measures VTE prophylaxis Assessment & Plan Assessment Current Active Medications: Generic Name Dose Route Start Last Admin Trade Name Freq PRN Reason Stop Dose Admin Acetaminophen 650 mg 04/08/25 08:06 04/17/25 13:18 Acetaminophen 325 Mg Tablet PO 05/08/25 08:05 650 mg Q6H PRN Administration PAIN OR FEVER > 100.4 Albuterol 2 puff 04/09/25 07:35 04/12/25 07:20 Albuterol Inh 8 Gm INH 05/09/25 07:34 2 puff Q6H PRN Administration SHORTNESS OF BREATH Amiodarone HCl 200 mg 04/15/25 21:00 04/17/25 08:05 Amiodarone Hcl 200 Mg Tablet PO 05/15/25 20:59 200 mg BID OLI Administration Heparin Sodium (Porcine) 4,100 unit 04/14/25 08:32 04/16/25 11:18 Heparin Sod Inj 1000 Unit/Ml Vial 10 Ml INDWELLCAT 04/23/25 10:59 4,100 unit PRN PRN Administration DIALYSIS Hydroxyzine HCl 25 mg 04/13/25 14:18 04/17/25 02:53 Hydroxyzine Hcl 25 Mg Tablet PO 05/13/25 16:59 25 mg QID PRN Administration Anxiety Albumin Human 25 gm in 100 mls @ 100 mls/hr 04/16/25 10:10 Albuminex 25% Ivpb IV PRN PRN DIALYSIS Midodrine 10 mg 04/14/25 16:15 04/17/25 06:12 Midodrine 5 Mg Tablet PO 05/14/25 16:14 10 mg TID OLI Administration Ondansetron HCl 4 mg 04/08/25 08:06 04/15/25 20:24 Ondansetron Inj 2 Mg/Ml Inj 2 Ml IVP 05/08/25 08:05 4 mg Q6H PRN Administration NAUSEA OR VOMITING Protocol Quetiapine Fumarate 25 mg 04/14/25 21:00 04/16/25 20:56 Quetiapine Fumarate 25 Mg Tablet PO 05/14/25 20:59 25 mg HS OLI Administration Sevelamer Carbonate 800 mg 04/16/25 08:00 04/17/25 12:13 Sevelamer Carbonate 800 Mg Tablet PO 05/16/25 07:59 800 mg TIDWM OLI Administration Simethicone 80 mg 04/09/25 12:22 04/16/25 17:39 Simethicone 80 Mg Chew PO 05/09/25 12:21 80 mg QID PRN Administration GAS Tamsulosin HCl 0.4 mg 04/12/25 14:45 04/17/25 08:05 Tamsulosin Hcl 0.4 Mg Capsule PO 05/12/25 14:44 0.4 mg QDAY OLI Administration Plan 64-year-old male with history of COPD, hypertension, CKD who was admitted on 04/08 for severe hyperkalemia and renal failure requiring emergent dialysis; s/p permanent TDC; found to have new onset a-fib transiently during a dialysis session (holding eliquis and metoprolol due to recent bleeding and soft bp, respectively). Currently stable, pending [facility] authorization. #JASON on CKD #ESRD, new hemodialysis #Hyperkalemia, resolved #NAGMA, resolved #Bleeding from Perm cath, resolved Likely intra-renal etiology with kidneys unable to excrete potassium, unable to hold onto bicarb, BUN/Cr ratio of 16 on admission. Produces urine, ruling out obstruction. Pre-renal may be contributing due to dehydration and/or poor oral intake. Found to have potassium of 7.8 and was given hyperkalemic cocktail including albuterol, insulin, dextrose, calcium gluconate. UOP improved by 04/11 s/p high dose Lasix IV (1250 cc over 24 hours) Dx: -Hepatitis panel negative, PPD negative Rx: - TXA applied on gauze for bleeding ? Nephrology consulted, appreciate recommendations ? Permanent tunneled dialysis catheter successfully placed as of 04/12 ? Outpatient chair time with Dr. Swann has been arranged ? Strict I's and O's #Acute encephalopathy, secondary to RESOLVED #Hospital-acquired delirium vs. dialysis disequilibrium syndrome (DDS) #Suspected SOREN Patient was noted to be more delirious and confused in the morning of 04/14 (A&Ox2, previously A&Ox3) which was very prominent during his HD session A rapid response ended up being called for A-Fib w/ RVR + soft BPs and patient ended up needing to be started on amiodarone gtt Currently attributing the altered mental status in part to poor sleep due to bleeding from PermaCath Rx: -CPAP nightly due to patient snoring -Seroquel 25 mg PO nightly -Delirium precautions -Will recommend sleep study as an out patient, #New onset atrial fibrillation with RVR, rate-controlled New onset in setting of new hemodialysis. Denied any chest pain or shortness of breath. EKG showning a-fib with RVR, pulse of 118. Had RR for pulse in 140s. Given x2 doses of metoprolol tartrate 2.5 mg IV and started on succinate 50 mg daily. Dx: -04/10 echo ordered, showed EF of 45-50% Rx: -Cardiology consulted, appreciate recommendations -amiodarone po 200 mg BID -Stopped Eliquis due to bleeding from dialysis catheter site until Cardiology evaluates the patient in the out-patient setting -Metoprolol succinate Discontinued inpatient for soft bp - per cardiology, will need eliquis and metoprolol outpatient -Continue to monitor on telemetry -Keep K > 4 and Mg > 2 #Acute hypoxic respiratory failure, improving #Hx of COPD Likely due to fluid overload from renal failure. History of COPD as well. Rx: -Albuterol inhaler as needed #Hypotension Occurred mostly in the setting of HD Rx: -Midodrine 10 mg PO TID, HOLD if SBP >110mmHG #Hypertension, resolved 04/08 admission BP 158/65 Now controlled Rx: -bp's have been soft, no acute intervention #BPH Rx: -Tamsulosin 0.4 mg daily -Condom catheter placed on 04/10 #Acute blood loss anemia #Macrocytic anemia 04/08 admission Hgb 8.0 (MCV 118, RDW 63.4) Due to mixed Vitamin deficiency with anemia of chronic disease. Folate and B12 within normal limits. 04/12 to be actively bleeding from tunneled dialysis catheter site, resolved Tranexamic acid applied with gauze, doing well Rx: -Aspirin and Eliquis being held -CTM CBC, transfuse if Hgb<7 #Anxiety Rx: -Hydroxyzine 25 mg PO qid prn Hospital management: Disposition: Tele - DC to SNF pending authorization Fluids: None Diet: Cardiac Lines: PIV, TDC DVT prophylaxis: Eliquis on hold, To be resumed by cardiology outpatient CODE STATUS: Full Code Patient plan of care was discussed with the attending physician, Dr. Ponce & senior resident Dr. Radha Wick MD PGY-1 Attending Provider Attestation/Addendum I have discussed and was present for the essential components of the history, physical examination, diagnosis, and treatment plan with the resident. I agree with the patient's care as documented by the resident and amended herein by me. Sachin Ponce DO. Although this document has been carefully reviewed, there may still be some phonetic and other typographical errors. These errors are purely grammatical due to imperfections in the software program and should not be construed in any way to compromise the substance of the patient's medical care during this visit. Patient seen and evaluated this AM. No acute events overnight, vital signs stable, patient afebrile, significant labs include WBC 12.2, hemoglobin stable 7.9, anion gap down to 17 today, likely secondary to renal dysfunction, BUN 55 and creatinine 5.6. Continuing amiodarone p.o. 200 mg twice daily per cardiology recommendations, we are continuing to hold Eliquis for now, will continue midodrine, patient will likely need Holter monitor in the outpatient setting. Will continue to hold aspirin per cardiology recommendations, patient will likely need cardiac ischemic workup in the outpatient setting as well. PT did recommend home health of the patient however the family really wants the patient to go to SNF for period of time, SNF authorization will begin tomorrow. Patient will also need CPAP. Will continue to monitor closely while he is here.
[2025-04-17 19:28] LABS: Folate 9.44 ng/mL (>5.38); Vitamin B12 431 pg/mL (211-911)
[2025-04-17] MEDS: SIMETHICONE 80 MG CHEW PO (21:14)
[2025-04-18] VITALS (28 sets, daily range): BP systolic 104–139; BP diastolic 60–79; PULSE 51–77; RESP 16–94; TEMP 36.1–36.9; O2SAT 92–99; BMI 35.3
[2025-04-18 06:20] LABS: Basophils # (Auto) 0.1 Thou/mm3 (0.0-0.2); Basophils % (Auto) 0 % (0-2.5); Eosinophils # (Auto) 0.4 Thou/mm3 (0.0-0.5); Eosinophils % (Auto) 3 % (0-10); Hematocrit 26.0 % (41.0-53.0); Immature Granulocytes Auto 0.10 Thou/mm3 (0.00-0.00); Lymphocytes # (Auto) 1.9 Thou/mm3 (1.0-4.8); Lymphocytes % (Auto) 17 % (10-50); Mean Corpuscular HGB Conc 33.5 g/dl (31.0-37.0); Mean Corpuscular Hemoglobin 34.7 pg (25.0-35.0); Mean Corpuscular Volume 104 fL (80-100); Monocytes # (Auto) 1.8 Thou/mm3 (0.0-0.8); Monocytes % (Auto) 16 % (0-12); Neutrophils # (Auto) 7.0 Thou/mm3 (1.8-7.7); Neutrophils % (Auto) 63 % (37-80); Nucleated Red Blood Cell # 0.00 Thou/mm3 (0.00-0.00); Nucleated Red Blood Cell % 0 /100 WBC (0); Platelet Count 239 Thou/mm3 (140-440); RDW Standard Deviation 62.5 fL (35.1-43.9); Red Blood Count 2.51 Miln/mm3 (4.50-5.90); White Blood Count 11.2 Thou/mm3 (3.8-10.6)
[2025-04-18 06:22] LABS: Hemoglobin 8.7 g/dL (13.5-16.0)
[2025-04-18 06:44] LABS: Alanine Aminotransferase 58 U/L (10-49); Albumin, Serum 4.3 gm/dL (3.4-4.8); Albumin/Globulin Ratio 1.3 (1.2-2.2); Alkaline Phosphatase 61 U/L (46-116); Anion Gap 16 (7-16); Aspartate Amino Transferase 47 U/L (0-34); BUN/Creatinine Ratio 11 Ratio (12-20); Bilirubin,Total 0.4 mg/dL (0.3-1.2); Blood Urea Nitrogen 73 mg/dL (9-23); Calcium 9.5 mg/dL (8.3-10.6); Calcium (Corrected) 9.5 mg/dL (8.5-10.1); Carbon Dioxide 22.9 mMol/L (20.0-31.0); Chloride 97 mMol/L (98-107); Creatinine (Component) 6.4 mg/dL (0.6-1.3); Estimated Creatinine Clearance 13.1 mL/min (>60); Globulin 3.2 gm/dL (2.3-3.5); Glucose 95 mg/dL (74-106); Magnesium 2.2 mg/dL (1.6-2.6); Osmolality,Calculated 293 (275-295); Phosphorous 6.5 mg/dL (2.4-5.1); Potassium 4.3 mMol/L (3.4-5.1); Sodium 136 mMol/L (136-145); Total Protein 7.5 gm/dL (5.7-8.2); eGFR 9 See Note
[2025-04-18] MEDS: SEVELAMER CARBONATE 800 MG TABLET PO ×3 (07:39→16:56)
--- NOTE | 2025-04-18 08:15 | PC.SS ---
KENTRELL received a call from KARENA Alford Charge Nurse Maren, who inquired if pt was still in house, SS explained pt now requesting SNF at [facility]. Pt will require auth. SS informed Maren we will update them when pt is DC.
[2025-04-18] MEDS: EPOETIN ALFA-EPBX INJ 10,000 UNIT/ML VIAL (NON-ESRD) 10000 UNIT SC (08:49)
[2025-04-18] MEDS: SIMETHICONE 80 MG CHEW PO ×2 (09:28→16:55)
[2025-04-18] MEDS: HEPARIN SOD INJ 1000 UNIT/ML VIAL 10 ML 4100 UNIT INDWELLCAT (10:56)
--- NOTE | 2025-04-18 10:56 | PD.RESPRO ---
Documentation for date of: 04/18/25 Subjective Subjective Interval history: No Overnight events. Labs reviewed and patient examined at the bedside. Patient stable with blood pressure 116/72 with pulse rate 62. Hemoglobin improved from 7.9 to 8.7. Will continue amiodarone 200 mg p.o. twice daily. Eliquis 5 mg p.o. twice daily resumed for stable hemoglobin level. Continue midodrine 10 mg p.o. 3 times daily. Patient denies any chest pain, palpitations, shortness of breath. Patient is cleared to discharge in Cardiology standpoint. Will start GDMT in outpatient setting Exam Vital Signs Temp Pulse Resp BP Pulse Ox O2 Del Method O2 Flow Rate 98.4 F 65 16 112/60 98 Nasal Cannula 2 04/18/25 10:35 04/18/25 10:45 04/18/25 10:35 04/18/25 10:45 04/18/25 10:35 04/18/25 04:00 04/18/25 10:35 FiO2 30 04/18/25 10:35 Narrative Exam General: Resting in bed; no acute distress; A&Ox3 Skin: Warm, dry, intact, no obvious rash. HEENT: NCAT, EOMI/PERRL, not icteric. External ears normal. No rhinorrhea. Moist mucous membranes Cardiovascular: Tunneled dialysis catheter in place. Regular rate, regular rhythm, no murmur, +S1/S2. Respiratory: Lung kang clear to auscultation bilaterally GI: Soft, nontender, non-distended. No guarding or rebound tenderness. : No suprapubic tenderness. No flank tenderness bilaterally. Extremities: Trace edema LE, no cyanosis, no clubbing. Extremity pulses present Neuro: Grossly nonfocal. Moving all 4 extremities. CN not formally tested but appear grossly intact. Psychiatric: cooperative, appropriate affect Objective Labs 04/18/25 05:21 04/18/25 05:21 Labs: Laboratory Results - last 24 hr 04/16/25 04/18/25 04:50 05:21 WBC 11.2 H RBC 2.51 L Hgb 8.7 L Hct 26.0 L MCV 104 H MCH 34.7 MCHC 33.5 RDW Std Deviation 62.5 H Plt Count 239 D Neut % (Auto) 63 Lymph % (Auto) 17 [place] % (Auto) 16 H Eos % (Auto) 3 Baso % (Auto) 0 Neut # (Auto) 7.0 Lymph # (Auto) 1.9 [place] # (Auto) 1.8 H Eos # (Auto) 0.4 Baso # (Auto) 0.1 Immature Gran # (Auto) 0.10 H Absolute Nucleated RBC 0.00 Immature Gran % 1 H Nucleated RBC % 0 Sodium 136 Potassium 4.3 Chloride 97 L Carbon Dioxide 22.9 Anion Gap 16 BUN 73 H Creatinine 6.4 H* D Estim Creat Clear Calc 13.1 L eGFR 9 L* BUN/Creatinine Ratio 11 L Glucose 95 Calculated Osmolality 293 Calcium 9.5 Corrected Calcium 9.5 Phosphorus 6.5 H Magnesium 2.2 Total Bilirubin 0.4 AST 47 H ALT 58 H Alkaline Phosphatase 61 Total Protein 7.5 Albumin 4.3 Globulin 3.2 Albumin/Globulin Ratio 1.3 Vitamin B12 431 Folate 9.44 ABG Interpretation ABG results: 04/08/25 04/08/25 04/14/25 04:01 06:11 10:26 ABG pH 7.19 L* 7.24 L Cancelled ABG pCO2 35 39 Cancelled ABG pO2 85 117 H D Cancelled ABG HCO3 13 L 17 L Cancelled ABG O2 Saturation 96 99 H Cancelled ABG Base Excess -14 L -10 L Cancelled VBG pH 7.43 VBG pCO2 39 VBG pO2 39 VBG Base Excess 1 Quality Measures Quality Measures VTE prophylaxis Assessment & Plan Assessment Current Active Medications: Generic Name Dose Route Start Last Admin Trade Name Freq PRN Reason Stop Dose Admin Acetaminophen 650 mg 04/08/25 08:06 04/17/25 13:18 Acetaminophen 325 Mg Tablet PO 05/08/25 08:05 650 mg Q6H PRN Administration PAIN OR FEVER > 100.4 Albuterol 2 puff 04/09/25 07:35 04/12/25 07:20 Albuterol Inh 8 Gm INH 05/09/25 07:34 2 puff Q6H PRN Administration SHORTNESS OF BREATH Amiodarone HCl 200 mg 04/15/25 21:00 04/17/25 21:14 Amiodarone Hcl 200 Mg Tablet PO 05/15/25 20:59 200 mg BID OLI Administration Apixaban 5 mg 04/18/25 09:45 Apixaban 2.5 Mg Tablet PO 05/18/25 09:44 BID OLI Heparin Sodium (Porcine) 4,100 unit 04/14/25 08:32 04/16/25 11:18 Heparin Sod Inj 1000 Unit/Ml Vial 10 Ml INDWELLCAT 04/23/25 10:59 4,100 unit PRN PRN Administration DIALYSIS Hydroxyzine HCl 25 mg 04/13/25 14:18 04/17/25 02:53 Hydroxyzine Hcl 25 Mg Tablet PO 05/13/25 16:59 25 mg QID PRN Administration Anxiety Albumin Human 25 gm in 100 mls @ 100 mls/hr 04/16/25 10:10 Albuminex 25% Ivpb IV PRN PRN DIALYSIS Midodrine 10 mg 04/14/25 16:15 04/18/25 05:09 Midodrine 5 Mg Tablet PO 05/14/25 16:14 Not Given TID OLI Ondansetron HCl 4 mg 04/08/25 08:06 04/15/25 20:24 Ondansetron Inj 2 Mg/Ml Inj 2 Ml IVP 05/08/25 08:05 4 mg Q6H PRN Administration NAUSEA OR VOMITING Protocol Quetiapine Fumarate 25 mg 04/14/25 21:00 04/17/25 21:14 Quetiapine Fumarate 25 Mg Tablet PO 05/14/25 20:59 25 mg HS OLI Administration Sevelamer Carbonate 800 mg 04/16/25 08:00 04/18/25 07:39 Sevelamer Carbonate 800 Mg Tablet PO 05/16/25 07:59 800 mg TIDWM OLI Administration Simethicone 80 mg 04/09/25 12:22 04/18/25 09:28 Simethicone 80 Mg Chew PO 05/09/25 12:21 80 mg QID PRN Administration GAS Tamsulosin HCl 0.4 mg 04/12/25 14:45 04/17/25 08:05 Tamsulosin Hcl 0.4 Mg Capsule PO 05/12/25 14:44 0.4 mg QDAY OLI Administration Plan Summary: Mr. Bustamante is a 64-year-old male with past medical history of hypertension, COPD, chronic kidney disease since 2020, significant history of smoking, BPH, chronic pain and lung nodule who presented to [facility] emergency department on April 08, 2025 with a chief complaint of altered mental status, nausea and vomiting. Patient had a rapid response called on 04/10/25 for tachycardia with heart rate 140?150s, EKG showed atrial fibrillation with rapid ventricular response, rate 118 patient was given 2.5 IV metoprolol tartrate and oral metoprolol succinate 50 mg and cardiology was consulted. #New onset atrial fibrillation, rate controlled -patient developed new onset A fib with RVR, asymptomatic, with rate 110-120 during dialysis and later HR peaked to 140s, and was confirmed on EKG. -Patient started on metoprolol succinate 50mg po qd. At the time of examination, BP ranged from 120s/70s with HR of 110s and was still in Afib on tele monitoring. -CHADSVASC score of 1 (0.6% stroke risk per year) and HASBLEED score 1: Low risk of major bleeding -Patient also has possible diastolic heart failure component for his fluid overload and considering it patient's chest Vascor is 2 and will be 65 in 1 year, hence discussed with the patient regarding anticoagulation and started on Eliquis. - On 04/14 morning when during dialysis, HR increased to 170 with BP 127/80. Patient was given IV Metoprolol tartrate 5mg x1. Was not given the oral metoprolol to XL this morning and blood pressure is on the lower side.. Currently, his BP is 106/77 with HR in 150s. Patient has been started started on Amiodarone drip. -ECHO (04/10/2025) showed 1. Left ventricle size is normal and systolic function is mildly reduced. Estimated ejection fraction is 45-50%. There is indeterminate diastolic function. 2. Right ventricle chamber size is normal and systolic function is normal. Estimated RVSP is 15 mmHg. 3. There is moderate aortic valve sclerosis with no stenosis and mild regurgitation. 4. There is mild mitral and trace tricuspid valve regurgitation. Trace PI. 5. The left atrium is mildly enlarged. The right atrium is normal. 6. Normal IVC with estimated RA pressure 3 mmHg. Plan: - Continue amiodarone 200 mg twice daily and midodrine 10 mg p.o. 3 times daily. - Resumed Eliquis - Patient will need metoprolol outpatient. - Keep potassium greater than 4 and magnesium greater than 2 at all times - Telemetry monitoring - Patient will need outpatient Holter monitoring to assess for atrial fibrillation burden #Systolic heart failure with mildly reduced ejection fraction, EF 45 to 50% Patient presented with fluid overload status and JASON, no significant cardiac history, Troponin on presentation negative, denied any chest pain. In-house echocardiogram does show mildly reduced ejection fraction EF 45 to 50%. Iron panel obtained today shows iron 11, TIBC 239, iron saturation 4%, ferritin 298, unsaturated iron binding 228 Recommendations: - Management of fluid status per nephrology, continue dialysis - Strict intake and output, fluid restriction 1500 cc, daily weight, low-sodium diet - Consider starting patient on ANSHU/ARB/ARNI and low-dose metoprolol as blood pressure tolerates; currently unable as blood pressure is soft and patient is requiring midodrine. - Patient will need outpatient ischemia workup to rule out ischemic cardiomyopathy including a stress test - Aspirin discontinued, can be discharged on Eliquis only -Was given Feraheme 510mg x 1 04/16 #Hypertension -Start patient on ANSHU/ARB/ARNI and low-dose metoprolol as blood pressure tolerates. -Currently patient is hypotensive requiring midodrine. #JASON on CKD worsened to ESRD #Anemia of chronic disease, iron deficiency anemia #ESRD, new hemodialysis March 2025 #Hyperkalemia, resolved #NAGMA, resolved #AHRF, improving #COPD #BPH #Macrocytic anemia -Management per Primary Hospitalist team Thank you for the consult and allowing to participate in the care of the patient. Cardiology will continue to follow. Assessment and plan discussed with my attending physician Dr. Toribio Summers (PGY-1) - Internal medicine resident Attending Provider Attestation/Addendum I have personally seen and examined the patient separately on the above date of service and discussed the plan of care with the resident. I reviewed the resident Dr. Jarocho Summers consultation progress note and agree with the resident findings and plan in the note above and have also edited the documentation to reflect my findings and plan. Vinay Rooney M.D. Interventional Cardiology
[2025-04-18] MEDS: AMIODARONE HCL 200 MG TABLET PO ×2 (11:51→21:20)
[2025-04-18] MEDS: TAMSULOSIN HCL 0.4 MG CAPSULE PO (11:51)
[2025-04-18] MEDS: APIXABAN 2.5 MG TABLET 5 MG PO ×2 (11:52→21:20)
--- NOTE | 2025-04-18 14:42 | ESPR_ITS ---
<Statement entered by José Garcia MD - 04/18/25 14:50> Note reviewed and agree with care plan as documented. Please refer to the note below for further details. Plan discussed with attending physician Dr. Rosario Garcia MD PGY-2 Internal Medicine Documentation for date of: 04/18/25 Subjective Subjective Interval history: No acute events overnight. Patient resting in bed no acute distress on 2L NC. SNF authorization pending. Patient's outpatient dialysis chair ready. Restarted eliquis, patient hgb stable, no s/s of bleeding. Exam Vital Signs Temp Pulse Resp BP Pulse Ox O2 Del Method O2 Flow Rate 97.0 F 65 16 120/73 99 Nasal Cannula 2 04/18/25 11:43 04/18/25 14:21 04/18/25 11:43 04/18/25 14:21 04/18/25 11:43 04/18/25 11:43 04/18/25 11:43 FiO2 30 04/18/25 11:11 Narrative Exam General: No acute distress; A&Ox3 Skin: Warm, dry, intact, no obvious rash. HENT: NCAT, EOMI/PERRL, not icteric. External ears normal. No rhinorrhea. Moist mucous membranes Cardiovascular: Regular rate and rhythm, no murmur, +S1/S2. Respiratory: Lungs CTAB, nasal cannula GI: Soft, nontender, distended. No guarding or rebound tenderness. : No suprapubic tenderness. No flank tenderness bilaterally. Extremities: trace edema, no cyanosis, no clubbing. Extremity pulses present Neuro: Grossly nonfocal. Moving all 4 extremities. CN not formally tested but appear grossly intact. Psychiatric: Cooperative, appropriate affect. Objective Labs 04/18/25 05:21 04/18/25 05:21 Labs: Laboratory Results - last 24 hr 04/16/25 04/18/25 04:50 05:21 WBC 11.2 H RBC 2.51 L Hgb 8.7 L Hct 26.0 L MCV 104 H MCH 34.7 MCHC 33.5 RDW Std Deviation 62.5 H Plt Count 239 D Neut % (Auto) 63 Lymph % (Auto) 17 [place] % (Auto) 16 H Eos % (Auto) 3 Baso % (Auto) 0 Neut # (Auto) 7.0 Lymph # (Auto) 1.9 [place] # (Auto) 1.8 H Eos # (Auto) 0.4 Baso # (Auto) 0.1 Immature Gran # (Auto) 0.10 H Absolute Nucleated RBC 0.00 Immature Gran % 1 H Nucleated RBC % 0 Sodium 136 Potassium 4.3 Chloride 97 L Carbon Dioxide 22.9 Anion Gap 16 BUN 73 H Creatinine 6.4 H* D Estim Creat Clear Calc 13.1 L eGFR 9 L* BUN/Creatinine Ratio 11 L Glucose 95 Calculated Osmolality 293 Calcium 9.5 Corrected Calcium 9.5 Phosphorus 6.5 H Magnesium 2.2 Total Bilirubin 0.4 AST 47 H ALT 58 H Alkaline Phosphatase 61 Total Protein 7.5 Albumin 4.3 Globulin 3.2 Albumin/Globulin Ratio 1.3 Vitamin B12 431 Folate 9.44 ABG Interpretation ABG results: 04/08/25 04/08/25 04/14/25 04:01 06:11 10:26 ABG pH 7.19 L* 7.24 L Cancelled ABG pCO2 35 39 Cancelled ABG pO2 85 117 H D Cancelled ABG HCO3 13 L 17 L Cancelled ABG O2 Saturation 96 99 H Cancelled ABG Base Excess -14 L -10 L Cancelled VBG pH 7.43 VBG pCO2 39 VBG pO2 39 VBG Base Excess 1 Quality Measures Quality Measures VTE prophylaxis Assessment & Plan Assessment Current Active Medications: Generic Name Dose Route Start Last Admin Trade Name Freq PRN Reason Stop Dose Admin Acetaminophen 650 mg 04/08/25 08:06 04/17/25 13:18 Acetaminophen 325 Mg Tablet PO 05/08/25 08:05 650 mg Q6H PRN Administration PAIN OR FEVER > 100.4 Albuterol 2 puff 04/09/25 07:35 04/12/25 07:20 Albuterol Inh 8 Gm INH 05/09/25 07:34 2 puff Q6H PRN Administration SHORTNESS OF BREATH Amiodarone HCl 200 mg 04/15/25 21:00 04/18/25 11:51 Amiodarone Hcl 200 Mg Tablet PO 05/15/25 20:59 200 mg BID OLI Administration Apixaban 5 mg 04/18/25 09:45 04/18/25 11:52 Apixaban 2.5 Mg Tablet PO 05/18/25 09:44 5 mg BID OLI Administration Heparin Sodium (Porcine) 4,100 unit 04/14/25 08:32 04/18/25 10:56 Heparin Sod Inj 1000 Unit/Ml Vial 10 Ml INDWELLCAT 04/23/25 10:59 4,100 unit PRN PRN Administration DIALYSIS Hydroxyzine HCl 25 mg 04/13/25 14:18 04/17/25 02:53 Hydroxyzine Hcl 25 Mg Tablet PO 05/13/25 16:59 25 mg QID PRN Administration Anxiety Albumin Human 25 gm in 100 mls @ 100 mls/hr 04/16/25 10:10 Albuminex 25% Ivpb IV PRN PRN DIALYSIS Midodrine 10 mg 04/14/25 16:15 04/18/25 14:21 Midodrine 5 Mg Tablet PO 05/14/25 16:14 Not Given TID OLI Ondansetron HCl 4 mg 04/08/25 08:06 04/15/25 20:24 Ondansetron Inj 2 Mg/Ml Inj 2 Ml IVP 05/08/25 08:05 4 mg Q6H PRN Administration NAUSEA OR VOMITING Protocol Quetiapine Fumarate 25 mg 04/14/25 21:00 04/17/25 21:14 Quetiapine Fumarate 25 Mg Tablet PO 05/14/25 20:59 25 mg HS OLI Administration Sevelamer Carbonate 800 mg 04/16/25 08:00 04/18/25 11:55 Sevelamer Carbonate 800 Mg Tablet PO 05/16/25 07:59 800 mg TIDWM OLI Administration Simethicone 80 mg 04/09/25 12:22 04/18/25 09:28 Simethicone 80 Mg Chew PO 05/09/25 12:21 80 mg QID PRN Administration GAS Tamsulosin HCl 0.4 mg 04/12/25 14:45 04/18/25 11:51 Tamsulosin Hcl 0.4 Mg Capsule PO 05/12/25 14:44 0.4 mg QDAY OLI Administration Plan 64-year-old male with history of COPD, hypertension, CKD who was admitted on 04/08 for severe hyperkalemia and renal failure requiring emergent dialysis; s/p permanent TDC; found to have new onset a-fib transiently during a dialysis session (holding eliquis and metoprolol due to recent bleeding and soft bp, respectively). Currently stable, pending [facility] authorization. #JASON on CKD #ESRD, new hemodialysis #Hyperkalemia, resolved #NAGMA, resolved #Bleeding from Perm cath, resolved Likely intra-renal etiology with kidneys unable to excrete potassium, unable to hold onto bicarb, BUN/Cr ratio of 16 on admission. Produces urine, ruling out obstruction. Pre-renal may be contributing due to dehydration and/or poor oral intake. Found to have potassium of 7.8 and was given hyperkalemic cocktail including albuterol, insulin, dextrose, calcium gluconate. UOP improved by 04/11 s/p high dose Lasix IV (1250 cc over 24 hours) Dx: -Hepatitis panel negative, PPD negative Rx: - TXA applied on gauze for bleeding ? Nephrology consulted, appreciate recommendations ? Permanent tunneled dialysis catheter successfully placed as of 04/12 ? Outpatient chair time with Dr. Swann has been arranged ? Strict I's and O's #Acute encephalopathy, secondary to RESOLVED #Hospital-acquired delirium vs. dialysis disequilibrium syndrome (DDS) #Suspected SOREN Patient was noted to be more delirious and confused in the morning of 04/14 (A&Ox2, previously A&Ox3) which was very prominent during his HD session A rapid response ended up being called for A-Fib w/ RVR + soft BPs and patient ended up needing to be started on amiodarone gtt Currently attributing the altered mental status in part to poor sleep due to bleeding from PermaCath Rx: -CPAP nightly due to patient snoring -Seroquel 25 mg PO nightly -Delirium precautions -Will recommend sleep study as an out patient, #New onset atrial fibrillation with RVR, rate-controlled New onset in setting of new hemodialysis. Denied any chest pain or shortness of breath. EKG showning a-fib with RVR, pulse of 118. Had RR for pulse in 140s. Given x2 doses of metoprolol tartrate 2.5 mg IV and started on succinate 50 mg daily. Dx: -04/10 echo ordered, showed EF of 45-50% Rx: -Cardiology consulted, appreciate recommendations -amiodarone po 200 mg BID -Resumed Eliquis 5 mg BID -Metoprolol succinate Discontinued inpatient for soft bp -can start metoprolol outpatient with cardiology when appropriate -Continue to monitor on telemetry -Keep K > 4 and Mg > 2 #Acute hypoxic respiratory failure, improving #Hx of COPD Likely due to fluid overload from renal failure. History of COPD as well. Rx: -Albuterol inhaler as needed #Hypotension Occurred mostly in the setting of HD Rx: -Midodrine 10 mg PO TID, HOLD if SBP >110mmHG #Hypertension, resolved 04/08 admission BP 158/65 Now controlled Rx: -bp's have been soft, no acute intervention #BPH Rx: -Tamsulosin 0.4 mg daily -Condom catheter placed on 04/10 #Acute blood loss anemia #Macrocytic anemia 04/08 admission Hgb 8.0 (MCV 118, RDW 63.4) Due to mixed Vitamin deficiency with anemia of chronic disease. Folate and B12 within normal limits. 04/12 to be actively bleeding from tunneled dialysis catheter site, resolved Tranexamic acid applied with gauze, doing well Rx: -CTM CBC, transfuse if Hgb<7 #Anxiety Rx: -Hydroxyzine 25 mg PO qid prn Hospital management: Disposition: Tele - DC to SNF pending authorization Fluids: None Diet: Cardiac Lines: PIV, TDC DVT prophylaxis: Eliquis 5 mg BID CODE STATUS: Full Code Patient plan of care was discussed with the attending physician, Dr. Ponce & senior resident Dr. Radha Wick MD PGY-1 Attending Provider Attestation/Addendum I have discussed and was present for the essential components of the history, physical examination, diagnosis, and treatment plan with the resident. I agree with the patient's care as documented by the resident and amended herein by me. Sachin Ponce DO. Although this document has been carefully reviewed, there may still be some phonetic and other typographical errors. These errors are purely grammatical due to imperfections in the software program and should not be construed in any way to compromise the substance of the patient's medical care during this visit.
--- NOTE | 2025-04-18 16:39 | PC.SS ---
Rounding Note: Patient will not require C-PAP at SNF.
--- NOTE | 2025-04-18 16:39 | PC.SS ---
TIMBER WATCHMAN notified by [facility] staff that patient has been denied authorization for SNF placement. conference services director to follow up with patient on D/C plan.
--- NOTE | 2025-04-18 16:43 | PC.SS ---
PT to re-evaluate patient.
[2025-04-18] MEDS: ACETAMINOPHEN 325 MG TABLET 650 MG PO (16:56)
[2025-04-18] MEDS: MIDODRINE 5 MG TABLET 10 MG PO (21:19)
[2025-04-19] VITALS (7 sets, daily range): BP systolic 97–126; BP diastolic 60–75; PULSE 63–79; RESP 14–93; TEMP 36.3; O2SAT 94–95
[2025-04-19] MEDS: MIDODRINE 5 MG TABLET 10 MG PO (05:46)
[2025-04-19 06:21] LABS: Basophils # (Auto) 0.1 Thou/mm3 (0.0-0.2); Basophils % (Auto) 1 % (0-2.5); Eosinophils # (Auto) 0.3 Thou/mm3 (0.0-0.5); Eosinophils % (Auto) 3 % (0-10); Hematocrit 28.2 % (41.0-53.0); Hemoglobin 9.0 g/dL (13.5-16.0); Immature Granulocytes Auto 0.11 Thou/mm3 (0.00-0.00); Lymphocytes # (Auto) 1.8 Thou/mm3 (1.0-4.8); Lymphocytes % (Auto) 19 % (10-50); Mean Corpuscular HGB Conc 31.9 g/dl (31.0-37.0); Mean Corpuscular Hemoglobin 34.1 pg (25.0-35.0); Mean Corpuscular Volume 107 fL (80-100); Monocytes # (Auto) 1.6 Thou/mm3 (0.0-0.8); Monocytes % (Auto) 18 % (0-12); Neutrophils # (Auto) 5.4 Thou/mm3 (1.8-7.7); Neutrophils % (Auto) 59 % (37-80); Nucleated Red Blood Cell # 0.00 Thou/mm3 (0.00-0.00); Nucleated Red Blood Cell % 0 /100 WBC (0); Platelet Count 309 Thou/mm3 (140-440); RDW Standard Deviation 64.8 fL (35.1-43.9); Red Blood Count 2.64 Miln/mm3 (4.50-5.90); White Blood Count 9.2 Thou/mm3 (3.8-10.6)
[2025-04-19 06:40] LABS: Alanine Aminotransferase 110 U/L (10-49); Albumin, Serum 4.3 gm/dL (3.4-4.8); Albumin/Globulin Ratio 1.3 (1.2-2.2); Alkaline Phosphatase 66 U/L (46-116); Anion Gap 13 (7-16); Aspartate Amino Transferase 72 U/L (0-34); BUN/Creatinine Ratio 10 Ratio (12-20); Bilirubin,Total 0.4 mg/dL (0.3-1.2); Blood Urea Nitrogen 46 mg/dL (9-23); Calcium 9.6 mg/dL (8.3-10.6); Calcium (Corrected) 9.6 mg/dL (8.5-10.1); Carbon Dioxide 27.0 mMol/L (20.0-31.0); Chloride 101 mMol/L (98-107); Creatinine (Component) 4.8 mg/dL (0.6-1.3); Estimated Creatinine Clearance 17.4 mL/min (>60); Globulin 3.4 gm/dL (2.3-3.5); Glucose 96 mg/dL (74-106); Magnesium 2.2 mg/dL (1.6-2.6); Osmolality,Calculated 293 (275-295); Phosphorous 5.0 mg/dL (2.4-5.1); Potassium 4.3 mMol/L (3.4-5.1); Sodium 141 mMol/L (136-145); Total Protein 7.7 gm/dL (5.7-8.2); eGFR 13 See Note
[2025-04-19] MEDS: SEVELAMER CARBONATE 800 MG TABLET PO ×2 (08:03→11:46)
[2025-04-19] MEDS: AMIODARONE HCL 200 MG TABLET PO (08:03)
[2025-04-19] MEDS: TAMSULOSIN HCL 0.4 MG CAPSULE PO (08:03)
[2025-04-19] MEDS: APIXABAN 2.5 MG TABLET 5 MG PO (08:04)
[2025-04-19] MEDS: FAMOTIDINE 20 MG TABLET PO (08:04)
--- NOTE | 2025-04-19 08:42 | PD.RESPRO ---
Documentation for date of: 04/19/25 Subjective Subjective Interval history: Patient seen and examined at bedside, no current complaints. Patient's heart rate well-controlled on amiodarone 200 mg twice daily Patient's blood pressure continues to remain soft requiring midodrine, will hold GDMT for now. Patient is pending discharge to [facility] facility Exam Vital Signs Temp Pulse Resp BP Pulse Ox O2 Del Method O2 Flow Rate 97.4 F 76 14 126/75 95 Room Air 2 04/19/25 08:00 04/19/25 08:03 04/19/25 08:00 04/19/25 08:03 04/19/25 08:00 04/19/25 08:00 04/18/25 20:00 FiO2 30 04/18/25 20:00 Narrative Exam General: Resting in bed; no acute distress; A&Ox3 Skin: Warm, dry, intact, no obvious rash. HEENT: NCAT, EOMI/PERRL, not icteric. External ears normal. No rhinorrhea. Moist mucous membranes Cardiovascular: Tunneled dialysis catheter in place. Regular rate, irregular rhythm, no murmur, +S1/S2. Respiratory: Lung kang clear to auscultation bilaterally GI: Soft, nontender, non-distended. No guarding or rebound tenderness. : No suprapubic tenderness. No flank tenderness bilaterally. Extremities: Trace edema LE, no cyanosis, no clubbing. Extremity pulses present Neuro: Grossly nonfocal. Moving all 4 extremities. CN not formally tested but appear grossly intact. Psychiatric: cooperative, appropriate affect Objective Labs 04/19/25 05:20 04/19/25 05:20 Labs: Laboratory Results - last 24 hr 04/19/25 05:20 WBC 9.2 RBC 2.64 L Hgb 9.0 L Hct 28.2 L MCV 107 H MCH 34.1 MCHC 31.9 RDW Std Deviation 64.8 H Plt Count 309 D Neut % (Auto) 59 Lymph % (Auto) 19 [place] % (Auto) 18 H Eos % (Auto) 3 Baso % (Auto) 1 Neut # (Auto) 5.4 Lymph # (Auto) 1.8 [place] # (Auto) 1.6 H Eos # (Auto) 0.3 Baso # (Auto) 0.1 Immature Gran # (Auto) 0.11 H Absolute Nucleated RBC 0.00 Immature Gran % 1 H Nucleated RBC % 0 Sodium 141 Potassium 4.3 Chloride 101 Carbon Dioxide 27.0 Anion Gap 13 BUN 46 H Creatinine 4.8 H* D Estim Creat Clear Calc 17.4 L eGFR 13 L* BUN/Creatinine Ratio 10 L Glucose 96 Calculated Osmolality 293 Calcium 9.6 Corrected Calcium 9.6 Phosphorus 5.0 Magnesium 2.2 Total Bilirubin 0.4 AST 72 H ALT 110 H Alkaline Phosphatase 66 Total Protein 7.7 Albumin 4.3 Globulin 3.4 Albumin/Globulin Ratio 1.3 ABG Interpretation ABG results: 04/08/25 04/08/25 04/14/25 04:01 06:11 10:26 ABG pH 7.19 L* 7.24 L Cancelled ABG pCO2 35 39 Cancelled ABG pO2 85 117 H D Cancelled ABG HCO3 13 L 17 L Cancelled ABG O2 Saturation 96 99 H Cancelled ABG Base Excess -14 L -10 L Cancelled VBG pH 7.43 VBG pCO2 39 VBG pO2 39 VBG Base Excess 1 Quality Measures Quality Measures VTE prophylaxis Assessment & Plan Assessment Current Active Medications: Generic Name Dose Route Start Last Admin Trade Name Freq PRN Reason Stop Dose Admin Acetaminophen 650 mg 04/08/25 08:06 04/18/25 16:56 Acetaminophen 325 Mg Tablet PO 05/08/25 08:05 650 mg Q6H PRN Administration PAIN OR FEVER > 100.4 Albuterol 2 puff 04/09/25 07:35 04/12/25 07:20 Albuterol Inh 8 Gm INH 05/09/25 07:34 2 puff Q6H PRN Administration SHORTNESS OF BREATH Amiodarone HCl 200 mg 04/15/25 21:00 04/19/25 08:03 Amiodarone Hcl 200 Mg Tablet PO 05/15/25 20:59 200 mg BID OLI Administration Apixaban 5 mg 04/18/25 09:45 04/19/25 08:04 Apixaban 2.5 Mg Tablet PO 05/18/25 09:44 5 mg BID OLI Administration Heparin Sodium (Porcine) 4,100 unit 04/14/25 08:32 04/18/25 10:56 Heparin Sod Inj 1000 Unit/Ml Vial 10 Ml INDWELLCAT 04/23/25 10:59 4,100 unit PRN PRN Administration DIALYSIS Hydroxyzine HCl 25 mg 04/13/25 14:18 04/17/25 02:53 Hydroxyzine Hcl 25 Mg Tablet PO 05/13/25 16:59 25 mg QID PRN Administration Anxiety Albumin Human 25 gm in 100 mls @ 100 mls/hr 04/16/25 10:10 Albuminex 25% Ivpb IV PRN PRN DIALYSIS Midodrine 10 mg 04/14/25 16:15 04/19/25 05:46 Midodrine 5 Mg Tablet PO 05/14/25 16:14 10 mg TID OLI Administration Ondansetron HCl 4 mg 04/08/25 08:06 04/15/25 20:24 Ondansetron Inj 2 Mg/Ml Inj 2 Ml IVP 05/08/25 08:05 4 mg Q6H PRN Administration NAUSEA OR VOMITING Protocol Quetiapine Fumarate 25 mg 04/14/25 21:00 04/18/25 21:20 Quetiapine Fumarate 25 Mg Tablet PO 05/14/25 20:59 25 mg HS OLI Administration Sevelamer Carbonate 800 mg 04/16/25 08:00 04/19/25 08:03 Sevelamer Carbonate 800 Mg Tablet PO 05/16/25 07:59 800 mg TIDWM OLI Administration Simethicone 80 mg 04/09/25 12:22 04/18/25 16:55 Simethicone 80 Mg Chew PO 05/09/25 12:21 80 mg QID PRN Administration GAS Tamsulosin HCl 0.4 mg 04/12/25 14:45 04/19/25 08:03 Tamsulosin Hcl 0.4 Mg Capsule PO 05/12/25 14:44 0.4 mg QDAY OLI Administration Plan Summary: Mr. Bustamante is a 64-year-old male with past medical history of hypertension, COPD, chronic kidney disease since 2020, significant history of smoking, BPH, chronic pain and lung nodule who presented to [facility] emergency department on April 08, 2025 with a chief complaint of altered mental status, nausea and vomiting. Patient had a rapid response called on 04/10/25 for tachycardia with heart rate 140?150s, EKG showed atrial fibrillation with rapid ventricular response, rate 118 patient was given 2.5 IV metoprolol tartrate and oral metoprolol succinate 50 mg and cardiology was consulted. #New onset atrial fibrillation, rate controlled -patient developed new onset A fib with RVR, asymptomatic, with rate 110-120 during dialysis and later HR peaked to 140s, and was confirmed on EKG. -Patient started on metoprolol succinate 50mg po qd. At the time of examination, BP ranged from 120s/70s with HR of 110s and was still in Afib on tele monitoring. -CHADSVASC score of 1 (0.6% stroke risk per year) and HASBLEED score 1: Low risk of major bleeding -Patient also has possible diastolic heart failure component for his fluid overload and considering it patient's chest Vascor is 2 and will be 65 in 1 year, hence discussed with the patient regarding anticoagulation and started on Eliquis. - On 04/14 morning when during dialysis, HR increased to 170 with BP 127/80. Patient was given IV Metoprolol tartrate 5mg x1. Was not given the oral metoprolol to XL this morning and blood pressure is on the lower side.. Currently, his BP is 106/77 with HR in 150s. Patient has been started started on Amiodarone drip. -ECHO (04/10/2025) showed 1. Left ventricle size is normal and systolic function is mildly reduced. Estimated ejection fraction is 45-50%. There is indeterminate diastolic function. 2. Right ventricle chamber size is normal and systolic function is normal. Estimated RVSP is 15 mmHg. 3. There is moderate aortic valve sclerosis with no stenosis and mild regurgitation. 4. There is mild mitral and trace tricuspid valve regurgitation. Trace PI. 5. The left atrium is mildly enlarged. The right atrium is normal. 6. Normal IVC with estimated RA pressure 3 mmHg. Plan: - Continue amiodarone 200 mg twice daily and midodrine 10 mg p.o. 3 times daily. - Eliquis was resumed, continue - Patient will need metoprolol outpatient once blood pressure able. - Keep potassium greater than 4 and magnesium greater than 2 at all times - Telemetry monitoring - Patient will need outpatient Holter monitoring to assess for atrial fibrillation burden #Systolic heart failure with mildly reduced ejection fraction, EF 45 to 50% Patient presented with fluid overload status and JASON, no significant cardiac history, Troponin on presentation negative, denied any chest pain. In-house echocardiogram does show mildly reduced ejection fraction EF 45 to 50%. Iron panel obtained today shows iron 11, TIBC 239, iron saturation 4%, ferritin 298, unsaturated iron binding 228 Recommendations: - Management of fluid status per nephrology, continue dialysis - Strict intake and output, fluid restriction 1500 cc, daily weight, low-sodium diet - Consider starting patient on ANSHU/ARB/ARNI and low-dose metoprolol as blood pressure tolerates; currently unable as blood pressure is soft and patient is requiring midodrine. - Patient will need outpatient ischemia workup to rule out ischemic cardiomyopathy including a stress test - Aspirin discontinued, can be discharged on Eliquis only -Was given Feraheme 510mg x 1 04/16 #Hypertension -Start patient on ANSHU/ARB/ARNI and low-dose metoprolol as blood pressure tolerates. -Currently patient is hypotensive requiring midodrine. #JASON on CKD worsened to ESRD #Anemia of chronic disease, iron deficiency anemia #ESRD, new hemodialysis March 2025 #Hyperkalemia, resolved #NAGMA, resolved #AHRF, improving #COPD #BPH #Macrocytic anemia -Management per Primary Hospitalist team Thank you for the consult and allowing to participate in the care of the patient. Cardiology will continue to follow. Case discussed with Attending Physician Dr. Vinay Ibrahim MD Internal Medicine PGY-2 Disclaimer: This note was dictated by speech recognition. Minor errors in doctor of veterinary medicine may be present due to voice recognition software. Attending Provider Attestation/Addendum I have personally seen and examined the patient separately on the above date of service and discussed the plan of care with the resident. I reviewed the resident Dr. Jo Ibrahim consultation progress note and agree with the resident findings and plan in the note above and have also edited the documentation to reflect my findings and plan. Vinay Rooney M.D. Interventional Cardiology
--- NOTE | 2025-04-19 09:14 | PC.SS ---
Update: Insurance authorization was denied for SNF. Patient to be re-evaluated by PT to determine if eligible for SNF by patient's insurance.
--- NOTE | 2025-04-19 09:43 | PC.SS ---
Addendum entered by PREETI Wright 04/19/25 12:33: Patient was provided with clothing (shirt and shorts) as RN mentioned the patient did not have proper clothing available. Patient now states he no longer needs transport arranged as his product responsibility liaison will be picking him up. ESTER Tracey was notified. Addendum entered by PREETI Wright 04/19/25 12:10: Update: Contacted [facility] on [address] and spoke with charge nurse Maren who informed patient's chair time schedule will be /Fri at 11am. Due to the holiday this week, she informed that the patient's first appointment to be on Friday04/20/25 at 11am however the schedule to resume following such. Patient was notified and was provided with the dialysis chair time information. Patient is aware that he has to arrange his own transport to dialysis and is agreeable. A DME referral for rollator walker was submitted on behalf of the patient, the patient was informed and should wait to hear back if approved by his insurance. Patient states he will return home at discharge and has confirmed his friend Leila to be at home. Patient's bedside RN Kyung is also aware. Patient informs he will need transport services arranged to return home today at discharge. RN to notify social media editor what time transport should be arranged. Original Note: PREETI informed by PT staff that following evaluation recommendation for patient to discharge home with home health. PT recommending rollating walker. hotel services sales representative to contact dialysis center to provided notification that patient is discharging home not to [facility] in order to obtain dialysis schedule.
--- NOTE | 2025-04-19 10:25 | ESDS_ITS ---
<Statement entered by Vanessa Grace DO - 04/19/25 16:01> I, Vanessa Grace DO, attest that I was physically present for the soto portions of the service and evaluated the patient with the resident and I reviewed and discussed the case with the resident and agree with the resident's findings and plans of care as documented above Planned Discharge Date 04/19/25 DS: Providers Provider Date of admission: 04/08/25 15:52 Primary care physician: Yosi Jenkins MD Admitting Provider: Gavin Chou MD Attending Provider on Admission: Vanessa Grace DO Consults: 04/08/25 08:43 Consult to Nephrology Routine Comment: Consulting Provider: Dyan Swann 04/10/25 12:34 Consult to Cardiology Stat Comment: Consulting Provider: Vinay Rooney Instructions: New onset atrial fibrillation, new hemodialysis 04/14/25 07:23 Consult to General Surgery Routine Comment: refractory bleeding s/p placement of tunneled cath Consulting Provider: José Antonio Barros 04/15/25 10:18 Referral Physical Therapy Stat Comment: Physician Instructions: Attending Provider on DC: Vanessa Grace DO Discharging Provider: Vanessa Grace DO DS: Diagnosis Problem List Completed Was Problem List Reviewed/Reconciled?: Yes Hospital Course Hospital Course Hospital course: 64 y/o male with Hx of HTN, COPD, CKD BIBA from home presents to ED at [facility] with chief complaint of decreased mentation and vomiting x3 days. Patient came in with mildly decreased GCS of 14, was lethargic and notably short of breath with diffuse anasarca. Patient was found to have potassium of 7.8 and elevated BUN and creatinine and was given hyperkalemic cocktail including albuterol, insulin, dextrose, calcium gluconate. Patient had a temporary dialysis line inserted for immediate hemodialysis with Laser Specialist Dr. Swann. Patient tolerated dialysis well initially and for the most part, but was found to have bleeding from the dialysis catheter site which resolved and had TXA applied on gauze for the bleeding. Patient was noted to have dropping hemoglobin and was transfused one unit prbc. Patient was able to get an outpatient chair time, arrange by Dr. Swann. During one of the patient's dialysis sessions, patient was noted to have atrial fibrillation with RVR, which resolved after being given 2 pushes IV of metoprolol tartrate. Patient was started on metoprolol succinate but that needed to be discontinued due to soft blood pressure, patient was prescribed midodrine for soft blood pressures. Eliquis was held during majority of this patient's time after the A-fib due to the concern for bleeding, however patient was restarted at the end of the hospitalization on Eliquis. Computer Builder signs of active bleeding was noted, and Hgb remained stable for the remainder of his time in the hospital. Patient was initially on amiodarone drip during the time Eliquis was held, and was transitioned to amiodarone 200 mg twice daily. Patient being discharged from the hospital in stable condition breathing on room air, with home health PT, discharge instructions below. Discharge Instructions ? Start taking amiodarone 200 mg twice daily and eliquis 5 mg twice daily for your atrial fibrillation - You have been prescribed a blood thinner, which can cause bleeding so please be careful with falls, if you have an injury or fall please immediately go to the ED ? Take midodrine 10 mg only if your blood pressure is low (follow parameters given) ? Hold your losartan and amlodipine until you follow-up with your ordering box operator and/or PCP ? We stopped your gabapentin, nifedipine, meloxicam ? Continue taking all other home medications as prescribed ? Follow-up with PCP within 1-2 weeks of discharge ? Follow-up with cardiology within 1-2 weeks of discharge ? Follow-up with chart picker Dr. Swann within 1-2 weeks of discharge [facility] on [address], patient's chair time schedule will be /Fri at 11am. Due to the holiday this week, she informed that the patient's first appointment to be on Friday04/20/25 at 11am ? Recommend to get a sleep study to rule out obstructive sleep apnea ? Record your weight daily, recommend to limit fluid in take to 1.5-2 L/day, and stay away from foods high in potassium and sodium ? If you do not have a PCP, you can follow-up at [facility] (you can call [phone] to make an appointment) ? Return to ED if symptoms worsen or recur #JASON on CKD #ESRD #Hyperkalemia #NAGMA #Bleeding from Perm cath #Acute encephalopathy #Hospital-acquired delirium #Suspected SOREN #New onset atrial fibrillation with RVR, rate-controlled #Acute hypoxic respiratory failure #Hx of COPD #Hypotension #Hypertension #BPH #Acute blood loss anemia #Macrocytic anemia #Anxiety Patient plan of care was discussed with the attending physician, Dr. Grace & senior resident Markus Wick MD PGY-1 Time Spent with Patient Time attestation: Total time spent providing and/or coordinating discharge services: Time spent: Greater than 30 minutes Exam Vital Signs Temp Pulse Resp BP Pulse Ox O2 Del Method O2 Flow Rate 97.4 F 76 14 126/75 95 Room Air 2 04/19/25 08:00 04/19/25 08:03 04/19/25 08:00 04/19/25 08:03 04/19/25 08:00 04/19/25 08:00 04/18/25 20:00 FiO2 30 04/18/25 20:00 Narrative Exam General: No acute distress; A&Ox3 Skin: Warm, dry, intact, no obvious rash. HENT: NCAT, EOMI/PERRL, not icteric. External ears normal. No rhinorrhea. Moist mucous membranes Cardiovascular: Regular rate and rhythm, no murmur, +S1/S2. Respiratory: Lungs CTAB, GI: Soft, nontender, non-distended. No guarding or rebound tenderness. : No suprapubic tenderness. No flank tenderness bilaterally. Extremities: trace edema, no cyanosis, no clubbing. Extremity pulses present Neuro: Grossly nonfocal. Moving all 4 extremities. CN not formally tested but appear grossly intact. Psychiatric: Cooperative, appropriate affect. Discharge Plan Plan Patient Disposition: Home w/HOME HEALTH Patient condition on transfer: Stable Care Plan Goals: ? Start taking amiodarone 200 mg twice daily and eliquis 5 mg twice daily for your atrial fibrillation -You have been prescribed a blood thinner, which can cause bleeding so please be careful with falls, if you have an injury or fall please immediately go to the ED ? Take midodrine 10 mg only if your blood pressure is low (follow parameters given) ? Hold your losartan and amlodipine until you follow-up with your ordering box operator and/or PCP ? We stopped your gabapentin, nifedipine, meloxicam ? Continue taking all other home medications as prescribed ? Follow-up with PCP within 1-2 weeks of discharge ? Follow-up with cardiology within 1-2 weeks of discharge ? Follow-up with chart picker Dr. Swann within 1-2 weeks of discharge [facility] on [address], patient's chair time schedule will be /Fri at 11am. Due to the holiday this week, she informed that the patient's first appointment to be on Friday04/20/25 at 11am ? Recommend to get a sleep study to rule out obstructive sleep apnea ? Record your weight daily, recommend to limit fluid in take to 1.5-2 L/day, and stay away from foods high in potassium and sodium ? If you do not have a PCP, you can follow-up at [facility] (you can call [phone] to make an appointment) ? Return to ED if symptoms worsen or recur Prescriptions/Referrals Prescriptions/Med Rec: New tamsulosin 0.4 mg Capsule 0.4 mg PO QDAY Qty: 90 0RF simethicone 80 mg Tablet,Chewable 80 mg PO QID PRN (Reason: Gas) Qty: 90 0RF amiodarone 200 mg Tablet 200 mg PO BID 14 Days Qty: 28 0RF apixaban 5 mg tablet 5 mg PO BID 30 Days Qty: 60 0RF midodrine 10 mg tablet 10 mg PO TID PRN (Reason: hypotension) 30 Days Qty: 60 0RF Rx Instructions: Give if SBP < 90 or DBP < 60 or MAP < 65 Continued albuterol sulfate 90 mcg/actuation Hfa Aerosol Inhaler 2 puff INHALATION Q6H PRN (Reason: Shortness Of Breath) fluticasone propionate 50 mcg/actuation [place],Suspension 1 spray INTRANASAL QDAY acetaminophen 500 mg tablet 500 mg PO Q6H PRN (Reason: pain) Patient Comments: TAKE 1 TABLET BY MOUTH EVERY 6 HOURS NEEDED FOR 14 DAYS baclofen 10 mg tablet 10 mg PO DAILY PRN (Reason: muscle spasm) Patient Comments: TAKE 1 TABLET BY MOUTH EVERY DAY NEEDED FOR 90 DAYS tiotropium bromide [Spiriva with HandiHaler] 18 mcg capsule, w/inhalation device 1 cap inhalation QDAY Rx Instructions: puncture 1 cap using device; one dose = 2 inhalations Held losartan 100 mg tablet 100 mg PO DAILY Hold Instructions: Resume on 04/27/25. Patient Comments: TAKE 1 TABLET BY MOUTH EVERY DAY FOR 90 DAYS amlodipine 10 mg tablet 10 mg PO QDAY Hold Instructions: Resume on 04/27/25. Discontinued tamsulosin [Flomax] 0.4 mg capsule 0.4 mg PO QDAY nifedipine 30 mg tablet extended release 30 mg PO DAILY gabapentin 300 mg capsule 300 mg PO TID Patient Comments: TAKE 1 CAPSULE BY MOUTH THREE TIMES A DAY meloxicam 15 mg tablet 15 mg PO QDAY Patient Comments: TAKE 1 TABLET BY MOUTH EVERY DAY gabapentin 600 mg tablet 600 mg PO TID Patient Comments: TAKE 1 CAPSULE BY MOUTH THREE TIMES DAY prednisone 20 mg tablet 20 mg PO QDAY aspirin [Adult Aspirin Regimen] 81 mg tablet,delayed release (DR/EC) 81 mg PO QDAY Referrals: Vinay Rooney MD [Referring Provider, Cardiology] Yosi Jenkins MD [Primary Care Provider] Dyan Swann MD [Physician, Nephrology] Patient/Caregiver Discharge Instructions Discharge Activity: as per physical therapy Education Materials: AFL/Afib, Caring for Your Hemodialysis Access, Acute Kidney Failure Dc Print Language: Korean Stand Alone Forms: Manisha Award Info., Patient Portal Info Letter Discharge Order Discharge Orders: Discharge (Routine); Ordered 04/19/25 Ordered By: José Garcia Quality Discharge Quality Measures VTE prophylaxis
--- NOTE | 2025-04-19 11:38 | PC.PT ---
Patient will be dc from PT services, patient is I with transfers and ambulation with AD.
--- NOTE | 2025-04-20 18:12 | PC.CC ---
hh ref sent out, [facility] accepted and booked, soc pending
--- NOTE | 2025-04-25 10:11 | PC.CC ---
SOC for HH is 04/25
== END 2025-04-19 13:15 | disposition home health service (06) | DRG 469 ==
LOC: SERX 03:46 → SERHOLD 07:35 → S2NX 04-11 07:16 → S3NX 04-11 07:16
PROVIDERS: Internal Medicine Nephrology; Student in an Organized Health Care Education/Training Program; Admitting Provider Internal Medicine Critical Care Medicine; Emergency Provider Emergency Medicine; PCP Family Medicine; Visit Provider Internal Medicine
DX: N17.9 Acute kidney failure, unspecified (principal); I11.0 Hypertensive heart disease with heart failure; N40.0 Benign prostatic hyperplasia without lower urinary tract symptoms; E87.5 Hyperkalemia; D53.9 Nutritional anemia, unspecified; D62 Acute posthemorrhagic anemia; D63.1 Anemia in chronic kidney disease; F41.9 Anxiety disorder, unspecified; Z99.2 Dependence on renal dialysis; Z79.899 Other long term (current) drug therapy; Z87.891 Personal history of nicotine dependence; Z79.01 Long term (current) use of anticoagulants; Z79.82 Long term (current) use of aspirin; G93.49 Other encephalopathy; I50.20 Unspecified systolic (congestive) heart failure; Z78.1 Physical restraint status; E87.20 Acidosis, unspecified; J96.01 Acute respiratory failure with hypoxia; I35.8 Other nonrheumatic aortic valve disorders; T82.838A Hemorrhage due to vascular prosthetic devices, implants and grafts, initial encounter; Y84.1 Kidney dialysis as the cause of abnormal reaction of the patient, or of later complication, without mention of misadventure at the time of the procedure; N18.6 End stage renal disease; I48.91 Unspecified atrial fibrillation; I13.2 Hypertensive heart and chronic kidney disease with heart failure and with stage 5 chronic kidney disease, or end stage renal disease; D72.829 Elevated white blood cell count, unspecified; I95.9 Hypotension, unspecified
CPT/HCPCS: 36415; 36600; 51702; 70450; 71045; 71250; 74176; 76770; 76937; 77001; 80048; 80053; 80069; 80074; 80329; 81001; 82140; 82607; 82728; 82746; 82803; 83036; 83540; 83550; 83605; 83735; 84100; 84145; 84439; 84443; 84484; 85014; 85018; 85025; 85610; 85730; 86580; 86850; 86900; 86901; 86923; 87040; 87081; 87086; 87502; 87635; 90935; 93005; 93225; 93306; 94640; 94660; 94664; 94762; 96361; 96372; 96374; 96376; 97161; 97162; 99291; 99292; A4216; A4314; A4649; C1750; C1894; J0283; J0612; J1200; J1630; J1642; J1643; J1644; J1815; J1938; J2358; J2405; J3010; J3290; J3410; J3475; J3480; J3490; J7050; J7060; J7120; P9016; P9047; Q0139; Q5106; A9270; G0257; G0480; J2359; J7611